=== PATIENT | female | born 1950 | race Caucasian/White ===

== ENCOUNTER 2020-02-24 12:06 | Emergency (ER) | payer MEDICARE, MEDICAID ==
[~2020-02-24] VITALS: Ht 157 cm; Wt 54.1 kg
--- NOTE | 2020-02-24 12:53 | Diagnostic Imaging Report ---
INDICATION: Shortness of breath. FINDINGS: Heart size is normal. There is air trapping compatible with COPD. There is right basilar infiltrate. No pleural effusion or pneumothorax. Mediastinum is unremarkable IMPRESSION: 1. Right basilar infiltrate suspect for pneumonia. 2. COPD. Dictated by: Dictated on workstation # [id number]
--- NOTE | 2020-02-24 13:16 | ED Cough/URI ---
General Chief Complaint: Respiratory Problems Stated Complaint: SOA Nursing Triage Note: Has had 3 days of increasing shortness of breath and coughing up dark colored sputum. Has hx of copd. Denies fever. Wears oxygen daily. Sepsis Screen: Possible Sepsis Risk Source: patient History of Present Illness Date Seen by Provider: Feb 24, 2020 Time Seen by Provider: 13:16 Initial Comments 69-year-old female presenting with cough and increasing shortness of breath over the last 3-4 days. She does have a history of COPD and wears oxygen chronically. She denies any fever or chills. She has had increased shortness of breath with exertion. She denies any ill contacts and states that she stays at home primarily. She states that mostly what she coughs up has been clear but there has been some color in the last 24 hours. She denies any hemoptysis. She has no nausea or vomiting. She has no medicines that she has run out of. Allergies and Home Medications Allergies Coded Allergies: No Allergy Information Available (Unverified , 08/14/15) Home Medications Azithromycin 500 Mg Tablet, 500 MG PO DAILY Prescribed by: DAMON NORIEGA on 02/24/20 1344 Patient Home Medication List Home Medication List Reviewed: Yes Review of Systems Review of Systems Constitutional: No chills, No fever; malaise EENTM: No epistaxis, No nose congestion Respiratory: see HPI Cardiovascular: no symptoms reported Gastrointestinal: no symptoms reported Genitourinary: no symptoms reported Musculoskeletal: no symptoms reported Skin: No rash Psychiatric/Neurological: No Symptoms Reported Past [place]-Eawxkz-Knhitb Hx Past Med/Social Hx: Reviewed Nursing Past Med/Soc Hx Patient Social History Alcohol Use: Denies Use Recreational Drug Use: No Smoking Status: Current Everyday Smoker Type Used: Cigarettes 2nd Hand Smoke Exposure: Yes Recent Foreign Travel: No Contact w/Someone Who Travel: No Recent Infectious Disease Expo: No Recent Hopitalizations: No Physical Abuse: No Sexual Abuse: No Mistreated: No Fear: No Seasonal Allergies Seasonal Allergies: No Past Medical History Surgeries: Yes Coronary Stent Respiratory: Yes COPD Cardiac: Yes Hypertension Neurological: No Genitourinary: No Gastrointestinal: No Musculoskeletal: No Endocrine: No HEENT: No Cancer: No Psychosocial: Yes Anxiety Integumentary: No Physical Exam Vital Signs - First Documented 02/24/20 12:20 Temp 36.5 Pulse 107 Resp 24 B/P (MAP) 138/86 (103) Pulse Ox 99 O2 Flow Rate 3.00 Capillary Refill : Less Than 3 Seconds Height: '" Weight: lbs. oz. kg; 21.00 BMI Method: General Appearance: mild distress, thin, other (appears chronically ill) HEENT: No pharyngeal erythema, No tonsillar exudate; other (slightly dry mucous membranes) Neck: non-tender, full range of motion, supple, lymphadenopathy (R), lymphadenopathy (L) Respiratory: chest non-tender, decreased breath sounds; No crackles, No rales, No rhonchi, No stridor; wheezing (diffuse inspiratory and expiratory wheezing) Cardiovascular: normal peripheral pulses, regular rate, rhythm Gastrointestinal: normal bowel sounds, soft, no pulsatile mass Extremities: normal range of motion, normal capillary refill Neurologic/Psychiatric: alert, oriented x 3 Skin: normal color, warm/dry; No rash Progress/Results/Core Measures Suspected Sepsis Recent Fever Within 48 Hours: No Infection Criteria Present: Suspected New Infection New/Unexplained Altered Menta: No Sepsis Screen: Possible Sepsis Risk SIRS Temperature: Pulse: 107 Respiratory Rate: 24 Blood Pressure 138 /86 Mean: 103 Results/Orders My Orders Orders - DAMON NORIEGA MD Chest 1 View Ap/Pa Only (02/24/20 12:30) Ekg Tracing (02/24/20 12:52) Ceftriaxone For Im Use (Rocephin For Im (02/24/20 13:38) Dexamethasone Injection (Decadron Inje (02/24/20 13:38) Methylprednisolone Acetate Inj (Depo-Med (02/24/20 13:38) Azithromycin Tablet (Zithromax Tablet) (02/24/20 13:38) Lidocaine 1% Inj 20 Ml (Xylocaine 1% Inj (02/24/20 13:45) Medications Given in ED Current Medications Medications Dose Ordered Sig/Neetu Route Start Time Stop Time Status Last Admin Dose Admin Lidocaine HCl 2.1 ml ONCE ONCE INJ 02/24/20 13:45 02/24/20 13:46 DC 02/24/20 14:08 2.1 ML Vital Signs/I&O 02/24/20 02/24/20 12:20 14:21 Temp 36.5 Pulse 107 81 Resp 24 20 B/P (MAP) 138/86 (103) 133/58 Pulse Ox 99 99 O2 Flow Rate 3.00 Capillary Refill : Less Than 3 Seconds Blood Pressure Mean: 103 Progress Note : Progress Note obtain x-ray and electrocardiogram. The electrocardiogram does not show any acute significant abnormality. Her chest x-ray does show a right lower lobe infiltrate. When reviewing results with the patient she states that she has taken steroids in addition to Zithromax in the past. Since she is saturating 100% with her oxygen at 3 L from home will start her on antibiotics including a Rocephin IM shot and steroids with IM injections. Counseled to follow-up through the clinic for continued concerns or if not improving. Advised to use a humidifier at the bedside and Mucinex to help break up her congestion. ECG Initial ECG Impression Date: Feb 24, 2020 Initial ECG Impression Time: 12:34 Initial ECG Rate: 78 Initial ECG Rhythm: Normal Sinus Initial ECG Comparisson: No Previous ECG Available Comment normal sinus rhythm with heart rate is 78 bpm. CO interval [address] elevation. She does have premature ventricular complexes. Her QT interval is 390 ms with a QTc interval of 445 ms. There is no prior tracing available for comparison. Diagnostic Imaging Diagonstic Imaging: Xray Plain Films/CT/US/NM/MRI: chest Comments [facility] [place], [place] NAME: MARLA CRAMER [facility] REC#: [id number] PT STATUS: REG ER : 1950 PHYSICIAN: DAMON NORIEGA MD ADMIT DATE: 02/24/20/ER FS Signed Date of Exam:02/24/20 CHEST 1 VIEW AP/PA ONLY INDICATION: Shortness of breath. FINDINGS: Heart size is normal. There is air trapping compatible with COPD. There is right basilar infiltrate. No pleural effusion or pneumothorax. Mediastinum is unremarkable IMPRESSION: 1. Right basilar infiltrate suspect for pneumonia. 2. COPD. Dictated by: Dictated on workstation # [id number] Dict: 02/24/20 1243 Trans: 02/24/20 1313 [facility] [id number] Interpreted by: HERMES ONEILL MD Electronically signed by: HERMES ONEILL MD 02/24/20 1313 Departure Impression Primary Impression: Right lower lobe pneumonia Qualified Codes: J18.9 - Pneumonia, unspecified organism Additional Impression: COPD (chronic obstructive pulmonary disease) Qualified Codes: J44.0 - Chronic obstructive pulmonary disease with (acute) lower respiratory infection Disposition: 01 HOME, SELF-CARE Condition: Stable Departure-Patient Inst. Decision time for Depature: 13:41 Referrals: KEELY SHARIF MD (PCP/Family) Primary Care Physician Patient Instructions: Pneumonia, Adult (DC), Exacerbation of COPD (DC) Add. Discharge Instructions: Take the full course of antibiotics to treat for pneumonia. Use plain Mucinex to help loosen cough and improve your coughing up congestion. Follow up with Dr. Sharif in the clinic for continued symptoms or if not improving from the steroids and antibiotics from today. You may need to have other medicine or be hospitalized if you are not improving after 2-3 days of treatment All discharge instructions reviewed with patient and/or family. Voiced understanding. Scripts Azithromycin (Azithromycin) 500 Mg Tablet 500 MG PO DAILY for Pneumonia for 5 Days, #5 TAB 0 Refills Prov: DAMON NORIEGA MD 02/24/20 DAMON NORIEGA MD Feb 24, 2020 13:16
[2020-02-24] MEDS ORDERED: AZITHROMYCIN 250 MG TAB (ZITHROMAX) PO STA (13:38)
[2020-02-24] MEDS ORDERED: cefTRIAXone 1,000 MG/2.86 ml vial (IM ONLY) IM STA (13:38)
[2020-02-24] MEDS ORDERED: methylPREDNISolone 80 MG/ML (DEPO MEDROL) VIAL IM STA (13:38)
[2020-02-24] MEDS ORDERED: AZIT500T9 PO (13:44)
[2020-02-24] MEDS ORDERED: LIDOCAINE 1% INJ 20 ML 20 ML VIAL INJ ONE (13:45)
--- NOTE | 2020-02-24 14:04 | NUR ---
Updated [facility] and patient's mother, Ashley, on patient condition and admission to room 511 at [facility].
[2020-02-24 14:21] VITALS: BP 133/58
== END 2020-02-24 14:21 | disposition home or self-care (01) ==
LOC: EDUNIT# 12:06 → ER FS 12:07
DX: J18.1 Lobar pneumonia, unspecified organism (principal); J44.9 Chronic obstructive pulmonary disease, unspecified; F17.210 Nicotine dependence, cigarettes, uncomplicated; Z95.5 Presence of coronary angioplasty implant and graft
CPT/HCPCS: 71045; 93005

== ENCOUNTER → 2022-04-13 | Outpatient (CLI) | payer MEDICARE, MEDICAID ==
[~2022-04-13] MED LIST: AZIT500T9 PO
== END ==
LOC: CARDFS 12:43
PROVIDERS: ATTEND Internal Medicine Cardiovascular Disease
DX: I25.10 Atherosclerotic heart disease of native coronary artery without angina pectoris (principal)
CPT/HCPCS: 93306

== ENCOUNTER 2022-05-23 09:58 | Inpatient (IN) | payer MEDICARE, MEDICAID ==
[~2022-05-23] VITALS: Ht 157.5 cm; Wt 47.5 kg
[2022-05-23] MEDS ORDERED: methylPREDNISolone 125 MG (Solu-MEDROL) VIAL IVP STA (10:09)
[2022-05-23 10:14] LABS: BASOPHILS # (AUTO) 0.1 10^3/uL (0.0-0.1); BASOPHILS % (AUTO) 0 % (0-10); EOSINOPHILS % (AUTO) 0 % (0-10); HEMATOCRIT 42 % (35-52); HEMOGLOBIN 13.7 g/dL (11.5-16.0); LYMPHOCYTES % (AUTO) 7 % (12-44); MEAN CORPUSCULAR HEMOGLOBIN 27 pg (25-34); MEAN CORPUSCULAR HGB CONC 33 g/dL (32-36); MEAN CORPUSCULAR VOLUME 82 fL (80-99); MEAN PLATELET VOLUME 8.8 fL (9.0-12.2); MONOCYTES # (AUTO) 1.6 10^3/uL (0.0-1.0); MONOCYTES % (AUTO) 12 % (0-12); NEUTROPHILS % (AUTO) 80 % (42-75); PLATELET COUNT 282 10^3/uL (130-400); WHITE BLOOD COUNT 13.8 10^3/uL (4.3-11.0)
[2022-05-23] MEDS ORDERED: RT-ALBUTEROL/IPRATROPIUM 3 ML (DUONEB) VIAL INH ONE (10:15)
--- NOTE | 2022-05-23 10:17 | ED Dyspnea ---
General Chief Complaint: Respiratory Problems Stated Complaint: SOB, COPD Source of Information: Patient History of Present Illness Date Seen by Provider: May 23, 2022 Time Seen by Provider: 10:00 Initial Comments 72-year-old female presenting with increased shortness of breath since Tuesday. She denies having fever or chills. She has been coughing more and bringing up some thick white sputum. With the increased coughing she has rib pain and back pain. She denies any ill contacts. She has a history of COPD, coronary artery disease, noncompliance. She continues to smoke cigarettes. She has supplemental oxygen she wears all the time and is at 2 L/min. She states that she increased it to 3 L/min today because she was more short of breath. She presents today because she states that she cannot take it anymore. She wants her breathing to go back to normal. Timing/Duration: Increasing (over the last 3 days) Severity: Severe Activities at Onset: Activity Prior Episodes/Possible Cause: Chronic Episodes, Frequent Episodes Modifying Factors: Worse With Activity Associated Symptoms: Anxiety, Chest Pain (rib and back pain with increased cough and shortness of breath), Cough, Weakness, Wheezing Allergies and Home Medications Allergies Coded Allergies: No Known Drug Allergies (Unverified , 05/23/22) Patient Home Medication List Home Medication List Reviewed: Yes Azithromycin (Azithromycin) 500 Mg Tablet, 500 MG PO DAILY Prescribed by: DAMON NORIEGA on 02/24/20 1344 Review of Systems Review of Systems Constitutional: No chills, No fever; malaise EENTM: no symptoms reported Respiratory: see HPI, cough, dyspnea on exertion; No hemoptysis; phlegm (coug landry up thick white mucus), short of breath; No stridor; wheezing Cardiovascular: see HPI Gastrointestinal: no symptoms reported Genitourinary: no symptoms reported Musculoskeletal: back pain (upper back and rib pain with increased cough) Skin: no symptoms reported Psychiatric/Neurological: Anxiety Past Lntwixi-Yjkkjd-Hpxajv Hx Patient Social History Tobacco Use?: Yes Tobacco type used: Cigarettes Smoking Status: Current Everyday Smoker Seasonal Allergies Seasonal Allergies: No Past Medical History Surgery/Hospitalization HX: COPD, CAD, Tobacco abuse Surgeries: Yes Coronary Stent Respiratory: Yes COPD Cardiac: Yes Hypertension Neurological: No Genitourinary: No Gastrointestinal: No Musculoskeletal: No Endocrine: No HEENT: No Cancer: No Psychosocial: Yes Anxiety Integumentary: No Physical Exam Vital Signs Vital Signs - First Documented 05/23/22 10:23 Temp 37.0 Pulse 71 Resp 34 B/P (MAP) 150/77 (101) Capillary Refill : Height, Weight, BMI Height: '" Weight: lbs. oz. kg; 21.00 BMI Method: General Appearance: Anxious, Chronically ill HEENT: PERRL/EOMI, Pharynx Normal, Moist Mucous Membranes Neck: Full Range of Motion, Normal Inspection, Non Tender, Supple Respiratory: Chest Non Tender, Accessory Muscle Use, Decreased Breath Sounds, Respiratory Distress, Wheezing Cardiovascular: Regular Rate, Rhythm, Normal Peripheral Pulses Gastrointestinal: Normal Bowel Sounds, No Pulsatile Mass, Non Tender, Soft Neurologic/Psychiatric: Alert, Oriented x3 Skin: Normal Color, Warm/Dry Focused Exam Lactate Level 05/23/22 10:00: Lactic Acid Level 1.57 Lactic Acid Level Laboratory Tests Test 05/23/22 10:00 Lactic Acid Level 1.57 MMOL/L (0.50-2.00) Progress/Results/Core Measures Results/Orders Lab Results Laboratory Tests Test 05/23/22 10:00 05/23/22 11:40 Range/Units White Blood Count 13.8 H 4.3-11.0 10^3/uL Red Blood Count 5.14 H 3.80-5.11 10^6/uL Hemoglobin 13.7 11.5-16.0 g/dL Hematocrit 42 35-52 % Mean Corpuscular Volume 82 80-99 fL Mean Corpuscular Hemoglobin 27 25-34 pg Mean Corpuscular Hemoglobin Concent 33 32-36 g/dL Red Cell Distribution Width 16.9 H 10.0-14.5 % Platelet Count 282 130-400 10^3/uL Mean Platelet Volume 8.8 L 9.0-12.2 fL Immature Granulocyte % (Auto) 0 % Neutrophils (%) (Auto) 80 H 42-75 % Lymphocytes (%) (Auto) 7 L 12-44 % Monocytes (%) (Auto) 12 0-12 % Eosinophils (%) (Auto) 0 0-10 % Basophils (%) (Auto) 0 0-10 % Neutrophils # (Auto) 11.0 H 1.8-7.8 10^3/uL Lymphocytes # (Auto) 1.0 1.0-4.0 10^3/uL Monocytes # (Auto) 1.6 H 0.0-1.0 10^3/uL Eosinophils # (Auto) 0.0 0.0-0.3 10^3/uL Basophils # (Auto) 0.1 0.0-0.1 10^3/uL Immature Granulocyte # (Auto) 0.1 0.0-0.1 10^3/uL Neutrophils % (Manual) 86 % Lymphocytes % (Manual) 6 % Monocytes % (Manual) 8 % Sodium Level 131 L 135-145 MMOL/L Potassium Level 5.1 H 3.6-5.0 MMOL/L Chloride Level 94 L 98-107 MMOL/L Carbon Dioxide Level 23 21-32 MMOL/L Anion Gap 14 5-14 MMOL/L Blood Urea Nitrogen 18 7-18 MG/DL Creatinine 0.99 0.60-1.30 MG/DL Estimat Glomerular Filtration Rate 61 BUN/Creatinine Ratio 18 Glucose Level 101 70-105 MG/DL Lactic Acid Level 1.57 0.50-2.00 MMOL/L Calcium Level 10.1 8.5-10.1 MG/DL Corrected Calcium 9.9 8.5-10.1 MG/DL Total Bilirubin 0.6 0.1-1.0 MG/DL Aspartate Amino Transf (AST/SGOT) 16 5-34 U/L Alanine Aminotransferase (ALT/SGPT) 8 0-55 U/L Alkaline Phosphatase 123 40-136 U/L C-Reactive Protein 5.30 H <0.50 MG/DL Total Protein 8.5 H 6.4-8.2 GM/DL Albumin 4.2 3.2-4.5 GM/DL Influenza Type A (RT-PCR) Not Detected Not Detecte Influenza Type B (RT-PCR) Not Detected Not Detecte SARS-CoV-2 RNA (RT-PCR) Not Detected Not Detecte My Orders Orders - DAMON NORIEGA MD Cbc With Automated Diff (05/23/22 10:09) Comprehensive Metabolic Panel (05/23/22 10:09) Blood Culture (05/23/22 10:09) Chest 1 View Ap/Pa Only (05/23/22 10:09) Albuterol/Ipra Inhalation Soln (Duoneb I (05/23/22 10:15) Ekg Tracing (05/23/22 10:09) O2 (05/23/22 10:09) Ed Iv/Invasive Line Start (05/23/22 10:09) Sputum Culture (05/23/22 10:09) Monitor-Rhythm Ecg Trace Only (05/23/22 10:09) Crp Fs (05/23/22 10:09) Lactic Acid Analyzer (05/23/22 10:09) Svn Small Volume Nebulizer (05/23/22 10:09) Methylprednisolone Sod Succ (Solu-Medrol (05/23/22 10:09) Manual Differential (05/23/22 10:00) Covid 19 Inhouse Test (05/23/22 11:33) Influenza A And B By Pcr (05/23/22 11:33) Isolation Central Supply Req (05/23/22 11:33) Cefepime Injection (Maxipime Injection) (05/23/22 11:34) Azithromycin Injection (Zithromax Inject (05/23/22 11:34) Ed Admission (Communication) (05/23/22 11:34) Medications Given in ED Current Medications Medications Dose Ordered Sig/Neetu Route Start Time Stop Time Status Last Admin Dose Admin Albuterol/ Ipratropium 3 ml ONCE ONCE INH 05/23/22 10:15 05/23/22 10:16 DC 05/23/22 10:31 3 ML Vital Signs/I&O 05/23/22 05/23/22 05/23/22 05/23/22 10:00 10:00 10:23 12:42 Temp 37.0 Pulse 71 76 Resp 34 22 B/P (MAP) 150/77 (101) 124/66 Pulse Ox 96 96 96 O2 Delivery Nasal Cannula Nasal Cannula Nasal Cannula Nasal Cannula O2 Flow Rate 2.00 2.00 2.00 2.00 Progress Progress Note #1: Progress Note Potential diagnosis of COPD exacerbation, pneumonia, COVID, influenza. Obtain peripheral IV access and ordered Solu-Medrol 125 mg IV to help with her breathing. DuoNeb breathing treatment nebulized to help with her shortness of breath. Continue on the 2 L of oxygen by nasal cannula. Send labs for complete blood count, comprehensive metabolic profile, blood cultures, lactic acid. Order chest x-ray to evaluate for pneumonia. Electrocardiogram to look for any acute cardiac arrhythmia or ischemia. Cardiac telemetry monitoring shows sinus rhythm without ectopy or ST elevation. Progress Note #2: Progress Note On my personal interpretation of her 1 view chest x-ray she had findings for right lower lobe infiltrate. Her electrocardiogram appeared similar to tracing from February 24, 2020. She had no acute ST elevation. Her labs were showing elevated white blood cell count to 13.8 with a left shift of 86% neutrophils. She was not anemic with a hemoglobin of 13.7. Her lactic acid was not elevated at 1.57. She did have an elevated CRP of 5.3. She reports mild improvement in her breathing after the nebulizer treatment and the steroid. Will plan on ordering Rocephin 1 gm IV with Azithromycin 500 mg IV for her pneumonia and check with Dr. Chacon, industrial relations commissioner for [facility] and Dr. Sharif, and discuss possible admit with her COPD exacerbation and infiltrate on Chest xray. Progress Note #3: Time: 11:30 Progress Note Discussed with Dr. Chacon, the hospitalist on-call for [facility]. Reviewed the patient's presentation and vital signs as well as her labs and chest x-ray. With her having an elevated white blood cell count and left shift for infection as well as she has signs of infiltrate on the chest x-ray concerned that pneumon ia along with COPD exacerbation would warrant a admission to the hospital for IV antibiotics and IV steroids. She recommended giving cefepime and Zithromax instead of Rocephin and Zithromax so I ordered this instead. She was given cefepime 1 g IV and Zithromax 500 mg IV x1. The swab for COVID and influenza was added on to ensure that neither of those was playing a role with her breathing. Progress Note #4: Progress Note Swab for influenza and COVID is negative. Initial ECG Impression Date: May 23, 2022 Initial ECG Impression Time: 10:10 Initial ECG Rate: 78 Initial ECG Rhythm: Normal Sinus Comment On my initial interpretation her electrocardiogram shows a normal sinus rhythm with occasional PVCs and a heart rate of 78 bpm. She has no acute ST elevation. QT interval 354 ms with a QTc interval 388 ms. VT interval 135 ms. Diagnostic Imaging Diagonstic Imaging: Xray Plain Films/CT/US/NM/MRI: chest Comments Impression of 1 view chest x-ray: Increased perihilar infiltrates, interval reexpansion of the prior consolidated right middle lobe. Severe underlying COPD chronic. There is no failure or pleural pathology. Read by Dr. Demarco Gutierrez at 10:23 AM and transcribed at 10:30 AM. Copy of report obtained at [id number]. Reviewed: Reviewed by Me Departure Communication (Admissions) Time/Spoke to Admitting Phy: 11:[address] Chacon, the hospitalist on-call for [facility]. Reviewed the patient's presentation and vital signs as well as her labs and chest x-ray. With her having an elevated white blood cell count and left shift for infection as well as she has signs of infiltrate on the chest x-ray concerned that pneumonia along with COPD exacerbation would warrant a admission to the hospital for IV antibiotics and IV steroids. She recommended giving cefepime and Zithromax instead of Rocephin and Zithromax so I ordered this instead. She was given cefepime 1 g IV and Zithromax 500 mg IV x1. The swab for COVID and influenza was added on to ensure that neither of those was playing a role with her breathing. Impression Primary Impression: Right lower lobe pneumonia Qualified Codes: J18.9 - Pneumonia, unspecified organism Additional Impression: COPD with exacerbation Disposition: 30 STILL A PATIENT Condition: Stable Admissions Decision to Admit Reason: Admit from ER (General) Decision to Admit/Date: May 23, 2022 Time/Decision to Admit Time: 11:30 Departure-Patient Inst. Referrals: KEELY SHARIF MD (PCP/Family) Primary Care Physician DAMON NORIEGA MD May 23, 2022 10:17
[2022-05-23 10:34] LABS: ALBUMIN 4.2 GM/DL (3.2-4.5); BILIRUBIN,TOTAL 0.6 MG/DL (0.1-1.0); CALCIUM 10.1 MG/DL (8.5-10.1); CREATININE SERUM 0.99 MG/DL (0.60-1.30); POTASSIUM 5.1 MMOL/L (3.6-5.0); TOTAL PROTEIN 8.5 GM/DL (6.4-8.2)
[2022-05-23 10:38] LABS: LYMPHOCYTES % (MANUAL) 6 %; MONOCYTES % (MANUAL) 8 %; NEUTROPHILS % (MANUAL) 86 %
[2022-05-23] MEDS ORDERED: AZITHROMYCIN INJECTION 500 MG in NS (IVPB) 250 ML IV STA (11:34)
[2022-05-23] MEDS ORDERED: CEFEPIME INJECTION 1,000 MG in NS (IVPB) 50 ML IV STA (11:34)
[2022-05-23] MEDS ORDERED: HYDROmorphone 2 MG/ML VIAL (DILAUDID) IV PRN (13:15)
[2022-05-23] MEDS ORDERED: BISACODYL 10 MG SUPP (DULCOLAX) PR PRN (13:15)
[2022-05-23] MEDS ORDERED: ONDANSETRON 4 MG/2 ML (SDV) Z0FRAN IV PRN (13:15)
[2022-05-23] MEDS ORDERED: ANTACID SUSP 30 ML UDC (MYLANTA) PO PRN (13:15)
[2022-05-23] MEDS ORDERED: diphenhydrAMINE 25 MG TAB (BENADRYL) PO PRN (13:15)
[2022-05-23] MEDS ORDERED: ACETAMINOPHEN 325 MG TABLET PO PRN (13:15)
[2022-05-23] MEDS ORDERED: diphenhydrAMINE 50 MG/ML INJ (BENADRYL) IVP PRN (13:15)
[2022-05-23] MEDS ORDERED: polyethylene glycoL POWDER 17 GM (MIRALAX) PACK PO PRN (13:15)
[2022-05-23] MEDS ORDERED: ALPRAZolam 0.5 MG (XANAX) TAB PO PRN (13:15)
[2022-05-23] MEDS ORDERED: cloNIDine 0.1 MG (CATAPRES) TAB PO PRN (13:15)
[2022-05-23] MEDS ORDERED: ONDANSETRON 4 MG (ZOFRAN) ORAL DISSOLVE TAB PO PRN (13:15)
[2022-05-23] MEDS ORDERED: MELATONIN 3 MG TABLET PO PRN (13:15)
[2022-05-23] MEDS ORDERED: guaiFENesin/CODEINE (ROBITUSSIN AC) 10ML UDC PO PRN (13:30)
[2022-05-23] MEDS ORDERED: PATIENT MAY USE OWN MED,SINGLE MED PO SCH (13:30)
[2022-05-23] MEDS: NS IV 1000 ML 1,000 ML IV SCH (13:54)
[2022-05-23 14:48] VITALS: BP 132/60
[2022-05-23] MEDS: ENOXAPARIN 40 MG/0.4 ML (LOVENOX) SYR SC SCH (15:24)
[2022-05-23 15:56] VITALS: BP 134/62
[2022-05-23 15:57] VITALS: BP 132/60
[2022-05-23] MEDS: inSUlin ASPART (NovoLOG) 1 UNIT/0.01 ML (CHARGE PER UNIT) SC SCH ×2 (16:33→20:31)
[2022-05-23] MEDS: ASPIRIN 81 MG CHEW (CHILDREN'S ASA) PO SCH (16:33)
[2022-05-23] MEDS: methylPREDNISolone 40 MG/ML (Solu-MEDROL) VIAL IV SCH (17:08)
[2022-05-23] MEDS: RT-IPRATROPIUM (ATROVENT) 0.5MG/2.5ML AMP IH SCH ×2 (18:56→21:49)
[2022-05-23] MEDS: RT-ALBUTEROL SULF 2.5 MG/3 ML PRE-MIX VIAL INH SCH ×2 (18:56→21:50)
[2022-05-23] MEDS: SYMBICORT 160/4.5 INHALER PO SCH (19:00)
[2022-05-23 19:42] VITALS: BP 155/63
[2022-05-23] MEDS: MONTELUKAST 10 MG (SINGULAIR) TAB PO SCH (20:30)
[2022-05-23] MEDS: DOCUSATE SODIUM 100 MG (COLACE) CAP PO SCH (20:30)
[2022-05-23] MEDS: CEFEPIME 1,000 MG/NS 50 ML IVPB IV SCH ×2 (20:30)
[2022-05-23] MEDS ORDERED: CEFEPIME INJECTION 2,000 MG in NS (IVPB) 50 ML IV SCH (21:00)
[2022-05-23 23:56] VITALS: BP 150/73
[2022-05-24] MEDS: methylPREDNISolone 40 MG/ML (Solu-MEDROL) VIAL IV SCH ×4 (00:17→20:30)
[2022-05-24] MEDS: NS IV 1000 ML 1,000 ML IV SCH ×2 (02:24→15:56)
[2022-05-24 04:00] VITALS: BP 129/60
[2022-05-24] MEDS: CEFEPIME 1,000 MG/NS 50 ML IVPB IV SCH ×6 (04:24→20:30)
[2022-05-24] MEDS: inSUlin ASPART (NovoLOG) 1 UNIT/0.01 ML (CHARGE PER UNIT) SC SCH ×4 (05:41→21:20)
--- NOTE | 2022-05-24 06:28 | History & Physical-Hospitalist ---
History of Present Illness HPI/Chief Complaint Late entry, patient was seen and examined at 1300 on 05/23/22 CC: Acute on chronic respiratory failure HPI: This is a 72[facility]WF clinic patient of [facility] who has a h/o O2 dependent COPD who continues to smoke who presented to the ER with dyspnea and was admitted for AECOPD. Nebs were ordered along with IV steroids. Home BP meds will be restarted once confirmed. No pain reported. Reviewed meds and labs. Source: patient Exam Limitations: no limitations Date Seen 05/23/22 Time Seen by a Provider: 13:00 Attending Physician Salomon Romero MD PCP Admitting Physician: Sylvia Chacon DO Attending Physician: Sylvia Chacon DO Referring Physician Date of Admission May 23, 2022 at 13:05 Home Medications & Allergies Home Medications Reviewed patient Home Medication Reconciliation performed by pharmacy medication reconciliations electrical service technician and/or nursing. Patients Allergies have been reviewed. Allergies Allergies Coded Allergies No Known Drug Allergies (Unverified05/23/22) Past Fdhdgly-Bssehk-Cnlson Hx Patient Social History Marrital Status: single Employed/Student: retired Tobacco Use?: Yes Tobacco type used: Cigarettes Smoking Status: Current Everyday Smoker Use of E-Cig and/or Vaping dev: No Substance use?: No Alcohol Use?: No Pt feels they are or have been: No Immunizations Up To Date Tetanus Booster (TDap): More Than 5 Years Hepatitis A: No Hepatitis B: No Seasonal Allergies Seasonal Allergies: No Current Status status: No Advance Directives: No Communicates: Verbally Primary Language: Romanian Preferred Spoken Language: Romanian Is interpretation needed?: No Sensory deficits: Vision impairment Implanted or Applied Medical D: None Past Medical History Surgeries: Coronary Stent COPD Hypertension Anxiety Review of Systems Constitutional: see HPI, malaise, weakness Respiratory: cough, dyspnea on exertion Physical Exam Physical Exam Vital Signs Vital Signs - First Documented 05/23/22 05/23/22 10:23 15:57 Temp 37.0 Pulse 71 Resp 34 B/P (MAP) 150/77 (101) FiO2 28 Capillary Refill : Less Than 3 Seconds Height, Weight, BMI Height: '" Weight: lbs. oz. kg; 19.14 BMI Method: General Appearance: No Apparent Distress, Chronically ill, Thin Respiratory: No Accessory Muscle Use, No Respiratory Distress, Crackles, Decreased Breath Sounds, Wheezing Cardiovascular: Regular Rate, Rhythm Neurologic/Psychiatric: Alert, Oriented x3, No Motor/Sensory Deficits, Normal Mood/Affect Results Results/Procedures Labs Laboratory Tests 05/23/22 10:00 Patient resulted labs reviewed. Assessment/Plan Admission Diagnosis Assessment: Acute on chronic respiratory failure AECOPD Smoker HTN Plan: IV steroids Home meds Nebs O2 Admission Status: Inpatient Order (span 2 midnights) Reason for Inpatient Admission: resp failure SYLVIA CHACON DO May 24, 2022 06:28
[2022-05-24 06:32] LABS: BASOPHILS % (AUTO) 0 % (0-10); EOSINOPHILS % (AUTO) 0 % (0-10); HEMATOCRIT 38 % (35-52); HEMOGLOBIN 12.4 g/dL (11.5-16.0); LYMPHOCYTES # (AUTO) 0.6 10^3/uL (1.0-4.0); LYMPHOCYTES % (AUTO) 6 % (12-44); MEAN CORPUSCULAR HEMOGLOBIN 27 pg (25-34); MEAN CORPUSCULAR HGB CONC 33 g/dL (32-36); MEAN CORPUSCULAR VOLUME 82 fL (80-99); MEAN PLATELET VOLUME 9.1 fL (9.0-12.2); MONOCYTES # (AUTO) 0.2 10^3/uL (0.0-1.0); MONOCYTES % (AUTO) 1 % (0-12); NEUTROPHILS % (AUTO) 92 % (42-75); PLATELET COUNT 250 10^3/uL (130-400); WHITE BLOOD COUNT 10.9 10^3/uL (4.3-11.0)
[2022-05-24 06:59] LABS: ALBUMIN 3.8 GM/DL (3.2-4.5); POTASSIUM 4.7 MMOL/L (3.6-5.0)
[2022-05-24 07:01] LABS: CALCIUM 8.9 MG/DL (8.5-10.1)
[2022-05-24 07:02] LABS: TOTAL PROTEIN 7.8 GM/DL (6.4-8.2)
[2022-05-24 07:04] LABS: BILIRUBIN,TOTAL 0.5 MG/DL (0.1-1.0)
[2022-05-24 07:05] LABS: CREATININE SERUM 1.09 MG/DL (0.60-1.30)
[2022-05-24] MEDS: RT-IPRATROPIUM (ATROVENT) 0.5MG/2.5ML AMP IH SCH ×5 (07:27→21:29)
[2022-05-24] MEDS: RT-ALBUTEROL SULF 2.5 MG/3 ML PRE-MIX VIAL INH SCH ×5 (07:27→21:30)
[2022-05-24] MEDS: SYMBICORT 160/4.5 INHALER PO SCH ×2 (08:15→21:34)
[2022-05-24 08:27] VITALS: BP 143/67
[2022-05-24] MEDS: DOCUSATE SODIUM 100 MG (COLACE) CAP PO SCH ×2 (08:29→20:24)
[2022-05-24] MEDS: AZITHROMYCIN 250 MG TAB (ZITHROMAX) PO SCH (08:30)
--- NOTE | 2022-05-24 09:47 | Physical Therapy Evaluation ---
PT Evaluation-General Medical Diagnosis Admission Date May 23, 2022 at 13:05 Medical Diagnosis: COPD exacerbation Onset Date: May 23, 2022 Therapy Diagnosis Therapy Diagnosis: decreased pulmonary function Precautions Precautions/Isolations: Standard Precautions Referral Physician: Ines Reason for Referral: Evaluation/Treatment Medical History Pertinent Medical History: CAD, COPD, Smoking Additional Medical History noncompliance Current History ER secondary to cough and SOA Reviewed History: Yes Social History Home: Single Level Current Living Status: Friend Entry Into Home: Level Entry Prior Prior Level of Function SCALE: Activities may be completed with or without assistive devices. 0-Wmkhzpqdmi-nawcrzi completes the activity by him/herself with no assistance from a helper. 5-Set-up or Clean-up Assistance-helper sets up or cleans up; patient completes activity. [place] assists only prior to or following the activity. 4-Supervision or Touching Assistance-helper provides verbal cues and/or touching/steadying and/or contact guard assistance as patient completes activity. Assistance may be provided throughout the activity or intermittently. 3-Partial/Moderate Assistance-helper does LESS THAN HALF the effort. [place] lifts, holds or supports trunk or limbs, but provides less than half the effort. 2-Substantial/Maximal Assistance-helper does MORE THAN HALF the effort. [place] lifts or holds trunk or limbs and provides more than half the effort. 1-Eicfpijsw-gdxczd does ALL the effort. Patient does none of the effort to complete the activity. Or, the assistance of 2 or more helpers is required for the patient to complete the activity. If activity was not attempted, code reason: 7-Patient Refused. 9-Not Applicable-not attempted and the patient did not perform the activity before the current illness, exacerbation or injury. 10-Not Attempted due to Environmental Limitations-(lack of equipment, weather restraints, etc.). 88-Not Attempted due to Medical Conditions or Safety Concerns. Bed Mobility: 6 Transfers (B,C,W/C): 6 Gait: 6 Stairs: 6 Indoor Mobility (Ambulation): Independent Stairs: Independent Prior Devices Use: None PT Evaluation-Current Subjective Patient agrees to PT. She reports she ambulates short distances only due to SOA with minimal activity PLOF. Objective Patient Orientation: Normal For Age Attachments: Oxygen ROM/Strength ROM Lower Extremities bilateral LE WFL Strength Lower Extremities 4/5 grossly bilateral LE all planes Integumentary/Posture Bowel Incontinence: No Bladder Incontinence: No Posture WFL Neuromuscular (Tone, Coordination, Reflexes) grossly intact Sensory Vision: Functional Hearing: Functional Transfers Sit to Lying (QC): 6 Lying to Sitting/Side of Bed(Q: 6 Sit to Stand (QC): 6 Gait Mode of Locomotion: Walk Anticipated Mode of Locomotion: Walk Walk 10 feet (QC): 6 Walk 50 ft with 2 Turns(QC): 6 Walk 150 ft (QC): 88 Distance: 50' in room Gait Assistive Device: None Comments/Gait Description safe and functional with no deviation Balance Sitting Static: Normal Sitting Dynamic: Normal Standing Static: Normal Standing Dynamic: Normal Assessment/Needs Patient ceased treatment due to SOA. Patient is currently at independent [facility] with all gross motor skills and does not require skilled PT intervention at this time. Rehab Potential: Guarded Post Rehab Potential-Barriers: noncompliance PT Plan Treatment/Plan Treatment Plan: Discontinue PT, goals met Treatment Duration: May 24, 2022 Frequency: 1 time per week Estimated Hrs Per Day: .25 hour per day Patient and/or Family Agrees t: Yes Time Time In: 850 Time Out: 900 DATE: May 24, 2022 Total Billed Treatment Time: 10 Total Billed Treatment 1 visit EVMod 10 min CAITLIN GILBERT PT May 24, 2022 09:47
--- NOTE | 2022-05-24 11:08 | Occupational Therapy Eval ---
OT Evaluation-General/PLF Medical Diagnosis Admission Date May 23, 2022 at 13:05 Medical Diagnosis: COPD exacerbation Onset Date: May 23, 2022 Therapy Diagnosis Therapy Diagnosis: weakness/SOA Precautions Precautions/Isolations: Standard Precautions Weight Bear Status Weight Bearing Restriction: Weight Bearing/Tolerated Referral Physician: Ines Referral Reason: Evaluation/Treatment Medical History Pertinent Medical History: CAD, COPD, Smoking Current History SOA w/ activity Reviewed History: Yes Social History Home: Single Level Current Living Status: Friend Entry Into Home: Level Entry ADL-Prior Level of Function SCALE: Activities may be completed with or without assistive devices. 9-Bucdxpqmif-ocdfeuy completes the activity by him/herself with no assistance from a helper. 5-Set-up or Clean-up Assistance-helper sets up or cleans up; patient completes activity. [place] assists only prior to or following the activity. 4-Supervision or Touching Assistance-helper provides verbal cues and/or touching/steadying and/or contact guard assistance as patient completes activity. Assistance may be provided throughout the activity or intermittently. 3-Partial/Moderate Assistance-helper does LESS THAN HALF the effort. [place] lifts, holds or supports trunk or limbs, but provides less than half the effort. 2-Substantial/Maximal Assistance-helper does MORE THAN HALF the effort. [place] lifts or holds trunk or limbs and provides more than half the effort. 1-Djhzauioq-dplxjd does ALL the effort. Patient does none of the effort to complete the activity. Or, the assistance of 2 or more helpers is required for the patient to complete the activity. If activity was not attempted, code reason: 7-Patient Refused. 9-Not Applicable-not attempted and the patient did not perform the activity before the current illness, exacerbation or injury. 10-Not Attempted due to Environmental Limitations-(lack of equipment, weather restraints, etc.). 88-Not Attempted due to Medical Conditions or Safety Concerns. Self Care: Independent Functional Cognition: Independent OT Current Status Subjective Up in bed agreeble to OT Mental Status/Objective Patient Orientation: Person, Place, Time, Situation Attachments: Oxygen Current Upper Extremity ROM BUE ROM/Strength WNLs ADL-Treatment Eating (QC): 6 Oral Hygiene (QC): 6 Shower/Bathe Self (QC): 7 (declined, patient reports she does fine) Upper Body Dressing (QC): 6 Lower Body Dressing (QC): 6 On/Off Footwear (QC): 7 Toileting Hygiene (QC): 6 Education OT Patient Education: Energy conservation, Progress toward Goal/Update tx plan, Purpose of tx/functional activities, Reviewed precautions, Rehab process, Safety issues, Transfer techniques Teaching Recipient: Patient Teaching Methods: Demonstration, Discussion Response to Teaching: Verbalize Understanding, Return Demonstration OT Fdc Goals Fdc Goals 1=Demonstrate adherence to instructed precautions during ADL tasks. 2=Patient will verbalize/demonstrate understanding of assistive devices/modifications for ADL. 3=Patient will improve strength/tolerance for activity to enable patient to perform ADL's. OT Education/Plan Problem List/Assessment Assessment: No Skilled OT Needs ID'd Discharge Recommendations Plan/Recommendations: Discontinue OT Treatment Plan/Plan of Care Patient would benefit from OT for education, treatment and training to promote independence in ADL's, mobility, safety and/or upper extremity function for ADL's. Plan of Care: OTHER (Evaluation only) Treatment Duration: May 24, 2022 Frequency: 1 time per week Estimated Hrs Per Day: .25 hour per day Agreement: Yes Rehab Potential: Guarded Time Start Time: 10:29 Stop Time: 10:40 DATE: May 24, 2022 Total Time Billed (hr/min): 11 Billed Treatment Time 1 visit WVL 1 11 min PREETI MULTANI OT May 24, 2022 11:08
[2022-05-24 12:17] VITALS: BP 138/63
[2022-05-24] MEDS: ENOXAPARIN 40 MG/0.4 ML (LOVENOX) SYR SC SCH (14:34)
--- NOTE | 2022-05-24 15:35 | Progress Note ---
Subjective Subjective/Events-last exam Pt states she feels slightly better, still very short of breath. Denies other concerns. Focused Exam Lactate Level 05/23/22 10:00: Lactic Acid Level 1.57 Objective Exam Last Set of Vital Signs Vital Signs Date Time Temp Pulse Resp B/P (MAP) Pulse Ox O2 Delivery O2 Flow Rate FiO2 05/24/22 12:37 88 05/24/22 12:17 36.9 18 138/63 (88) 92 Nasal Cannula 2.00 05/23/22 15:57 28 Capillary Refill : Less Than 3 Seconds I&O Intake and Output 05/24/22 00:00 Intake Total 790 ml Output Total 0 ml Balance 790 ml Intake Oral 740 ml IV Total 50 ml Output Urine Total 0 ml # Voids 1 # Bowel Movements 1 Daily Weight Change Yes, 2-13 lbs General: Alert, Mild Distress Lungs: Other (expiratory wheezing, increased work of breathing) Heart: Regular Rate Abdomen: Normal Bowel Sounds Extremities: No Edema Neuro: Normal Speech Psych/Mental Status: Mood NL Results/Procedures Lab Laboratory Tests 05/23/22 15:36: Glucometer 181H 05/23/22 20:19: Glucometer 208H 05/24/22 05:40: Glucometer 122H 05/24/22 06:19: White Blood Count 10.9, Red Blood Count 4.61, Hemoglobin 12.4, Hematocrit 38, Mean Corpuscular Volume 82, Mean Corpuscular Hemoglobin 27, Mean Corpuscular Hemoglobin Concent 33, Red Cell Distribution Width 16.7H, Platelet Count 250, Mean Platelet Volume 9.1, Immature Granulocyte % (Auto) 1, Neutrophils (%) (Auto) 92H, Lymphocytes (%) (Auto) 6L, Monocytes (%) (Auto) 1, Eosinophils (%) (Auto) 0, Basophils (%) (Auto) 0, Neutrophils # (Auto) 10.0H, Lymphocytes # (Auto) 0.6L, Monocytes # (Auto) 0.2, Eosinophils # (Auto) 0.0, Basophils # (Auto) 0.0, Immature Granulocyte # (Auto) 0.1, Sodium Level 135, Potassium Level 4.7, Chloride Level 106, Carbon Dioxide Level 18L, Anion Gap 11, Blood Urea Nitrogen 27H, Creatinine 1.09, Estimat Glomerular Filtration Rate 54, BUN/Creatinine Ratio 25, Glucose Level 120H, Calcium Level 8.9, Corrected Calcium 9.1, Total Bilirubin 0.5, Aspartate Amino Transf (AST/SGOT) 16, Alanine Aminotransferase (ALT/SGPT) 11, Alkaline Phosphatase 87, Total Protein 7.8, Albumin 3.8 05/24/22 11:41: Glucometer 128H Assessment/Plan Assessment/Plan (1) COPD with exacerbation Status: Acute Assessment & Plan: Albuterol q4h, ipratropium q4h. Solumedrol 80 mg q6h- will titrate down. Azithromycin and cefepime (2) COPD (chronic obstructive pulmonary disease) Status: Chronic (3) Peripheral arterial disease Status: Chronic (4) Hyperlipidemia Status: Chronic (5) Hypertension Status: Chronic (6) Anxiety Status: Chronic (7) CKD (chronic kidney disease) Status: Chronic Qualifiers: Qualified Codes: N18.31 - Chronic kidney disease, stage 3a (8) Depression Status: Chronic (9) Coronary artery disease Status: Chronic (10) DVT prophylaxis Status: Acute Assessment & Plan: Enoxaparin DUANE GIPSON MD May 24, 2022 15:35
[2022-05-24] MEDS ORDERED: ALPR0.5T7 PO (15:41)
[2022-05-24] MEDS ORDERED: NITR0.4T42 PO (15:41)
[2022-05-24] MEDS ORDERED: LISI10TA25 PO (15:41)
[2022-05-24] MEDS ORDERED: ASPI-1238 PO (15:41)
[2022-05-24] MEDS ORDERED: SPIR25TA5 PO (15:41)
[2022-05-24] MEDS ORDERED: BUDE10.2 PO (15:41)
[2022-05-24] MEDS ORDERED: MTP25TSR PO (15:41)
[2022-05-24] MEDS ORDERED: AMLO2.5T4 PO (15:41)
[2022-05-24] MEDS ORDERED: ATOR20TA66 PO (15:41)
[2022-05-24 16:03] VITALS: BP 119/62
[2022-05-24] MEDS: ASPIRIN 81 MG CHEW (CHILDREN'S ASA) PO SCH (17:55)
[2022-05-24 19:19] VITALS: BP 140/63
[2022-05-24] MEDS: MONTELUKAST 10 MG (SINGULAIR) TAB PO SCH (20:24)
[2022-05-25 00:42] VITALS: BP 148/72
[2022-05-25 03:31] VITALS: BP 145/66
[2022-05-25] MEDS: CEFEPIME 1,000 MG/NS 50 ML IVPB IV SCH ×2 (04:02)
[2022-05-25] MEDS: NS IV 1000 ML 1,000 ML IV SCH (04:04)
[2022-05-25 05:50] LABS: BASOPHILS % (AUTO) 0 % (0-10); EOSINOPHILS % (AUTO) 0 % (0-10); HEMATOCRIT 34 % (35-52); HEMOGLOBIN 11.1 g/dL (11.5-16.0); LYMPHOCYTES # (AUTO) 0.6 10^3/uL (1.0-4.0); LYMPHOCYTES % (AUTO) 4 % (12-44); MEAN CORPUSCULAR HEMOGLOBIN 27 pg (25-34); MEAN CORPUSCULAR HGB CONC 33 g/dL (32-36); MEAN CORPUSCULAR VOLUME 82 fL (80-99); MEAN PLATELET VOLUME 9.2 fL (9.0-12.2); MONOCYTES # (AUTO) 0.6 10^3/uL (0.0-1.0); MONOCYTES % (AUTO) 4 % (0-12); NEUTROPHILS # (AUTO) 13.8 10^3/uL (1.8-7.8); NEUTROPHILS % (AUTO) 91 % (42-75); PLATELET COUNT 248 10^3/uL (130-400); WHITE BLOOD COUNT 15.1 10^3/uL (4.3-11.0)
[2022-05-25 06:10] LABS: ALBUMIN 3.1 GM/DL (3.2-4.5); BILIRUBIN,TOTAL 0.3 MG/DL (0.1-1.0); CALCIUM 8.4 MG/DL (8.5-10.1); CREATININE SERUM 0.8 MG/DL (0.60-1.30); POTASSIUM 4.4 MMOL/L (3.6-5.0); TOTAL PROTEIN 6.3 GM/DL (6.4-8.2)
[2022-05-25] MEDS: inSUlin ASPART (NovoLOG) 1 UNIT/0.01 ML (CHARGE PER UNIT) SC SCH (06:19)
[2022-05-25 06:28] LABS: ANISOCYTOSIS SLIGHT; LYMPHOCYTES % (MANUAL) 3 %; MICROCYTOSIS SLIGHT; MONOCYTES % (MANUAL) 3 %; NEUTROPHILS % (MANUAL) 94 %
[2022-05-25] MEDS: RT-IPRATROPIUM (ATROVENT) 0.5MG/2.5ML AMP IH SCH ×2 (07:26→07:27)
[2022-05-25] MEDS: RT-ALBUTEROL SULF 2.5 MG/3 ML PRE-MIX VIAL INH SCH ×2 (07:26→07:27)
[2022-05-25] MEDS: SYMBICORT 160/4.5 INHALER PO SCH (07:30)
[2022-05-25 07:58] VITALS: BP 129/66
[2022-05-25] MEDS: methylPREDNISolone 40 MG/ML (Solu-MEDROL) VIAL IV SCH (08:24)
[2022-05-25] MEDS: AZITHROMYCIN 250 MG TAB (ZITHROMAX) PO SCH (08:24)
[2022-05-25] MEDS: DOCUSATE SODIUM 100 MG (COLACE) CAP PO SCH (08:25)
[2022-05-25] MEDS ORDERED: PRD50T PO (09:26)
[2022-05-25] MEDS ORDERED: CEFD300C3 PO (09:26)
[2022-05-25] MEDS ORDERED: IPRA3AMP31 INH (09:27)
--- NOTE | 2022-05-25 09:28 | Discharge Summary ---
Discharge Summary Hospital Course Problems/Diagnosis: (1) COPD with exacerbation Status: Acute Assessment & Plan: Albuterol q4h, ipratropium q4h. Solumedrol 80 mg q6h- will titrate down. Azithromycin and cefepime given inpatient, discharged with cefdinir and oral prednisone, on baseline supplemental oxygen. (2) COPD (chronic obstructive pulmonary disease) Status: Chronic (3) Peripheral arterial disease Status: Chronic (4) Hyperlipidemia Status: Chronic (5) Hypertension Status: Chronic (6) Anxiety Status: Chronic (7) CKD (chronic kidney disease) Status: Chronic Qualifiers: Qualified Codes: N18.31 - Chronic kidney disease, stage 3a (8) Depression Status: Chronic (9) Coronary artery disease Status: Chronic Hospital Course Date of Admission: May 23, 2022 at 13:05 Admission Diagnosis : Family Physician/Provider: Salomon Romero MD Date of Discharge: 05/25/22 Discharge Diagnosis: See problem list Hospital Course: See problem list Labs and Pending Lab Test: Laboratory Tests 05/24/22 11:41: Glucometer 128H 05/24/22 16:07: Glucometer 130H 05/24/22 20:20: Glucometer 153H 05/25/22 05:40: White Blood Count 15.1H, Red Blood Count 4.13, Hemoglobin 11.1L, Hematocrit 34L, Mean Corpuscular Volume 82, Mean Corpuscular Hemoglobin 27, Mean Corpuscular Hemoglobin Concent 33, Red Cell Distribution Width 16.9H, Platelet Count 248, Mean Platelet Volume 9.2, Immature Granulocyte % (Auto) 1, Neutrophils (%) (Auto) 91H, Lymphocytes (%) (Auto) 4L, Monocytes (%) (Auto) 4, Eosinophils (%) (Auto) 0, Basophils (%) (Auto) 0, Neutrophils # (Auto) 13.8H, Lymphocytes # (Auto) 0.6L, Monocytes # (Auto) 0.6, Eosinophils # (Auto) 0.0, Basophils # (Auto) 0.0, Immature Granulocyte # (Auto) 0.1, Neutrophils % (Manual) 94, Lymphocytes % (Manual) 3, Monocytes % (Manual) 3, Anisocytosis SLIGHT, Microcytosis SLIGHT, Sodium Level 136, Potassium Level 4.4, Chloride Level 110H, Carbon Dioxide Level 18L, Anion Gap 8, Blood Urea Nitrogen 26H, Creatinine 0.80, Estimat Glomerular Filtration Rate 79, BUN/Creatinine Ratio 33, Glucose Level 118H, Calcium Level 8.4L, Corrected Calcium 9.1, Total Bilirubin 0.3, Aspartate Amino Transf (AST/SGOT) 17, Alanine Aminotransferase (ALT/SGPT) 12, Alkaline Phosphatase 70, Total Protein 6.3L, Albumin 3.1L Microbiology 05/23/22 Blood Culture - Preliminary, Resulted No growth Home Meds Active Cefdinir 300 Mg Capsule 300 Mg PO BID Prednisone 50 Mg Tab 50 Mg PO DAILY Reported Iprat-Albut 0.5-3(2.5) mg/3 ml (Ipratropium/Albuterol Sulfate) 0.5 Mg-3 Mg (2.5 Mg Base)/3 Ml Ampul.neb 3 Ml INH Q4H PRN Aspirin EC (Aspirin) 81 Mg Tablet.dr 81 Mg PO HS Symbicort 160-4.5 Mcg Inhaler (Budesonide/Formoterol Fumarate) 160 Mcg-4.5 Mcg/Actuation Hfa.aer.ad 1 Puff PO BID Nitroglycerin 0.4 Mg Tab.subl 0.4 Mg PO UD Lisinopril 10 Mg Tablet 10 Mg PO DAILY Metoprolol Succinate 25 Mg Tab.er.24h 25 Mg PO 1300 Atorvastatin Calcium 20 Mg Tablet 20 Mg PO HS Amlodipine Besylate 2.5 Mg Tablet 2.5 Mg PO DAILY Spironolactone 25 Mg Tablet 25 Mg PO DAILY Alprazolam 0.5 Mg Tablet 0.5 Mg PO TID PRN Assessment/Pt DC Instructions Follow up with primary provider within a week of discharge. Discharge Diet: Cardiac Diet Activity as Tolerated: Yes Discharge Physical Examination Allergies: Coded Allergies: No Known Drug Allergies (Unverified , 05/23/22) General Appearance: No Apparent Distress, Thin Respiratory: Wheezing (end expiratory) Cardiovascular: Regular Rate, Rhythm, No Murmur Extremity: No Pedal Edema Skin: Normal Color, Warm/Dry Neurologic/Psychiatric: Alert, Normal Mood/Affect DUANE GIPSON MD May 25, 2022 09:28
[2022-05-25 09:54] VITALS: BP 129/66
--- NOTE | 2022-05-25 18:31 | Physician Query Clarification ---
Physician Query-General Query to Physician: The medical record reflects the following clinical scenario: The patient, in the setting of History/Risk factors, Extensive smoking Hx, COPD, Clinical Findings No PCT drawn, WBC 13.8, T 36.1 to 37.1, SOA at rest on admission, Hacking cough with white sputum on admission, Chest Xray: "Increased perihilar infiltrates, interval reexpansion of the prior consolidated right middle lobe..." Treatment Azithromycin IV on day of admission, Cefepime on day of admission and q8 hours until discharge Question: Do you agree with the impression of Right Lower Lobe Pneumonia per Dr. Ottoniel Silvestre? Yes; will document RLL Pneumonia in the Progress Notes, present on admission No; will continue current documentation in the Progress Notes Other; will document explanation of clinical findings Clinically undetermined; no explanation for clinical findings Please clarify and document your clinical opinion in the Progress Notes and Discharge Summary including the definitive and/or presumptive diagnosis, (suspected or probable), related to the above clinical findings. Please include clinical findings supporting your diagnosis. In responding to this query, please exercise your independent professional judgm ent. The purpose of this communication is to more accurately reflect the complexity of your patients condition. The fact that a question is asked does not imply that any particular answer is desired or expected. Thank you for timely response to this clarification. Kena Callejas, MSN, RN Clinical Bread Wrapper Operator [phone] [email or web address] PHYSICIAN RESPONSE: Based on the clinical findings in the record, please respond to the query above on this document as an addendum. Physician Response: Physician Response No, believe she had severe COPD exacerbation which is why antibiotics were continued. If you have questions please contact: Print Production Manager: Ext: Thank you for your time and cooperation. Clinical Bread Wrapper Operator/Print Production Manager This is a permanent part of the medical record KENA CALLEJAS May 25, 2022 18:31 DUANE GIPSON MD May 25, 2022 20:58
--- NOTE | 2022-05-25 18:38 | Physician Query Clarification ---
Physician Query-General Query to Physician: The medical record reflects the following clinical scenario: History/Risk factors: Extensive smoking Hx, COPD, per ER physician on home O2 but amount and hours of use is not documented, recent pneumonia Clinical Findings: respiratory rate 32 on admission was 20 and above for first 24 hours, documentation of shortness of air at rest on admission, O2 sat 92-98, lowest O2 sat was 92% this was on 2 L, has been on 2 to 3 L continously since admission Treatment: Continuous 02, IV ABX, IV Steroids, Chest Xray, Question: Is Acute on Chronic Respiratory failure a clinically valid diagnosis? Acute on Chronic Respiratory failure was documented in the H and P with no further documentation of Acute on Chronic Respiratory failure in the medical record. If yes, please document in the Progress Notes and Discharge Summary. Yes, Acute on Chronic Respiratory failure is clinically valid, present on admission, now improved No, Acute on Chronic Respiratory failure ruled out Other, with explanation of clinical findings Undetermined, no explanation for clinical findings In responding to this query, please exercise your independent professional judgment. The purpose of this communication is to more accurately reflect the complexity of your patients condition. The fact that a question is asked does not imply that any particular answer is desired or expected. Thank you for your timely response to this clarification. Kena Callejas MSN, RN Clinical Abnormal Psychology Teacher [email or web address] PHYSICIAN RESPONSE: Based on the clinical findings in the record, please respond to the query above on this document as an addendum. Physician Response: Physician Response Yes, Acute on Chronic Respiratory failure is clinically valid, present on ad mission, now improved If you have questions please contact: Dynamic Etching Processor: Ext: Thank you for your time and cooperation. Clinical Abnormal Psychology Teacher/Dynamic Etching Processor This is a permanent part of the medical record KENA CALLEJAS May 25, 2022 18:38 DUANE GIPSON MD May 25, 2022 20:59
== END 2022-05-25 10:30 | disposition home or self-care (01) | DRG 189 ==
LOC: EDUNIT# 09:58 → ER FS 09:59 → 4TH 13:05
PROVIDERS: ADMIT Internal Medicine; ATTEND Family Medicine
DX: J96.20 Acute and chronic respiratory failure, unspecified whether with hypoxia or hypercapnia (principal); J44.1 Chronic obstructive pulmonary disease with (acute) exacerbation; Z99.81 Dependence on supplemental oxygen; F17.210 Nicotine dependence, cigarettes, uncomplicated; Z95.5 Presence of coronary angioplasty implant and graft; I10 Essential (primary) hypertension; F41.9 Anxiety disorder, unspecified; I73.9 Peripheral vascular disease, unspecified; E78.5 Hyperlipidemia, unspecified; N18.31 Chronic kidney disease, stage 3a; F32.A Depression, unspecified; I25.10 Atherosclerotic heart disease of native coronary artery without angina pectoris; Z20.822 Contact with and (suspected) exposure to COVID-19
CPT/HCPCS: 36415; 71045; 80053; 82947; 83605; 85007; 85025; 85027; 86141; 87040; 87636; 93005; 93041; 94640; 94760

== ENCOUNTER 2022-06-01 11:52 | Emergency (ER) | payer MEDICARE, MEDICAID ==
[~2022-06-01] VITALS: Ht 157 cm; Wt 47.0 kg
[~2022-06-01 11:52] MED LIST changes: +ALPR0.5T7 PO; +AMLO2.5T4 PO; +ASPI-1238 PO; +ATOR20TA66 PO; +BUDE10.2 PO; +CEFD300C3 PO; +IPRA3AMP31 INH; +LISI10TA25 PO; +MTP25TSR PO; +NITR0.4T42 PO; +PRD50T PO; +SPIR25TA5 PO
[2022-06-01] MEDS ORDERED: RT-ALBUTEROL/IPRATROPIUM 3 ML (DUONEB) VIAL INH ONE (12:15)
[2022-06-01] MEDS ORDERED: NS IV ONE (12:15)
[2022-06-01] MEDS ORDERED: methylPREDNISolone 125 MG (Solu-MEDROL) VIAL IVP ONE (12:15)
--- NOTE | 2022-06-01 12:21 | ED Respiratory ---
General Chief Complaint: Respiratory Problems Stated Complaint: SOB Nursing Triage Note: ARRIVED VIA WC TO ROOM 07 WITH COMPLAINTS OF INCREASED SOA. RECENT DX OF PNEUMONIA AND STATES SHE IS NOT BETTER. 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 States she was admitted for pneumonia last Tuesday and was discharged on Tuesday. States she was discharged on antibiotic and prednisone. She is complaining of worsening shortness of breath. States she feels as though her oxygen is not helping her. She currently wears 2 L at all times and increases to 3 when she is up walking around. She reports a cough and some chest pain. Denies fevers, abdominal pain, nausea, vomiting. Past medical history includes COPD, CAD, history of [place], history of cancer on her nose and lung. Did not have chemotherapy for her cancer, only radiation. (KARLY MATHUR APRN) Allergies and Home Medications Allergies Coded Allergies: No Known Drug Allergies (Unverified , 05/23/22) Patient Home Medication List Home Medication List Reviewed: Yes (KARLY MATHUR APRN) Alprazolam (Alprazolam) 0.5 Mg Tablet, 0.5 MG PO TID PRN for ANXIETY, (Reported) Entered as Reported by: FLASH JIMENES on 05/24/22 154 Amlodipine Besylate (Amlodipine Besylate) 2.5 Mg Tablet, 2.5 MG PO DAILY, (Reported) Entered as Reported by: FLASH JIMENES on 05/24/22 154 Aspirin (Aspirin EC) 81 Mg Tablet.dr, 81 MG PO HS, (Reported) Entered as Reported by: FLASH JIMENES on 05/24/22 154 Atorvastatin Calcium (Atorvastatin Calcium) 20 Mg Tablet, 20 MG PO HS, (Reported) Entered as Reported by: FLASH JIMENES on 05/24/22 154 Budesonide/Formoterol Fumarate (Symbicort 160-4.5 Mcg Inhaler) 160 Mcg-4.5 Mcg/Actuation Hfa.aer.ad, 1 PUFF PO BID, (Reported) Entered as Reported by: FLASH JIMENES on 05/24/22 154 Cefdinir (Cefdinir) 300 Mg Capsule, 300 MG PO BID Prescribed by: DUANE GIPSON on 05/25/22 09 Dexamethasone (Dexamethasone) 6 Mg Tablet, 6 MG PO DAILY Prescribed by: MORA ORTEGA on 06/01/22 163 Ipratropium/Albuterol Sulfate (Iprat-Albut 0.5-3(2.5) mg/3 ml) 0.5 Mg-3 Mg (2.5 Mg Base)/3 Ml Ampul.neb, 3 ML INH Q4H PRN for SHORTNESS OF BREATH, (Reported) Entered as Reported by: DUANE GIPSON on 05/25/22 09 Lisinopril (Lisinopril) 10 Mg Tablet, 10 MG PO DAILY, (Reported) Entered as Reported by: FLASH JIMENES on 05/24/22 154 Metoprolol Succinate (Metoprolol Succinate) 25 Mg Tab.er.24h, 25 MG PO 1300, (Reported) Entered as Reported by: FLASH JIMENES on 05/24/22 154 Nitroglycerin (Nitroglycerin) 0.4 Mg Tab.subl, 0.4 MG PO UD, (Reported) Entered as Reported by: FLASH JIMENES on 05/24/22 154 Prednisone (Prednisone) 50 Mg Tab, 50 MG PO DAILY Prescribed by: DUANE GIPSON on 05/25/22 09 Spironolactone (Spironolactone) 25 Mg Tablet, 25 MG PO DAILY, (Reported) Entered as Reported by: FLASH JIMENES on 05/24/22 154 Sulfamethoxazole/Trimethoprim (Bactrim Ds Tablet) 1 Each Tablet, 1 EACH PO BID Prescribed by: MORA ORTEGA on 06/01/22 163 Review of Systems Review of Systems Constitutional: see HPI (KARLY MATHUR APRN) Past Koalyfe-Vtmzct-Ehqcpw Hx Patient Social History Tobacco Use?: Yes Smoking Status: Current Everyday Smoker Substance use?: No Alcohol Use?: No (KARLY MATHUR APRN) Seasonal Allergies Seasonal Allergies: No (KARLY MATHUR APRN) Past Medical History Surgery/Hospitalization HX: COPD, CAD, Tobacco abuse Surgeries: Yes Coronary Stent Respiratory: Yes COPD Cardiac: Yes Hypertension Neurological: No Genitourinary: No Gastrointestinal: No Musculoskeletal: No Endocrine: No HEENT: No Cancer: No Psychosocial: Yes Anxiety Integumentary: No (KARLY MATHUR APRN) Physical Exam Vital Signs - First Documented (MORA ORTEGA) Capillary Refill : (KARLY MATHUR APRN) Height: '" Weight: lbs. oz. kg; 19.00 BMI Method: General Appearance: WD/WN, mild distress Neck: supple, normal inspection Respiratory: respiratory distress, accessory muscle use, wheezing Cardiovascular: regular rate, rhythm, no edema, no gallop, no JVD, no murmur Extremities: normal range of motion, normal inspection Neurologic/Psychiatric: alert, normal mood/affect, oriented x 3 Skin: normal color, warm/dry (KARLY MATHUR APRN) Focused Exam Lactate Level 06/01/22 12:10: Lactic Acid Level 1.36 (MORA ORTEGA) Lactic Acid Level Laboratory Tests Test 06/01/22 12:10 Lactic Acid Level 1.36 MMOL/L (0.50-2.00) (MORA ORTEGA) Progress/Results/Core Measures Suspected Sepsis SIRS Temperature: Pulse: 74 Respiratory Rate: 18 Laboratory Tests 06/01/22 12:10: White Blood Count 17.9H Blood Pressure 152 /104 Mean: 120 06/01/22 12:10: Lactic Acid Level 1.36 Laboratory Tests 06/01/22 12:10: Creatinine 0.83, INR Comment 0.9, Platelet Count 289, Total Bilirubin 0.6 (KARLY MATHUR APRN) Results/Orders Lab Results Laboratory Tests Test 06/01/22 12:10 06/01/22 15:15 Range/Units White Blood Count 17.9 H 4.3-11.0 10^3/uL Red Blood Count 5.45 H 3.80-5.11 10^6/uL Hemoglobin 14.3 11.5-16.0 g/dL Hematocrit 45 35-52 % Mean Corpuscular Volume 82 80-99 fL Mean Corpuscular Hemoglobin 26 25-34 pg Mean Corpuscular Hemoglobin Concent 32 32-36 g/dL Red Cell Distribution Width 17.5 H 10.0-14.5 % Platelet Count 289 130-400 10^3/uL Mean Platelet Volume 9.2 9.0-12.2 fL Immature Granulocyte % (Auto) 1 % Neutrophils (%) (Auto) 82 H 42-75 % Lymphocytes (%) (Auto) 6 L 12-44 % Monocytes (%) (Auto) 10 0-12 % Eosinophils (%) (Auto) 1 0-10 % Basophils (%) (Auto) 0 0-10 % Neutrophils # (Auto) 14.7 H 1.8-7.8 10^3/uL Lymphocytes # (Auto) 1.1 1.0-4.0 10^3/uL Monocytes # (Auto) 1.8 H 0.0-1.0 10^3/uL Eosinophils # (Auto) 0.1 0.0-0.3 10^3/uL Basophils # (Auto) 0.0 0.0-0.1 10^3/uL Immature Granulocyte # (Auto) 0.2 H 0.0-0.1 10^3/uL Neutrophils % (Manual) 89 % Lymphocytes % (Manual) 4 % Monocytes % (Manual) 7 % Poikilocytosis SLIGHT Anisocytosis SLIGHT Prothrombin Time 13.1 12.2-14.7 SEC INR Comment 0.9 0.8-1.4 Activated Partial Thromboplast Time 25 24-35 SEC D-Dimer 7.86 H 0.00-0.49 UG/ML Sodium Level 135 135-145 MMOL/L Potassium Level 4.9 3.6-5.0 MMOL/L Chloride Level 97 L 98-107 MMOL/L Carbon Dioxide Level 29 21-32 MMOL/L Anion Gap 9 5-14 MMOL/L Blood Urea Nitrogen 22 H 7-18 MG/DL Creatinine 0.83 0.60-1.30 MG/DL Estimat Glomerular Filtration Rate 75 BUN/Creatinine Ratio 27 Glucose Level 112 H 70-105 MG/DL Lactic Acid Level 1.36 0.50-2.00 MMOL/L Calcium Level 9.6 8.5-10.1 MG/DL Corrected Calcium 9.5 8.5-10.1 MG/DL Total Bilirubin 0.6 0.1-1.0 MG/DL Aspartate Amino Transf (AST/SGOT) 16 5-34 U/L Alanine Aminotransferase (ALT/SGPT) 18 0-55 U/L Alkaline Phosphatase 81 40-136 U/L Troponin I < 0.028 <0.028 NG/ML Total Protein 7.4 6.4-8.2 GM/DL Albumin 4.1 3.2-4.5 GM/DL Urine Color YELLOW Urine Clarity CLEAR Urine pH 6.0 5-9 Urine Specific [place] 1.010 L 1.016-1.022 Urine Protein NEGATIVE NEGATIVE Urine Glucose (UA) NEGATIVE NEGATIVE Urine Ketones NEGATIVE NEGATIVE Urine Nitrite NEGATIVE NEGATIVE Urine Bilirubin NEGATIVE NEGATIVE Urine Urobilinogen 0.2 < = 1.0 MG/DL Urine Leukocyte Esterase TRACE H NEGATIVE Urine RBC (Auto) TRACE-I H NEGATIVE Urine RBC NONE /HPF Urine WBC RARE /HPF Urine Squamous Epithelial Cells NONE /HPF Urine Crystals NONE /LPF Urine Bacteria TRACE /HPF Urine Casts NONE /LPF Urine Mucus NEGATIVE /LPF Urine Culture Indicated NO (MORA ORTEGA) My Orders Orders - MORA ORTEGA Ua Culture If Indicated (06/01/22 14:36) Ct Abdomen/Pelvis W (06/01/22 14:39) Iohexol Injection (Omnipaque 350 Mg/Ml 1 (06/01/22 14:45) Received Contrast (Hold Metformin- Contr (06/01/22 14:45) Ns (Ivpb) (Sodium Chloride 0.9% Ivpb Bag (06/01/22 14:45) Sodium Chloride Flush (Catheter Flush Sy (06/01/22 14:45) (MORA ORTEGA) Medications Given in ED Current Medications Medications Dose Ordered Sig/Neetu Route Start Time Stop Time Status Last Admin Dose Admin Albuterol/ Ipratropium 3 ml ONCE ONCE INH 06/01/22 12:15 06/01/22 12:16 DC 06/01/22 12:32 3 ML Iohexol 75 ml ONCE ONCE IV 06/01/22 13:45 06/01/22 13:53 DC 06/01/22 14:03 55 ML Iohexol 100 ml ONCE ONCE IV 06/01/22 14:45 06/01/22 14:46 DC 06/01/22 15:25 54 ML Methylprednisolone Sodium Succinate 125 mg ONCE ONCE IVP 06/01/22 12:15 06/01/22 12:16 DC 06/01/22 12:46 125 MG Sodium Chloride 100 ml ONCE ONCE IV 06/01/22 13:45 06/01/22 13:53 DC 06/01/22 14:03 80 ML Sodium Chloride 100 ml ONCE ONCE IV 06/01/22 14:45 06/01/22 14:46 DC 06/01/22 15:25 80 ML Sodium Chloride 1,410 ml @ 1,410 mls/hr ONCE ONCE IV 06/01/22 12:15 06/01/22 13:14 DC 06/01/22 12:46 1,410 MLS/HR (MORA ORTEGA) Vital Signs/I&O 06/01/22 06/01/22 06/01/22 06/01/22 11:55 11:55 11:55 12:32 Temp 36.2 Pulse 74 Resp 18 B/P (MAP) 152/104 (120) Pulse Ox 90 100 O2 Delivery Nasal Cannula Nasal Cannula Nasal Cannula Nasal Cannula O2 Flow Rate 2.00 2.00 3.00 3.00 06/01/22 16:39 Pulse 81 Resp 16 B/P (MAP) 154/86 Pulse Ox 95 O2 Delivery Nasal Cannula O2 Flow Rate 2.00 (MORA ORTEGAP) Vital Signs/I&O Capillary Refill : (KARLY MATHUR APRN) Blood Pressure Mean: 120 Progress Note #1: Time: 12:20 Progress Note Patient seen and evaluated, resting in bed, mild distress. Based on exam and symptoms, concern for pneumonia, sepsis, COPD exacerbation. Septic work-up initiated including CBC, CMP, coags, lactic acid, blood cultures x2, chest x- ray, sputum culture, troponin, D-dimer, EKG, IV fluids, DuoNeb, Solu-Medrol. Progress Note #2: Time: 13:00 Progress Note Labs and x-ray reviewed. CBC shows elevated WBC 17.9, RBC elevated 5.45, neutrophils elevated 82, lymphocytes decreased 6. CMP shows decreased chloride 97, increased BUN 22, normal lactic acid 1.36, negative troponin. D-dimer elevated 7.86. Coags normal. X-ray shows negative acute cardiopulmonary process. CT angio chest PE rule out ordered due to elevated D-dimer. (KARLY MATHUR APRN) Progress Note : Progress Note 1412 assumed care of patient and received report from Karly Mathur APRN. Patient reports slight improvement after decadron breathing treatment. Will obtain CT abdomen and pelvis. CT angio of the chest was negative for PE. Patient's vital signs are stable. 1530 cyst noted on left lower kidney. Does not appear to be a mass. Recommended 3-month follow-up with MRI. Results discussed with the patient and her family. 1615 Patient reports she is improved after receiving the IV steroid. Discussed admission versus discharge to home, the patient wishes to proceed home. Labs and vital signs do not indicate sepsis. Discharge instructions and return precautions reviewed with her. (MORA ORTEGA) ECG Initial ECG Impression Date: Jun 01, 2022 Initial ECG Impression Time: 12:27 Initial ECG Rate: 65 Initial ECG Rhythm: Normal Sinus Initial ECG Intervals: Normal Initial ECG Comparisson: Unchanged (KARLY MATHUR APRN) Diagnostic Imaging Diagonstic Imaging: CT Plain Films/CT/US/NM/MRI: chest Comments NAME: MARLA [facility] REC#: [id number] PT STATUS: REG ER : 1950 PHYSICIAN: KARLY MATHUR APRN ADMIT DATE: 06/01/22/ER Draft Date of Exam:06/01/22 CT ANGIO CHEST W (R/O PE) EXAM: CT ANGIO CHEST W (R/O PE). INDICATION: Elevated D-dimer. Shortness of air. COMPARISON: CT chest with IV contrast 08/14/2015. FINDINGS: No pulmonary artery filling defects. Normal caliber thoracic aorta. Normal heart size. No pericardial effusion. No mediastinal, hilar, or axillary lymphadenopathy. Severe centrilobular emphysema. Spiculated pulmonary nodule in the left upper lobe measures 1.6 x 1.8 cm. This has been present since 2016 when it measured up to 2.0 cm. Small probable tree-in-bud opacities in the left lung base are obscured by respiratory motion. No pleural effusion or pneumothorax. No acute osseous findings. Partially visualized abdominal aortic stent graft. Partially visualized mass and/or cysts in the left kidney. In the inferior pole of the left kidney, there is a 4.3 x 3.5 cm somewhat heterogeneously appearing mass. IMPRESSION: 1. No pulmonary emboli. 2. Probable tree-in-bud opacities in the left lung base that are suspicious for an infectious/inflammatory process. These are obscured by respiratory motion. 3. Spiculated pulmonary nodule in the perihilar left upper lobe is smaller than on the 2016 exam. Recommend correlation with clinical history. 4. Severe centrilobular emphysema. 5. Partially visualized heterogeneous possible mass in the lower pole of the left kidney measuring at least 4.[address] of the abdomen and pelvis with IV contrast for further evaluation. Dictated on workstation # [id number] Dict: 06/01/22 1412 Trans: 06/01/22 1425 [id number] Interpreted by: CHUCHO PASTOR MD Electronically signed by: Reviewed: Reviewed by Pr Diagonstic Imaging: Xray Plain Films/CT/US/NM/MRI: chest Comments NAME: MARLA CR[facility]ER [facility] REC#: [id number] PT STATUS: REG ER : 1950 PHYSICIAN: KARLY MATHUR APRN ADMIT DATE: 06/01/22/ER Signed Date of Exam:06/01/22 CHEST 1 VIEW, AP/PA ONLY CHEST 1 VIEW, AP/PA ONLY Indication: Shortness of air Comparison: 05/23/2022 Findings: Stable hyperinflated lungs. No focal airspace disease in the visualized lungs. No pleural effusion or pneumothorax. Normal cardiomediastinal silhouette. Impression: 1. No acute cardiopulmonary process by portable radiography. Dictated by: Dictated on workstation # [id number] Dict: 06/01/22 1258 Trans: 06/01/22 1259 [facility] [id number] Interpreted by: YASMIN MARVIN MD Electronically signed by: YASMIN MARVIN MD 06/01/22 1259 Reviewed: Reviewed by Pr Diagonstic Imaging: CT Plain Films/CT/US/NM/MRI: abdomen, pelvis Comments NAME: MARLA CRAMER [facility] REC#: [id number] PT STATUS: REG ER : 1950 PHYSICIAN: MORA ORTEGA ADMIT DATE: 06/01/22/ER Draft Date of Exam:06/01/22 CT ABDOMEN/PELVIS W EXAMINATION: CT abdomen and pelvis with intravenous contrast. TECHNIQUE: Multiple contiguous axial images were obtained through the abdomen and pelvis after the uneventful administration of intravenous contrast. All CT scans use one or more of the following dose optimizing techniques: automated exposure control, MA and/or KvP adjustment based on patient size and exam type or iterative reconstruction. HISTORY: Renal mass. COMPARISON: 08/14/2015. FINDINGS: Limited views of the lower thorax show tree-in-bud nodules in the left lower lobe in keeping with mild aspiration. The liver is normal without focal lesion. There is no biliary ductal dilation. Gallbladder is normal. Pancreas is normal. Spleen is normal. Adrenal glands are normal. There is a hemorrhagic cyst in the lower pole of the left kidney, unchanged. There is a 1.8 x 1.5 cm high-attenuating lesion in the interpolar zone of the left kidney, new from prior CT (series 3, image 28). There are simple cysts in the left kidney. There is no hydronephrosis. Urinary bladder is normal. Bowel is normal in caliber without obstruction or inflammation. No free fluid or air. No abdominal or pelvic lymphadenopathy. There has been endovascular repair of an abdominal aortic aneurysm. The excluded sac measures 3.2 x 3.1 cm, previously 5.1 x 3.8 cm. There are no suspicious osseous lesions. IMPRESSION: 1. Indeterminate left renal lesion. Evaluation for enhancement is limited as no noncontrast images were obtained. Three-month follow-up renal protocol CT or MRI including noncontrast images was recommended. 2. Tree-in-bud nodules in the left lower lobe in keeping with aspiration. Dictated on workstation # [id number] Dict: 06/01/22 1540 Trans: 06/01/22 1550 [id number] Interpreted by: TERESE SMITH MD Electronically signed by: (MORA ORTEGA) Departure Impression Primary Impression: Renal cyst, left Additional Impression: COPD exacerbation Disposition: HOME, SELF-CARE Condition: Stable Departure-Patient Inst. Decision time for Depature: 16:05 (MORA ORTEGA) Referrals: KEELY SHARIF MD (PCP/Family) Primary Care Physician Patient Instructions: Chronic Obstructive Pulmonary Disease (COPD) (DC) Add. Discharge Instructions: Continue to use your oxygen at home at all times. Take medications and inhalers as prescribed. Take antibiotics and steroids, as prescribed. Keep your scheduled follow-up with your primary care provider. Have your Primary Care Schedule a follow up MRI Abdomen/Pelvis in 3 months. Return to the emergency department if symptoms worsen or new urgent healthcare problems. All discharge instructions reviewed with patient and/or family. Voiced understanding. Scripts Dexamethasone (Dexamethasone) 6 Mg Tablet 6 MG PO DAILY, #6 TAB Prov: MORA ORTEGA 06/01/22 Sulfamethoxazole/Trimethoprim (Bactrim Ds Tablet) 1 Each Tablet 1 EACH PO BID, #14 TAB 0 Refills Prov: MORA ORTEGA 06/01/22 KARLY MATHUR APRN Jun 01, 2022 12:21 MORA ORTEGA Jun 01, 2022 14:35
[2022-06-01 12:26] LABS: BASOPHILS % (AUTO) 0 % (0-10); EOSINOPHILS # (AUTO) 0.1 10^3/uL (0.0-0.3); EOSINOPHILS % (AUTO) 1 % (0-10); HEMATOCRIT 45 % (35-52); HEMOGLOBIN 14.3 g/dL (11.5-16.0); LYMPHOCYTES # (AUTO) 1.1 10^3/uL (1.0-4.0); LYMPHOCYTES % (AUTO) 6 % (12-44); MEAN CORPUSCULAR HEMOGLOBIN 26 pg (25-34); MEAN CORPUSCULAR HGB CONC 32 g/dL (32-36); MEAN CORPUSCULAR VOLUME 82 fL (80-99); MEAN PLATELET VOLUME 9.2 fL (9.0-12.2); MONOCYTES # (AUTO) 1.8 10^3/uL (0.0-1.0); MONOCYTES % (AUTO) 10 % (0-12); NEUTROPHILS # (AUTO) 14.7 10^3/uL (1.8-7.8); NEUTROPHILS % (AUTO) 82 % (42-75); PLATELET COUNT 289 10^3/uL (130-400); WHITE BLOOD COUNT 17.9 10^3/uL (4.3-11.0)
[2022-06-01 12:28] LABS: ALBUMIN 4.1 GM/DL (3.2-4.5)
[2022-06-01 12:29] LABS: CHLORIDE 97 MMOL/L (98-107); POTASSIUM 4.9 MMOL/L (3.6-5.0); SODIUM 135 MMOL/L (135-145)
[2022-06-01 12:30] LABS: CALCIUM 9.6 MG/DL (8.5-10.1)
[2022-06-01 12:31] LABS: GLUCOSE 112 MG/DL (70-105); TOTAL PROTEIN 7.4 GM/DL (6.4-8.2)
[2022-06-01 12:32] LABS: CARBON DIOXIDE 29 MMOL/L (21-32)
[2022-06-01 12:33] LABS: BILIRUBIN,TOTAL 0.6 MG/DL (0.1-1.0); INR 0.9 (0.8-1.4); PROTHROMBIN TIME PATIENT 13.1 SEC (12.2-14.7)
[2022-06-01 12:34] LABS: ALKALINE PHOSPHATASE 81 U/L (40-136)
[2022-06-01 12:35] LABS: CREATININE SERUM 0.83 MG/DL (0.60-1.30); GFR ESTIMATED 75
[2022-06-01 12:36] LABS: BUN/CREATININE RATIO 27
[2022-06-01 12:37] LABS: ALANINE AMINOTRANSFERASE 18 U/L (0-55)
[2022-06-01 12:46] LABS: LYMPHOCYTES % (MANUAL) 4 %; MONOCYTES % (MANUAL) 7 %; NEUTROPHILS % (MANUAL) 89 %
[2022-06-01 12:47] LABS: ANISOCYTOSIS SLIGHT; POIKILOCYTOSIS SLIGHT
--- NOTE | 2022-06-01 13:01 | Diagnostic Imaging Report ---
CHEST 1 VIEW, AP/PA ONLY Indication: Shortness of air Comparison: 05/23/2022 Findings: Stable hyperinflated lungs. No focal airspace disease in the visualized lungs. No pleural effusion or pneumothorax. Normal cardiomediastinal silhouette. Impression: 1. No acute cardiopulmonary process by portable radiography. Dictated by: Dictated on workstation # [id number]
[2022-06-01] MEDS ORDERED: IOHEXOL 350 MG/ML 100 ML (OMNIPAQUE 350) VIAL IV ONE ×2 (13:45→14:45)
[2022-06-01] MEDS ORDERED: NS 100 ML (IVPB) BAG IV ONE ×2 (13:45→14:45)
[2022-06-01] MEDS ORDERED: HOLD METFORMIN - RECEIVED CONTRAST 20 ML VIAL IV SCH ×2 (13:45→14:45)
--- NOTE | 2022-06-01 14:26 | Diagnostic Imaging Report ---
EXAM: CT ANGIO CHEST W (R/O PE). INDICATION: Elevated D-dimer. Shortness of air. COMPARISON: CT chest with IV contrast 08/14/2015. FINDINGS: No pulmonary artery filling defects. Normal caliber thoracic aorta. Normal heart size. No pericardial effusion. No mediastinal, hilar, or axillary lymphadenopathy. Severe centrilobular emphysema. Spiculated pulmonary nodule in the left upper lobe measures 1.6 x 1.8 cm. This has been present since 2016 when it measured up to 2.0 cm. Small probable tree-in-bud opacities in the left lung base are obscured by respiratory motion. No pleural effusion or pneumothorax. No acute osseous findings. Partially visualized abdominal aortic stent graft. Partially visualized mass and/or cysts in the left kidney. In the inferior pole of the left kidney, there is a 4.3 x 3.5 cm somewhat heterogeneously appearing mass. IMPRESSION: 1. No pulmonary emboli. 2. Probable tree-in-bud opacities in the left lung base that are suspicious for an infectious/inflammatory process. These are obscured by respiratory motion. 3. Spiculated pulmonary nodule in the perihilar left upper lobe is smaller than on the 2016 exam. Recommend correlation with clinical history. 4. Severe centrilobular emphysema. 5. Partially visualized heterogeneous possible mass in the lower pole of the left kidney measuring at least 4.[address] of the abdomen and pelvis with IV contrast for further evaluation. Dictated by: Dictated on workstation # [id number]
[2022-06-01] MEDS ORDERED: CATHETER FLUSH 10 ML SYR IV PRN (14:45)
[2022-06-01 15:20] LABS: BILIRUBIN,URINE NEGATIVE (NEGATIVE); CLARITY,URINE CLEAR; COLOR,URINE YELLOW; GLUCOSE, URINE (UA) NEGATIVE (NEGATIVE); KETONES,URINE NEGATIVE (NEGATIVE); LEUKOCYTE ESTERASE ,URINE TRACE (NEGATIVE); NITRITE,URINE NEGATIVE (NEGATIVE); PROTEIN,URINE NEGATIVE (NEGATIVE)
[2022-06-01 15:28] LABS: BACTERIA,URINE TRACE /HPF; WBC,URINE RARE /HPF
--- NOTE | 2022-06-01 15:51 | Diagnostic Imaging Report ---
EXAMINATION: CT abdomen and pelvis with intravenous contrast. TECHNIQUE: Multiple contiguous axial images were obtained through the abdomen and pelvis after the uneventful administration of intravenous contrast. All CT scans use one or more of the following dose optimizing techniques: automated exposure control, MA and/or KvP adjustment based on patient size and exam type or iterative reconstruction. HISTORY: Renal mass. COMPARISON: 08/14/2015. FINDINGS: Limited views of the lower thorax show tree-in-bud nodules in the left lower lobe in keeping with mild aspiration. The liver is normal without focal lesion. There is no biliary ductal dilation. Gallbladder is normal. Pancreas is normal. Spleen is normal. Adrenal glands are normal. There is a hemorrhagic cyst in the lower pole of the left kidney, unchanged. There is a 1.8 x 1.5 cm high-attenuating lesion in the interpolar zone of the left kidney, new from prior CT (series 3, image 28). There are simple cysts in the left kidney. There is no hydronephrosis. Urinary bladder is normal. Bowel is normal in caliber without obstruction or inflammation. No free fluid or air. No abdominal or pelvic lymphadenopathy. There has been endovascular repair of an abdominal aortic aneurysm. The excluded sac measures 3.2 x 3.1 cm, previously 5.1 x 3.8 cm. There are no suspicious osseous lesions. IMPRESSION: 1. Indeterminate left renal lesion. Evaluation for enhancement is limited as no noncontrast images were obtained. Three-month follow-up renal protocol CT or MRI including noncontrast images was recommended. 2. Tree-in-bud nodules in the left lower lobe in keeping with aspiration. Dictated by: Dictated on workstation # [id number]
[2022-06-01] MEDS ORDERED: SULF1TAB38 PO (16:32)
[2022-06-01] MEDS ORDERED: DEXA6TAB PO (16:33)
[2022-06-01 16:39] VITALS: BP 154/86
== END 2022-06-01 16:39 | disposition home or self-care (01) ==
LOC: EDUNIT# 11:52 → ER 11:53
DX: J44.1 Chronic obstructive pulmonary disease with (acute) exacerbation (principal); N28.1 Cyst of kidney, acquired; C34.00 Malignant neoplasm of unspecified main bronchus; I10 Essential (primary) hypertension; F17.200 Nicotine dependence, unspecified, uncomplicated; Z99.81 Dependence on supplemental oxygen; Z28.310 Unvaccinated for COVID-19
CPT/HCPCS: 36415; 71045; 71275; 74177; 80053; 81000; 83605; 84484; 85007; 85027; 85379; 85610; 85730; 87040; 93005; 94640

== ENCOUNTER 2022-06-10 19:34 | Emergency (ER) | payer MEDICARE, MEDICAID ==
[~2022-06-10] VITALS: Ht 157.4 cm; Wt 47.8 kg
[~2022-06-10 19:34] MED LIST changes: +DEXA6TAB PO; +SULF1TAB38 PO
--- NOTE | 2022-06-10 19:54 | ED Cough/URI ---
General Chief Complaint: Respiratory Problems Stated Complaint: SOB Source: patient History of Present Illness Date Seen by Provider: Jun 10, 2022 Time Seen by Provider: 19:34 Initial Comments 72-year-old female presenting with recurrent shortness of breath and difficulty breathing. She states that she has been in and out of [facility] for pneumonia and COPD. She has been on antibiotics and steroids at home since June 01 but has not been improving. She does use oxygen at home 2 to 3 L. She was feeling more fatigued and rundown today so she called 911 and had been transported to the emergency department. She was having chills and she did have some diarrhea today. She states she was having more trouble breathing and felt more run down tonight so they came to the ED. She has not followed up in clinic since leaving [place]. Timing/Duration: getting worse Severity/Quality: dry cough Prior Episodes/Possible Cause: frequent episodes, chronic episodes Modifying Factors: Worse With Activity, Worse With Coughing Associated Symptoms: cough, fever/chills (chills but no fever), nasal congestion, nasal drainage, shortness of breath, wheezing Allergies and Home Medications Allergies Coded Allergies: No Known Drug Allergies (Unverified , 05/23/22) Patient Home Medication List Home Medication List Reviewed: Yes Alprazolam (Alprazolam) 0.5 Mg Tablet, 0.5 MG PO TID PRN for ANXIETY, (Reported) Entered as Reported by: FLASH JIMENES on 05/24/221540 Amlodipine Besylate (Amlodipine Besylate) 2.5 Mg Tablet, 2.5 MG PO DAILY, (Reported) Entered as Reported by: FLASH JIMENES on 05/24/221540 Aspirin (Aspirin EC) 81 Mg Tablet.dr, 81 MG PO HS, (Reported) Entered as Reported by: FLASH JIMENES on 05/24/221540 Atorvastatin Calcium (Atorvastatin Calcium) 20 Mg Tablet, 20 MG PO HS, (Reported) Entered as Reported by: FLASH JIMENES on 05/24/221540 Budesonide/Formoterol Fumarate (Symbicort 160-4.5 Mcg Inhaler) 160 Mcg-4.5 Mcg/Actuation Hfa.aer.ad, 1 PUFF PO BID, (Reported) Entered as Reported by: FLASH JIMENES on 05/24/221540 Cefdinir (Cefdinir) 300 Mg Capsule, 300 MG PO BID Prescribed by: UDANE GIPSON on 05/25/22 09 Dexamethasone (Dexamethasone) 6 Mg Tablet, 6 MG PO DAILY Prescribed by: MORA ORTEGA on 06/01/22 163 Ipratropium/Albuterol Sulfate (Iprat-Albut 0.5-3(2.5) mg/3 ml) 0.5 Mg-3 Mg (2.5 Mg Base)/3 Ml Ampul.neb, 3 ML INH Q4H PRN for SHORTNESS OF BREATH, (Reported) Entered as Reported by: DUANE GIPSON on 05/25/22 09 Lisinopril (Lisinopril) 10 Mg Tablet, 10 MG PO DAILY, (Reported) Entered as Reported by: FLASH JIMENES on 05/24/22 154 Metoprolol Succinate (Metoprolol Succinate) 25 Mg Tab.er.24h, 25 MG PO 1300, (Reported) Entered as Reported by: FLASH JIMENES on 05/24/22 154 Nitroglycerin (Nitroglycerin) 0.4 Mg Tab.subl, 0.4 MG PO UD, (Reported) Entered as Reported by: FLASH JIMENES on 05/24/22 154 Prednisone (Prednisone) 50 Mg Tab, 50 MG PO DAILY Prescribed by: DUANE GIPSON on 05/25/22 09 Spironolactone (Spironolactone) 25 Mg Tablet, 25 MG PO DAILY, (Reported) Entered as Reported by: FLASH JIMENES on 05/24/22 154 Sulfamethoxazole/Trimethoprim (Bactrim Ds Tablet) 1 Each Tablet, 1 EACH PO BID Prescribed by: MORA ORTEGA on 06/01/22 163 Review of Systems Review of Systems Constitutional: chills; No fever; malaise, weakness (general) EENTM: see HPI Respiratory: see HPI Cardiovascular: no symptoms reported Gastrointestinal: no symptoms reported Genitourinary: no symptoms reported Musculoskeletal: other (generalized body aches) Skin: No rash Psychiatric/Neurological: Anxiety Past Sboeqwo-Vxjigx-Aafuca Hx Patient Social History Tobacco Use?: Yes Tobacco type used: Cigarettes Seasonal Allergies Seasonal Allergies: No Past Medical History Surgery/Hospitalization HX: COPD, CAD, Tobacco abuse Surgeries: Yes Coronary Stent Respiratory: Yes COPD Cardiac: Yes Hypertension Neurological: No Genitourinary: No Gastrointestinal: No Musculoskeletal: No Endocrine: No HEENT: No Cancer: No Psychosocial: Yes Anxiety Integumentary: No Physical Exam Vital Signs - First Documented Capillary Refill : Height: '" Weight: lbs. oz. kg; 19.00 BMI Method: General Appearance: other (chronically ill appearing and appears older than stated age) HEENT: PERRL/EOMI, pharynx normal Respiratory: chest non-tender, respiratory distress, decreased breath sounds, accessory muscle use; No stridor; wheezing, expiration, inspiration Cardiovascular: normal peripheral pulses, regular rate, rhythm Gastrointestinal: normal bowel sounds, non tender, soft, no pulsatile mass Extremities: normal range of motion, non-tender, normal capillary refill Neurologic/Psychiatric: alert, oriented x 3 Skin: cool Focused Exam Lactate Level 06/10/22 19:50: Lactic Acid Level 2.66*H Lactic Acid Level Laboratory Tests Test 06/10/22 19:50 Lactic Acid Level 2.66 MMOL/L (0.50-2.00) *H Progress/Results/Core Measures Suspected Sepsis SIRS Temperature: Pulse: Respiratory Rate: Laboratory Tests 06/10/22 19:50: White Blood Count 16.9H Blood Pressure / Mean: 06/10/22 19:50: Lactic Acid Level 2.66*H Laboratory Tests 06/10/22 19:50: Creatinine 2.90H, Platelet Count 232, Total Bilirubin 1.2H 06/10/22 21:48: Creatinine 2.92H Results/Orders Lab Results Laboratory Tests Test 06/10/22 19:50 06/10/22 20:23 06/10/22 20:35 06/10/22 21:48 Range/Units White Blood Count 16.9 H 4.3-11.0 10^3/uL Red Blood Count 5.30 H 3.80-5.11 10^6/uL Hemoglobin 14.0 11.5-16.0 g/dL Hematocrit 44 35-52 % Mean Corpuscular Volume 82 80-99 fL Mean Corpuscular Hemoglobin 26 25-34 pg Mean Corpuscular Hemoglobin Concent 32 32-36 g/dL Red Cell Distribution Width 19.1 H 10.0-14.5 % Platelet Count 232 130-400 10^3/uL Mean Platelet Volume 9.1 9.0-12.2 fL Immature Granulocyte % (Auto) 1 % Neutrophils (%) (Auto) 84 H 42-75 % Lymphocytes (%) (Auto) 5 L 12-44 % Monocytes (%) (Auto) 10 0-12 % Eosinophils (%) (Auto) 0 0-10 % Basophils (%) (Auto) 0 0-10 % Neutrophils # (Auto) 14.2 H 1.8-7.8 10^3/uL Lymphocytes # (Auto) 0.9 L 1.0-4.0 10^3/uL Monocytes # (Auto) 1.7 H 0.0-1.0 10^3/uL Eosinophils # (Auto) 0.0 0.0-0.3 10^3/uL Basophils # (Auto) 0.0 0.0-0.1 10^3/uL Immature Granulocyte # (Auto) 0.1 0.0-0.1 10^3/uL Neutrophils % (Manual) 91 % Lymphocytes % (Manual) 1 % Monocytes % (Manual) 7 % Eosinophils % (Manual) 1 % Basophils % (Manual) 0 % Band Neutrophils 0 % Anisocytosis SLIGHT Sodium Level 128 L 129 L 135-145 MMOL/L Potassium Level 8.4 *H 7.9 *H 3.6-5.0 MMOL/L Chloride Level 97 L 98 98-107 MMOL/L Carbon Dioxide Level 18 L 17 L 21-32 MMOL/L Anion Gap 13 14 5-14 MMOL/L Blood Urea Nitrogen 70 H 73 H 7-18 MG/DL Creatinine 2.90 H 2.92 H 0.60-1.30 MG/DL Estimat Glomerular Filtration Rate 17 17 BUN/Creatinine Ratio 24 25 Glucose Level 84 95 70-105 MG/DL Lactic Acid Level 2.66 *H 0.50-2.00 MMOL/L Calcium Level 9.6 9.5 8.5-10.1 MG/DL Corrected Calcium 9.5 8.5-10.1 MG/DL Magnesium Level 2.5 H 1.6-2.4 MG/DL Total Bilirubin 1.2 H 0.1-1.0 MG/DL Aspartate Amino Transf (AST/SGOT) 44 H 5-34 U/L Alanine Aminotransferase (ALT/SGPT) 33 0-55 U/L Alkaline Phosphatase 80 40-136 U/L C-Reactive Protein 4.01 H <0.50 MG/DL Total Protein 7.2 6.4-8.2 GM/DL Albumin 4.1 3.2-4.5 GM/DL Venous Blood pH 7.23 L 7.31-7.41 Venous Blood Partial Pressure CO2 47 40-52 MMHG Venous Blood HCO3 20 L 22-28 MMOL/L Influenza Type A (RT-PCR) Not Detected Not Detecte Influenza Type B (RT-PCR) Not Detected Not Detecte SARS-CoV-2 RNA (RT-PCR) Not Detected Not Detecte My Orders Orders - DAMON NORIEGA MD Cbc With Automated Diff (06/10/22 19:46) Comprehensive Metabolic Panel (06/10/22 19:46) Blood Culture (06/10/22 19:46) Chest 1 View Ap/Pa Only (06/10/22 19:46) Magnesium (06/10/22 19:46) Ekg Tracing (06/10/22 19:46) O2 (06/10/22 19:46) Ed Iv/Invasive Line Start (06/10/22 19:46) Sputum Culture (06/10/22 19:46) Monitor-Rhythm Ecg Trace Only (06/10/22 19:46) Crp Fs (06/10/22 19:46) Lactic Acid Analyzer (06/10/22 19:46) Covid 19 Inhouse Test (06/10/22 19:54) Influenza A And B By Pcr (06/10/22 19:54) Isolation Central Supply Req (06/10/22 19:54) Manual Differential (06/10/22 19:50) Ns Iv 1000 Ml (Sodium Chloride 0.9%) (06/10/22 20:34) Cefepime Injection (Maxipime Injection) (06/10/22 20:34) Venous Blood Gas (06/10/22:23) Basic Metabolic Panel (06/10/22 21:51) Ns Iv 1000 Ml (Sodium Chloride 0.9%) (06/10/22 22:11) López Cath (06/10/22 23:28) Vital Signs/I&O 06/10/22 06/10/22 06/10/22 06/11/22 19:36 19:36 19:36 01:00 Temp 36.0 36.0 Pulse 69 77 Resp 30 28 B/P (MAP) 111/97 (102) 146/66 Pulse Ox 100 100 100 O2 Delivery Room Air Nasal Cannula Nasal Cannula Nasal Cannula O2 Flow Rate 6.00 6.00 6.00 3.00 06/11/22 00:00 Intake Total 1050 ml Balance 1050 ml Capillary Refill : Progress Note #1: Progress Note Potential life-threatening diagnosis of pneumonia, chronic respiratory failure with hypoxia, COPD exacerbation with hypoxia, sepsis, dehydration, pulmonary emb olism. Try to obtain peripheral IV access and send labs for complete blood count, comprehensive metabolic profile, cardiac enzymes. She received Solu-Medrol 125 mg IV by EMS and a DuoNeb breathing treatment. She felt like she was breathing a little easier on arrival to the ED but was still working hard to breathe. She had been on steroids and antibiotics until 2 days ago. We will obtain blood cultures and lactic acid to look for signs of sepsis. Chest x-ray to look for change in her chronic respiratory failure and COPD symptoms. Administer normal saline 1 L IV fluid bolus for hydration. Placed on cardiac cook house laborer an d initially her heart rate is in the 70s and is sinus rhythm. Obtain electrocardiogram to further evaluate her rate and rhythm and look for signs of ischemia. Progress Note #2: Progress Note On my personal review of her 1 view chest x-ray she appeared to have increased right lower lobe infiltrate new from her most recent x-ray last week. She had an elevated white blood cell count of 16.9 thousand which may be partly due to recent steroids. Her lactic acid came back at 2.66 to go along with sepsis findings. She had on her comprehensive metabolic profile increased creatinine up to 2.9 whereas last week it was 0.8. Family reports that she has been laying in bed and not eating or drinking in the last 24 hours. We will continue with I V fluid hydration and check with Dr. Chacon reinforced concrete inspector hospitalist for [facility] about possible admission to [facility]. For her recurrent pneumonia we will give her a dose of cefepime 1 g IV. Progress Note #3: Progress Note Discussed the patient and the case with Dr. Chacon and as patient had acute kidney injury with creatinine going from 0.8 one week ago to now being 2.9 she was concerned that there may be something more than just dehydration. She requested that the patient be admitted at a facility that would have nephrology services available. She was willing to reconsider if a repeat chemistry was o btained and did not show hemolysis and the renal failure. Despite multiple attempts to draw blood she continued to have hemolyzed specimens and there is no significant change on her chemistry. With the acute kidney injury again Dr. Chacon advised that she would have to decline as she did not have nephrology locally to help manage the patient. When the patient was updated they felt that they would like to go to [place] in [place] if possible they did not want to go to the [facility] in [place]. If not there they would be agreeable to going to [place] to the [place] part of around [facility] such as [facility]. 2314 I called to [facility] and was advised that they were on diversion and did not have capacity or capability to take the patient in transfer. I then called [facility] and spoke with VIV Ndiaye. She took the basic information on the patient and will call back with the hospitalist for [facility] to see if they would be willing to accept the patient. 2340 d/w Dr. Salgado at [facility]. I reviewed the patient's presentation as well as her past medical history and discussed the pneumonia and acute kidney injury that is presented. She was on antibiotics last week with Z- Bharat as well as steroids. She has not been eating or drinking in the last 24 hours. She has a pneumonia in the right lower lobe that was not seen last week on x-ray so it is new. She also has acute kidney injury with creatinine that was 0.8 last week and now is 2.9. She has elevated BUN of 70 that would go along with dehydration. Despite multiple attempts her blood was always hemolyzed so we never had an accurate potassium level however she was not showing peaked T waves on her electrocardiogram to feel that she truly had a potassium of 7-8 as the 2+ hemolyzed specimens were showing. Her lactic acid was slightly elevated to 2.6. Blood cultures were sent. She was also given 1 g of cefepime for healthcare associated pneumonia and failing outpatient Zithromax. Dr. Salgado accepted the patient on behalf of Dr. Burnett and [facility] will call back with a bed assignment for [facility]. Patient was maintaining her oxygen saturation on the supplemental oxygen here in the ED. She remained hemodynamically stable with her heart rate and blood pressure. She was not showing hypotension. She responded well with fluids here in the ED and ordered lópez catheter to document accurate input and output with her having acute kidney injury. ECG Initial ECG Impression Date: Jun 10, 2022 Initial ECG Impression Time: 20:11 Initial ECG Rate: 73 Initial ECG Rhythm: Normal Sinus Initial ECG Comparisson: Unchanged (06/01/2022) Comment On my interpretation of her electrocardiogram she has a sinus rhythm with a heart rate of 73 bpm. NV interval 122 ms. Right atrial enlargement. LVH changes. QT interval 349 ms with a QTc interval 375 ms. There is no acute ST elevation. Overall appears similar to prior tracing from June 01, 2022. Diagnostic Imaging Diagonstic Imaging: Xray Plain Films/CT/US/NM/MRI: chest Comments NAME: MARLA CRAMER [facility] REC#: [id number] PT STATUS: REG ER : 1950 PHYSICIAN: DAMON NORIEGA MD ADMIT DATE: 06/10/22/ER FS Signed Date of Exam:06/10/22 CHEST 1 VIEW AP/PA ONLY CHEST 1 VIEW AP/PA ONLY Indication: Shortness of breath and cough. Comparison: 06/01/2022 Findings: Hazy opacities in the right infrahilar region have increased. Stable hyperinflated lungs. Spiculated nodule in the medial aspect left upper lobe is unchanged. Normal heart size. No pneumothorax or pleural effusion. Impression: 1. Potential new right basilar pneumonia. 2. Stable spiculated left upper lobe pulmonary nodule. Please see CTA chest report from 06/01/2022 for more complete details. Dictated by: Dictated on workstation # [id number] Dict: 06/10/221957 Trans: 06/10/222009 CVB [id number] Interpreted by: YASMIN MARVIN MD Electronically signed by: YASMIN MARVIN MD 06/10/222009 Reviewed: Reviewed by Me Departure Impression Primary Impression: Right lower lobe pneumonia Qualified Codes: J18.9 - Pneumonia, unspecified organism Additional Impressions: Hypoxia Acute and chronic respiratory failure with hypoxia Acute kidney injury Dehydration Disposition: XFER SHT-TRM HOSP Condition: Stable Transfer Transfer Reason: Exceeds level of care (Needs Nephrology, Pulmonology, Car diology) Time Spoke to Accepting Phy: 23:40 Transfer Progress Notes d/w Dr. Salgado at [facility]. I reviewed the patient's presentation as well as her past medical history and discussed the pneumonia and acute kidney injury that is presented. She was on antibiotics last week with Z-Bharat as well as steroids. She has not been eating or drinking in the last 24 hours. She has a pneumonia in the right lower lobe that was not seen last week on x-ray so it is new. She also has acute kidney injury with creatinine that was 0.8 last week and now is 2.9. She has elevated BUN of 70 that would go along with dehydration. Despite multiple attempts her blood was always hemolyzed so we never had an accurate potassium level however she was not showing peaked T waves on her electrocardiogram to feel that she truly had a potassium of 7-8 as the 2+ hemolyzed specimens were showing. Her lactic acid was slightly elevated to 2.6. Blood cultures were sent. She was also given 1 g of cefepime for healthcare associated pneumonia and failing outpatient Zithromax. Dr. Salgado accepted the patient on behalf of Dr. Burnett and [facility] access center will call back with a bed assignment for [facility]. Transfer Facility: [facility] Method of Transfer: EMS Departure-Patient Inst. Referrals: KEELY SHARIF MD (PCP/Family) Primary Care Physician DAMON NORIEGA MD Jun 10, 2022 19:54
[2022-06-10 20:00] LABS: BASOPHILS % (AUTO) 0 % (0-10); EOSINOPHILS % (AUTO) 0 % (0-10); HEMATOCRIT 44 % (35-52); LYMPHOCYTES # (AUTO) 0.9 10^3/uL (1.0-4.0); LYMPHOCYTES % (AUTO) 5 % (12-44); MEAN CORPUSCULAR HEMOGLOBIN 26 pg (25-34); MEAN CORPUSCULAR HGB CONC 32 g/dL (32-36); MEAN CORPUSCULAR VOLUME 82 fL (80-99); MEAN PLATELET VOLUME 9.1 fL (9.0-12.2); MONOCYTES # (AUTO) 1.7 10^3/uL (0.0-1.0); MONOCYTES % (AUTO) 10 % (0-12); NEUTROPHILS # (AUTO) 14.2 10^3/uL (1.8-7.8); NEUTROPHILS % (AUTO) 84 % (42-75); PLATELET COUNT 232 10^3/uL (130-400); WHITE BLOOD COUNT 16.9 10^3/uL (4.3-11.0)
--- NOTE | 2022-06-10 20:02 | Diagnostic Imaging Report ---
CHEST 1 VIEW AP/PA ONLY Indication: Shortness of breath and cough. Comparison: 06/01/2022 Findings: Hazy opacities in the right infrahilar region have increased. Stable hyperinflated lungs. Spiculated nodule in the medial aspect left upper lobe is unchanged. Normal heart size. No pneumothorax or pleural effusion. Impression: 1. Potential new right basilar pneumonia. 2. Stable spiculated left upper lobe pulmonary nodule. Please see CTA chest report from 06/01/2022 for more complete details. Dictated by: Dictated on workstation # [id number]
[2022-06-10 20:28] LABS: BILIRUBIN,TOTAL 1.2 MG/DL (0.1-1.0); CALCIUM 9.6 MG/DL (8.5-10.1); CREATININE SERUM 2.9 MG/DL (0.60-1.30); MAGNESIUM 2.5 MG/DL (1.6-2.4); POTASSIUM 8.4 MMOL/L (3.6-5.0)
[2022-06-10 20:29] LABS: ALBUMIN 4.1 GM/DL (3.2-4.5); TOTAL PROTEIN 7.2 GM/DL (6.4-8.2)
[2022-06-10] MEDS ORDERED: NS IV 1000 ML 1,000 ML IV STA ×2 (20:34→22:11)
[2022-06-10] MEDS ORDERED: CEFEPIME INJECTION 1,000 MG in NS (IVPB) 50 ML IV STA (20:34)
[2022-06-10 22:06] LABS: BAND NEUTROPHILS 0 %; BASOPHILS % (MANUAL) 0 %; EOSINOPHILS % (MANUAL) 1 %; LYMPHOCYTES % (MANUAL) 1 %; MONOCYTES % (MANUAL) 7 %; NEUTROPHILS % (MANUAL) 91 %
[2022-06-10 22:07] LABS: ANISOCYTOSIS SLIGHT
[2022-06-10 22:18] LABS: CREATININE SERUM 2.92 MG/DL (0.60-1.30); POTASSIUM 7.9 MMOL/L (3.6-5.0)
[2022-06-10 22:19] LABS: CALCIUM 9.5 MG/DL (8.5-10.1)
[2022-06-11 01:00] VITALS: BP 146/66
== END 2022-06-11 01:00 | disposition short-term general hospital (02) ==
LOC: EDUNIT# 19:34 → ER FS 19:35
DX: J18.9 Pneumonia, unspecified organism (principal); J96.21 Acute and chronic respiratory failure with hypoxia; N17.9 Acute kidney failure, unspecified; E86.0 Dehydration; R74.02 Elevation of levels of lactic acid dehydrogenase [LDH]; F17.210 Nicotine dependence, cigarettes, uncomplicated; Z99.81 Dependence on supplemental oxygen; Z28.310 Unvaccinated for COVID-19; Z20.822 Contact with and (suspected) exposure to COVID-19
CPT/HCPCS: 36415; 71045; 80048; 80053; 82805; 83605; 83735; 85007; 85027; 86141; 87040; 87636; 93005; 93041

== ENCOUNTER 2022-07-02 15:36 | Emergency (ER) | payer MEDICARE, MEDICAID ==
[2022-07-02] MEDS ORDERED: methylPREDNISolone 125 MG (Solu-MEDROL) VIAL IVP STA (15:51)
--- NOTE | 2022-07-02 15:53 | ED Dyspnea ---
General Chief Complaint: Respiratory Problems Stated Complaint: HARD TO BREATH Source of Information: Patient History of Present Illness Date Seen by Provider: Jul 02, 2022 Time Seen by Provider: 15:39 Initial Comments 72-year-old female presenting to the emergency department with a complaint of increased shortness of breath. She states that she had just finished antibiotics and steroids on Tuesday and Tuesday respectively this week. She had been admitted to [facility] for dehydration and acute kidney injury with COPD exacerbation. They had treated her with antibiotics for pneumonia as well. She suddenly got more short of breath today and became more anxious and panicked which made her breathing even more short. She denies having a fever, productive cough, abdominal pain, chest pain, nausea, vomiting, headache. She is stressed and anxious and worried about her breathing. She had increased her oxygen from her baseline of 2 L up to 3 L. This was helping with her breathing but she was still very anxious and short of breath. Although she has albuterol for treatments every 4-6 hours she has not had any since yesterday. She did not try an albuterol treatment today to help with her shortness of breath she only increased her oxygen from 2 to 3 L. Timing/Duration: Other (worsening over the last few days since she finished ant ibiotic and steroids from admit to [facility] [place]) Severity: Severe Activities at Onset: Activity Prior Episodes/Possible Cause: Chronic Episodes, Frequent Episodes Modifying Factors: Worse With Activity; Improves With Oxygen Associated Symptoms: Anxiety, Cough, Weakness, Wheezing Allergies and Home Medications Allergies Coded Allergies: No Known Drug Allergies (Unverified , 05/23/22) Patient Home Medication List Home Medication List Reviewed: Yes Alprazolam (Alprazolam) 0.5 Mg Tablet, 0.5 MG PO TID PRN for ANXIETY, (Reported) Entered as Reported by: FLASH JIMENES on 05/24/22 154 Amlodipine Besylate (Amlodipine Besylate) 2.5 Mg Tablet, 2.5 MG PO DAILY, (Reported) Entered as Reported by: FLASH JIMENES on 05/24/22 154 Aspirin (Aspirin EC) 81 Mg Tablet.dr, 81 MG PO HS, (Reported) Entered as Reported by: FLASH JIMENES on 05/24/22 154 Atorvastatin Calcium (Atorvastatin Calcium) 20 Mg Tablet, 20 MG PO HS, (Reported) Entered as Reported by: FLASH JIMENES on 05/24/22 154 Budesonide/Formoterol Fumarate (Symbicort 160-4.5 Mcg Inhaler) 160 Mcg-4.5 Mcg/Actuation Hfa.aer.ad, 1 PUFF PO BID, (Reported) Entered as Reported by: FLASH JIMENES on 05/24/22 154 Cefdinir (Cefdinir) 300 Mg Capsule, 300 MG PO BID Prescribed by: DUANE GIPSON on 05/25/22 09 Dexamethasone (Dexamethasone) 6 Mg Tablet, 6 MG PO DAILY Prescribed by: MORA ORTEGA on 06/01/22 163 Ipratropium/Albuterol Sulfate (Iprat-Albut 0.5-3(2.5) mg/3 ml) 0.5 Mg-3 Mg (2.5 Mg Base)/3 Ml Ampul.neb, 3 ML INH Q4H PRN for SHORTNESS OF BREATH, (Reported) Entered as Reported by: DUANE GIPSON on 05/25/22926 Lisinopril (Lisinopril) 10 Mg Tablet, 10 MG PO DAILY, (Reported) Entered as Reported by: FLASH JIMENES on 05/24/22 154 Metoprolol Succinate (Metoprolol Succinate) 25 Mg Tab.er.24h, 25 MG PO 1300, (Reported) Entered as Reported by: FLASH JIMENES on 05/24/22 154 Nitroglycerin (Nitroglycerin) 0.4 Mg Tab.subl, 0.4 MG PO UD, (Reported) Entered as Reported by: FLASH JIMENES on 05/24/221540 Prednisone (Prednisone) 50 Mg Tab, 50 MG PO DAILY Prescribed by: DUANE GIPSON on 05/25/22 09 Prednisone (Prednisone) 20 Mg Tab, 20 MG PO UD Prescribed by: DAMON NORIEGA on 07/02/22 182 Spironolactone (Spironolactone) 25 Mg Tablet, 25 MG PO DAILY, (Reported) Entered as Reported by: FLASH JIMENES on 05/24/22 154 Sulfamethoxazole/Trimethoprim (Bactrim Ds Tablet) 1 Each Tablet, 1 EACH PO BID Prescribed by: MORA ORTEGA on 06/01/22 163 Review of Systems Review of Systems Constitutional: No chills, No fever; malaise, weakness EENTM: nose congestion Respiratory: cough, dyspnea on exertion; No hemoptysis, No orthopnea, No phlegm; short of breath; No stridor; wheezing Cardiovascular: No chest pain Gastrointestinal: No nausea, No vomiting Genitourinary: No dysuria Musculoskeletal: no symptoms reported Skin: No rash Psychiatric/Neurological: Anxiety Past Dnjxnzo-Wyiuyl-Ipdikf Hx Patient Social History Tobacco Use?: Yes Tobacco type used: Cigarettes Smoking Status: Current Everyday Smoker (Reports cutting down to 2 cigarettes a day now and trying to stop) Use of E-Cig and/or Vaping dev: No Substance use?: No Alcohol Use?: No Immunizations Up To Date First/Initial COVID19 Vaccinat: Unvaccinated Seasonal Allergies Seasonal Allergies: No Past Medical History Surgery/Hospitalization HX: COPD w/ Continuous Oxygen Dependant, CAD, Tobacco abuse, CKD, Malignant Neoplasm Nasal Cavity, Depression/Anxiety, Hyperlipidemia, Cardiac Stent, Kidney "tie up", Abdominal aneursym surgery Surgeries: Yes Coronary Stent Respiratory: Yes COPD Cardiac: Yes Hypertension Neurological: No Genitourinary: No Gastrointestinal: No Musculoskeletal: No Endocrine: No HEENT: No Cancer: No Psychosocial: Yes Anxiety Integumentary: No Physical Exam Vital Signs Vital Signs - First Documented Capillary Refill : Height, Weight, BMI Height: '" Weight: lbs. oz. kg; 19.00 BMI Method: General Appearance: Anxious, Chronically ill, Moderate Distress HEENT: PERRL/EOMI, Pharynx Normal Neck: Full Range of Motion, Normal Inspection, Non Tender, Supple Respiratory: Chest Non Tender, Accessory Muscle Use, Decreased Breath Sounds, Respiratory Distress; No Rhonci, No Stridor; Wheezing Cardiovascular: Regular Rate, Rhythm, Normal Peripheral Pulses Gastrointestinal: Normal Bowel Sounds, No Pulsatile Mass, Non Tender, Soft Extremity: Normal Capillary Refill, No Pedal Edema Neurologic/Psychiatric: Alert, Oriented x3 Skin: Normal Color, Warm/Dry Focused Exam Lactate Level 07/02/22 15:50: Lactic Acid Level 0.66 Lactic Acid Level Laboratory Tests Test 07/02/22 15:50 Lactic Acid Level 0.66 MMOL/L (0.50-2.00) Progress/Results/Core Measures Results/Orders Lab Results Laboratory Tests Test 07/02/22 15:50 Range/Units White Blood Count 10.2 4.3-11.0 10^3/uL Red Blood Count 4.13 3.80-5.11 10^6/uL Hemoglobin 11.4 L 11.5-16.0 g/dL Hematocrit 35 35-52 % Mean Corpuscular Volume 86 80-99 fL Mean Corpuscular Hemoglobin 28 25-34 pg Mean Corpuscular Hemoglobin Concent 32 32-36 g/dL Red Cell Distribution Width 22.3 H 10.0-14.5 % Platelet Count 216 130-400 10^3/uL Mean Platelet Volume 9.5 9.0-12.2 fL Immature Granulocyte % (Auto) 1 % Neutrophils (%) (Auto) 78 H 42-75 % Lymphocytes (%) (Auto) 9 L 12-44 % Monocytes (%) (Auto) 11 0-12 % Eosinophils (%) (Auto) 0 0-10 % Basophils (%) (Auto) 0 0-10 % Neutrophils # (Auto) 8.0 H 1.8-7.8 10^3/uL Lymphocytes # (Auto) 0.9 L 1.0-4.0 10^3/uL Monocytes # (Auto) 1.2 H 0.0-1.0 10^3/uL Eosinophils # (Auto) 0.0 0.0-0.3 10^3/uL Basophils # (Auto) 0.0 0.0-0.1 10^3/uL Immature Granulocyte # (Auto) 0.1 0.0-0.1 10^3/uL Sodium Level 131 L 135-145 MMOL/L Potassium Level 4.1 3.6-5.0 MMOL/L Chloride Level 93 L 98-107 MMOL/L Carbon Dioxide Level 30 21-32 MMOL/L Anion Gap 8 5-14 MMOL/L Blood Urea Nitrogen 16 7-18 MG/DL Creatinine 1.09 0.60-1.30 MG/DL Estimat Glomerular Filtration Rate 54 BUN/Creatinine Ratio 15 Glucose Level 118 H 70-105 MG/DL Lactic Acid Level 0.66 0.50-2.00 MMOL/L Calcium Level 9.2 8.5-10.1 MG/DL Corrected Calcium 9.3 8.5-10.1 MG/DL Magnesium Level 1.8 1.6-2.4 MG/DL Total Bilirubin 0.4 0.1-1.0 MG/DL Aspartate Amino Transf (AST/SGOT) 22 5-34 U/L Alanine Aminotransferase (ALT/SGPT) 23 0-55 U/L Alkaline Phosphatase 88 40-136 U/L Troponin I < 0.30 <0.30 NG/ML C-Reactive Protein 8.04 H <0.50 MG/DL Pro-B-Type Natriuretic Peptide 1315.0 H <125.0 PG/ML Total Protein 6.8 6.4-8.2 GM/DL Albumin 3.9 3.2-4.5 GM/DL My Orders Orders - DAMON NORIEGA MD Cbc With Automated Diff (07/02/22 15:49) Comprehensive Metabolic Panel (07/02/22 15:49) Blood Culture (07/02/22 15:49) Chest 1 View Ap/Pa Only (07/02/22 15:49) Albuterol/Ipra Inhalation Soln (Duoneb I (07/02/22 16:00) Magnesium (07/02/22 15:49) Ekg Tracing (07/02/22 15:49) O2 (07/02/22 15:49) Ed Iv/Invasive Line Start (07/02/22 15:49) Sputum Culture (07/02/22 15:49) Monitor-Rhythm Ecg Trace Only (07/02/22 15:49) Crp Fs (07/02/22 15:49) Lactic Acid Analyzer (07/02/22 15:49) Svn Small Volume Nebulizer (07/02/22 15:49) Troponin I Fs (07/02/22 15:49) Probnp Fs (07/02/22 15:49) Methylprednisolone Sod Succ (Solu-Medrol (07/02/22 15:51) Medications Given in ED Current Medications Medications Dose Ordered Sig/Neetu Route Start Time Stop Time Status Last Admin Dose Admin Albuterol/ Ipratropium 3 ml ONCE ONCE INH 07/02/22 16:00 07/02/22 16:01 DC 07/02/22 16:08 3 ML Vital Signs/I&O 07/02/22 07/02/22 07/02/22 15:40 15:40 18:30 Temp 36.7 36.7 Pulse 76 65 Resp 31 25 B/P (MAP) 152/69 (96) 145/65 Pulse Ox 95 96 O2 Delivery Nasal Cannula Nasal Cannula Nasal Cannula O2 Flow Rate 3.00 3.00 3.00 3.00 Progress Progress Note #1: Progress Note Potential diagnosis of pneumonia, COPD exacerbation, anxiety, heart failure, pleural effusion, lung mass. Obtain peripheral IV access and check labs for complete blood count, comprehensive metabolic profile, proBNP, troponin I, magnesium, blood cultures, lactic acid. Ordered chest x-ray to look for acute infiltrate or change from her baseline. Order DuoNeb breathing treatment to help with her wheezing and shortness of breath. Progress Note #2: Progress Note Her complete blood count did not show elevated white blood cell count for infection and she was anemic with her hemoglobin at 11.2, stable from recent testing in the last month. Comprehensive metabolic profile did not have any acute significant abnormality with her electrolytes that would account for her shortness of breath and symptoms. Her sodium was just below normal at 131 she had a normal potassium of 4.1. Her creatinine was 1.09 with a BUN of 16. Lactic acid was negative at 0.66. Troponin I was negative at less than 0.3. Her proBNP was elevated to 1315 but there is no prior testing for comparison. On my review of her 1 view chest x-ray she did not have any acute infiltrate but showed chronic COPD changes and stable from imaging in May. She reported improvement in her breathing after the DuoNeb breathing treatment and receiving 125 of Solu-Medrol IV. She was resting in the room comfortably and not working as hard to breathe. Progress Note #3: Progress Note I reviewed the radiologist report and they did not see any acute infiltrate or acute process on her chest x-ray compared to prior imaging. She had chronic spiculated mass that appeared stable on today's imaging. I reviewed the findings with the patient and she was breathing easier and felt that the breathing treatment here it helped a lot. Stressed importance of continuing her albuterol treatments at home when she was feeling more short of breath. Will place her on a steroid taper over the next 2 weeks and have her follow-up with the clinic within that time for reevaluation. She might require chronic daily steroid treatment to help with her COPD. Counseled on follow-up and return precautions if she was having worsening symptoms or still not improving with the steroids and breathing treatments at home. Diagnostic Imaging Diagonstic Imaging: Xray Plain Films/CT/US/NM/MRI: chest Comments [facility]. [place], [place] NAME: MARLA CRAMER [facility] REC#: [id number] PT STATUS: REG ER : 1950 PHYSICIAN: DAMON NORIEGA MD ADMIT DATE: 07/02/22/ER FS Signed Date of Exam:07/02/22 CHEST 1 VIEW AP/PA ONLY INDICATION: Increased shortness of breath, cough. TECHNIQUE: Single view chest, 3:54 p.m. CORRELATION STUDY: 06/10/2022. FINDINGS: The heart size, mediastinal configuration and pulmonary vascularity are within normal limits. Lung valenzuela remain hyperinflated. Nearly 2 cm spiculated density in the left upper lobe just lateral to the aortic arch remains present, generally stable. Partial visualization of an endovascular stent graft in the midline upper abdomen. IMPRESSION: 1. Generally stable chest demonstrates no acute abnormality. 2. Spiculated mass in the left upper lobe again demonstrated. (Correlate with previous CT chest report 06/01/2022). Dictated by: Dictated on workstation # [id number] Dict: 07/02/22 1607 Trans: 07/02/22 1629 [id number] Interpreted by: ELIGIO FRIEND DO Electronically signed by: ELIGIO FRIEND DO 07/02/22 1629 Reviewed: Reviewed by Me Departure Impression Primary Impression: COPD with exacerbation Additional Impression: Dyspnea on exertion Disposition: 01 HOME, SELF-CARE Condition: Stable Departure-Patient Inst. Decision time for Depature: 18:20 Referrals: KEELY SHARIF MD (PCP/Family) Primary Care Physician Patient Instructions: Shortness of Breath, Adult ED, COPD Exacerbation, Adult ED, COPD Diet Add. Discharge Instructions: Start taking the steroids on a daily basis again starting tomorrow as you have received a dose through the IV today. Continue to use your oxygen at 2 to 3 L to help control your shortness of breath. Try to go and change positions slowly and use your walker for support to help keep yourself steady as you are moving around. You will get short of breath with exertion but if it is getting more severe and not staying stable with the steroids and breathing treatments and oxygen then you should be reevaluated. Make sure you are drinking plenty of fluids and staying well-hydrated to help with the congestion and cough. This will also help the steroids worked better. Follow-up with your primary care doctor within the next 2 weeks to get evaluated and you may need to be on steroids daily all the time to help control your COPD. All discharge instructions reviewed with patient and/or family. Voiced understanding. Scripts Prednisone (Prednisone) 20 Mg Tab 20 MG PO UD for COPD with Exacerbation for 16 Days, #26 TAB 0 Refills 60 mg by mouth daily x 4 days, 40 mg daily x 4 days, 20 mg daily x 4 days, 10 mg (1/2 tab) daily for 4 days Prov: DAMON NORIEGA MD 07/02/22 DAMON NORIEGA MD Jul 02, 2022 15:53
[2022-07-02 15:58] LABS: BASOPHILS % (AUTO) 0 % (0-10); EOSINOPHILS % (AUTO) 0 % (0-10); HEMATOCRIT 35 % (35-52); HEMOGLOBIN 11.4 g/dL (11.5-16.0); LYMPHOCYTES # (AUTO) 0.9 10^3/uL (1.0-4.0); LYMPHOCYTES % (AUTO) 9 % (12-44); MEAN CORPUSCULAR HEMOGLOBIN 28 pg (25-34); MEAN CORPUSCULAR HGB CONC 32 g/dL (32-36); MEAN CORPUSCULAR VOLUME 86 fL (80-99); MEAN PLATELET VOLUME 9.5 fL (9.0-12.2); MONOCYTES # (AUTO) 1.2 10^3/uL (0.0-1.0); MONOCYTES % (AUTO) 11 % (0-12); NEUTROPHILS % (AUTO) 78 % (42-75); PLATELET COUNT 216 10^3/uL (130-400); WHITE BLOOD COUNT 10.2 10^3/uL (4.3-11.0)
[2022-07-02] MEDS ORDERED: RT-ALBUTEROL/IPRATROPIUM 3 ML (DUONEB) VIAL INH ONE (16:00)
--- NOTE | 2022-07-02 16:14 | Diagnostic Imaging Report ---
INDICATION: Increased shortness of breath, cough. TECHNIQUE: Single view chest, 3:54 p.m. CORRELATION STUDY: 06/10/2022. FINDINGS: The heart size, mediastinal configuration and pulmonary vascularity are within normal limits. Lung valenzuela remain hyperinflated. Nearly 2 cm spiculated density in the left upper lobe just lateral to the aortic arch remains present, generally stable. Partial visualization of an endovascular stent graft in the midline upper abdomen. IMPRESSION: 1. Generally stable chest demonstrates no acute abnormality. 2. Spiculated mass in the left upper lobe again demonstrated. (Correlate with previous CT chest report 06/01/2022). Dictated by: Dictated on workstation # [id number]
[2022-07-02 16:21] LABS: ALANINE AMINOTRANSFERASE 23 U/L (0-55); ALBUMIN 3.9 GM/DL (3.2-4.5); ALKALINE PHOSPHATASE 88 U/L (40-136); BILIRUBIN,TOTAL 0.4 MG/DL (0.1-1.0); BUN/CREATININE RATIO 15; CALCIUM 9.2 MG/DL (8.5-10.1); CARBON DIOXIDE 30 MMOL/L (21-32); CHLORIDE 93 MMOL/L (98-107); CREATININE SERUM 1.09 MG/DL (0.60-1.30); GFR ESTIMATED 54; GLUCOSE 118 MG/DL (70-105); MAGNESIUM 1.8 MG/DL (1.6-2.4); POTASSIUM 4.1 MMOL/L (3.6-5.0); SODIUM 131 MMOL/L (135-145); TOTAL PROTEIN 6.8 GM/DL (6.4-8.2)
[2022-07-02] MEDS ORDERED: PRD20T PO (18:24)
[2022-07-02 18:30] VITALS: BP 145/65
== END 2022-07-02 18:35 | disposition home or self-care (01) ==
LOC: EDUNIT# 15:36 → ER FS 15:38
DX: J44.1 Chronic obstructive pulmonary disease with (acute) exacerbation (principal); D64.9 Anemia, unspecified; F17.210 Nicotine dependence, cigarettes, uncomplicated; Z28.310 Unvaccinated for COVID-19; Z99.81 Dependence on supplemental oxygen
CPT/HCPCS: 36415; 71045; 80053; 83605; 83735; 83880; 84484; 85025; 86141; 87040; 94640

== ENCOUNTER 2022-07-18 18:35 | Inpatient (IN) | payer MEDICARE, MEDICAID ==
[~2022-07-18] VITALS: Ht 157.5 cm; Wt 55.5 kg
[~2022-07-18 18:35] MED LIST changes: -IPRA3AMP31 INH; +IPRA3AMP31 NEB; +PRD20T PO
[2022-07-18] MEDS ORDERED: methylPREDNISolone 125 MG (Solu-MEDROL) VIAL IV STA (18:53)
[2022-07-18] MEDS ORDERED: RT-ALBUTEROL/IPRATROPIUM 3 ML (DUONEB) VIAL INH ONE ×2 (19:00→20:45)
[2022-07-18 19:05] LABS: BASOPHILS % (AUTO) 0 % (0-10); EOSINOPHILS % (AUTO) 0 % (0-10); HEMATOCRIT 32 % (35-52); HEMOGLOBIN 10.6 g/dL (11.5-16.0); LYMPHOCYTES # (AUTO) 0.9 10^3/uL (1.0-4.0); LYMPHOCYTES % (AUTO) 7 % (12-44); MEAN CORPUSCULAR HEMOGLOBIN 28 pg (25-34); MEAN CORPUSCULAR HGB CONC 33 g/dL (32-36); MEAN CORPUSCULAR VOLUME 86 fL (80-99); MEAN PLATELET VOLUME 8.4 fL (9.0-12.2); MONOCYTES # (AUTO) 1.3 10^3/uL (0.0-1.0); MONOCYTES % (AUTO) 9 % (0-12); NEUTROPHILS # (AUTO) 11.5 10^3/uL (1.8-7.8); NEUTROPHILS % (AUTO) 83 % (42-75); PLATELET COUNT 276 10^3/uL (130-400); WHITE BLOOD COUNT 13.9 10^3/uL (4.3-11.0)
--- NOTE | 2022-07-18 19:14 | Diagnostic Imaging Report ---
INDICATION: SOB. COMPARISON: 07/02/2022. FINDINGS: Single frontal view of the chest demonstrates normal heart size and pulmonary vascularity. The lungs are hyperinflated, but are otherwise clear. No large pleural effusion or pneumothorax is seen. The visualized osseous structures show no acute abnormality. IMPRESSION: 1. No acute cardiopulmonary process. 2. Background obstructive pulmonary changes. Dictated by: Dictated on workstation # [id number]
[2022-07-18 19:16] LABS: INR 0.9 (0.8-1.4); PROTHROMBIN TIME PATIENT 12.3 SEC (12.2-14.7)
[2022-07-18 19:26] LABS: ALKALINE PHOSPHATASE 94 U/L (40-136); BILIRUBIN,TOTAL 0.4 MG/DL (0.1-1.0); BUN/CREATININE RATIO 19; CALCIUM 8.8 MG/DL (8.5-10.1); CARBON DIOXIDE 31 MMOL/L (21-32); CHLORIDE 85 MMOL/L (98-107); CREATININE SERUM 1.03 MG/DL (0.60-1.30); FIBRIN DEGRADATION PRODUCTS 3.59 UG/ML (0.00-0.49); GFR ESTIMATED 58; GLUCOSE 116 MG/DL (70-105); MAGNESIUM 1.9 MG/DL (1.6-2.4); POTASSIUM 5.3 MMOL/L (3.6-5.0)
[2022-07-18 19:27] LABS: ALANINE AMINOTRANSFERASE 14 U/L (0-55); ALBUMIN 3.6 GM/DL (3.2-4.5); SODIUM 122 MMOL/L (135-145); TOTAL PROTEIN 5.8 GM/DL (6.4-8.2)
--- NOTE | 2022-07-18 19:29 | ED Respiratory ---
General Chief Complaint: Respiratory Problems Stated Complaint: BP CONCERNS Nursing Triage Note: Patient reports she began feeling short of breath, lightheaded, and weak around noon today. She states she took her blood pressure at home and her systolic blood pressure was in the 70s. She states she has been in and out of several hospitals recently with pneumonia and COPD exacerbations. History of Present Illness Date Seen by Provider: Jul 18, 2022 Time Seen by Provider: 18:42 Initial Comments 72-year-old female with PMH of CAD with MN and stent in 2003/HTN/COPD/active smoker/past lung cancer and nose cancer, is here with complaints of shortness of breath which began today morning. She also had an episode of lightheadedness due to a low blood pressure with reported systolic in 70s. Patient was discharged 2 weeks ago from [facility] for pneumonia. Patient is not currently taking any antibiotics. She is on prednisone 10 mg daily. Patient took a nebulizer treatment at home 6 hours prior to coming to the ER. Denies LOC, dizziness, headache, chest pain, palpitations, URI symptoms, cough, abdominal pain, diarrhea, fever and chills. Patient is on 3 L of oxygen at home at baseline. Allergies and Home Medications Allergies Coded Allergies: No Known Drug Allergies (Unverified , 05/23/22) Patient Home Medication List Home Medication List Reviewed: Yes Alprazolam (Alprazolam) 0.5 Mg Tablet, 0.5 MG PO TID PRN for ANXIETY, (Reported) Entered as Reported by: FLASH JIMENES on 05/24/221540 Amlodipine Besylate (Amlodipine Besylate) 2.5 Mg Tablet, 2.5 MG PO DAILY, (Reported) Entered as Reported by: FLASH JIMENES on 05/24/22 154 Aspirin (Aspirin EC) 81 Mg Tablet.dr, 81 MG PO HS, (Reported) Entered as Reported by: FLASH JIMENES on 05/24/221540 Atorvastatin Calcium (Atorvastatin Calcium) 20 Mg Tablet, 20 MG PO HS, (Reported) Entered as Reported by: FLASH JIMENES on 05/24/221540 Budesonide/Formoterol Fumarate (Symbicort 160-4.5 Mcg Inhaler) 160 Mcg-4.5 Mcg/Actuation Hfa.aer.ad, 1 PUFF PO BID, (Reported) Entered as Reported by: FLASH JIMENES on 05/24/22 154 Cefdinir (Cefdinir) 300 Mg Capsule, 300 MG PO BID Prescribed by: DUANE GIPSON on 05/25/22 09 Dexamethasone (Dexamethasone) 6 Mg Tablet, 6 MG PO DAILY Prescribed by: MORA ORTEGA on 06/01/22 163 Ipratropium/Albuterol Sulfate (Iprat-Albut 0.5-3(2.5) mg/3 ml) 0.5 Mg-3 Mg (2.5 Mg Base)/3 Ml Ampul.neb, 3 ML INH Q4H PRN for SHORTNESS OF BREATH, (Reported) Entered as Reported by: DUANE GIPSON on 05/25/22 09 Lisinopril (Lisinopril) 10 Mg Tablet, 10 MG PO DAILY, (Reported) Entered as Reported by: FLASH JIMENES on 05/24/22 154 Metoprolol Succinate (Metoprolol Succinate) 25 Mg Tab.er.24h, 25 MG PO 1300, (Reported) Entered as Reported by: FLASH JIMENES on 05/24/22 154 Nitroglycerin (Nitroglycerin) 0.4 Mg Tab.subl, 0.4 MG PO UD, (Reported) Entered as Reported by: FLASH JIMENES on 05/24/22 154 Prednisone (Prednisone) 50 Mg Tab, 50 MG PO DAILY Prescribed by: DUANE GIPSON on 05/25/22 09 Prednisone (Prednisone) 20 Mg Tab, 20 MG PO UD Prescribed by: DAMON NORIEGA on 07/02/22 182 Spironolactone (Spironolactone) 25 Mg Tablet, 25 MG PO DAILY, (Reported) Entered as Reported by: FLASH JIMENES on 05/24/22 154 Sulfamethoxazole/Trimethoprim (Bactrim Ds Tablet) 1 Each Tablet, 1 EACH PO BID Prescribed by: MORA ORTEGA on 06/01/22 163 Review of Systems Review of Systems Constitutional: no symptoms reported EENTM: no symptoms reported Respiratory: see HPI, short of breath Cardiovascular: no symptoms reported Gastrointestinal: no symptoms reported Musculoskeletal: no symptoms reported Skin: no symptoms reported Psychiatric/Neurological: No Symptoms Reported Hematologic/Lymphatic: No Symptoms Reported Immunological/Allergic: no symptoms reported Past Jvowvas-Sxpbay-Wutwsv Hx Patient Social History Tobacco Use?: Yes Tobacco type used: Cigarettes Smoking Status: Current Everyday Smoker Substance use?: No Alcohol Use?: No Pt feels they are or have been: No Immunizations Up To Date First/Initial COVID19 Vaccinat: Unvaccinated Second COVID19 Vaccination Armando: Unvaccinated Third COVID19 Vaccination Date: Unvaccinated Seasonal Allergies Seasonal Allergies: No Past Medical History Surgery/Hospitalization HX: COPD w/ Continuous Oxygen Dependant, CAD, Tobacco abuse, CKD, Malignant Neoplasm Nasal Cavity, Depression/Anxiety, Hyperlipidemia, Cardiac Stent, Kidney "tie up", Abdominal aneursym surgery Surgeries: Yes Coronary Stent Respiratory: Yes COPD Cardiac: Yes Hypertension Neurological: No Genitourinary: No Gastrointestinal: No Musculoskeletal: No Endocrine: No HEENT: No Cancer: No Psychosocial: Yes Anxiety Integumentary: No Physical Exam Vital Signs - First Documented 07/18/22 18:43 Temp 36.2 Pulse 69 Resp 30 B/P (MAP) 122/53 (76) Pulse Ox 97 O2 Delivery Nasal Cannula O2 Flow Rate 3.00 Capillary Refill : Less Than 3 Seconds Height: '" Weight: lbs. oz. kg; 19.00 BMI Method: General Appearance: WD/WN, no apparent distress HEENT: PERRL/EOMI, normal ENT inspection Neck: full range of motion Respiratory: chest non-tender, lungs clear, no respiratory distress, no accessory muscle use, wheezing (Occasional expiratory wheeze heard, lungs otherwise clear), other (Patient is speaking in clear sentences and does not appear in any distress. Vitals stable. Patient is on 3 L of oxygen as she is at home, with oxygen saturation at 99%.) Cardiovascular: regular rate, rhythm Gastrointestinal: non tender, soft Extremities: normal range of motion Neurologic/Psychiatric: alert, normal mood/affect, oriented x 3 Skin: normal color Progress/Results/Core Measures Suspected Sepsis SIRS Temperature: Pulse: 69 Respiratory Rate: 30 Laboratory Tests 07/18/22 18:50: White Blood Count 13.9H Blood Pressure 122 /53 Mean: 76 Laboratory Tests 07/18/22 18:50: Creatinine 1.03, INR Comment 0.9, Platelet Count 276, Total Bilirubin 0.4 Results/Orders Lab Results Laboratory Tests Test 07/18/22 18:50 07/18/22 20:14 Range/Units White Blood Count 13.9 H 4.3-11.0 10^3/uL Red Blood Count 3.75 L 3.80-5.11 10^6/uL Hemoglobin 10.6 L 11.5-16.0 g/dL Hematocrit 32 L 35-52 % Mean Corpuscular Volume 86 80-99 fL Mean Corpuscular Hemoglobin 28 25-34 pg Mean Corpuscular Hemoglobin Concent 33 32-36 g/dL Red Cell Distribution Width 20.9 H 10.0-14.5 % Platelet Count 276 130-400 10^3/uL Mean Platelet Volume 8.4 L 9.0-12.2 fL Immature Granulocyte % (Auto) 1 % Neutrophils (%) (Auto) 83 H 42-75 % Lymphocytes (%) (Auto) 7 L 12-44 % Monocytes (%) (Auto) 9 0-12 % Eosinophils (%) (Auto) 0 0-10 % Basophils (%) (Auto) 0 0-10 % Neutrophils # (Auto) 11.5 H 1.8-7.8 10^3/uL Lymphocytes # (Auto) 0.9 L 1.0-4.0 10^3/uL Monocytes # (Auto) 1.3 H 0.0-1.0 10^3/uL Eosinophils # (Auto) 0.0 0.0-0.3 10^3/uL Basophils # (Auto) 0.0 0.0-0.1 10^3/uL Immature Granulocyte # (Auto) 0.2 H 0.0-0.1 10^3/uL Neutrophils % (Manual) 81 % Lymphocytes % (Manual) 8 % Monocytes % (Manual) 10 % Eosinophils % (Manual) 1 % Prothrombin Time 12.3 12.2-14.7 SEC INR Comment 0.9 0.8-1.4 Activated Partial Thromboplast Time 25 24-35 SEC D-Dimer 3.59 H 0.00-0.49 UG/ML Sodium Level 122 *L 135-145 MMOL/L Potassium Level 5.3 H 3.6-5.0 MMOL/L Chloride Level 85 L 98-107 MMOL/L Carbon Dioxide Level 31 21-32 MMOL/L Anion Gap 6 5-14 MMOL/L Blood Urea Nitrogen 20 H 7-18 MG/DL Creatinine 1.03 0.60-1.30 MG/DL Estimat Glomerular Filtration Rate 58 BUN/Creatinine Ratio 19 Glucose Level 116 H 70-105 MG/DL Calcium Level 8.8 8.5-10.1 MG/DL Corrected Calcium 9.1 8.5-10.1 MG/DL Magnesium Level 1.9 1.6-2.4 MG/DL Total Bilirubin 0.4 0.1-1.0 MG/DL Aspartate Amino Transf (AST/SGOT) 15 5-34 U/L Alanine Aminotransferase (ALT/SGPT) 14 0-55 U/L Alkaline Phosphatase 94 40-136 U/L Troponin I < 0.30 <0.30 NG/ML Pro-B-Type Natriuretic Peptide 721.6 H <125.0 PG/ML Total Protein 5.8 L 6.4-8.2 GM/DL Albumin 3.6 3.2-4.5 GM/DL Urine Color YELLOW Urine Clarity CLEAR Urine pH 6.5 5-9 Urine Specific [place] 1.025 H 1.016-1.022 Urine Protein TRACE H NEGATIVE Urine Glucose (UA) NEGATIVE NEGATIVE Urine Ketones NEGATIVE NEGATIVE Urine Nitrite NEGATIVE NEGATIVE Urine Bilirubin NEGATIVE NEGATIVE Urine Urobilinogen 0.2 < = 1.0 MG/DL Urine Leukocyte Esterase TRACE H NEGATIVE Urine RBC (Auto) NEGATIVE NEGATIVE Urine RBC 5-10 H /HPF Urine WBC 5-10 H /HPF Urine Crystals NONE /LPF Urine Bacteria FEW H /HPF Urine Casts PRESENT /LPF Urine Hyaline Casts 2-5 H /LPF Urine Mucus LARGE H /LPF Urine Culture Indicated YES Urine Opiates Screen NEGATIVE NEGATIVE Urine Oxycodone Screen NEGATIVE NEGATIVE Urine Methadone Screen NEGATIVE NEGATIVE Urine Propoxyphene Screen NEGATIVE NEGATIVE Urine Barbiturates Screen NEGATIVE NEGATIVE Ur Tricyclic Antidepressants Screen NEGATIVE NEGATIVE Urine Phencyclidine Screen NEGATIVE NEGATIVE Urine Amphetamines Screen NEGATIVE NEGATIVE Urine Methamphetamines Screen NEGATIVE NEGATIVE Urine Benzodiazepines Screen POSITIVE H NEGATIVE Urine Cocaine Screen NEGATIVE NEGATIVE Urine Cannabinoids Screen NEGATIVE NEGATIVE My Orders Orders - NYA BARADLES MD Chest 1 View Ap/Pa Only (07/18/22 18:51) Cbc With Automated Diff (07/18/22 18:52) Comprehensive Metabolic Panel (07/18/22 18:52) Fibrin Degradation Products (07/18/22 18:52) Magnesium (07/18/22 18:52) Protime With Inr (07/18/22 18:52) Partial Thromboplastin Time (07/18/22 18:52) Probnp Fs (07/18/22 18:52) Troponin I Fs (07/18/22 18:52) Albuterol/Ipra Inhalation Soln (Duoneb I (07/18/22 19:00) Svn Small Volume Nebulizer (07/18/22 18:53) Methylprednisolone Sod Succ (Solu-Medrol (07/18/22 18:53) Ekg Tracing (07/18/22 18:54) Manual Differential (07/18/22 18:50) Ed Iv/Invasive Line Start (07/18/22 19:29) Ed Iv/Invasive Line Start (07/18/22 19:37) Ns Iv 1000 Ml (Sodium Chloride 0.9%) (07/18/22 19:45) Drug Screen Stat (Urine) (07/18/22 19:37) Ua Culture If Indicated (07/18/22 19:37) Urine Culture (07/18/22 20:14) Ceftriaxone Iv/Im (Rocephin Iv/Im) (07/18/22 20:35) Albuterol/Ipra Inhalation Soln (Duoneb I (07/18/22 20:45) Svn Small Volume Nebulizer (07/18/22 20:37) Ceftriaxone Pre-Mix (Rocephin Pre-Mix) (07/18/22 20:43) Albuterol/Ipra Inhalation Soln (Duoneb I (07/18/22 20:43) Medications Given in ED Current Medications Medications Dose Ordered Sig/Neetu Route Start Time Stop Time Status Last Admin Dose Admin Albuterol/ Ipratropium 3 ml ONCE ONCE INH 07/18/22 19:00 07/18/22 19:01 DC 07/18/22 19:06 3 ML Albuterol/ Ipratropium 3 ml ONCE ONCE INH 07/18/22 20:45 07/18/22 20:52 DC 07/18/22 20:47 3 ML Ceftriaxone Sodium/Dextrose 50 ml @ ud STK-MED ONCE IV 07/18/22 20:43 07/18/22 20:45 DC 07/18/22 20:48 100 MLS/HR Vital Signs/I&O 07/18/22 07/18/22 18:43 18:43 Temp 36.2 Pulse 69 Resp 30 B/P (MAP) 122/53 (76) Pulse Ox 97 O2 Delivery Nasal Cannula Nasal Cannula O2 Flow Rate 3.00 Capillary Refill : Less Than 3 Seconds Blood Pressure Mean: 76 Progress Note : Progress Note 1. ACUTE COPD EXACERBATION: - CXR: no acute findings - CBC/ CMP: - Duo Neb/ Solu-medrol 125mg iv STAT -Improvement with treatment -Blood pressure has been stable in the ER with systolic in the 120s. Vitals stable, patient speaking in clear sentences the entire time without any indication of respiratory distress. 2. ELEVATED D-DIMER: - D-dimer: is 3.59, but unable to do CTA chest here since pt is a poor stick and her iv is too small for contrast. - Will need VQ Scan to rule out clot, and the need to be transferred to [place] for this 3. ACUTE CYSTITIS WITH HEMATURIA: - WBC is 13.9 with a left shift - UA: Is positive for leukocyte esterase, RBC, WBC, bacteria -Ceftriaxone 1 g IV stat 4. HYPONATREMIA/ HYPOKALEMIA: - s. Na is 122 - s. K is 5.3 - NS IVF bolus STAT -No Kayexalate available at [place] [facility] -Discussed with hospitalist and accepted for admission to ICU Diagnostic Imaging Diagonstic Imaging: Xray Plain Films/CT/US/NM/MRI: chest Comments [facility] [place] NAME: MARLA CRAMER [facility] REC#: [id number] PT STATUS: REG ER : 1950 PHYSICIAN: NYA BARDALES MD ADMIT DATE: 07/18/22/ER FS Draft Date of Exam:07/18/22 CHEST 1 VIEW AP/PA ONLY INDICATION: SOB. COMPARISON: 07/02/2022. FINDINGS: Single frontal view of the chest demonstrates normal heart size and pulmonary vascularity. The lungs are hyperinflated, but are otherwise clear. No large pleural effusion or pneumothorax is seen. The visualized osseous structures show no acute abnormality. IMPRESSION: 1. No acute cardiopulmonary process. 2. Background obstructive pulmonary changes. Dictated on workstation # [id number] Dict: 07/18/221909 Trans: 07/18/221912 [id number] Interpreted by: JUVENCIO FLANAGAN MD Electronically signed by: Departure Communication (Admissions) Time/Spoke to Admitting Phy: 20:[address] Mohr, hospitalist, and will admit to ICU. We will start patient on Lovenox Impression Primary Impression: COPD with exacerbation Additional Impressions: Hyponatremia Hyperkalemia Acute cystitis with hematuria Elevated d-dimer Disposition: 30 STILL A PATIENT Condition: Stable Admissions Decision to Admit Reason: Admit from ER (General) Decision to Admit/Date: Jul 18, 2022 Time/Decision to Admit Time: 20:58 Transfer Method of Transfer: EMS Departure-Patient Inst. Referrals: KEELY SHARIF MD (PCP/Family) Primary Care Physician NYA BARDALES MD Jul 18, 2022 19:29
[2022-07-18 19:39] LABS: EOSINOPHILS % (MANUAL) 1 %; MONOCYTES % (MANUAL) 10 %; NEUTROPHILS % (MANUAL) 81 %
[2022-07-18 19:40] LABS: LYMPHOCYTES % (MANUAL) 8 %
[2022-07-18] MEDS ORDERED: NS IV 1000 ML 1,000 ML IV SCH (19:45)
[2022-07-18 20:16] LABS: BILIRUBIN,URINE NEGATIVE (NEGATIVE); CLARITY,URINE CLEAR; COLOR,URINE YELLOW; GLUCOSE, URINE (UA) NEGATIVE (NEGATIVE); KETONES,URINE NEGATIVE (NEGATIVE); LEUKOCYTE ESTERASE ,URINE TRACE (NEGATIVE); NITRITE,URINE NEGATIVE (NEGATIVE); PH,URINE 6.5 (5-9); PROTEIN,URINE TRACE (NEGATIVE)
[2022-07-18 20:26] LABS: BACTERIA,URINE FEW /HPF
[2022-07-18 20:31] LABS: AMPHETAMINE SCREEN, URINE NEGATIVE (NEGATIVE); BARBITURATE SCREEN URINE NEGATIVE (NEGATIVE); BENZODIAZEPINES SCREEN URINE POSITIVE (NEGATIVE); CANNABINOID SCREEN, URINE NEGATIVE (NEGATIVE); COCAINE SCREEN URINE NEGATIVE (NEGATIVE); METHADONE STAT NEGATIVE (NEGATIVE); OPIATE SCREEN URINE NEGATIVE (NEGATIVE); OXYCODONE STAT NEGATIVE (NEGATIVE); PROPOXYPHENE STAT NEGATIVE (NEGATIVE); TRICYCLIC ANTIDEPRESSANTS SCRE NEGATIVE (NEGATIVE)
[2022-07-18] MEDS ORDERED: cefTRIAXone IV/IM 1,000 MG in NS (IVPB) 50 ML IV STA (20:35)
[2022-07-18] MEDS ORDERED: cefTRIAXone PRE-MIX 50 ML IV ONE (20:43)
[2022-07-18] MEDS ORDERED: RT-ALBUTEROL/IPRATROPIUM 3 ML (DUONEB) VIAL ONE (20:43)
[2022-07-18] MEDS ORDERED: ENOXAPARIN 60 MG/0.6 ML (LOVENOX) SYR SC ONE (21:00)
[2022-07-18] MEDS ORDERED: ENOXAPARIN 60 MG/0.6 ML (LOVENOX) SYR ONE (21:10)
[2022-07-18 23:24] VITALS: BP 109/69
[2022-07-18] MEDS ORDERED: HYDROmorphone 2 MG/ML VIAL (DILAUDID) IV PRN (23:30)
[2022-07-18] MEDS ORDERED: LORazepam INJ 2 MG/ML (ATIVAN) VIAL IVP PRN (23:30)
[2022-07-18] MEDS ORDERED: NS IV 500 ML 500 ML IV PRN (23:30)
[2022-07-18] MEDS ORDERED: MELATONIN 3 MG TABLET PO PRN (23:30)
[2022-07-18] MEDS ORDERED: diphenhydrAMINE 25 MG TAB (BENADRYL) PO PRN (23:30)
[2022-07-18] MEDS ORDERED: BISACODYL 10 MG SUPP (DULCOLAX) PR PRN (23:30)
[2022-07-18] MEDS ORDERED: ONDANSETRON 4 MG/2 ML (SDV) Z0FRAN IV PRN (23:30)
[2022-07-18] MEDS ORDERED: ONDANSETRON 4 MG (ZOFRAN) ORAL DISSOLVE TAB PO PRN (23:30)
[2022-07-18] MEDS ORDERED: BENZONATATE 100 MG (TESSALON) CAPSULE PO PRN (23:30)
[2022-07-18] MEDS ORDERED: ACETAMINOPHEN 325 MG TABLET PO PRN (23:30)
[2022-07-18] MEDS ORDERED: polyethylene glycoL POWDER 17 GM (MIRALAX) PACK PO PRN (23:30)
[2022-07-18] MEDS ORDERED: diphenhydrAMINE 50 MG/ML INJ (BENADRYL) IVP PRN (23:30)
[2022-07-18] MEDS ORDERED: RT-ALBUTEROL/IPRATROPIUM 3 ML (DUONEB) VIAL INH PRN (23:45)
[2022-07-19] MEDS: CEFEPIME INJECTION 1,000 MG in NS (IVPB) 50 ML IV SCH ×3 (00:01→16:03)
[2022-07-19] MEDS: LORazepam 0.5 MG (ATIVAN) TABLET PO PRN ×2 (00:13→13:01)
[2022-07-19] MEDS: methylPREDNISolone 40 MG/ML (Solu-MEDROL) VIAL IV SCH ×2 (00:46→05:43)
[2022-07-19] MEDS: DOXYCYCLINE INJECTION 100 MG in NS (IVPB) 100 ML IV SCH ×2 (00:46→12:25)
[2022-07-19 01:24] LABS: POTASSIUM 5.6 MMOL/L (3.6-5.0)
[2022-07-19 01:25] LABS: CALCIUM 8.5 MG/DL (8.5-10.1)
[2022-07-19 01:29] LABS: CREATININE SERUM 1.01 MG/DL (0.60-1.30)
[2022-07-19 01:48] LABS: ABG BASE EXCESS 2.9 MMOL/L (-2.5-2.5); ABG OXYGEN SATURATION 98 % (94-100); ABG PCO2 49 MMHG (35-45); ABG PH 7.37 (7.37-7.43); ABG PO2 89 MMHG (79-93); ABG TCO2 29.3 MMOL/L (21.0-31.0); ALLENS TEST YES-POS; INSPIRED O2 3L; PATIENT TEMP 36.6; VENTILATOR NO
[2022-07-19] MEDS: RT-ALBUTEROL/IPRATROPIUM 3 ML (DUONEB) VIAL INH SCH ×6 (02:07→21:29)
[2022-07-19 04:24] LABS: BASOPHILS % (AUTO) 0 % (0-10); EOSINOPHILS % (AUTO) 0 % (0-10); HEMATOCRIT 32 % (35-52); HEMOGLOBIN 10.5 g/dL (11.5-16.0); LYMPHOCYTES # (AUTO) 0.3 10^3/uL (1.0-4.0); LYMPHOCYTES % (AUTO) 2 % (12-44); MEAN CORPUSCULAR HEMOGLOBIN 28 pg (25-34); MEAN CORPUSCULAR HGB CONC 33 g/dL (32-36); MEAN CORPUSCULAR VOLUME 85 fL (80-99); MEAN PLATELET VOLUME 8.9 fL (9.0-12.2); MONOCYTES # (AUTO) 0.1 10^3/uL (0.0-1.0); MONOCYTES % (AUTO) 1 % (0-12); NEUTROPHILS # (AUTO) 10.9 10^3/uL (1.8-7.8); NEUTROPHILS % (AUTO) 96 % (42-75); PLATELET COUNT 274 10^3/uL (130-400); WHITE BLOOD COUNT 11.3 10^3/uL (4.3-11.0)
[2022-07-19 04:33] LABS: ALBUMIN 3.3 GM/DL (3.2-4.5); POTASSIUM 5.8 MMOL/L (3.6-5.0)
[2022-07-19 04:35] LABS: CALCIUM 8.6 MG/DL (8.5-10.1)
[2022-07-19 04:36] LABS: TOTAL PROTEIN 5.7 GM/DL (6.4-8.2)
[2022-07-19 04:38] LABS: BILIRUBIN,TOTAL 0.4 MG/DL (0.1-1.0)
[2022-07-19 04:40] LABS: CREATININE SERUM 0.99 MG/DL (0.60-1.30)
[2022-07-19 04:42] LABS: MAGNESIUM 1.9 MG/DL (1.6-2.4)
[2022-07-19] MEDS: KCL 20 MEQ TAB (K-DUR) PO SCH (05:03)
[2022-07-19] MEDS: inSUlin ASPART (NovoLOG) 1 UNIT/0.01 ML (CHARGE PER UNIT) SC SCH ×4 (05:03→20:51)
[2022-07-19] MEDS: POTASSIUM CL 10MEQ/50ML IVPB 50 ML IV SCH (05:04)
[2022-07-19] MEDS: MAGNESIUM 1 GM/100 ML IVPB 100 ML IV SCH ×3 (05:04→05:45)
[2022-07-19] MEDS ORDERED: CALC GLUC 1 GM/100 ML IVPB 100 ML IV STA (06:09)
[2022-07-19] MEDS ORDERED: DEXTROSE 50% 50 ML (IMS) SYR IV ONE (06:15)
[2022-07-19] MEDS ORDERED: inSUlin (REGULAR) HUMAN 1 UNIT/0.01 ML (CHARGE PER UNIT) IV ONE (06:15)
[2022-07-19] MEDS ORDERED: SODIUM POLYSTYRENE POWDER 15 GM BOTTLE PO ONE (06:15)
[2022-07-19] MEDS ORDERED: 1/2 NS IV SOLUTION 1,000 ML IV SCH (06:15)
[2022-07-19] MEDS ORDERED: SODIUM BICARB 8.4% 50 MEQ/50 ML (ABBOTT) SYR IV ONE (06:15)
[2022-07-19 07:36] LABS: ABG BASE EXCESS 4.4 MMOL/L (-2.5-2.5); ABG OXYGEN SATURATION 98 % (94-100); ABG PCO2 55 MMHG (35-45); ABG PH 7.35 (7.37-7.43); ABG PO2 95 MMHG (79-93); ABG TCO2 31.6 MMOL/L (21.0-31.0)
[2022-07-19 07:40] LABS: INSPIRED O2 NO; PATIENT TEMP 36.5; VENTILATOR NO
[2022-07-19] MEDS: DOCUSATE SODIUM 100 MG (COLACE) CAP PO SCH ×2 (08:46→20:51)
[2022-07-19] MEDS: ENOXAPARIN 60 MG/0.6 ML (LOVENOX) SYR SC SCH ×2 (08:46→20:50)
--- NOTE | 2022-07-19 09:44 | Tele-ICU Consult ---
History of Present Illness History of Present Illness Date Seen by Provider: Jul 19, 2022 Time Seen by Provider: 09:42 History of Present Illness (Tele-ICU Physician , consultation as per request of PCP Service provided via interactive audio and video telecommunications E-CARE system to a patient admitted to ICU bed in [facility]. Was initially seen by Dr Pineda last night Available chart/ vitals / labs / Images reviewed H&P is from ER notes Patient's information available about PMH, Shx, Fhx allergy reviewed inEMR. ROS as per chart and RN report Now in ICU, hemodynamically stable Video assessment done using teleICU camera, rest of exam as per RN Discussed with RN. Hospital course: (07/18) 72y F with SOB, weak, lightheaded. On home O2 3L, Recent hospitalizations for PNA, CXR clear at this time. ADMIT DX: COPD exac. hyponatremia, hyperkalem ia, acute cystitits with hematuria, elevated d dimer. A/P Dyspnea , suspected AECOPD - r/o PE given elev ddimer ( VQ considered - vascular access was insufficient for IV contrast administration for Ct ) LE US done - await results ( had ddimer 7.8 05/[address] Ch ) - started on full dose Lovenox ( 50 q12 COPD exac with resent admission PNA/AECOPD -nebs, - steroids SM 80q6 - ? to decrease dose - as per PCP ( was on prednison 10 when d/c from other hospital ) Recent PNA - No evidence of ongoing or recurrent pneumonia on CXR - cefepime and doxy started in ER Hyponatremia Na 122 on arrival ( as per record , had 128-129 ) - AAO x3 , no sz - Received NS bolus.on ER -follow BNP - she is rapidly correcting. Goal would be 130 07/20 at 1900. -Legionella pending. equivocal UA., possible UTI -Started on abx. Culture pending. COPD with chronic hypoxic resp failure -on 3L home O2 -ongoing smoker Lines : periph , (Central Line Necessity Reviewed) Marin: void OG: Nutrition: po Analgesia: Anxiety/ delirium na VTE Prophylaxis: full dose Lovenox ( 50 q12 Stress Ulcer Prophylaxis: Plans in collaboration with bedside consultants and IM MDs. Discussed with RN to reach out if any questions or concerns A total of 32 minutes of critical care time was devoted to this patient today, required to treat and/or prevent further deterioration of critical care condition ( this is including Dr Pineda assessment few hours ago ( as above ) . I am remotely monitoring this patient from another state. I am unable to do the bedside exam, and history/physical and pertinent information is taken from other notes in the computer and bedside staff. . Allergies and Home Medications Allergies Coded Allergies: No Known Drug Allergies (Unverified , 05/23/22) Home Medications Alprazolam 0.5 Mg Tablet, 0.5 MG PO TID PRN for ANXIETY, (Reported) Amlodipine Besylate 2.5 Mg Tablet, 2.5 MG PO DAILY, (Reported) Aspirin 81 Mg Tablet.dr, 81 MG PO HS, (Reported) Atorvastatin Calcium 20 Mg Tablet, 10 MG PO HS, (Reported) Budesonide/Formoterol Fumarate 160 Mcg-4.5 Mcg/Actuation Hfa.aer.ad, 1 PUFF PO BID, (Reported) Dexamethasone 6 Mg Tablet, 6 MG PO DAILY Prescribed by: MORA ORTEGA on 06/01/22 163 Ipratropium/Albuterol Sulfate 0.5 Mg-3 Mg (2.5 Mg Base)/3 Ml Ampul.neb, 3 ML INH Q4H PRN for SHORTNESS OF BREATH, (Reported) Lisinopril 10 Mg Tablet, 10 MG PO DAILY, (Reported) Metoprolol Succinate 25 Mg Tab.er.24h, 25 MG PO 1300, (Reported) Nitroglycerin 0.4 Mg Tab.subl, 0.4 MG PO UD, (Reported) Prednisone 50 Mg Tab, 50 MG PO DAILY Prescribed by: DUANE GIPSON on 05/25/22 09 Prednisone 20 Mg Tab, 20 MG PO UD 60 mg by mouth daily x 4 days, 40 mg daily x 4 days, 20 mg daily x 4 days, 10 mg (1/2 tab) daily for 4 days Prescribed by: DAMON NORIEGA on 07/02/22 182 Spironolactone 25 Mg Tablet, 25 MG PO DAILY, (Reported) Sulfamethoxazole/Trimethoprim 1 Each Tablet, 1 EACH PO BID Prescribed by: MORA ORTEGA on 06/01/22 163 Past Medical/Social/Family Hx Patient Social History Tobacco Use?: Yes Tobacco type used: Cigarettes Smoking Status: Current Everyday Smoker Use of E-Cig and/or Vaping dev: No Substance use?: No Alcohol Use?: No Pt stated abuse/neglect: No Immunizations Up To Date Influenza Vaccine Up-to-Date: No; Not Current First/Initial COVID19 Vaccinat: Unvaccinated Second COVID19 Vaccination Armando: Unvaccinated Tetanus Booster (TDap): More Than 5 Years Hepatitis A: No Hepatitis B: No TB Skin Test: None Current Status status: No status: No Advance Directives: No Communicates: Verbally Primary Language: [place] Preferred Spoken Language: [place]ese Is interpretation needed?: No Sensory deficits: Hearing impairment Implanted or Applied Medical D: Stents Review of Systems Constitutional: see HPI Focused Exam Height, Weight, BMI Height: '" Weight: lbs. oz. kg; 21.40 BMI Method: Exam Exam Patient acknowledged, consented, and participated in this virtual visit which was conducted using real time audio/video Vital Signs Date Time Temp Pulse Resp B/P (MAP) Pulse Ox O2 Delivery O2 Flow Rate FiO2 07/19/22 07:48 100 Room Air 3.00 07/19/22 07:03 95 Nasal Cannula 3.00 07/19/22 07:01 81 07/19/22 07:00 67 129/65 (86) 98 Nasal Cannula 3.00 07/19/22 06:00 68 145/79 (101) 96 Nasal Cannula 3.00 07/19/22 05:00 67 151/85 (107) 100 Nasal Cannula 3.00 07/19/22 04:17 100 Room Air 3.00 07/19/22 04:00 65 26 138/79 (98) 100 Nasal Cannula 3.00 07/19/22 03:00 66 24 140/76 (97) 100 Nasal Cannula 3.00 07/19/22 02:10 100 Nasal Cannula 3.00 07/19/22 02:00 64 28 139/80 (99) 100 Nasal Cannula 3.00 07/19/22 01:00 70 07/19/22 01:00 68 18 137/72 (93) 99 Nasal Cannula 3.00 07/19/22 00:00 65 19 132/76 (94) 100 Nasal Cannula 3.00 07/18/22 23:30 62 21 128/65 (86) 99 Nasal Cannula 3.00 07/18/22 23:30 98 Room Air 3.00 07/18/22 23:24 36.6 69 98 07/18/22 23:15 65 21 125/67 (86) 97 Nasal Cannula 3.00 07/18/22 23:13 70 07/18/22 23:00 36.6 69 14 109/69 (82) 98 Room Air 3.00 07/18/22 22:45 66 14 109/69 (82) 97 Nasal Cannula 3.00 07/18/22 22:02 67 24 111/65 96 Nasal Cannula 3.00 07/18/22 18:43 36.2 69 30 122/53 (76) 97 Nasal Cannula 07/18/22 18:43 Nasal Cannula 3.00 I & O 07/19/22 07:00 Intake Total 1350 ml Balance 1350 ml Height & Weight Height: '" Weight: lbs. oz. kg; 21.40 BMI Method: General Appearance: No Apparent Distress Capillary Refill: Less Than 3 Seconds Gastrointestinal: non tender, soft Results Lab Laboratory Tests 07/18/22 18:50 07/19/22 00:57 07/19/22 03:36 Assessment/Plan Assessment/Plan 1 CASEY SOLIMAN MD Jul 19, 2022 09:43
[2022-07-19] MEDS ORDERED: ACET-2267 PO (10:16)
[2022-07-19] MEDS ORDERED: FORM20VI3 NEB (10:16)
[2022-07-19] MEDS ORDERED: PRD10T PO (10:16)
[2022-07-19] MEDS ORDERED: NITR0.4T39 SL (10:16)
[2022-07-19] MEDS ORDERED: BUDE0.5A NEB (10:16)
--- NOTE | 2022-07-19 10:26 | History & Physical ---
HPI History of Present Illness: 72 yo female came to hospital due to feeling lightheaded and weak, states her blood pressure was running 50 something on the top and 60 something on the bottom. Started feeling poorly yesterday afternoon. She reports she was eating and drinking fine, drinking a lot of fluids. Was admitted at [facility] in last couple of weeks and she reports she was sent on prednisone 10 mg daily but ran out, Dr. Romero just refilled , had been out for about 4 days. Was also started on some kind of drink, but not sure what it is, something "B" something and she is out of it also. Source: patient Date seen by provider: Jul 19, 2022 Time Seen by Provider: 10:22 Attending Physician Salomon Romero MD PCP Admitting Physician: Sylvia Chacon DO Attending Physician: Duane Polanco MD Consult Date of Admission Jul 18, 2022 at 22:54 Home Medications Home Medications Reviewed patient Home Medication Reconciliation performed by pharmacy medication reconciliations assembly technician and/or nursing. Patients Allergies have been reviewed. Allergies Coded Allergies: No Known Drug Allergies (Unverified , 05/23/22) UQO-Mbmcao-Tdztac Hx Patient Social History Smoking Status: Current Everyday Smoker 2nd Hand Smoke Exposure: Yes Recent Hopitalizations: No Alcohol Use?: No Tobacco type used: Cigarettes Have you traveled recently?: No Immunizations Up To Date Influenza Vaccine Up-to-Date: No; Not Current First/Initial COVID19 Vaccinat: Unvaccinated Second COVID19 Vaccination Amrando: Unvaccinated Third COVID19 Vaccination Date: Unvaccinated Past Medical History PMHx: COPD, supplemental oxygen dependent, 3 lpm Lung cancer s/p radiation Nasal cancer unknown type, surgically treated CAD with stenting SurgHx: Cardiac stent Abdominal Aortic Anuerysm repair Kidney surgery of uncertain etiology- fell and reports had to have "tied up" Hysterectomy Review of Systems ([facility]) Constitutional: No fever EENTM: nose congestion (chronic); No throat pain Respiratory: cough (chronic, productive of clear mucous), short of breath Cardiovascular: chest pain ("now and then", had some yesterday) Gastrointestinal: No abdominal pain, No constipation, No diarrhea; heartburn; No nausea, No vomiting Genitourinary: No dysuria Musculoskeletal: No joint pain, No muscle pain Skin: No rash Psychiatric/Neurological: Anxiety Reviewed Test Results Reviewed Test Results Lab Laboratory Tests Test 07/18/22 18:50 07/18/22 20:14 07/19/22 00:30 07/19/22 00:57 Range/Units White Blood Count 13.9 H 4.3-11.0 10^3/uL Red Blood Count 3.75 L 3.80-5.11 10^6/uL Hemoglobin 10.6 L 11.5-16.0 g/dL Hematocrit 32 L 35-52 % Mean Corpuscular Volume 86 80-99 fL Mean Corpuscular Hemoglobin 28 25-34 pg Mean Corpuscular Hemoglobin Concent 33 32-36 g/dL Red Cell Distribution Width 20.9 H 10.0-14.5 % Platelet Count 276 130-400 10^3/uL Mean Platelet Volume 8.4 L 9.0-12.2 fL Immature Granulocyte % (Auto) 1 % Neutrophils (%) (Auto) 83 H 42-75 % Lymphocytes (%) (Auto) 7 L 12-44 % Monocytes (%) (Auto) 9 0-12 % Eosinophils (%) (Auto) 0 0-10 % Basophils (%) (Auto) 0 0-10 % Neutrophils # (Auto) 11.5 H 1.8-7.8 10^3/uL Lymphocytes # (Auto) 0.9 L 1.0-4.0 10^3/uL Monocytes # (Auto) 1.3 H 0.0-1.0 10^3/uL Eosinophils # (Auto) 0.0 0.0-0.3 10^3/uL Basophils # (Auto) 0.0 0.0-0.1 10^3/uL Immature Granulocyte # (Auto) 0.2 H 0.0-0.1 10^3/uL Neutrophils % (Manual) 81 % Lymphocytes % (Manual) 8 % Monocytes % (Manual) 10 % Eosinophils % (Manual) 1 % Prothrombin Time 12.3 12.2-14.7 SEC INR Comment 0.9 0.8-1.4 Activated Partial Thromboplast Time 25 24-35 SEC D-Dimer 3.59 H 0.00-0.49 UG/ML Sodium Level 122 *L 127 L 135-145 MMOL/L Potassium Level 5.3 H 5.6 H 3.6-5.0 MMOL/L Chloride Level 85 L 96 L 98-107 MMOL/L Carbon Dioxide Level 31 19 L 21-32 MMOL/L Anion Gap 6 12 5-14 MMOL/L Blood Urea Nitrogen 20 H 23 H 7-18 MG/DL Creatinine 1.03 1.01 0.60-1.30 MG/DL Estimat Glomerular Filtration Rate 58 60 BUN/Creatinine Ratio 19 23 Glucose Level 116 H 125 H 70-105 MG/DL Calcium Level 8.8 8.5 8.5-10.1 MG/DL Corrected Calcium 9.1 8.5-10.1 MG/DL Magnesium Level 1.9 1.6-2.4 MG/DL Total Bilirubin 0.4 0.1-1.0 MG/DL Aspartate Amino Transf (AST/SGOT) 15 5-34 U/L Alanine Aminotransferase (ALT/SGPT) 14 0-55 U/L Alkaline Phosphatase 94 40-136 U/L Troponin I < 0.30 <0.30 NG/ML Pro-B-Type Natriuretic Peptide 721.6 H <125.0 PG/ML Total Protein 5.8 L 6.4-8.2 GM/DL Albumin 3.6 3.2-4.5 GM/DL Urine Color YELLOW Urine Clarity CLEAR Urine pH 6.5 5-9 Urine Specific Cando 1.025 H 1.016-1.022 Urine Protein TRACE H NEGATIVE Urine Glucose (UA) NEGATIVE NEGATIVE Urine Ketones NEGATIVE NEGATIVE Urine Nitrite NEGATIVE NEGATIVE Urine Bilirubin NEGATIVE NEGATIVE Urine Urobilinogen 0.2 < = 1.0 MG/DL Urine Leukocyte Esterase TRACE H NEGATIVE Urine RBC (Auto) NEGATIVE NEGATIVE Urine RBC 5-10 H /HPF Urine WBC 5-10 H /HPF Urine Crystals NONE /LPF Urine Bacteria FEW H /HPF Urine Casts PRESENT /LPF Urine Hyaline Casts 2-5 H /LPF Urine Mucus LARGE H /LPF Urine Culture Indicated YES Urine Opiates Screen NEGATIVE NEGATIVE Urine Oxycodone Screen NEGATIVE NEGATIVE Urine Methadone Screen NEGATIVE NEGATIVE Urine Propoxyphene Screen NEGATIVE NEGATIVE Urine Barbiturates Screen NEGATIVE NEGATIVE Ur Tricyclic Antidepressants Screen NEGATIVE NEGATIVE Urine Phencyclidine Screen NEGATIVE NEGATIVE Urine Amphetamines Screen NEGATIVE NEGATIVE Urine Methamphetamines Screen NEGATIVE NEGATIVE Urine Benzodiazepines Screen POSITIVE H NEGATIVE Urine Cocaine Screen NEGATIVE NEGATIVE Urine Cannabinoids Screen NEGATIVE NEGATIVE Blood Gas Puncture Site R RAD Blood Gas Patient Temperature 36.6 Arterial Blood pH 7.37 7.37-7.43 Arterial Blood Partial Pressure CO2 49 H 35-45 MMHG Arterial Blood Partial Pressure O2 89 79-93 MMHG Arterial Blood HCO3 28 H 23-27 MMOL/L Arterial Blood Total CO2 29.3 21.0-31.0 MMOL/L Arterial Blood Oxygen Saturation 98 94-100 % Arterial Blood Base Excess 2.9 H -2.5-2.5 MMOL/L Brooks Test YES-POS Blood Gas Ventilator Setting NO Blood Gas Inspired Oxygen 3L Test 07/19/22 03:36 07/19/22 07:30 07/19/22 10:10 Range/Units White Blood Count 11.3 H 4.3-11.0 10^3/uL Red Blood Count 3.76 L 3.80-5.11 10^6/uL Hemoglobin 10.5 L 11.5-16.0 g/dL Hematocrit 32 L 35-52 % Mean Corpuscular Volume 85 80-99 fL Mean Corpuscular Hemoglobin 28 25-34 pg Mean Corpuscular Hemoglobin Concent 33 32-36 g/dL Red Cell Distribution Width 20.8 H 10.0-14.5 % Platelet Count 274 130-400 10^3/uL Mean Platelet Volume 8.9 L 9.0-12.2 fL Immature Granulocyte % (Auto) 1 % Neutrophils (%) (Auto) 96 H 42-75 % Lymphocytes (%) (Auto) 2 L 12-44 % Monocytes (%) (Auto) 1 0-12 % Eosinophils (%) (Auto) 0 0-10 % Basophils (%) (Auto) 0 0-10 % Neutrophils # (Auto) 10.9 H 1.8-7.8 10^3/uL Lymphocytes # (Auto) 0.3 L 1.0-4.0 10^3/uL Monocytes # (Auto) 0.1 0.0-1.0 10^3/uL Eosinophils # (Auto) 0.0 0.0-0.3 10^3/uL Basophils # (Auto) 0.0 0.0-0.1 10^3/uL Immature Granulocyte # (Auto) 0.1 0.0-0.1 10^3/uL Sodium Level 128 L 135-145 MMOL/L Potassium Level 5.8 H 3.6-5.0 MMOL/L Chloride Level 97 L 98-107 MMOL/L Carbon Dioxide Level 21 21-32 MMOL/L Anion Gap 10 5-14 MMOL/L Blood Urea Nitrogen 23 H 7-18 MG/DL Creatinine 0.99 0.60-1.30 MG/DL Estimat Glomerular Filtration Rate 61 BUN/Creatinine Ratio 23 Glucose Level 135 H 70-105 MG/DL Calcium Level 8.6 8.5-10.1 MG/DL Corrected Calcium 9.2 8.5-10.1 MG/DL Phosphorus Level 4.0 2.3-4.7 MG/DL Magnesium Level 1.9 1.6-2.4 MG/DL Total Bilirubin 0.4 0.1-1.0 MG/DL Aspartate Amino Transf (AST/SGOT) 14 5-34 U/L Alanine Aminotransferase (ALT/SGPT) 16 0-55 U/L Alkaline Phosphatase 70 40-136 U/L Total Protein 5.7 L 6.4-8.2 GM/DL Albumin 3.3 3.2-4.5 GM/DL Blood Gas Puncture Site R RADIAL Blood Gas Patient Temperature 36.5 Arterial Blood pH 7.35 L 7.37-7.43 Arterial Blood Partial Pressure CO2 55 H 35-45 MMHG Arterial Blood Partial Pressure O2 95 H 79-93 MMHG Arterial Blood HCO3 30 H 23-27 MMOL/L Arterial Blood Total CO2 31.6 H 21.0-31.0 MMOL/L Arterial Blood Oxygen Saturation 98 94-100 % Arterial Blood Base Excess 4.4 H -2.5-2.5 MMOL/L Brooks Test Blood Gas Ventilator Setting NO Blood Gas Inspired Oxygen NO Radiology CXR 07/18: IMPRESSION: 1. No acute cardiopulmonary process. 2. Background obstructive pulmonary changes. Physical Exam-([facility]) Physical Exam Vital Signs VS - Last 72 Hours, by Label 07/18/22 07/18/22 07/18/22 07/18/22 18:43 18:43 22:02 22:45 Temp 36.2 Pulse 69 67 66 Resp 30 24 14 B/P (MAP) 122/53 (76) 111/65 109/69 (82) Pulse Ox 97 96 97 O2 Delivery Nasal Cannula Nasal Cannula Nasal Cannula Nasal Cannula O2 Flow Rate 3.00 3.00 3.00 07/18/22 07/18/22 07/18/22 07/18/22 23:00 23:13 23:15 23:24 Temp 36.6 36.6 Pulse 69 70 65 69 Resp 14 21 B/P (MAP) 109/69 (82) 125/67 (86) Pulse Ox 98 97 98 O2 Delivery Room Air Nasal Cannula O2 Flow Rate 3.00 3.00 07/18/22 07/18/22 07/19/22 07/19/22 23:30 23:30 00:00 01:00 Pulse 62 65 68 Resp 21 19 18 B/P (MAP) 128/65 (86) 132/76 (94) 137/72 (93) Pulse Ox 98 99 100 99 O2 Delivery Room Air Nasal Cannula Nasal Cannula Nasal Cannula O2 Flow Rate 3.00 3.00 3.00 3.00 07/19/22 07/19/22 07/19/22 07/19/22 01:00 02:00 02:10 03:00 Pulse 70 64 66 Resp 28 24 B/P (MAP) 139/80 (99) 140/76 (97) Pulse Ox 100 100 100 O2 Delivery Nasal Cannula Nasal Cannula Nasal Cannula O2 Flow Rate 3.00 3.00 3.00 07/19/22 07/19/22 07/19/22 07/19/22 04:00 04:17 05:00 06:00 Pulse 65 67 68 Resp 26 B/P (MAP) 138/79 (98) 151/85 (107) 145/79 (101) Pulse Ox 100 100 100 96 O2 Delivery Nasal Cannula Room Air Nasal Cannula Nasal Cannula O2 Flow Rate 3.00 3.00 3.00 3.00 07/19/22 07/19/22 07/19/22 07/19/22 07:00 07:01 07:03 07:48 Pulse 67 81 B/P (MAP) 129/65 (86) Pulse Ox 98 95 100 O2 Delivery Nasal Cannula Nasal Cannula Room Air O2 Flow Rate 3.00 3.00 3.00 07/19/22 07/19/22 07/19/22 07/19/22 08:00 09:00 10:00 11:00 Pulse 81 96 85 77 Resp 21 11 33 B/P (MAP) 135/75 (95) 105/90 (95) 102/38 (59) 138/73 (94) Pulse Ox 97 97 98 100 O2 Delivery Nasal Cannula Nasal Cannula Nasal Cannula Nasal Cannula O2 Flow Rate 3.00 3.00 3.00 3.00 07/19/22 07/19/22 07/19/22 07/19/22 11:04 12:00 12:20 12:22 Temp 36.3 Pulse 85 82 Resp 19 B/P (MAP) 147/91 (109) Pulse Ox 99 99 O2 Delivery Nasal Cannula Nasal Cannula O2 Flow Rate 3.00 3.00 Capillary Refill : Less Than 3 Seconds General Appearance: no apparent distress, thin Respiratory: decreased breath sounds Cardiovascular: regular rate, rhythm, no murmur Gastrointestinal: normal bowel sounds, non tender, soft Extremities: pedal edema Neurologic/Psychiatric: alert, normal mood/affect Skin: warm/dry Assessment/Plan Assessment/Plan Admission Status: Inpatient Order (span 2 midnights) Reason for Inpatient Admission: COPD exacerbation with hyponatremia (1) Acute and chronic respiratory failure Status: Acute Assessment & Plan: Secondary to COPD exacerbation. (2) COPD with exacerbation Status: Acute Assessment & Plan: Started on IV solumedrol and antibiotics on admit. Change to oral prednisone. Continue Duonebs. Is on home supplemental oxygen. (3) Elevated d-dimer Status: Acute Assessment & Plan: Doppler LE bilateral neg. Had elevated D dimer and neg CTA chest in May. On treatment dose enoxaparin currently. (4) Acute cystitis with hematuria Status: Acute Assessment & Plan: Possible, culture pending, started on antibiotics for COPD exac and possible UTI. (5) Hyperkalemia Status: Acute Assessment & Plan: Hold lisinopril and spironolactone. (6) Hyponatremia Status: Acute Assessment & Plan: Intermittent mild hyponatremia noted in past but she denies being aware of it. Possibley secondary to lung pathology. Improving after fluid in ER, monitor closely. (7) COPD (chronic obstructive pulmonary disease) Status: Chronic Assessment & Plan: Resume home inhaled steroid and beta agonist. (8) Anxiety Status: Chronic Assessment & Plan: Resume home alprazolam. (9) Hyperlipidemia Status: Chronic Assessment & Plan: Resume home statin. (10) Hypertension Status: Chronic Assessment & Plan: Hold home lisinopril and spironolactone due to hyperkalemia. Resume beta chente and amlodipine. (11) CKD (chronic kidney disease) Status: Chronic (12) Coronary artery disease Status: Chronic Qualifiers: Qualified Codes: I25.10 - Atherosclerotic heart disease of tetlin coronary artery without angina pectoris (13) History of lung cancer Status: Chronic (14) Lesion of left tetlin kidney Status: Acute Assessment & Plan: CT 06/01/22 indeterminate lesion, recommend follow up dedicated renal CT or MRI in 3 months. (15) DVT prophylaxis Status: Acute Clinical Quality Measures DVT/VTE Risk/Contraindication: Contraindications-Mechi: Other *list below* Other: poss dvt DUANE POLANCO MD Jul 19, 2022 10:26
--- NOTE | 2022-07-19 10:31 | Diagnostic Imaging Report ---
EXAMINATION: US Venous Lower Ext Elian. TECHNIQUE: Multiple Real-time grayscale images were obtained over the lower extremities in various projections, bilaterally. Additional duplex Doppler and color Doppler images were also obtained. HISTORY: Swelling. COMPARISON: No comparison available. FINDINGS: Right: The common femoral, superficial femoral, popliteal, peroneal, posterior tibial, and greater saphenous veins demonstrate normal flow, augmentation, and compressibility. Left: The common femoral, superficial femoral, popliteal, peroneal, posterior tibial, and greater saphenous veins demonstrate normal flow, augmentation, and compressibility. IMPRESSION: No findings of deep venous thrombosis within the bilateral lower extremities. Dictated by: Dictated on workstation # [id number]
[2022-07-19 10:55] LABS: POTASSIUM 5.2 MMOL/L (3.6-5.0)
[2022-07-19 10:56] LABS: CALCIUM 9.4 MG/DL (8.5-10.1)
[2022-07-19 11:01] LABS: CREATININE SERUM 1.3 MG/DL (0.60-1.30)
[2022-07-19] MEDS ORDERED: methylPREDNISolone 125 MG (Solu-MEDROL) VIAL IV SCH (12:00)
[2022-07-19 14:52] LABS: CALCIUM 8.7 MG/DL (8.5-10.1)
[2022-07-19 14:57] LABS: CREATININE SERUM 1.62 MG/DL (0.60-1.30)
[2022-07-19] MEDS: ANTACID SUSP 30 ML UDC (MYLANTA) PO PRN (16:09)
[2022-07-19 18:35] LABS: POTASSIUM 4.8 MMOL/L (3.6-5.0)
[2022-07-19 18:36] LABS: CALCIUM 8.8 MG/DL (8.5-10.1)
[2022-07-19 18:40] LABS: CREATININE SERUM 1.6 MG/DL (0.60-1.30)
[2022-07-19] MEDS: AtorvaSTATin TABLET 10 MG TABLET PO SCH (20:50)
[2022-07-19] MEDS: ALPRAZolam 0.5 MG (XANAX) TAB PO PRN (20:50)
[2022-07-19] MEDS: ASPIRIN E.C. 81 MG (ECOTRIN) TAB PO SCH (20:50)
[2022-07-19] MEDS ORDERED: NON-FORMULARY MEDICATION 1 EA EA (Budesonide/Formoterol Fumarate (Symbicort 160-4.5 Mcg In PO SCH (21:00)
[2022-07-19] MEDS: RT--FLUTICASONE/SALMETEROL 232-14 (AIRDUO RespiCLICK) IH SCH (22:01)
[2022-07-19 22:26] LABS: POTASSIUM 5.1 MMOL/L (3.6-5.0)
[2022-07-19 22:28] LABS: CALCIUM 8.3 MG/DL (8.5-10.1)
[2022-07-19 22:32] LABS: CREATININE SERUM 1.81 MG/DL (0.60-1.30)
[2022-07-20] MEDS: CEFEPIME INJECTION 1,000 MG in NS (IVPB) 50 ML IV SCH (00:09)
[2022-07-20] MEDS: DOXYCYCLINE INJECTION 100 MG in NS (IVPB) 100 ML IV SCH (00:09)
[2022-07-20] MEDS: RT-ALBUTEROL/IPRATROPIUM 3 ML (DUONEB) VIAL INH SCH ×6 (02:35→22:38)
[2022-07-20 03:42] LABS: BASOPHILS % (AUTO) 0 % (0-10); EOSINOPHILS % (AUTO) 0 % (0-10); HEMATOCRIT 28 % (35-52); HEMOGLOBIN 9.3 g/dL (11.5-16.0); LYMPHOCYTES # (AUTO) 0.4 10^3/uL (1.0-4.0); LYMPHOCYTES % (AUTO) 3 % (12-44); MEAN CORPUSCULAR HEMOGLOBIN 28 pg (25-34); MEAN CORPUSCULAR HGB CONC 33 g/dL (32-36); MEAN CORPUSCULAR VOLUME 87 fL (80-99); MEAN PLATELET VOLUME 8.9 fL (9.0-12.2); MONOCYTES % (AUTO) 8 % (0-12); NEUTROPHILS # (AUTO) 11.3 10^3/uL (1.8-7.8); NEUTROPHILS % (AUTO) 88 % (42-75); PLATELET COUNT 251 10^3/uL (130-400); WHITE BLOOD COUNT 12.8 10^3/uL (4.3-11.0)
[2022-07-20 04:18] LABS: ALBUMIN 3.1 GM/DL (3.2-4.5); BILIRUBIN,TOTAL 0.3 MG/DL (0.1-1.0); CALCIUM 8.1 MG/DL (8.5-10.1); CREATININE SERUM 1.59 MG/DL (0.60-1.30); MAGNESIUM 2.3 MG/DL (1.6-2.4); PHOSPHORUS 3.3 MG/DL (2.3-4.7); POTASSIUM 5.1 MMOL/L (3.6-5.0); TOTAL PROTEIN 5.4 GM/DL (6.4-8.2)
[2022-07-20] MEDS: MAGNESIUM 1 GM/100 ML IVPB 100 ML IV SCH (05:46)
[2022-07-20] MEDS: POTASSIUM CL 10MEQ/50ML IVPB 50 ML IV SCH (05:46)
[2022-07-20] MEDS: inSUlin ASPART (NovoLOG) 1 UNIT/0.01 ML (CHARGE PER UNIT) SC SCH ×4 (05:47→19:51)
[2022-07-20] MEDS: KCL 20 MEQ TAB (K-DUR) PO SCH (05:47)
[2022-07-20] MEDS: DOCUSATE SODIUM 100 MG (COLACE) CAP PO SCH ×2 (08:01→19:51)
[2022-07-20] MEDS: predniSONE 20 MG TAB PO SCH (08:01)
[2022-07-20] MEDS: amLODIPine 2.5MG (NORVASC) TAB PO SCH (08:01)
[2022-07-20] MEDS: RT--FLUTICASONE/SALMETEROL 232-14 (AIRDUO RespiCLICK) IH SCH ×2 (08:26→18:44)
--- NOTE | 2022-07-20 09:36 | Progress Note ---
Subjective Subjective/Events-last exam Pt states she is feeling about the same, tired and worn out. Her breathing feels around baseline for her. She says in [place] she had kidney issues as well and they kept her on antibiotics for that. Objective Exam Last Set of Vital Signs Vital Signs Date Time Temp Pulse Resp B/P (MAP) Pulse Ox O2 Delivery O2 Flow Rate FiO2 07/20/22 09:00 80 24 111/53 (72) 98 Nasal Cannula 2.00 07/20/22 08:00 36.6 Capillary Refill : Less Than 3 Seconds I&O Intake and Output 07/20/22 00:00 Intake Total 1670 ml Output Total 925 ml Balance 745 ml Intake Oral 1170 ml IV Total 500 ml Output Urine Total 925 ml # Voids 1 General: Alert, No Acute Distress Lungs: Other (expiratory wheezing throughout) Heart: Regular Rate, No Murmurs Abdomen: Soft, No Tenderness Extremities: No Edema Neuro: Normal Speech Psych/Mental Status: Mood NL Results/Procedures Lab Laboratory Tests 07/19/22 10:10: Sodium Level 131L, Potassium Level 5.2H, Chloride Level 95L, Carbon Dioxide Lev el 23, Anion Gap 13, Blood Urea Nitrogen 26H, Creatinine 1.30, Estimat Glomerular Filtration Rate 44, BUN/Creatinine Ratio 20, Glucose Level 100, Calcium Level 9.4 07/19/22 10:36: Glucometer 109 07/19/22 14:32: Sodium Level 131L, Potassium Level 5.0, Chloride Level 95L, Carbon Dioxide Level 24, Anion Gap 12, Blood Urea Nitrogen 30H, Creatinine 1.62H, Estimat Glomerular Filtration Rate 34, BUN/Creatinine Ratio 19, Glucose Level 186H, Calcium Level 8.7, Thyroid Stimulating Hormone (TSH) 0.31L 07/19/22 15:59: Glucometer 169H 07/19/22 18:15: Sodium Level 131L, Potassium Level 4.8, Chloride Level 94L, Carbon Dioxide Level 27, Anion Gap 10, Blood Urea Nitrogen 33H, Creatinine 1.60H, Estimat Glomerular Filtration Rate 34, BUN/Creatinine Ratio 21, Glucose Level 171H, Calcium Level 8.8 07/19/22 20:33: Glucometer 195H 07/19/22 21:48: Sodium Level 130L, Potassium Level 5.1H, Chloride Level 94L, Carbon Dioxide Level 24, Anion Gap 12, Blood Urea Nitrogen 38H, Creatinine 1.81H, Estimat Glomerular Filtration Rate 30, BUN/Creatinine Ratio 21, Glucose Level 162H, Calcium Level 8.3L 07/20/22 03:28: Sodium Level 133L, Potassium Level 5.1H, Chloride Level 98, Carbon Dioxide Level 25, Anion Gap 10, Blood Urea Nitrogen 38H, Creatinine 1.59H, Estimat Glomerular Filtration Rate 35, BUN/Creatinine Ratio 24, Glucose Level 124H, Calcium Level 8.1L, White Blood Count 12.8H, Red Blood Count 3.28L, Hemoglobin 9.3L, Hematocrit 28L, Mean Corpuscular Volume 87, Mean Corpuscular Hemoglobin 28, Mean Corpuscular Hemoglobin Concent 33, Red Cell Distribution Width 21.3H, Platelet C ount 251, Mean Platelet Volume 8.9L, Immature Granulocyte % (Auto) 1, Neutrophils (%) (Auto) 88H, Lymphocytes (%) (Auto) 3L, Monocytes (%) (Auto) 8, Eosinophils (%) (Auto) 0, Basophils (%) (Auto) 0, Neutrophils # (Auto) 11.3H, Lymphocytes # (Auto) 0.4L, Monocytes # (Auto) 1.0, Eosinophils # (Auto) 0.0, Basophils # (Auto) 0.0, Immature Granulocyte # (Auto) 0.1, Corrected Calcium 8.8, Phosphorus Level 3.3, Magnesium Level 2.3, Total Bilirubin 0.3, Aspartate Amino Transf (AST/SGOT) 17, Alanine Aminotransferase (ALT/SGPT) 18, Alkaline Phosphatase 66, Total Protein 5.4L, Albumin 3.1L Microbiology 07/18/22 MRSA Screen - Final, Complete MRSA not isolated 07/18/22 Urine Culture - Preliminary, Resulted Slight Growth Present Radiology CXR 07/18: IMPRESSION: 1. No acute cardiopulmonary process. 2. Background obstructive pulmonary changes. Assessment/Plan Assessment/Plan (1) Acute and chronic respiratory failure Status: Acute Assessment & Plan: Secondary to COPD exacerbation. (2) COPD with exacerbation Status: Acute Assessment & Plan: Started on IV solumedrol and antibiotics on admit. Changed to oral prednisone. Continue Duonebs. Is on home supplemental oxygen. (3) Elevated d-dimer Status: Acute Assessment & Plan: Doppler LE bilateral neg. Had elevated D dimer and neg CTA chest in May. (4) Acute cystitis with hematuria Status: Acute Assessment & Plan: Possible, culture pending, started on antibiotics for COPD e xac and possible UTI. (5) Hyperkalemia Status: Acute Assessment & Plan: Hold lisinopril and spironolactone. (6) Hyponatremia Status: Acute Assessment & Plan: Intermittent mild hyponatremia noted in past but she denies being aware of it. Possibly secondary to lung pathology. Improving after fluid in ER, monitor closely. (7) COPD (chronic obstructive pulmonary disease) Status: Chronic Assessment & Plan: Resume home inhaled steroid and beta agonist. (8) Anxiety Status: Chronic Assessment & Plan: Resume home alprazolam. (9) Hyperlipidemia Status: Chronic Assessment & Plan: Resume home statin. (10) Hypertension Status: Chronic Assessment & Plan: Hold home lisinopril and spironolactone due to hyperkalemia. Resume beta chente and amlodipine. (11) CKD (chronic kidney disease) Status: Chronic Assessment & Plan: Creatinine trended up throughout yesterday, back down slightly this am, monitor closely. (12) Coronary artery disease Status: Chronic Qualifiers: Qualified Codes: I25.10 - Atherosclerotic heart disease of [place] coronary artery without angina pectoris (13) History of lung cancer Status: Chronic (14) Lesion of left [place]q kidney Status: Acute Assessment & Plan: CT 06/01/22 indeterminate lesion, recommend follow up dedicated renal CT or MRI in 3 months. (15) DVT prophylaxis Status: Acute Clinical Quality Measures DVT/VTE Risk/Contraindication: Contraindications-Mechi: Other *list below* Other: poss dvt DUANE GIPSON MD Jul 20, 2022 09:36
--- NOTE | 2022-07-20 09:51 | Tele-ICU Progress Note ---
Subjective Date Seen by a Provider: Jul 20, 2022 Time Seen by a Provider: 09:51 Subjective/Events-last exam (Tele-ICU Physician , Progress Note ) Service provided via interactive audio and video telecommunications E-CARE system to a patient admitted to ICU bed in [facility]. Patient is seen today due to persistent need of ICU care Available chart/ vitals / labs / Images reviewed Video assessment done using teleICU camera, rest of exam as per RN Discussed with RN Events overnight : Afebrile hemodynamically stable Respiratory - I/O = Drips: Pressors- no Hospital course: (07/18) 72y F with SOB, weak, lightheaded. On home O2 3L, Recent hospitalizations for PNA, CXR clear at this time. ADMIT DX: COPD exac. hyponatremia, hyperkalemia, acute cystitits with hematuria, elevated d dimer. A/P Dyspnea , suspected AECOPD - r/o PE given elev ddimer ( VQ considered - vascular access was insufficient for IV contrast administration for Ct ) LE US done - NEG for DVT ( had ddimer 7.8 05/[address] Ch ) - started on full dose Lovenox - plan as per PCP , not landry suspicios for PE at present time COPD exac with resent admission PNA/AECOPD -nebs, - steroids SM 80q6 - > prednisone po 40 qd Recent PNA - No evidence of ongoing or recurrent pneumonia on CXR - cefepime and doxy started in ER Hyponatremia Na 122 on arrival ( as per record , had 128-129 ) - AAO x3 , no sz - 133 on 07/20 -Legionella pending. equivocal UA., possible UTI -Started on abx. Culture pending. COPD with chronic hypoxic resp failure -on 3L home O2- same here -ongoing smoker Lines : periph , (Central Line Necessity Reviewed) Marin: void OG: Nutrition: po Analgesia: Anxiety/ delirium na VTE Prophylaxis: full dose Lovenox ( 60 q24 Stress Ulcer Prophylaxis: na Plans in collaboration with bedside consultants and IM MDs. Discussed with RN to reach out if any questions or concerns A total of 15 minutes of critical care time was devoted to this patient today, required to treat and/or prevent further deterioration of critical care condition ( this is ( as above ) . I am remotely monitoring this patient from another state. I am unable to do the bedside exam, and history/physical and pertinent information is taken from other notes in the computer and bedside staff. . Sepsis Event Evaluation Height, Weight, BMI Height: '" Weight: lbs. oz. kg; 22.61 BMI Method: Exam Exam Patient acknowledged, consented, and participated in this virtual visit which was conducted using real time audio/video Vital Signs Date Time Temp Pulse Resp B/P (MAP) Pulse Ox O2 Delivery O2 Flow Rate FiO2 07/20/22 09:00 80 24 111/53 (72) 98 Nasal Cannula 2.00 07/20/22 08:31 Nasal Cannula 3.00 07/20/22 08:27 Nasal Cannula 3.00 07/20/22 08:00 36.6 07/20/22 08:00 93 24 142/68 (92) 90 Nasal Cannula 2.00 07/20/22 07:49 100 Nasal Cannula 3.00 07/20/22 07:15 80 07/20/22 07:00 81 21 126/72 (90) 99 Nasal Cannula 2.00 07/20/22 06:00 84 27 136/63 (87) 99 Nasal Cannula 2.00 07/20/22 05:37 Nasal Cannula 2.00 07/20/22 05:00 79 22 134/70 (91) 96 Nasal Cannula 3.00 07/20/22 04:00 100 Room Air 3.00 07/20/22 04:00 88 24 119/59 (79) 99 Nasal Cannula 3.00 07/20/22 04:00 36.8 07/20/22 03:00 80 25 115/48 (70) 98 Nasal Cannula 3.00 07/20/22 02:00 87 25 129/57 (81) 98 Nasal Cannula 3.00 07/20/22 01:00 86 07/20/22 01:00 86 26 129/54 (79) 99 Nasal Cannula 3.00 07/20/22 00:30 100 Room Air 3.00 07/20/22 00:00 36.4 07/20/22 00:00 82 28 123/55 (77) 98 Nasal Cannula 3.00 07/19/22 23:00 86 25 96/50 (65) 97 Nasal Cannula 3.00 07/19/22 22:00 86 29 119/57 (77) 97 Nasal Cannula 3.00 07/19/22 21:29 97 Nasal Cannula 3.00 07/19/22 21:00 87 21 102/42 (62) 96 Nasal Cannula 3.00 07/19/22 20:00 98 33 113/66 (82) 96 Nasal Cannula 3.00 07/19/22 20:00 100 Room Air 3.00 07/19/22 19:00 87 29 113/43 (66) 97 Nasal Cannula 3.00 07/19/22 19:00 93 07/19/22 18:23 95 Nasal Cannula 3.00 07/19/22 18:00 97 35 126/103 (111) 95 Nasal Cannula 3.00 07/19/22 17:00 79 33 127/62 (83) 96 Nasal Cannula 3.00 07/19/22 16:15 100 Nasal Cannula 3.00 07/19/22 16:12 36.9 07/19/22 16:00 85 22 128/53 (78) 93 Nasal Cannula 3.00 07/19/22 15:14 98 Nasal Cannula 3.00 07/19/22 15:00 79 29 120/69 (86) 98 Nasal Cannula 3.00 07/19/22 14:00 84 30 110/54 (72) 98 Nasal Cannula 3.00 07/19/22 13:00 80 28 134/73 (93) 100 Nasal Cannula 3.00 07/19/22 12:22 82 19 147/91 (109) 99 Nasal Cannula 3.00 07/19/22 12:20 85 07/19/22 12:15 100 Nasal Cannula 3.00 07/19/22 12:00 36.3 07/19/22 11:04 99 Nasal Cannula 3.00 07/19/22 11:00 77 33 138/73 (94) 100 Nasal Cannula 3.00 07/19/22 10:00 85 11 102/38 (59) 98 Nasal Cannula 3.00 I & O 07/20/22 07:00 Intake Total 1620 ml Output Total 1375 ml Balance 245 ml Height & Weight Height: '" Weight: lbs. oz. kg; 22.61 BMI Method: General Appearance: No Apparent Distress Capillary Refill: Less Than 3 Seconds Gastrointestinal: normal bowel sounds, non tender, soft Results Lab Laboratory Tests 07/18/22 18:50 07/19/22 00:57 07/19/22 03:36 07/19/22 10:10 07/19/22 14:32 07/19/22 18:15 07/19/22 21:48 07/20/22 03:28 Assessment/Plan Assessment/Plan 1 CASEY SOLIMAN MD Jul 20, 2022 09:51
[2022-07-20] MEDS: ALPRAZolam 0.5 MG (XANAX) TAB PO PRN ×2 (11:20→21:08)
[2022-07-20 11:43] VITALS: BP 144/81
[2022-07-20] MEDS ORDERED: CEFEPIME INJECTION 1,000 MG in NS (IVPB) 50 ML IV SCH (12:00)
[2022-07-20] MEDS: ANTACID SUSP 30 ML UDC (MYLANTA) PO PRN ×2 (13:34→21:08)
[2022-07-20 14:12] LABS: CALCIUM 8.2 MG/DL (8.5-10.1); CREATININE SERUM 1.33 MG/DL (0.60-1.30); POTASSIUM 4.6 MMOL/L (3.6-5.0)
[2022-07-20 15:10] VITALS: BP 115/70
[2022-07-20] MEDS ORDERED: DOXYCYCLINE 100 MG (VIBRAMYCIN) TABLET PO SCH (17:00)
[2022-07-20 19:14] VITALS: BP 112/70
[2022-07-20] MEDS: AtorvaSTATin TABLET 10 MG TABLET PO SCH (19:50)
[2022-07-20] MEDS: ASPIRIN E.C. 81 MG (ECOTRIN) TAB PO SCH (19:50)
[2022-07-20] MEDS ORDERED: ENOXAPARIN 60 MG/0.6 ML (LOVENOX) SYR SC SCH (21:00)
[2022-07-20 23:45] VITALS: BP 131/83
[2022-07-21] MEDS: RT-ALBUTEROL/IPRATROPIUM 3 ML (DUONEB) VIAL INH SCH ×4 (02:09→13:45)
[2022-07-21 03:28] VITALS: BP 107/62
[2022-07-21 05:07] LABS: BASOPHILS % (AUTO) 0 % (0-10); EOSINOPHILS % (AUTO) 0 % (0-10); HEMATOCRIT 29 % (35-52); HEMOGLOBIN 9.3 g/dL (11.5-16.0); LYMPHOCYTES # (AUTO) 1.1 10^3/uL (1.0-4.0); LYMPHOCYTES % (AUTO) 8 % (12-44); MEAN CORPUSCULAR HEMOGLOBIN 28 pg (25-34); MEAN CORPUSCULAR HGB CONC 32 g/dL (32-36); MEAN CORPUSCULAR VOLUME 88 fL (80-99); MEAN PLATELET VOLUME 9.1 fL (9.0-12.2); MONOCYTES # (AUTO) 1.7 10^3/uL (0.0-1.0); MONOCYTES % (AUTO) 13 % (0-12); NEUTROPHILS # (AUTO) 10.3 10^3/uL (1.8-7.8); NEUTROPHILS % (AUTO) 78 % (42-75); PLATELET COUNT 239 10^3/uL (130-400); WHITE BLOOD COUNT 13.1 10^3/uL (4.3-11.0)
[2022-07-21 05:18] LABS: POTASSIUM 5.5 MMOL/L (3.6-5.0)
[2022-07-21 05:20] LABS: CALCIUM 8.3 MG/DL (8.5-10.1)
[2022-07-21 05:21] LABS: TOTAL PROTEIN 5.2 GM/DL (6.4-8.2)
[2022-07-21 05:23] LABS: BILIRUBIN,TOTAL 0.3 MG/DL (0.1-1.0)
[2022-07-21 05:24] LABS: PHOSPHORUS 1.6 MG/DL (2.3-4.7)
[2022-07-21 05:25] LABS: CREATININE SERUM 0.85 MG/DL (0.60-1.30)
[2022-07-21] MEDS: inSUlin ASPART (NovoLOG) 1 UNIT/0.01 ML (CHARGE PER UNIT) SC SCH ×2 (05:26→11:02)
[2022-07-21 05:28] LABS: MAGNESIUM 2.7 MG/DL (1.6-2.4)
[2022-07-21] MEDS: RT--FLUTICASONE/SALMETEROL 232-14 (AIRDUO RespiCLICK) IH SCH (06:50)
[2022-07-21 07:23] VITALS: BP 136/79
[2022-07-21] MEDS: predniSONE 20 MG TAB PO SCH (07:33)
[2022-07-21] MEDS: DOCUSATE SODIUM 100 MG (COLACE) CAP PO SCH (07:33)
[2022-07-21] MEDS: amLODIPine 2.5MG (NORVASC) TAB PO SCH (07:33)
[2022-07-21] MEDS ORDERED: SODIUM POLYSTYRENE POWDER 15 GM BOTTLE PO ONE (08:45)
[2022-07-21] MEDS: ALPRAZolam 0.5 MG (XANAX) TAB PO PRN (08:59)
[2022-07-21] MEDS ORDERED: HydroCHLOROthiazide CAP/TABLET 12.5 MG TAB PO SCH (09:00)
[2022-07-21] MEDS ORDERED: ENOXAPARIN INJECTION 30 MG/0.3 ML SYR SC SCH (09:00)
[2022-07-21 11:07] VITALS: BP 130/77
[2022-07-21 12:27] LABS: CALCIUM 8.1 MG/DL (8.5-10.1); CREATININE SERUM 0.85 MG/DL (0.60-1.30); POTASSIUM 4.6 MMOL/L (3.6-5.0)
[2022-07-21] MEDS ORDERED: PRD20T PO (14:28)
--- NOTE | 2022-07-21 14:33 | Discharge Summary ---
Discharge Summary Hospital Course Problems/Diagnosis: (1) Acute and chronic respiratory failure Status: Resolved Resolution Date/Time: 07/21/22 @ 14:28 Assessment & Plan: Secondary to COPD exacerbation, stable on home supplemental oxygen at d/c. (2) COPD with exacerbation Status: Acute Assessment & Plan: Started on IV solumedrol and antibiotics on admit. Changed to oral prednisone. Continued Duonebs throughout stay. On home supplemental oxygen at d/c and 2 further days of prednisone 40 mg prescribed, then back to her baseline 10 mg daily. (3) Elevated d-dimer Status: Acute Assessment & Plan: Doppler LE bilateral neg. Had elevated D dimer and neg CTA chest in May. (4) Acute cystitis with hematuria Status: Resolved Resolution Date/Time: 07/21/22 @ 14:29 Assessment & Plan: Possible thought on admit, started on antibiotics for COPD exac and possible UTI, but urine culture with multiple organisms not consistent with infection. (5) Hyperkalemia Status: Acute Assessment & Plan: Held lisinopril and spironolactone and received one dose of kayexalate. Hold lisinopril and spironolactone on d/c, recommend repeat BMP in the next day or two. (6) Hyponatremia Status: Resolved Resolution Date/Time: 07/21/22 @ 14:30 Assessment & Plan: Intermittent mild hyponatremia noted in past but she denies being aware of it. Possibly secondary to lung pathology. Resolved throughout stay. (7) COPD (chronic obstructive pulmonary disease) Status: Chronic Assessment & Plan: Resume home inhaled steroid and beta agonist. (8) Anxiety Status: Chronic Assessment & Plan: Resume home alprazolam. (9) Hyperlipidemia Status: Chronic Assessment & Plan: Resume home statin. (10) Hypertension Status: Chronic Assessment & Plan: Hold home lisinopril and spironolactone due to hyperkalemia. Resume beta chente and amlodipine. (11) CKD (chronic kidney disease) Status: Chronic Assessment & Plan: Creatinine trended up throughout 07/20, back down 07/21 (12) Coronary artery disease Status: Chronic Qualifiers: Qualified Codes: I25.10 - Atherosclerotic heart disease of [place] coronary artery without angina pectoris (13) History of lung cancer Status: Chronic (14) Lesion of left [place] kidney Status: Acute Assessment & Plan: CT 06/01/22 indeterminate lesion, recommend follow up dedicated renal CT or MRI in 3 months. Hospital Course Date of Admission: Jul 18, 2022 at 22:54 Admission Diagnosis : Family Physician/Provider: Salomon Romero MD Date of Discharge: 07/21/22 Discharge Diagnosis: See problem list Hospital Course: See problem list Labs and Pending Lab Test: Laboratory Tests 07/20/22 15:14: Glucometer 170H 07/20/22 19:38: Glucometer 152H 07/21/22 04:43: White Blood Count 13.1H, Red Blood Count 3.33L, Hemoglobin 9.3L, Hematocrit 29L, Mean Corpuscular Volume 88, Mean Corpuscular Hemoglobin 28, Mean Corpuscular Hemoglobin Concent 32, Red Cell Distribution Width 21.8H, Platelet Count 239, Mean Platelet Volume 9.1, Immature Granulocyte % (Auto) 1, Neutrophils (%) (Auto) 78H, Lymphocytes (%) (Auto) 8L, Monocytes (%) (Auto) 13H, Eosinophils (%) (Auto) 0, Basophils (%) (Auto) 0, Neutrophils # (Auto) 10.3H, Lymphocytes # (Auto) 1.1, Monocytes # (Auto) 1.7H, Eosinophils # (Auto) 0.0, Basophils # (Auto) 0.0, Immature Granulocyte # (Auto) 0.1, Sodium Level 135, Potassium Level 5.5H, Chloride Level 96L, Carbon Dioxide Level 30, Anion Gap 9, Blood Urea Nitrogen 35H, Creatinine 0.85, Estimat Glomerular Filtration Rate 73, BUN/Creatinine Ratio 41, Glucose Level 89, Calcium Level 8.3L, Corrected Calcium 9.1, Phosphorus Level 1.6L, Magnesium Level 2.7H, Total Bilirubin 0.3, Aspartate Amino Transf (AST/SGOT) 16, Alanine Aminotransferase (ALT/SGPT) 14, Alkaline Phosphatase 70, Total Protein 5.2L, Albumin 3.0L 07/21/22 10:52: Glucometer 174H 07/21/22 12:04: Sodium Level 133L, Potassium Level 4.6, Chloride Level 96L, Carbon Dioxide Level 34H, Anion Gap 3L, Blood Urea Nitrogen 30H, Creatinine 0.85, Estimat Glomerular Filtration Rate 73, BUN/Creatinine Ratio 35, Glucose Level 171H, Calcium Level 8.1L Microbiology 07/18/22 MRSA Screen - Final, Complete MRSA not isolated 07/18/22 Urine Culture - Final, Complete >=3 Gram Positive Isolates Home Meds Active Reported Nitroglycerin 0.4 Mg Tab.subl 0.4 Mg SL UD PRN Tylenol Extra Strength (Acetaminophen) 500 Mg Tablet 1,000 Mg PO Q6H PRN Budesonide 0.5 Mg/2 Ml Ampul.neb 0.5 Mg NEB Q12H LAST FILLED 06-23-2022 #30 VIALS/15 DAY SUPPLY Formoterol Fumarate 20 Mcg/2 Ml Vial.neb 20 Mcg NEB Q12H LAST FILLED 06-23-2022 #30 VIALS/15 DAY SUPPLY Prednisone 10 Mg Tab 10 Mg PO DAILY Iprat-Albut 0.5-3(2.5) mg/3 ml (Ipratropium/Albuterol Sulfate) 0.5 Mg-3 Mg (2.5 Mg Base)/3 Ml Ampul.neb 3 Ml NEB Q6H PRN Aspirin EC (Aspirin) 81 Mg Tablet.dr 81 Mg PO HS Symbicort 160-4.5 Mcg Inhaler (Budesonide/Formoterol Fumarate) 160 Mcg-4.5 Mcg/Actuation Hfa.aer.ad 1 Puff PO BID Lisinopril 10 Mg Tablet 10 Mg PO DAILY Metoprolol Succinate 25 Mg Tab.er.24h 25 Mg PO DAILY Atorvastatin Calcium 20 Mg Tablet 10 Mg PO HS TAKES OF A 20MG TAB Amlodipine Besylate 2.5 Mg Tablet 2.5 Mg PO DAILY Spironolactone 25 Mg Tablet 25 Mg PO DAILY Alprazolam 0.5 Mg Tablet 0.5 Mg PO TID PRN Assessment/Pt DC Instructions Follow up with primary physician within a week of discharge. Have a repeat BMP drawn in the next day or two to recheck sodium and potassium levels. Discharge Diet: No Restrictions Activity as Tolerated: Yes Discharge Physical Examination Allergies: Coded Allergies: No Known Drug Allergies (Unverified , 05/23/22) General Appearance: Chronically ill, Thin Respiratory: Accessory Muscle Use, Rhonci Cardiovascular: Regular Rate, Rhythm, No Murmur Gastrointestinal: Normal Bowel Sounds, Non Tender, Soft Extremity: No Pedal Edema Neurologic/Psychiatric: Alert, Normal Mood/Affect Clinical Quality Measures DVT/VTE Risk/Contraindication: Contraindications-Mechi: Other *list below* Other: poss dvt DUANE GIPSON MD Jul 21, 2022 14:33
[2022-07-21 15:46] VITALS: BP 126/63
[2022-07-21 16:25] VITALS: BP 126/63
[2022-07-22] MEDS ORDERED: ENOXAPARIN 40 MG/0.4 ML (LOVENOX) SYR SC SCH (09:00)
== END 2022-07-21 16:25 | disposition home or self-care (01) | DRG 190 ==
LOC: EDUNIT# 18:35 → ER FS 18:36 → ICU 22:54 → 4TH 07-20 10:27
PROVIDERS: ADMIT Internal Medicine; ATTEND Family Medicine
DX: J44.1 Chronic obstructive pulmonary disease with (acute) exacerbation (principal); J96.21 Acute and chronic respiratory failure with hypoxia; E87.1 Hypo-osmolality and hyponatremia; F17.210 Nicotine dependence, cigarettes, uncomplicated; N30.91 Cystitis, unspecified with hematuria; E87.5 Hyperkalemia; I12.9 Hypertensive chronic kidney disease with stage 1 through stage 4 chronic kidney disease, or unspecified chronic kidney disease; N18.9 Chronic kidney disease, unspecified; E78.5 Hyperlipidemia, unspecified; F41.9 Anxiety disorder, unspecified; I25.10 Atherosclerotic heart disease of native coronary artery without angina pectoris; Z99.81 Dependence on supplemental oxygen; I25.2 Old myocardial infarction; Z95.5 Presence of coronary angioplasty implant and graft; Z85.118 Personal history of other malignant neoplasm of bronchus and lung; Z85.828 Personal history of other malignant neoplasm of skin; Z28.310 Unvaccinated for COVID-19; Z28.9 Immunization not carried out for unspecified reason; Z28.39 Other underimmunization status; Z79.82 Long term (current) use of aspirin; Z79.52 Long term (current) use of systemic steroids; Z79.899 Other long term (current) drug therapy
CPT/HCPCS: 36415; 36600; 71045; 80048; 80053; 80306; 81000; 82805; 82947; 83735; 83880; 84100; 84443; 84484; 85007; 85025; 85027; 85379; 85610; 85730; 87081; 87088; 93005; 93970; 94640; 94760

== ENCOUNTER 2022-11-24 18:48 | Emergency (ER) | payer MEDICARE, MEDICAID ==
[~2022-11-24] VITALS: Ht 157 cm; Wt 57.0 kg
[~2022-11-24 18:48] MED LIST changes: +ACET-2267 PO; +ACHD5005 PO; +BUDE0.5A NEB; +EMPA10TA PO; +FAMO20TA5 PO; +FORM20VI3 NEB; +FURO40TA4 PO; +LOSA50TA63 PO; +NITR0.4T39 SL; +PRD10T PO; +UMEC62.5 IH
--- NOTE | 2022-11-24 19:06 | ED General ---
General Chief Complaint: Respiratory Problems Stated Complaint: LIGHTHEADED,LOW BP,HEADACHE,SOA History of Present Illness Date Seen by Provider: Nov 24, 2022 Time Seen by Provider: 18:58 Initial Comments 72 yr F with PMH of COPD on 3L of O2 at home/ HTN, / ex-smoker ( stopped smoking in July 2022), is here with c/o SOB, low BP, light headedness which began last night. Pt had chest pain for a week, but does not have any chest pain right now. Denies fever and chills, diarrhea, abdominal pain, nausea and vomiting, palpitations, leg swelling. No known sick contacts. Allergies and Home Medications Allergies Coded Allergies: No Known Drug Allergies (Unverified , 05/23/22) Patient Home Medication List Home Medication List Reviewed: Yes Acetaminophen (Tylenol Extra Strength) 500 Mg Tablet, 1,000 MG PO Q6H PRN for PAIN-MILD (1-4), (Reported) Entered as Reported by: KRIS LAST on 07/19/22 1016 Alprazolam (Alprazolam) 0.5 Mg Tablet, 0.5 MG PO TID PRN for ANXIETY, (Reported) Entered as Reported by: FLASH JIMENES on 05/24/22 1541 Amlodipine Besylate (Amlodipine Besylate) 2.5 Mg Tablet, 2.5 MG PO DAILY, (Reported) Entered as Reported by: FLASH JIMENES on 05/24/22 1541 Aspirin (Aspirin EC) 81 Mg Tablet.dr, 81 MG PO HS, (Reported) Entered as Reported by: FLASH JIMENES on 05/24/22 1541 Atorvastatin Calcium (Atorvastatin Calcium) 20 Mg Tablet, 10 MG PO HS, (Reported) Entered as Reported by: FLASH JIMENES on 05/24/22 1541 Budesonide/Formoterol Fumarate (Symbicort 160-4.5 Mcg Inhaler) 160 Mcg-4.5 Mcg/Actuation Hfa.aer.ad, 1 PUFF PO BID Prescribed by: DUANE GIPSON on 10/15/22 0719 Empagliflozin (Jardiance) 10 Mg Tablet, 10 MG PO DAILY Prescribed by: CESARIO ALANIS on 10/07/22 1000 Famotidine (Famotidine) 20 Mg Tablet, 20 MG PO 1500, (Reported) Entered as Reported by: KRIS LAST on 10/01/22 1600 Furosemide (Furosemide) 40 Mg Tablet, 40 MG PO DAILY Prescribed by: CESARIO ALANIS on 10/07/22 1000 Hydrocodone/Acetaminophen (Hydrocodone-Acetamin 5-325 mg) 5 Mg-325 Mg Tablet, 1 TAB PO Q4H PRN for PAIN-SEVERE (8-10) Prescribed by: DUANE GIPSON on 10/15/22 0902 Ipratropium/Albuterol Sulfate (Iprat-Albut 0.5-3(2.5) mg/3 ml) 0.5 Mg-3 Mg (2.5 Mg Base)/3 Ml Ampul.neb, 3 ML NEB Q6H PRN for SHORTNESS OF BREATH, (Reported) Entered as Reported by: DUANE GIPSON on 05/25/22 0927 Losartan Potassium (Losartan Potassium) 50 Mg Tablet, 50 MG PO DAILY Prescribed by: CESARIO ALANIS on 10/07/22 1000 Metoprolol Succinate (Metoprolol Succinate) 25 Mg Tab.er.24h, 25 MG PO DAILY, (Reported) Entered as Reported by: FLASH JIMENES on 05/24/22 1541 Nitroglycerin (Nitroglycerin) 0.4 Mg Tab.subl, 0.4 MG SL UD PRN for CHEST PAIN, (Reported) Entered as Reported by: KRIS LAST on 07/19/22 1016 Prednisone (Prednisone) 10 Mg Tab, 10 MG PO DAILY, (Reported) Entered as Reported by: KRIS LAST on 07/19/22 1016 Prednisone (Prednisone) 10 Mg Tab, 0 PO DAILY Prescribed by: DUANE GIPSON on 10/15/22 0900 Spironolactone (Spironolactone) 25 Mg Tablet, 25 MG PO DAILY Prescribed by: CESARIO ALANIS on 10/07/22 1000 Umeclidinium [place] (Incruse Ellipta) 62.5 Mcg/Actuation Blst.w.dev, 62.5 MCG IH DAILY Prescribed by: DUANE GIPSON on 10/15/22 0719 Review of Systems Review of Systems Constitutional: malaise EENTM: no symptoms reported Respiratory: short of breath, wheezing Cardiovascular: no symptoms reported Gastrointestinal: no symptoms reported Genitourinary: no symptoms reported Musculoskeletal: no symptoms reported Skin: no symptoms reported Psychiatric/Neurological: No Symptoms Reported Hematologic/Lymphatic: No Symptoms Reported Past Gubbxuk-Tcsktm-Rnfgse Hx Immunizations Up To Date First/Initial COVID19 Vaccinat: Unvaccinated Second COVID19 Vaccination Ramando: Unvaccinated Third COVID19 Vaccination Date: Unvaccinated Seasonal Allergies Seasonal Allergies: No Past Medical History Surgery/Hospitalization HX: COPD w/ Continuous Oxygen Dependant, CAD, HX Tobacco abuse, CKD, Malignant Neoplasm Nasal Cavity, Depression/Anxiety, Hyperlipidemia, Cardiac Stent, Kidney "tie up", Abdominal aneursym surgery Surgeries: Yes Coronary Stent Respiratory: Yes COPD Cardiac: Yes Hypertension Neurological: No Genitourinary: No Gastrointestinal: No Musculoskeletal: No Endocrine: No HEENT: No Cancer: No Psychosocial: Yes Anxiety Integumentary: No Physical Exam Vital Signs Vital Signs - First Documented 11/24/22 19:05 Temp 36.4 Pulse 67 Resp 20 B/P (MAP) 97/47 (64) Pulse Ox 94 O2 Delivery Nasal Cannula Capillary Refill : Height, Weight, BMI Height: '" Weight: lbs. oz. 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 Skin: Normal Color Lymphatic: No Adenopathy Progress/Results/Core Measures Suspected Sepsis SIRS Temperature: Pulse: Respiratory Rate: Laboratory Tests 11/24/22 19:00: White Blood Count 12.5H Blood Pressure / Mean: Laboratory Tests 11/24/22 19:00: Creatinine 2.85H, INR Comment 1.0, Platelet Count 282, Total Bilirubin 0.4 Results/Orders Lab Results Laboratory Tests Test 11/24/22 19:00 11/24/22 21:06 Range/Units White Blood Count 12.5 H 4.3-11.0 10^3/uL Red Blood Count 4.00 3.80-5.11 10^6/uL Hemoglobin 10.0 L 11.5-16.0 g/dL Hematocrit 33 L 35-52 % Mean Corpuscular Volume 82 80-99 fL Mean Corpuscular Hemoglobin 25 25-34 pg Mean Corpuscular Hemoglobin Concent 31 L 32-36 g/dL Red Cell Distribution Width 18.1 H 10.0-14.5 % Platelet Count 282 130-400 10^3/uL Mean Platelet Volume 9.2 9.0-12.2 fL Immature Granulocyte % (Auto) 1 % Neutrophils (%) (Auto) 82 H 42-75 % Lymphocytes (%) (Auto) 7 L 12-44 % Monocytes (%) (Auto) 10 0-12 % Eosinophils (%) (Auto) 0 0-10 % Basophils (%) (Auto) 0 0-10 % Neutrophils # (Auto) 10.2 H 1.8-7.8 10^3/uL Lymphocytes # (Auto) 0.8 L 1.0-4.0 10^3/uL Monocytes # (Auto) 1.3 H 0.0-1.0 10^3/uL Eosinophils # (Auto) 0.0 0.0-0.3 10^3/uL Basophils # (Auto) 0.0 0.0-0.1 10^3/uL Immature Granulocyte # (Auto) 0.1 0.0-0.1 10^3/uL Prothrombin Time 13.3 12.2-14.7 SEC INR Comment 1.0 0.8-1.4 Activated Partial Thromboplast Time 25 24-35 SEC D-Dimer 10.65 H 10.06 H 0.00-0.49 UG/ML Sodium Level 135 135-145 MMOL/L Potassium Level 5.1 H 3.6-5.0 MMOL/L Chloride Level 100 98-107 MMOL/L Carbon Dioxide Level 20 L 21-32 MMOL/L Anion Gap 15 H 5-14 MMOL/L Blood Urea Nitrogen 54 H 7-18 MG/DL Creatinine 2.85 H 0.60-1.30 MG/DL Estimat Glomerular Filtration Rate 17 BUN/Creatinine Ratio 19 Glucose Level 116 H 70-105 MG/DL Calcium Level 9.5 8.5-10.1 MG/DL Corrected Calcium 9.4 8.5-10.1 MG/DL Magnesium Level 2.6 H 1.6-2.4 MG/DL Total Bilirubin 0.4 0.1-1.0 MG/DL Aspartate Amino Transf (AST/SGOT) 15 5-34 U/L Alanine Aminotransferase (ALT/SGPT) 10 0-55 U/L Alkaline Phosphatase 82 40-136 U/L Troponin I < 0.30 <0.30 NG/ML Pro-B-Type Natriuretic Peptide 1618.0 H <125.0 PG/ML Total Protein 6.6 6.4-8.2 GM/DL Albumin 4.1 3.2-4.5 GM/DL Influenza Type A (RT-PCR) Not Detected Not Detecte Influenza Type B (RT-PCR) Not Detected Not Detecte SARS-CoV-2 RNA (RT-PCR) Not Detected Not Detecte Group A Streptococcus Screen NEGATIVE NEGATIVE My Orders Orders - NYA BARDALES MD Chest 1 View Ap/Pa Only (11/24/22 19:06) Cbc With Automated Diff (11/24/22 19:06) Comprehensive Metabolic Panel (11/24/22 19:06) Fibrin Degradation Products (11/24/22 19:06) Magnesium (11/24/22 19:06) Protime With Inr (11/24/22 19:06) Partial Thromboplastin Time (11/24/22 19:06) Ua Culture If Indicated (11/24/22 19:06) Influenza A And B By Pcr (11/24/22 19:06) Probnp Fs (11/24/22 19:06) Troponin I Fs (11/24/22 19:06) Covid 19 Inhouse Test (11/24/22 19:06) Blood Culture (11/24/22 19:06) Rapid Strep A Screen (11/24/22 19:09) Throat Culture Strep A Confirm (11/24/22 19:00) Ed Iv/Invasive Line Start (11/24/22 19:35) Ns Iv 1000 Ml (Ns Iv 1000 Ml) (11/24/22 19:45) Ipratropium/Albuterol Inh Soln (Ipratrop (11/24/22 19:45) Methylprednisolone Sod Succ (Methylpredn (11/24/22 19:41) Svn Small Volume Nebulizer (11/24/22 19:41) Ipratropium/Albuterol Inh Soln (Ipratrop (11/24/22 20:30) Svn Small Volume Nebulizer (11/24/22 20:27) Fibrin Degradation Products (11/24/22 20:27) Enoxaparin Injection (11/24/22 21:56) Medications Given in ED Current Medications Medications Dose Ordered Sig/Neetu Route Start Time Stop Time Status Last Admin Dose Admin Albuterol/ Ipratropium 3 ml ONCE ONCE INH 11/24/22 19:45 11/24/22 19:46 DC 11/24/22 19:49 3 ML Albuterol/ Ipratropium 3 ml ONCE ONCE INH 11/24/22 20:30 11/24/22 20:31 DC 11/24/22 20:33 3 ML Vital Signs/I&O 11/24/22 19:05 Temp 36.4 Pulse 67 Resp 20 B/P (MAP) 97/47 (64) Pulse Ox 94 O2 Delivery Nasal Cannula Capillary Refill : Progress Note : Progress Note 1. ACUTE COPD EXACERBATION & HYPOTENSION, RESOLVED: - CXR; no acute findings - COVID Test/ Rapid flu test/ Rapid strep test: negative - CBC: WBC elevated at 12.5 - CMP: s. Creatinine is 2.85 - UA: did not give sample - BNP: 1,618 - Troponin: undetected - EKG : non-ischemic, NSR - NS IVF bolus STAT, BP improved from 70/40 to 118/ 70 - Duo neb x3 in ER/ solumedrol 125mg iv STAT - Prescription given for Azithromycin 500mg daily for 3 days and Prednisone 50mg daily for 3 days' -The patient was seen in the ED, and treated appropriately to presentation at a specific point in time. Patient is informed that there is a possibility that disease and illness can evolve and change in acuity rapidly or slowly after patient is discharged from the ER. Precautionary advice given to the patient for immediate return to ER if symptoms worsen or do not resolve, and to seek emergency care sooner rather than later. Pt also advised on the importance of PCP follow up and compliance with management and follow up plan with PCP and/or specialist, as this is part of the management plan. Pt verbally expressed understanding. 2. ELEVATED D-DIMER: - D-dimer is 10.06, unable to do CTA chest due to elevated creatinine. Will order out-patient VQ scan to be done tomorrow at [facility] - Medication list reviewed, pt is not on a bloodthinner. Will give one dose Lovenox right now in ER ECG Initial ECG Impression Date: Nov 24, 2022 Initial ECG Impression Time: 19:04 Initial ECG Rate: 61 Initial ECG Rhythm: Normal Sinus Initial ECG Intervals: Normal Initial ECG Impression: Nonspecific Changes Initial ECG Comparisson: No Previous ECG Available Diagnostic Imaging Diagonstic Imaging: Xray Plain Films/CT/US/NM/MRI: chest Comments [facility] [place], [place] NAME: MARLA CRAMER [facility] REC#: [id number] PT STATUS: REG ER : 1950 PHYSICIAN: NYA BARDALES MD ADMIT DATE: 11/24/22/ER FS Draft Date of Exam:11/24/22 CHEST 1 VIEW AP/PA ONLY EXAMINATION: Chest 1 view. HISTORY: SOB. COMPARISON: 10/05/2022. FINDINGS: The lungs are clear without edema or pneumonia. No pleural effusion or pneumothorax. Heart size is normal. Previously seen right mid zone nodule has resolved. IMPRESSION: Clear lungs. Dictated on workstation # [id number] Dict: 11/24/221919 Trans: 11/24/221922 [id number] Interpreted by: TERESE SMITH MD Electronically signed by: Departure Impression Primary Impression: COPD with acute exacerbation Additional Impression: Elevated d-dimer Disposition: HOME, SELF-CARE Condition: Improved Departure-Patient Inst. Referrals: KEELY SHARIF MD (PCP/Family) Primary Care Physician Patient Instructions: Exacerbation of COPD, Risk Factors for COPD, COPD Diet Add. Discharge Instructions: - Prescription given for Azithromycin 500mg daily for 3 days and Prednisone 50mg daily for 3 days' - D-dimer is 10.06, unable to do CTA chest at this time due to elevated creatinine. Will order out-patient VQ scan to be done tomorrow at [facility] - Medication list reviewed, pt is not on a bloodthinner. Will give one dose Lovenox right now in ER All discharge instructions reviewed with patient and/or family. Voiced understanding. Scripts Azithromycin (Azithromycin) 500 Mg Tablet 500 MG PO DAILY for 3 Days, #3 TAB Prov: NYA BARDALES MD 11/24/22 Prednisone (Prednisone) 50 Mg Tab 50 MG PO DAILY for 3 Days, #3 TAB Prov: NYA BARDALES MD 11/24/22 NYA BARDALES MD Nov 24, 2022 19:06
[2022-11-24 19:21] LABS: BASOPHILS % (AUTO) 0 % (0-10); EOSINOPHILS % (AUTO) 0 % (0-10); HEMATOCRIT 33 % (35-52); LYMPHOCYTES # (AUTO) 0.8 10^3/uL (1.0-4.0); LYMPHOCYTES % (AUTO) 7 % (12-44); MEAN CORPUSCULAR HEMOGLOBIN 25 pg (25-34); MEAN CORPUSCULAR HGB CONC 31 g/dL (32-36); MEAN CORPUSCULAR VOLUME 82 fL (80-99); MEAN PLATELET VOLUME 9.2 fL (9.0-12.2); MONOCYTES # (AUTO) 1.3 10^3/uL (0.0-1.0); MONOCYTES % (AUTO) 10 % (0-12); NEUTROPHILS # (AUTO) 10.2 10^3/uL (1.8-7.8); NEUTROPHILS % (AUTO) 82 % (42-75); PLATELET COUNT 282 10^3/uL (130-400); WHITE BLOOD COUNT 12.5 10^3/uL (4.3-11.0)
--- NOTE | 2022-11-24 19:23 | Diagnostic Imaging Report ---
EXAMINATION: Chest 1 view. HISTORY: SOB. COMPARISON: 10/05/2022. FINDINGS: The lungs are clear without edema or pneumonia. No pleural effusion or pneumothorax. Heart size is normal. Previously seen right mid zone nodule has resolved. IMPRESSION: Clear lungs. Dictated by: Dictated on workstation # [id number]
[2022-11-24] MEDS ORDERED: methylPREDNISolone INJ 125 MG VIAL IV STA (19:41)
[2022-11-24] MEDS ORDERED: RT-Ipratropium/Albuterol NEB 3 ML VIAL INH ONE ×2 (19:45→20:30)
[2022-11-24] MEDS ORDERED: NS IV 1000 ML 1,000 ML IV SCH (19:45)
[2022-11-24 19:54] LABS: ALANINE AMINOTRANSFERASE 10 U/L (0-55); ALBUMIN 4.1 GM/DL (3.2-4.5); ALKALINE PHOSPHATASE 82 U/L (40-136); BILIRUBIN,TOTAL 0.4 MG/DL (0.1-1.0); BUN/CREATININE RATIO 19; CALCIUM 9.5 MG/DL (8.5-10.1); CARBON DIOXIDE 20 MMOL/L (21-32); CHLORIDE 100 MMOL/L (98-107); CREATININE SERUM 2.85 MG/DL (0.60-1.30); GFR ESTIMATED 17; GLUCOSE 116 MG/DL (70-105); MAGNESIUM 2.6 MG/DL (1.6-2.4); POTASSIUM 5.1 MMOL/L (3.6-5.0); SODIUM 135 MMOL/L (135-145); TOTAL PROTEIN 6.6 GM/DL (6.4-8.2)
[2022-11-24 19:55] LABS: PROTHROMBIN TIME PATIENT 13.3 SEC (12.2-14.7)
[2022-11-24 20:36] LABS: FIBRIN DEGRADATION PRODUCTS 10.65 UG/ML (0.00-0.49)
[2022-11-24] MEDS ORDERED: ENOXAPARIN 60 MG/0.6 ML SYRINGE SC STA (21:56)
[2022-11-24] MEDS ORDERED: AZIT500T9 PO (22:04)
[2022-11-24] MEDS ORDERED: PRD50T PO (22:04)
[2022-11-24 22:10] VITALS: BP 119/56
== END 2022-11-24 22:10 | disposition home or self-care (01) ==
LOC: EDUNIT# 18:48 → ER FS 18:49
DX: J44.1 Chronic obstructive pulmonary disease with (acute) exacerbation (principal); R79.89 Other specified abnormal findings of blood chemistry; Z99.81 Dependence on supplemental oxygen; Z87.891 Personal history of nicotine dependence; Z28.310 Unvaccinated for COVID-19; Z20.822 Contact with and (suspected) exposure to COVID-19
CPT/HCPCS: 36415; 71045; 80053; 83735; 83880; 84484; 85025; 85379; 85610; 85730; 87040; 87430; 87636; 96361; 96372; 96374

== ENCOUNTER → 2022-11-25 | Outpatient (CLI) | payer MEDICARE, MEDICAID ==
[~2022-11-25] MED LIST changes: +CATHETER FLUSH 10 ML SYR IVP PRN
--- NOTE | 2022-11-25 17:06 | Diagnostic Imaging Report ---
INDICATION: Acute respiratory distress, elevated D-dimer Perfusion lung scan 5.4 mCi of technetium 99m MAA was administered. There are subsegmental perfusion defects in both lungs. The patient has underlying COPD which may account for this altered perfusion but an embolic source cannot be excluded. IMPRESSION: Abnormal the perfusion lung scan. Pulmonary embolism cannot be excluded. Further evaluation with CTA recommended. Dictated by: Dictated on workstation # [id number]
== END ==
LOC: CARD 12:03
PROVIDERS: ATTEND Specialist
DX: J44.1 Chronic obstructive pulmonary disease with (acute) exacerbation (principal); R79.89 Other specified abnormal findings of blood chemistry
CPT/HCPCS: 78580; A9540

== ENCOUNTER 2022-12-25 18:51 | Inpatient (IN) | payer MEDICARE, MEDICAID ==
[~2022-12-25] VITALS: Ht 157.5 cm; Wt 68.0 kg
[~2022-12-25 18:51] MED LIST changes: -CATHETER FLUSH 10 ML SYR IVP PRN; +RT-ALBUINH INH; +SUCR1TAB PO
--- NOTE | 2022-12-25 18:57 | ED Dyspnea ---
General Stated Complaint: SOB History of Present Illness Date Seen by Provider: Dec 25, 2022 Time Seen by Provider: 18:57 Initial Comments 72 yr F with PMH of COPD, is brought in by EMS with c/o SOB which has been going on all day. When EMS reached pt's home, she was yelling and screaming at them. EMS reports that pt's oxygen tubing is too long. Pt was discharged a few days ago from [facility] for Acute COPD Exaceerbation. Pt used to be on 3L of home O2, but since discharge she has been needing 4L of O2. Pt reports that she ahs used her inhalers and neb machine as instructed. Pt has associated chronic cough. Denies fever and chills, chest pain, palpitations. Allergies and Home Medications Allergies Coded Allergies: No Known Drug Allergies (Unverified , 05/23/22) Patient Home Medication List Home Medication List Reviewed: Yes Acetaminophen (Tylenol Extra Strength) 500 Mg Tablet, 1,000 MG PO Q6H PRN for PAIN-MILD (1-4), (Reported) Entered as Reported by: KRIS LAST on 07/19/22 1016 Albuterol Sulfate (Ventolin Hfa) 1 Puff Puff, 2 PUFF INH Q6H PRN for SHORTNESS OF BREATH Prescribed by: CLAUDINE ZULETA on 12/21/22 1058 Alprazolam (Alprazolam) 0.5 Mg Tablet, 0.5 MG PO TID PRN for ANXIETY, (Reported) Entered as Reported by: FLASH JIMENES on 05/24/22 1541 Amlodipine Besylate (Amlodipine Besylate) 2.5 Mg Tablet, 2.5 MG PO DAILY, (Reported) Entered as Reported by: FLASH JIMENES on 05/24/22 1541 Aspirin (Aspirin EC) 81 Mg Tablet.dr, 81 MG PO HS, (Reported) Entered as Reported by: FLASH JIMENES on 05/24/22 1541 Atorvastatin Calcium (Atorvastatin Calcium) 20 Mg Tablet, 20 MG PO HS Prescribed by: CLAUDINE ZULETA on 12/21/22 1058 Budesonide/Formoterol Fumarate (Symbicort 160-4.5 Mcg Inhaler) 160 Mcg-4.5 Mcg/Actuation Hfa.aer.ad, 1 PUFF PO BID Prescribed by: DUANE GIPSON on 10/15/22 0719 Empagliflozin (Jardiance) 10 Mg Tablet, 10 MG PO DAILY Prescribed by: CESARIO ALANIS on 10/07/22 1000 Famotidine (Famotidine) 20 Mg Tablet, 20 MG PO BID, (Reported) Entered as Reported by: DOMINIC HINES on 12/15/22 1043 Ipratropium/Albuterol Sulfate (Iprat-Albut 0.5-3(2.5) mg/3 ml) 0.5 Mg-3 Mg (2.5 Mg Base)/3 Ml Ampul.neb, 3 ML NEB Q6H PRN for SHORTNESS OF BREATH, (Reported) Entered as Reported by: DUANE GIPSON on 05/25/22 0927 Metoprolol Succinate (Metoprolol Succinate) 25 Mg Tab.er.24h, 25 MG PO DAILY, (Reported) Entered as Reported by: FLASH JIMENES on 05/24/22 1541 Nitroglycerin (Nitroglycerin) 0.4 Mg Tab.subl, 0.4 MG SL UD PRN for CHEST PAIN, (Reported) Entered as Reported by: KRIS LAST on 07/19/22 1016 Prednisone (Prednisone) 10 Mg Tab, 10 MG PO DAILY Prescribed by: CLAUDINE ZULETA on 12/21/22 1058 Sucralfate (Sucralfate) 1 Gram Tablet, 1 GM PO ACHS Prescribed by: CLAUDINE ZULETA on 12/21/22 1058 Umeclidinium [place] (Incruse Ellipta) 62.5 Mcg/Actuation Blst.w.dev, 62.5 MCG IH DAILY Prescribed by: CLAUDINE ZULETA on 12/21/22 1058 Discontinued Medications Losartan Potassium (Losartan Potassium) 50 Mg Tablet, 50 MG PO DAILY Prescribed by: CESARIO ALANIS on 10/07/22 1000 Review of Systems Review of Systems Constitutional: no symptoms reported Respiratory: short of breath Past Rakstoe-Vvtzkl-Ydgglh Hx Immunizations Up To Date First/Initial COVID19 Vaccinat: Unvaccinated Second COVID19 Vaccination Armando: Unvaccinated Third COVID19 Vaccination Date: Unvaccinated Seasonal Allergies Seasonal Allergies: No Past Medical History Surgery/Hospitalization HX: COPD Surgeries: Yes Coronary Stent Respiratory: Yes COPD Cardiac: Yes Hypertension, Peripheral Vascular Neurological: No Genitourinary: No Gastrointestinal: No Musculoskeletal: No Chronic Back Pain Endocrine: No Diabetes, Non-Insulin dep HEENT: No Hearing Impairment: Hard of Hearing Cancer: No Lung What Type of Treatment Did You: Radiation Psychosocial: Yes Anxiety Integumentary: No Family Medical History No Pertinent Family Hx Physical Exam Vital Signs Vital Signs - First Documented Capillary Refill : Height, Weight, BMI Height: '" Weight: lbs. oz. kg; 25.74 BMI Method: General Appearance: Anxious, Mild Distress HEENT: PERRL/EOMI Neck: Full Range of Motion Respiratory: Chest Non Tender, No Accessory Muscle Use, Rhonci, Wheezing (Expiratory) Cardiovascular: Tachycardia Gastrointestinal: Non Tender, Soft Neurologic/Psychiatric: Alert, Oriented x3, No Motor/Sensory Deficits Skin: Other (Smokers skin) Progress/Results/Core Measures Results/Orders Lab Results Laboratory Tests Test 12/25/22 19:45 Range/Units White Blood Count 20.6 H 4.3-11.0 10^3/uL Red Blood Count 3.85 3.80-5.11 10^6/uL Hemoglobin 9.4 L 11.5-16.0 g/dL Hematocrit 32 L 35-52 % Mean Corpuscular Volume 83 80-99 fL Mean Corpuscular Hemoglobin 24 L 25-34 pg Mean Corpuscular Hemoglobin Concent 30 L 32-36 g/dL Red Cell Distribution Width 17.8 H 10.0-14.5 % Platelet Count 77 L 130-400 10^3/uL Mean Platelet Volume 12.4 H 9.0-12.2 fL Immature Granulocyte % (Auto) 2 % Neutrophils (%) (Auto) 92 H 42-75 % Lymphocytes (%) (Auto) 2 L 12-44 % Monocytes (%) (Auto) 5 0-12 % Eosinophils (%) (Auto) 0 0-10 % Basophils (%) (Auto) 0 0-10 % Neutrophils # (Auto) 18.9 H 1.8-7.8 10^3/uL Lymphocytes # (Auto) 0.3 L 1.0-4.0 10^3/uL Monocytes # (Auto) 1.0 0.0-1.0 10^3/uL Eosinophils # (Auto) 0.0 0.0-0.3 10^3/uL Basophils # (Auto) 0.0 0.0-0.1 10^3/uL Immature Granulocyte # (Auto) 0.3 H 0.0-0.1 10^3/uL Neutrophils % (Manual) 94 % Lymphocytes % (Manual) 1 % Monocytes % (Manual) 5 % Sodium Level 139 135-145 MMOL/L Potassium Level 4.4 3.6-5.0 MMOL/L Chloride Level 103 98-107 MMOL/L Carbon Dioxide Level 23 21-32 MMOL/L Anion Gap 13 5-14 MMOL/L Blood Urea Nitrogen 26 H 7-18 MG/DL Creatinine 0.83 0.60-1.30 MG/DL Estimat Glomerular Filtration Rate 75 BUN/Creatinine Ratio 31 Glucose Level 142 H 70-105 MG/DL Calcium Level 9.1 8.5-10.1 MG/DL Corrected Calcium 9.0 8.5-10.1 MG/DL Magnesium Level 2.2 1.6-2.4 MG/DL Total Bilirubin 0.3 0.1-1.0 MG/DL Aspartate Amino Transf (AST/SGOT) 29 5-34 U/L Alanine Aminotransferase (ALT/SGPT) 26 0-55 U/L Alkaline Phosphatase 87 40-136 U/L Troponin I < 0.30 <0.30 NG/ML Pro-B-Type Natriuretic Peptide 57934.0 H <125.0 PG/ML Total Protein 7.2 6.4-8.2 GM/DL Albumin 4.1 3.2-4.5 GM/DL My Orders Orders - NYA BARDALES MD Chest 1 View Ap/Pa Only (12/25/22 18:57) Cbc And Automated Diff (12/25/22 18:58) Comprehensive Metabolic Panel (12/25/22 18:58) Drug Screen Stat (Urine) (12/25/22 18:58) Magnesium (12/25/22 18:58) Ua Culture If Indicated (12/25/22 18:58) Probnp Fs (12/25/22 18:58) Troponin I Fs (12/25/22 18:58) Covid 19 Inhouse Test (12/25/22 18:58) Influenza A And B By Pcr (12/25/22 18:58) Ipratropium/Albuterol Inh Soln (Ipratrop (12/25/22 19:00) Svn Small Volume Nebulizer (12/25/22 18:59) Furosemide Injection (Furosemide Injec (12/25/22 19:45) Ipratropium/Albuterol Inh Soln (Ipratrop (12/25/22 19:45) Svn Small Volume Nebulizer (12/25/22 19:43) Cefepime Injection (Cefepime Injection) (12/25/22 19:45) Manual Differential (12/25/22 19:45) Medications Given in ED Current Medications Medications Dose Ordered Sig/Neetu Route Start Time Stop Time Status Last Admin Dose Admin Albuterol/ Ipratropium 3 ml ONCE ONCE INH 12/25/22 19:00 12/25/22 19:01 DC 12/25/22 19:10 3 ML Albuterol/ Ipratropium 3 ml ONCE ONCE INH 12/25/22 19:45 12/25/22 19:52 DC 12/25/22 20:53 3 ML Cefepime HCl 1000 mg/Sodium Chloride 50 ml @ 100 mls/hr ONCE ONCE IV 12/25/22 19:45 12/25/22 20:14 DC 12/25/22 20:52 100 MLS/HR Furosemide 40 mg ONCE ONCE IVP 12/25/22 19:45 12/25/22 19:52 DC 12/25/22 20:52 40 MG Vital Signs/I&O 12/25/22 12/25/22 18:51 18:51 Temp 36.4 Pulse 90 Resp 31 B/P (MAP) 157/99 (118) Pulse Ox 97 O2 Delivery OxyMask Nasal Cannula O2 Flow Rate 10.00 4.00 Progress Progress Note : Progress Note 1. ACUTE COPD EXACERBATION/ HOSPITAL ACQUIRED PNA/ MILD PULMONARY EDEMA: - CXR: Moderate left effusion and mild edema with increasing opacities in the left upper zone concerning for worsening pneumonia. - Pt initially refusing iv line and labs and kept insisting she only wants it done once she gets to [facility]. Spent a lot of time explaining risks and benefits. Pt has been angry and screaming at staff. - CBC: WBS is elevated at 20.6 - Solumedrol 125mg iv given in ambulance - Duo Neb x 3 ( 1st one by EMS) - Lasix 40mgiv STAT - Cefepime 1gm iv STAT - Discussed with resident, and pt acceepted for ICU admission Diagnostic Imaging Diagonstic Imaging: Xray Plain Films/CT/US/NM/MRI: chest Comments [facility]. [place], [place] NAME: MARLA CRAMER [facility] REC#: [id number] PT STATUS: REG ER : 1950 PHYSICIAN: NYA BARDALES MD ADMIT DATE: 12/25/22/ER FS Draft Date of Exam:12/25/22 CHEST 1 VIEW AP/PA ONLY EXAMINATION: Chest 1 view HISTORY: Short of breath COMPARISON: 12/16/2022 FINDINGS: There is moderate left effusion with mild edema. There is an opacity in the left upper zone. Heart size is normal. IMPRESSION: 1. Moderate left effusion and mild edema with increasing opacities in the left upper zone concerning for worsening pneumonia. Dictated on workstation # [id number] Dict: 12/25/221919 Trans: 12/25/221920 CVB [id number] Interpreted by: TERESE SMITH MD Electronically signed by: Departure Communication (Admissions) Time/Spoke to Admitting Phy: 19:05 (and then again at 20:55 since pt was being uncooperative.) Discussed with resident, Dr Argueta, and attending is Dr Chacon Impression Primary Impression: COPD with acute exacerbation Additional Impression: Hospital acquired PNA Disposition: 30 STILL A PATIENT Condition: Stable Admissions Decision to Admit Reason: Admit from ER (General) Decision to Admit/Date: Dec 25, 2022 Time/Decision to Admit Time: 19:05 Transfer Method of Transfer: EMS Departure-Patient Inst. Referrals: KEELY SHARIF MD (PCP/Family) Primary Care Physician NYA BARDALES MD Dec 25, 2022 18:57
[2022-12-25] MEDS: RT-Ipratropium/Albuterol NEB 3 ML VIAL INH ONE (19:10)
--- NOTE | 2022-12-25 19:21 | Diagnostic Imaging Report ---
EXAMINATION: Chest 1 view HISTORY: Short of breath COMPARISON: 12/16/2022 FINDINGS: There is moderate left effusion with mild edema. There is an opacity in the left upper zone. Heart size is normal. IMPRESSION: 1. Moderate left effusion and mild edema with increasing opacities in the left upper zone concerning for worsening pneumonia. Dictated by: Dictated on workstation # [id number]
[2022-12-25] MEDS ORDERED: RT-Ipratropium/Albuterol NEB 3 ML VIAL INH ONE (19:45)
[2022-12-25 19:50] LABS: BASOPHILS % (AUTO) 0 % (0-10); EOSINOPHILS % (AUTO) 0 % (0-10); HEMATOCRIT 32 % (35-52); HEMOGLOBIN 9.4 g/dL (11.5-16.0); LYMPHOCYTES # (AUTO) 0.3 10^3/uL (1.0-4.0); LYMPHOCYTES % (AUTO) 2 % (12-44); MEAN CORPUSCULAR HEMOGLOBIN 24 pg (25-34); MEAN CORPUSCULAR HGB CONC 30 g/dL (32-36); MEAN CORPUSCULAR VOLUME 83 fL (80-99); MEAN PLATELET VOLUME 12.4 fL (9.0-12.2); MONOCYTES % (AUTO) 5 % (0-12); NEUTROPHILS # (AUTO) 18.9 10^3/uL (1.8-7.8); NEUTROPHILS % (AUTO) 92 % (42-75); PLATELET COUNT 77 10^3/uL (130-400); WHITE BLOOD COUNT 20.6 10^3/uL (4.3-11.0)
[2022-12-25] MEDS: FUROSEMIDE INJECTION 40 MG/4 ML VIAL IVP ONE ×2 (20:11→20:52)
[2022-12-25] MEDS: CEFEPIME INJECTION 1,000 MG in NS (IVPB) 50 ML 50 ML IV ONE ×2 (20:11→20:52)
[2022-12-25 20:13] LABS: ALANINE AMINOTRANSFERASE 26 U/L (0-55); ALBUMIN 4.1 GM/DL (3.2-4.5); ALKALINE PHOSPHATASE 87 U/L (40-136); BILIRUBIN,TOTAL 0.3 MG/DL (0.1-1.0); BUN/CREATININE RATIO 31; CALCIUM 9.1 MG/DL (8.5-10.1); CARBON DIOXIDE 23 MMOL/L (21-32); CHLORIDE 103 MMOL/L (98-107); CREATININE SERUM 0.83 MG/DL (0.60-1.30); GFR ESTIMATED 75; GLUCOSE 142 MG/DL (70-105); MAGNESIUM 2.2 MG/DL (1.6-2.4); POTASSIUM 4.4 MMOL/L (3.6-5.0); SODIUM 139 MMOL/L (135-145); TOTAL PROTEIN 7.2 GM/DL (6.4-8.2)
[2022-12-25 20:35] LABS: LYMPHOCYTES % (MANUAL) 1 %; MONOCYTES % (MANUAL) 5 %; NEUTROPHILS % (MANUAL) 94 %
[2022-12-25 21:34] LABS: BILIRUBIN,URINE NEGATIVE (NEGATIVE); CLARITY,URINE CLEAR; COLOR,URINE YELLOW; GLUCOSE, URINE (UA) 3+ (NEGATIVE); KETONES,URINE NEGATIVE (NEGATIVE); LEUKOCYTE ESTERASE ,URINE NEGATIVE (NEGATIVE); NITRITE,URINE NEGATIVE (NEGATIVE); PROTEIN,URINE TRACE (NEGATIVE)
[2022-12-25 21:43] LABS: BACTERIA,URINE TRACE /HPF
[2022-12-25 21:44] LABS: URINE OTHER 4+ SPERM PRESENT /HPF
[2022-12-25 21:47] LABS: AMPHETAMINE SCREEN, URINE NEGATIVE (NEGATIVE); BARBITURATE SCREEN URINE NEGATIVE (NEGATIVE); CANNABINOID SCREEN, URINE NEGATIVE (NEGATIVE); COCAINE SCREEN URINE NEGATIVE (NEGATIVE); METHADONE STAT NEGATIVE (NEGATIVE); OPIATE SCREEN URINE POSITIVE (NEGATIVE); OXYCODONE STAT NEGATIVE (NEGATIVE); PROPOXYPHENE STAT NEGATIVE (NEGATIVE); TRICYCLIC ANTIDEPRESSANTS SCRE NEGATIVE (NEGATIVE)
[2022-12-25] MEDS ORDERED: NS IV 1000 ML 1,000 ML IV STA (21:55)
[2022-12-25] MEDS ORDERED: NS IV 1000 ML 1,000 ML ONE (21:55)
--- NOTE | 2022-12-25 22:07 | History & Physical-Hospitalist ---
RICHAR IRIZARRY MD,RESIDENT 12/25/224: History of Present Illness HPI/Chief Complaint Pt is a 72 yo female with a medical history significant for COPD, T2DM, CAD, hiatal hernia, gastritis, barretts esophagus, who presented to the [place] ED for increased SOB. CXR demonstrated pneumonia vs COPD exacerbation, and she was admitted for further management. Pt reports being recently discharged from [facility] a couple of days ago after having a COPD exacerbation. She says that she has had SOB for the last couple of days and have felt weak so she came to the ED. She denies chest pain, N/V/D, vision changes. Source: patient Date Seen 12/25/22 Time Seen by a Provider: 06:00 Attending Physician Salomon Romero MD PCP Admitting Physician: Attending Physician: Referring Physician Date of Admission Home Medications & Allergies Home Medications Reviewed patient Home Medication Reconciliation performed by pharmacy medication reconciliations gameroom technician and/or nursing. Patients Allergies have been reviewed. Allergies Allergies Coded Allergies No Known Drug Allergies (Unverified05/23/22) Past Jeklokv-Kfuura-Gdkhmf Hx Immunizations Up To Date First/Initial COVID19 Vaccinat: Unvaccinated Second COVID19 Vaccination Armando: Unvaccinated Tetanus Booster (TDap): More Than 5 Years Hepatitis A: No Hepatitis B: No Seasonal Allergies Seasonal Allergies: No Current Status Communicates: Verbally Primary Language: Tamazight Preferred Spoken Language: Tamazight Is interpretation needed?: No Past Medical History Surgeries: Coronary Stent COPD Hypertension, Peripheral Vascular Chronic Back Pain Diabetes, Non-Insulin dep Hearing Impairment: Hard of Hearing Lung What Type of Treatment Did You: Radiation Anxiety PMHx: COPD, supplemental oxygen dependent, 3 lpm Lung cancer s/p radiation Nasal cancer unknown type, surgically treated CAD with stenting SurgHx: Cardiac stent Abdominal Aortic Anuerysm repair Kidney surgery of uncertain etiology- fell and reports had to have "tied up" Hysterectomy Family Medical History No Pertinent Family Hx Review of Systems Constitutional: weakness EENTM: no symptoms reported Respiratory: cough, dyspnea on exertion, short of breath Gastrointestinal: no symptoms reported Skin: no symptoms reported Psychiatric/Neurological: No Symptoms Reported Physical Exam Physical Exam Vital Signs Vital Signs - First Documented 12/25/22 23:29 FiO2 48 Capillary Refill : Less Than 3 Seconds Height, Weight, BMI Height: '" Weight: lbs. oz. kg; 26.00 BMI Method: General Appearance: No Apparent Distress Eyes: Bilateral Eye EOMI Neck: Non Tender Respiratory: Rales, Rhonci, Wheezing Cardiovascular: Regular Rate, Rhythm Gastrointestinal: Non Tender, Soft Neurologic/Psychiatric: Alert, Oriented x3, Normal Mood/Affect Skin: Warm/Dry Results Results/Procedures Labs Laboratory Tests 12/25/22 19:45 12/26/22 04:48 Patient resulted labs reviewed. Assessment/Plan Admission Diagnosis Pneumonia Admission Status: Inpatient Order (span 2 midnights) Reason for Inpatient Admission: Pneumonia Diagnosis/Problems Diagnosis/Problems (1) Community acquired pneumonia Status: Acute Assessment & Plan: CXR demonstrates likely pneumonia vs COPD exacerbation Leukocytosis, 20 PLAN: Cefepime Trend WBCs Trend lactate Supplemental O2 support Monitor for fever (2) COPD with acute exacerbation Status: Acute Assessment & Plan: PLAN: RT protocol, duonebs Supplemental O2 ABG (3) GERD (gastroesophageal reflux disease) Status: Chronic Assessment & Plan: RETAIL SUPPORT SPECIALIST Famotidine FAVIAN KUO DO 12/26/22 1647: History of Present Illness HPI/Chief Complaint Chief complaint: Acute on chronic respiratory failure HPI: This is a 72-year-old female who just was discharged from the hospital after a lengthy stay for exacerbation of COPD. She continues to smoke. She was found to have a pneumonia needing IV steroids and ICU monitoring for BiPAP. Source: patient Exam Limitations: no limitations Date Seen 12/26/22 Past Atixsgj-Jsviba-Ymhyco Hx Patient Social History Marrital Status: single Employed/Student: retired Smoking Status: Current Everyday Smoker Past Medical History Pneumonia, COPD High Cholesterol, Hypertension Review of Systems Constitutional: see HPI, weakness Respiratory: dyspnea on exertion, short of breath, wheezing Physical Exam Physical Exam General Appearance: No Apparent Distress, Chronically ill Respiratory: Rales, Rhonci, Wheezing Cardiovascular: Regular Rate, Rhythm Neurologic/Psychiatric: Alert, Oriented x3 Assessment/Plan Admission Diagnosis Assessment: Acute on chronic respiratory failure Assessment patient COPD Pneumonia Sepsis Current smoker GERD Plan: IV steroids IV antibiotics ICU BiPAP Admission Status: Inpatient Order (span 2 midnights) Reason for Inpatient Admission: Respiratory failure RICHAR IRIZARRY MD,RESIDENT Dec 25, 2022 22:07 FAVIAN KUO DO Dec 26, 2022 16:47
[2022-12-25] MEDS ORDERED: ACETAMINOPHEN 500 MG TABLET PO PRN (23:15)
[2022-12-25] MEDS ORDERED: BISACODYL 10 MG SUPPOSITORY PR PRN (23:15)
[2022-12-25] MEDS ORDERED: MELATONIN 3 MG TABLET PO PRN (23:15)
[2022-12-25] MEDS ORDERED: NS IV 500 ML 500 ML IV PRN (23:15)
[2022-12-25] MEDS ORDERED: ONDANSETRON 4 MG ORAL DISSOLVE TABLET PO PRN (23:15)
[2022-12-25] MEDS ORDERED: ONDANSETRON INJECTION 4 MG/2 ML (SDV) IV PRN (23:15)
[2022-12-25 23:29] VITALS: BP 157/99
[2022-12-25] MEDS ORDERED: RT-Ipratropium/Albuterol NEB 3 ML VIAL INH PRN (23:45)
--- NOTE | 2022-12-25 23:59 | Tele-ICU Consult ---
History of Present Illness History of Present Illness Date Seen by Provider: Dec 25, 2022 Time Seen by Provider: 23:53 History of Present Illness eICU Critical Care Consult 72 yo F admitted for PNA and COPD exacerbation. At home on 3 lpm NC, Hx of lung Ca, s/p RT, AAA repair, CXR shows left pleural effusion, changes in PRINCE though this may be post surgical Given dose of IV Cefepime. PMH DM2, CAD, Padilla's esophagitis, PVD, Allergies and Home Medications Allergies Coded Allergies: No Known Drug Allergies (Unverified , 05/23/22) Home Medications Acetaminophen 500 Mg Tablet, 1,000 MG PO Q6H PRN for PAIN-MILD (1-4), (Reported) Albuterol Sulfate 1 Puff Puff, 2 PUFF INH Q6H PRN for SHORTNESS OF BREATH Prescribed by: CLAUDINE ZULETA on 12/21/22 1058 Alprazolam 0.5 Mg Tablet, 0.5 MG PO TID PRN for ANXIETY, (Reported) Amlodipine Besylate 2.5 Mg Tablet, 2.5 MG PO DAILY, (Reported) Aspirin 81 Mg Tablet.dr, 81 MG PO HS, (Reported) Atorvastatin Calcium 20 Mg Tablet, 20 MG PO HS Prescribed by: CLAUDINE ZULETA on 12/21/22 1058 Budesonide/Formoterol Fumarate 160 Mcg-4.5 Mcg/Actuation Hfa.aer.ad, 1 PUFF PO BID LAST FILLED 04-01-2022 #04/26 DAY SUPPLY Prescribed by: DUANE GIPSON on 10/15/22 0719 Empagliflozin 10 Mg Tablet, 10 MG PO DAILY Prescribed by: CESARIO ALANIS on 10/07/22 1000 Famotidine 20 Mg Tablet, 20 MG PO BID, (Reported) Ipratropium/Albuterol Sulfate 0.5 Mg-3 Mg (2.5 Mg Base)/3 Ml Ampul.neb, 3 ML NEB Q6H PRN for SHORTNESS OF BREATH, (Reported) Metoprolol Succinate 25 Mg Tab.er.24h, 25 MG PO DAILY, (Reported) Nitroglycerin 0.4 Mg Tab.subl, 0.4 MG SL UD PRN for CHEST PAIN, (Reported) Prednisone 10 Mg Tab, 10 MG PO DAILY Take 3 tabs x 3 days then take 2 tabs x 3 days then 1 tab daily Prescribed by: CLAUDINE ZULETA on 12/21/22 1058 Sucralfate 1 Gram Tablet, 1 GM PO ACHS Prescribed by: CLAUDINE ZULETA on 12/21/22 1058 Umeclidinium [place] 62.5 Mcg/Actuation Blst.w.dev, 62.5 MCG IH DAILY Prescribed by: CLAUDINE ZULETA on 12/21/22 1058 Past Medical/Social/Family Hx Patient Social History Tobacco Use?: No Smoking Status: Never a Smoker Use of E-Cig and/or Vaping dev: Unable to obtain Substance use?: No Alcohol Use?: No Pt stated abuse/neglect: No Immunizations Up To Date Influenza Vaccine Up-to-Date: No; Not Current First/Initial COVID19 Vaccinat: Unvaccinated Second COVID19 Vaccination Armando: Unvaccinated Tetanus Booster (TDap): More Than 5 Years Hepatitis A: No Hepatitis B: No TB Skin Test: None Current Status status: No status: No Advance Directives: Unable to obtain Advance Directive Location: Unable to obtain copy Communicates: Verbally Primary Language: Norwegian Preferred Spoken Language: Norwegian Is interpretation needed?: No Sensory deficits: Hearing impairment Implanted or Applied Medical D: Stents Past Medical History PMHx: COPD, supplemental oxygen dependent, 3 lpm Lung cancer s/p radiation Nasal cancer unknown type, surgically treated CAD with stenting SurgHx: Cardiac stent Abdominal Aortic Anuerysm repair Kidney surgery of uncertain etiology- fell and reports had to have "tied up" Hysterectomy Review of Systems Constitutional: see HPI EENTM: see HPI Respiratory: see HPI Cardiovascular: see HPI Gastrointestinal: see HPI Genitourinary: see HPI Musculoskeletal: see HPI Skin: see HPI Psychiatric/Neurological: See HPI Focused Exam Lactate Level 12/25/22 21:35: Lactic Acid Level 2.79*H 12/25/22 23:31: Lactic Acid Level 1.50 Height, Weight, BMI Height: '" Weight: lbs. oz. kg; 25.96 BMI Method: Lactic Acid Level Laboratory Tests Test 12/25/22 21:35 12/25/22 23:31 Lactic Acid Level 2.79 MMOL/L (0.50-2.00) *H 1.50 MMOL/L (0.50-2.00) Exam Exam Patient acknowledged, consented, and participated in this virtual visit which was conducted using real time audio/video Vital Signs Date Time Temp Pulse Resp B/P (MAP) Pulse Ox O2 Delivery O2 Flow Rate FiO2 12/25/22 23:29 36.4 106 95 48 12/25/22 23:08 106 12/25/22 20:53 97 Nasal Cannula 8.00 12/25/22 18:51 Nasal Cannula 4.00 12/25/22 18:51 36.4 90 31 157/99 (118) 97 OxyMask 10.00 Height & Weight Height: '" Weight: lbs. oz. kg; 25.96 BMI Method: General Appearance: Anxious, Mild Distress HEENT: PERRL/EOMI Neck: Full Range of Motion Respiratory: Chest Non Tender, No Accessory Muscle Use, Decreased Breath Sounds, Rhonci, Wheezing (Expiratory) Cardiovascular: Tachycardia Capillary Refill: Less Than 3 Seconds Gastrointestinal: normal bowel sounds, non tender, soft, other (u) Extremity: No Pedal Edema, Calf Tenderness Neurologic/Psychiatric: Alert, Oriented x3, No Motor/Sensory Deficits Skin: Other (Smokers skin) Results Lab Laboratory Tests 12/25/22 19:45 Assessment/Plan Assessment/Plan PNA, AECOPD, Hx of Lung Ca and RT will continue abx and bronchodilators, oxygen Spoke with certified orthotist/pedorthist: Critically Ill Patient Time spent with patient (mins): 20 SHANIQUE DELAROSA MD Dec 25, 2022 23:59
[2022-12-26] MEDS ORDERED: ALPRAZolam 0.25 MG TABLET PO PRN
[2022-12-26 04:57] LABS: BASOPHILS % (AUTO) 0 % (0-10); EOSINOPHILS % (AUTO) 0 % (0-10); HEMATOCRIT 25 % (35-52); HEMOGLOBIN 7.7 g/dL (11.5-16.0); LYMPHOCYTES # (AUTO) 0.3 10^3/uL (1.0-4.0); LYMPHOCYTES % (AUTO) 2 % (12-44); MEAN CORPUSCULAR HEMOGLOBIN 25 pg (25-34); MEAN CORPUSCULAR HGB CONC 31 g/dL (32-36); MEAN CORPUSCULAR VOLUME 81 fL (80-99); MEAN PLATELET VOLUME 9.7 fL (9.0-12.2); MONOCYTES # (AUTO) 0.3 10^3/uL (0.0-1.0); MONOCYTES % (AUTO) 2 % (0-12); NEUTROPHILS # (AUTO) 11.8 10^3/uL (1.8-7.8); NEUTROPHILS % (AUTO) 93 % (42-75); PLATELET COUNT 292 10^3/uL (130-400); WHITE BLOOD COUNT 12.7 10^3/uL (4.3-11.0)
[2022-12-26] MEDS: TIOTROPIUM INH 4 GM (SPIRIVA Respimat) IH SCH ×2 (05:15→16:31)
[2022-12-26 05:17] LABS: ALBUMIN 3.3 GM/DL (3.2-4.5); BILIRUBIN,TOTAL 0.4 MG/DL (0.1-1.0); CALCIUM 8.4 MG/DL (8.5-10.1); CREATININE SERUM 0.84 MG/DL (0.60-1.30); MAGNESIUM 1.9 MG/DL (1.6-2.4); PHOSPHORUS 3.7 MG/DL (2.3-4.7); POTASSIUM 3.8 MMOL/L (3.6-5.0); TOTAL PROTEIN 5.8 GM/DL (6.4-8.2)
[2022-12-26] MEDS: POTASSIUM CHLORIDE 20 MEQ TABLET PO SCH (05:35)
[2022-12-26] MEDS: MAGNESIUM 1 GM/100 ML IVPB 100 ML IV SCH ×3 (05:35→06:55)
[2022-12-26] MEDS: POTASSIUM CL 10MEQ/50ML IVPB 50 ML IV SCH (05:35)
[2022-12-26] MEDS: inSUlin ASPART 1 UNIT/0.01 ML (PER UNIT) SC SCH ×4 (05:36→21:48)
[2022-12-26] MEDS: RT-Ipratropium/Albuterol NEB 3 ML VIAL INH SCH ×5 (05:57→22:04)
--- NOTE | 2022-12-26 07:05 | Progress Note - Hospitalist ---
Subjective HPI/CC On Admission Date Seen by Provider: Dec 26, 2022 Time Seen by Provider: 12:00 Pt is a 72 yo female with a medical history significant for COPD, T2DM, CAD, hiatal hernia, gastritis, barretts esophagus, who presented to the [place] ED for increased SOB. CXR demonstrated pneumonia vs COPD exacerbation, and she was admitted for further management. Pt reports being recently discharged from [facility] a couple of days ago after having a COPD exacerbation. She says that she has had SOB for the last couple of days and have felt weak so she came to the ED. She denies chest pain, N/V/D, vision changes. Subjective/Events-last exam Patient is a little bit better Remains in ICU due to poor reserve May require BiPAP again Reviewed meds and labs No falls Review of Systems General: Fatigue, Malaise Pulmonary: Dyspnea, Cough Focused Exam Lactate Level 12/25/22 21:35: Lactic Acid Level 2.79*H 12/25/22 23:31: Lactic Acid Level 1.50 Objective Exam Vital Signs Vital Signs Date Time Temp Pulse Resp B/P (MAP) Pulse Ox O2 Delivery O2 Flow Rate FiO2 12/26/22 17:00 90 42 122/90 (106) 100 Nasal Cannula 6.00 12/26/22 15:58 36.8 12/25/22 23:29 48 Capillary Refill : Less Than 3 Seconds General Appearance: No Apparent Distress, WD/WN, Chronically ill Respiratory: No Accessory Muscle Use, No Respiratory Distress, Crackles, Decreased Breath Sounds Cardiovascular: Regular Rate, Rhythm Neurologic/Psychiatric: Alert, Oriented x3 Results/Procedures Lab Laboratory Tests 12/25/22 19:45 12/26/22 04:48 Patient resulted labs reviewed. Assessment/Plan Assessment and Plan Assess & Plan/Chief Complaint Assessment: Hospital-acquired pneumonia Acute on chronic hypoxic respiratory failure Exacerbation of COPD Current smoker History of lung cancer Poor prognosis Plan: Supportive care IV antibiotics IV steroids ICU High risk for intubation Critical Care Critically Ill Patient KUOSERENA TAIAby WHITFIELD Dec 26, 2022 07:05
[2022-12-26] MEDS ORDERED: POTASSIUM CHLORIDE 20 MEQ TABLET PO ONE (08:00)
[2022-12-26] MEDS: CEFEPIME INJECTION 1,000 MG in NS (IVPB) 50 ML 50 ML IV SCH ×3 (08:30→18:58)
[2022-12-26] MEDS: ENOXAPARIN 40 MG/0.4 ML SYRINGE SC SCH (09:44)
[2022-12-26] MEDS ORDERED: ACETAMINOPHEN 500 MG TABLET PO PRN (11:00)
[2022-12-26] MEDS ORDERED: RT-ALBUTEROL SULF 2.5 MG/3 ML PRE-MIX VIAL INH PRN (11:00)
[2022-12-26] MEDS ORDERED: FUROSEMIDE INJECTION 40 MG/4 ML VIAL IVP ONE (12:00)
[2022-12-26] MEDS: SUCRALFATE 1 GM TABLET PO SCH ×3 (12:02→21:47)
[2022-12-26] MEDS: ALPRAZolam 0.5 MG TABLET PO PRN ×2 (12:03→21:47)
--- NOTE | 2022-12-26 12:20 | Tele-ICU Progress Note ---
Subjective Date Seen by a Provider: Dec 26, 2022 Time Seen by a Provider: 12:20 Subjective/Events-last exam (Tele-ICU Physician , Progress Note ) Service provided via interactive audio and video telecommunications E-CARE system to a patient admitted to ICU bed in [facility]. Patient is seen today due to persistent need of ICU care Available chart/ vitals / labs / Images reviewed Video assessment done using teleICU camera, rest of exam as per RN Discussed with RN Events overnight : Afebrile hemodynamically stable Respiratory - I/O = Drips: Pressors- no Hospital course: (12/25) 72/F- Hypoxia. Pna., oxymask. A/P Acute on chronic resp failure - possible CHF/ VO with right sided failure +/- AECOPD - CPM CHF - -ICM, CAD, chronic systolic and diastolic CHF- 10-17 showed LVEF 35-40% - cont diuresis Presumed PNA - cefepime started LEFT sided effusion - larger then recent cxr ( bur seen in past - ? etilogy CHF - most likly due to CHF - received lasix - to follow - no indications not for thora - to follow recent tcx for AECOPD - need to finish course of steroids _? vs only nebs and ICS - as per pollo [place] Anxiety - on xanax Anemia - hb 7.7 - no bleeding Advanced COPD with chronic hypoxic resp failure -on 3L home O2 -significant emphysema on CT , ( no pulm HTN with RVSP 30 mmhg -quit smoking H/o chronically Elev D dimer- repeated w/up NEG fo PE /dvt ( CT ch 10/01/22- NO PE , US LE - neg for DVT 10/04 22 Lines : periph , (Central Line Necessity Reviewed) Marin: OG: Nutrition: po Analgesia: Anxiety/ delirium VTE Prophylaxis: koki 40 Stress Ulcer Prophylaxis: na Plans in collaboration with bedside consultants and IM MDs. Discussed with RN to reach out if any questions or concerns Case and care daily discussed on multidisciplinary rounds ( RN, PharmD, Drop Clipper , Respiratory Therapy, ornamental iron worker helper ) A total of _20 minutes of critical care time was devoted to this patient today, required to treat and/or prevent further deterioration of critical care condition ( as above ) . I am remotely monitoring this patient from another state. I am unable to do the bedside exam, and history/physical and pertinent information is taken from other notes in the computer and bedside staff. Sepsis Event Evaluation Height, Weight, BMI Height: '" Weight: lbs. oz. kg; 25.96 BMI Method: Focused Exam Lactate Level 12/25/22 21:35: Lactic Acid Level 2.79*H 12/25/22 23:31: Lactic Acid Level 1.50 Exam Exam Patient acknowledged, consented, and participated in this virtual visit which was conducted using real time audio/video Vital Signs Date Time Temp Pulse Resp B/P (MAP) Pulse Ox O2 Delivery O2 Flow Rate FiO2 12/26/22 12:06 36.4 OxyMask 7.00 12/26/22 12:00 91 18 131/98 (108) 100 OxyMask 6.00 12/26/22 11:00 96 22 130/88 (119) 97 OxyMask 6.00 12/26/22 10:00 92 33 154/107 (114) 94 OxyMask 6.00 12/26/22 09:59 92 OxyMask 7.00 12/26/22 09:00 90 24 124/98 (113) 98 OxyMask 6.00 12/26/22 08:00 94 OxyMask 6.00 12/26/22 08:00 36.2 OxyMask 6.00 12/26/22 08:00 88 20 115/98 (104) 99 OxyMask 6.00 12/26/22 07:00 85 12/26/22 06:00 93 19 155/83 (107) 90 OxyMask 6.00 12/26/22 05:58 92 OxyMask 7.00 12/26/22 05:00 90 37 168/111 (130) 97 OxyMask 6.00 12/26/22 04:04 94 OxyMask 6.00 12/26/22 04:00 81 28 152/99 (116) 100 OxyMask 6.00 12/26/22 04:00 35.8 152/99 (117) OxyMask 6.00 12/26/22 03:00 85 28 142/72 (95) 100 OxyMask 6.00 12/26/22 02:00 85 41 145/82 (102) 98 OxyMask 6.00 12/26/22 01:00 85 12/26/22 01:00 89 57 144/69 (111) 100 OxyMask 6.00 12/26/22 00:12 94 OxyMask 6.00 12/26/22 00:00 93 45 141/86 (115) 94 OxyMask 6.00 12/25/22 23:45 93 50 143/122 (132) 97 OxyMask 6.00 12/25/22 23:30 36.4 86 46 180/105 (128) 95 OxyMask 6.00 12/25/22 23:29 36.4 106 95 48 12/25/22 23:15 107 80 93 OxyMask 6.00 12/25/22 23:08 104 40 166/101 (120) OxyMask 6.00 12/25/22 23:08 106 12/25/22 22:00 36.4 99 31 191/55 96 OxyMask 8.00 12/25/22 20:53 97 Nasal Cannula 8.00 12/25/22 18:51 Nasal Cannula 4.00 12/25/22 18:51 36.4 90 31 157/99 (118) 97 OxyMask 10.00 I & O 12/26/22 07:00 Intake Total 550 ml Output Total 1200 ml Balance -650 ml Height & Weight Height: '" Weight: lbs. oz. kg; 25.96 BMI Method: General Appearance: No Apparent Distress HEENT: PERRL/EOMI Neck: Non Tender Respiratory: Rales, Rhonci, Wheezing Cardiovascular: Regular Rate, Rhythm Capillary Refill: Less Than 3 Seconds Gastrointestinal: normal bowel sounds, non tender, soft, other (u) Extremity: No Pedal Edema, Calf Tenderness Neurologic/Psychiatric: Alert, Oriented x3, Normal Mood/Affect Skin: Warm/Dry Results Lab Laboratory Tests 12/25/22 19:45 12/26/22 04:48 Assessment/Plan Assessment/Plan 1 CASEY SOLIMAN MD Dec 26, 2022 12:20
[2022-12-26] MEDS: FLUTICASONE/VILANTEROL 200/25 MCG (7 DOSES) IH SCH ×2 (17:57→18:02)
[2022-12-26] MEDS ORDERED: NON-FORMULARY MEDICATION 1 EA EA (Budesonide/Formoterol Fumarate (Symbicort 160-4.5 Mcg In PO SCH (21:00)
[2022-12-26] MEDS ORDERED: FAMOTIDINE 20 MG TABLET PO SCH (21:00)
[2022-12-26] MEDS: ASPIRIN enteric coated 81MG TABLET PO SCH (21:47)
[2022-12-27] MEDS: CEFEPIME INJECTION 1,000 MG in NS (IVPB) 50 ML 50 ML IV SCH ×4 (02:19→23:30)
[2022-12-27] MEDS: RT-Ipratropium/Albuterol NEB 3 ML VIAL INH SCH ×6 (02:59→22:00)
[2022-12-27 04:29] LABS: BASOPHILS % (AUTO) 0 % (0-10); EOSINOPHILS % (AUTO) 0 % (0-10); HEMATOCRIT 25 % (35-52); HEMOGLOBIN 7.4 g/dL (11.5-16.0); LYMPHOCYTES # (AUTO) 0.9 10^3/uL (1.0-4.0); LYMPHOCYTES % (AUTO) 5 % (12-44); MEAN CORPUSCULAR HEMOGLOBIN 24 pg (25-34); MEAN CORPUSCULAR HGB CONC 30 g/dL (32-36); MEAN CORPUSCULAR VOLUME 82 fL (80-99); MEAN PLATELET VOLUME 9.9 fL (9.0-12.2); MONOCYTES # (AUTO) 1.5 10^3/uL (0.0-1.0); MONOCYTES % (AUTO) 9 % (0-12); NEUTROPHILS % (AUTO) 84 % (42-75); PLATELET COUNT 316 10^3/uL (130-400); WHITE BLOOD COUNT 16.7 10^3/uL (4.3-11.0)
[2022-12-27 05:04] LABS: ALBUMIN 3.3 GM/DL (3.2-4.5); BILIRUBIN,TOTAL 0.4 MG/DL (0.1-1.0); CALCIUM 8.3 MG/DL (8.5-10.1); CREATININE SERUM 1.21 MG/DL (0.60-1.30); MAGNESIUM 2.3 MG/DL (1.6-2.4); PHOSPHORUS 2.6 MG/DL (2.3-4.7); POTASSIUM 3.3 MMOL/L (3.6-5.0); TOTAL PROTEIN 5.8 GM/DL (6.4-8.2)
[2022-12-27] MEDS: POTASSIUM CHLORIDE 20 MEQ TABLET PO SCH (05:07)
[2022-12-27] MEDS: POTASSIUM CL 10MEQ/50ML IVPB 50 ML IV SCH (05:07)
[2022-12-27] MEDS: MAGNESIUM 1 GM/100 ML IVPB 100 ML IV SCH (05:07)
[2022-12-27] MEDS: inSUlin ASPART 1 UNIT/0.01 ML (PER UNIT) SC SCH ×4 (05:08→21:00)
[2022-12-27] MEDS: SUCRALFATE 1 GM TABLET PO SCH ×4 (06:22→20:56)
[2022-12-27] MEDS ORDERED: POTASSIUM CHLORIDE 20 MEQ TABLET PO ONE ×2 (06:30→08:30)
[2022-12-27] MEDS: FLUTICASONE/VILANTEROL 200/25 MCG (7 DOSES) IH SCH (07:01)
[2022-12-27] MEDS: TIOTROPIUM INH 4 GM (SPIRIVA Respimat) IH SCH (07:01)
[2022-12-27] MEDS: FAMOTIDINE 20 MG TABLET PO SCH (08:32)
[2022-12-27] MEDS: EMPAGLIFLOZIN 10 MG TABLET PO SCH (08:32)
[2022-12-27] MEDS: ENOXAPARIN 40 MG/0.4 ML SYRINGE SC SCH (08:33)
[2022-12-27] MEDS: ALPRAZolam 0.5 MG TABLET PO PRN ×2 (09:35→20:56)
--- NOTE | 2022-12-27 09:37 | Progress Note - Hospitalist ---
Subjective HPI/CC On Admission Date Seen by Provider: Dec 27, 2022 Time Seen by Provider: 10:00 Chief complaint: Acute on chronic respiratory failure HPI: This is a 72-year-old female who just was discharged from the hospital after a lengthy stay for exacerbation of COPD. She continues to smoke. She was found to have a pneumonia needing IV steroids and ICU monitoring for BiPAP. Subjective/Events-last exam Patient doing a lot better We will transfer to cardiac stepdown unit Still very tachypneic when she moves around bipap periodically Patient appears to be very frail Review of Systems Pulmonary: Dyspnea, Cough Focused Exam Lactate Level 12/25/22 21:35: Lactic Acid Level 2.79*H 12/25/22 23:31: Lactic Acid Level 1.50 Objective Exam Vital Signs Vital Signs Date Time Temp Pulse Resp B/P (MAP) Pulse Ox O2 Delivery O2 Flow Rate FiO2 12/27/22 20:30 36.2 12/27/22 19:22 99 Nasal Cannula 5.00 12/27/22 18:00 94 12/27/22 16:00 16 12/25/22 23:29 48 Capillary Refill : Less Than 3 Seconds General Appearance: No Apparent Distress, WD/WN, Chronically ill Respiratory: Lungs Clear, Decreased Breath Sounds Cardiovascular: Regular Rate, Rhythm Neurologic/Psychiatric: Alert, Oriented x3 Results/Procedures Lab Laboratory Tests 12/27/22 04:11 Patient resulted labs reviewed. Assessment/Plan Assessment and Plan Assess & Plan/Chief Complaint Assessment: Hospital-acquired pneumonia Acute on chronic hypoxic respiratory failure Exacerbation of COPD Current smoker History of lung cancer Poor prognosis Plan: Supportive care IV antibiotics IV steroids Cardiac stepdown High risk for intubation Critical Care Critically Ill Patient FAVIAN KUO DO Dec 27, 2022 09:37
--- NOTE | 2022-12-27 11:28 | Physical Therapy Progress Note ---
Therapy Progress Note Hold per RN due to increase O2 demand and decreased SAO2 with minimal activity and reports she is independent with mobility and requires time to complete physical tasks. PT will attempt tomorrow CAITLIN Augustin PT Dec 27, 2022 11:28
[2022-12-27] MEDS ORDERED: TIOT18CA2 INH (13:11)
[2022-12-27] MEDS ORDERED: PRD10T PO (13:11)
[2022-12-27] MEDS: ASPIRIN enteric coated 81MG TABLET PO SCH (20:56)
[2022-12-28] MEDS: RT-Ipratropium/Albuterol NEB 3 ML VIAL INH SCH ×5 (03:17→19:24)
[2022-12-28 04:27] LABS: BASOPHILS % (AUTO) 0 % (0-10); EOSINOPHILS # (AUTO) 0.1 10^3/uL (0.0-0.3); EOSINOPHILS % (AUTO) 1 % (0-10); HEMATOCRIT 26 % (35-52); HEMOGLOBIN 7.5 g/dL (11.5-16.0); LYMPHOCYTES # (AUTO) 0.6 10^3/uL (1.0-4.0); LYMPHOCYTES % (AUTO) 4 % (12-44); MEAN CORPUSCULAR HEMOGLOBIN 24 pg (25-34); MEAN CORPUSCULAR HGB CONC 29 g/dL (32-36); MEAN CORPUSCULAR VOLUME 82 fL (80-99); MEAN PLATELET VOLUME 9.7 fL (9.0-12.2); MONOCYTES # (AUTO) 1.9 10^3/uL (0.0-1.0); MONOCYTES % (AUTO) 13 % (0-12); NEUTROPHILS # (AUTO) 12.3 10^3/uL (1.8-7.8); NEUTROPHILS % (AUTO) 81 % (42-75); PLATELET COUNT 303 10^3/uL (130-400); WHITE BLOOD COUNT 15.1 10^3/uL (4.3-11.0)
[2022-12-28 04:48] LABS: ALBUMIN 3.1 GM/DL (3.2-4.5); BILIRUBIN,TOTAL 0.6 MG/DL (0.1-1.0); CALCIUM 8.5 MG/DL (8.5-10.1); CREATININE SERUM 0.95 MG/DL (0.60-1.30); MAGNESIUM 2.2 MG/DL (1.6-2.4); POTASSIUM 4.3 MMOL/L (3.6-5.0); TOTAL PROTEIN 5.5 GM/DL (6.4-8.2)
[2022-12-28] MEDS: POTASSIUM CHLORIDE 20 MEQ TABLET PO SCH (05:37)
[2022-12-28] MEDS: POTASSIUM CL 10MEQ/50ML IVPB 50 ML IV SCH (05:37)
[2022-12-28] MEDS: MAGNESIUM 1 GM/100 ML IVPB 100 ML IV SCH (05:37)
[2022-12-28] MEDS: inSUlin ASPART 1 UNIT/0.01 ML (PER UNIT) SC SCH ×4 (05:38→20:35)
[2022-12-28] MEDS: CEFEPIME INJECTION 1,000 MG in NS (IVPB) 50 ML 50 ML IV SCH ×3 (06:50→22:09)
[2022-12-28] MEDS: SUCRALFATE 1 GM TABLET PO SCH ×4 (06:50→20:35)
--- NOTE | 2022-12-28 08:03 | Physical Therapy Progress Note ---
Therapy Progress Note PT attempt to assess patient. Patient states,"Get out of my room. I don't want any part of therapy." PT to remove patient from scheduled services at this time. CAITLIN GILBERT PT Dec 28, 2022 08:03
[2022-12-28] MEDS: FLUTICASONE/VILANTEROL 200/25 MCG (7 DOSES) IH SCH (08:12)
[2022-12-28] MEDS: TIOTROPIUM INH 4 GM (SPIRIVA Respimat) IH SCH (08:13)
[2022-12-28] MEDS: ALPRAZolam 0.5 MG TABLET PO PRN ×2 (08:37→20:35)
[2022-12-28] MEDS: FAMOTIDINE 20 MG TABLET PO SCH (08:37)
[2022-12-28] MEDS: ACETAMINOPHEN 325 MG TABLET PO PRN (08:38)
[2022-12-28] MEDS: ENOXAPARIN 40 MG/0.4 ML SYRINGE SC SCH (08:38)
[2022-12-28] MEDS: EMPAGLIFLOZIN 10 MG TABLET PO SCH (08:38)
[2022-12-28] MEDS: dexAMETHasone INJ 4 MG/ML SDV IV SCH ×2 (11:04→20:35)
[2022-12-28] MEDS: HYDROcodone/ACETAMINOPHEN 5 MG/325 MG TABLET PO PRN (11:10)
[2022-12-28 13:53] VITALS: BP 159/70
[2022-12-28 15:31] VITALS: BP 159/70
[2022-12-28 16:58] VITALS: BP 135/64
--- NOTE | 2022-12-28 19:42 | Physician Query-Final Dx ---
KENA CALLEJAS 12/28/221941: Final Diagnosis Give Final Diagnosis Please give Final Diagnosis The medical record reflects the following clinical scenario: History/Risk factors: History of lung cancer with radiation treatment, pneumonia Clinical Findings: Admission vital signs/labs: HR 90, RR 31, BP 157/99, SpO2 97% sat on 10 L, T 36.4 Did decrease to 35.8, WBC 20.6, lactic acid 2.79 Treatment: ER: Ipratropium/albuterol, furosemide IV, cefepime IV, normal saline 2 L, Question: Is sepsis a clinically valid diagnosis? Sepsis was documented in the admission diagnoses list on the H&P with no further documentation of sepsis in the medical record. If yes, please document in the Progress Notes and Discharge Summary. Yes, sepsis is clinically valid, now resolved No, sepsis ruled out Other, with explanation of clinical findings Undetermined, no explanation for clinical findings In responding to this query, please exercise your independent professional judgment. The purpose of this communication is to more accurately reflect the complexity of your patients condition. The fact that a question is asked does not imply that any particular answer is desired or expected. Thank you for your timely response to this clarification. Kena Callejas MSN, RN Clinical Plastics Scientist FAVIAN KUO DO 12/28/222006: Final Diagnosis Give Final Diagnosis Yes, sepsis is clinically valid, now resolved KENA CALLEJAS Dec 28, 2022 19:42 FAVIAN KUO DO Dec 28, 2022 20:07
[2022-12-28 19:59] VITALS: BP 143/77
[2022-12-28] MEDS: ASPIRIN enteric coated 81MG TABLET PO SCH (20:35)
[2022-12-28 23:26] VITALS: BP 147/76
[2022-12-29] VITALS (7 sets, daily range): BP systolic 130–181; BP diastolic 70–100
[2022-12-29] MEDS: ACETAMINOPHEN 325 MG TABLET PO PRN (03:44)
[2022-12-29] MEDS: SUCRALFATE 1 GM TABLET PO SCH ×4 (04:35→19:35)
[2022-12-29 04:36] LABS: BASOPHILS % (AUTO) 0 % (0-10); EOSINOPHILS % (AUTO) 0 % (0-10); HEMATOCRIT 25 % (35-52); HEMOGLOBIN 7.8 g/dL (11.5-16.0); LYMPHOCYTES # (AUTO) 0.2 10^3/uL (1.0-4.0); LYMPHOCYTES % (AUTO) 2 % (12-44); MEAN CORPUSCULAR HEMOGLOBIN 25 pg (25-34); MEAN CORPUSCULAR HGB CONC 31 g/dL (32-36); MEAN CORPUSCULAR VOLUME 81 fL (80-99); MEAN PLATELET VOLUME 10.6 fL (9.0-12.2); MONOCYTES # (AUTO) 0.2 10^3/uL (0.0-1.0); MONOCYTES % (AUTO) 2 % (0-12); NEUTROPHILS # (AUTO) 9.1 10^3/uL (1.8-7.8); NEUTROPHILS % (AUTO) 95 % (42-75); PLATELET COUNT 318 10^3/uL (130-400); WHITE BLOOD COUNT 9.6 10^3/uL (4.3-11.0)
[2022-12-29 05:39] LABS: ALBUMIN 3.1 GM/DL (3.2-4.5); POTASSIUM 4.9 MMOL/L (3.6-5.0)
[2022-12-29 05:41] LABS: CALCIUM 8.7 MG/DL (8.5-10.1)
[2022-12-29 05:42] LABS: TOTAL PROTEIN 5.8 GM/DL (6.4-8.2)
[2022-12-29] MEDS: POTASSIUM CL 10MEQ/50ML IVPB 50 ML IV SCH (05:42)
[2022-12-29] MEDS: POTASSIUM CHLORIDE 20 MEQ TABLET PO SCH (05:42)
[2022-12-29] MEDS: inSUlin ASPART 1 UNIT/0.01 ML (PER UNIT) SC SCH ×4 (05:43→21:04)
[2022-12-29 05:44] LABS: BILIRUBIN,TOTAL 0.6 MG/DL (0.1-1.0)
[2022-12-29 05:45] LABS: CREATININE SERUM 0.98 MG/DL (0.60-1.30)
[2022-12-29 05:48] LABS: MAGNESIUM 2.3 MG/DL (1.6-2.4)
[2022-12-29] MEDS: MAGNESIUM 1 GM/100 ML IVPB 100 ML IV SCH (05:49)
[2022-12-29] MEDS: CEFEPIME INJECTION 1,000 MG in NS (IVPB) 50 ML 50 ML IV SCH ×3 (05:53→22:40)
[2022-12-29] MEDS: RT-Ipratropium/Albuterol NEB 3 ML VIAL INH SCH ×5 (07:05→22:30)
[2022-12-29] MEDS: FLUTICASONE/VILANTEROL 200/25 MCG (7 DOSES) IH SCH (07:05)
[2022-12-29] MEDS: TIOTROPIUM INH 4 GM (SPIRIVA Respimat) IH SCH (07:06)
[2022-12-29] MEDS: FAMOTIDINE 20 MG TABLET PO SCH (07:59)
[2022-12-29] MEDS: dexAMETHasone INJ 4 MG/ML SDV IV SCH ×2 (07:59→19:34)
[2022-12-29] MEDS: EMPAGLIFLOZIN 10 MG TABLET PO SCH (07:59)
[2022-12-29] MEDS: ENOXAPARIN 40 MG/0.4 ML SYRINGE SC SCH ×2 (08:00→08:05)
[2022-12-29] MEDS: HYDROcodone/ACETAMINOPHEN 5 MG/325 MG TABLET PO PRN ×2 (10:15→23:17)
--- NOTE | 2022-12-29 10:26 | Consultation-Cardiology ---
HPI-Cardiology Cardiology Consultation: Date of Consultation 12/29/22 Time Seen by a Provider: 10:30 Date of Admission 12-25-22 Attending Physician Salomon Romero MD Admitting Physician Admitting Physician: Sylvia Chacon DO Attending Physician: Sylvia Chacon DO Consulting Physician Ramses Alejandra MD Provider requesting consult: Dr. Chacon HPI: Chief Complaint: Pneumonia Ms. Cramer is a 72 yr old female admitted to [facility] with increasing SOB. She r eports chest discomfort which is unchanged from before. She reports productive cough. Reports mild feet/ankle swelling. Review of Systems-Cardiology Review of Systems Constitutional: No chills, No fever Eyes: No vision change Ears/Nose/Throat: No epistaxis, No recent hearing loss Respiratory: As described under HPI Cardiovascular: As described under HPI Gastrointestinal: No diarrhea, No nausea, No vomiting Genitourinary: No dysuria, No hematuria Musculoskeletal: no symptoms reported Skin: No rash on exposed areas, No ulcerations on exposed areas Psychiatric/Neurological: anxiety; No seizure, No focal weakness, No syncope Hematologic: No bleeding abnormalities [id number] Hx Patient Social History Marrital Status: single Employed/Student: retired Smoking Status: Current Everyday Smoker 2nd Hand Smoke Exposure: Yes Alcohol Use?: No Pt feels they are or have been: No Past Medical History PMH As described under Assessment. Family Medical History Family Medical History: She does not report a fam h/o early CAD or SCD Allergies and Home Medications Allergies Coded Allergies: No Known Drug Allergies (Unverified , 05/23/22) Patient Home Medication List Acetaminophen (Tylenol Extra Strength) 500 Mg Tablet, 1,000 MG PO Q6H PRN for PAIN-MILD (1-4), (Reported) Entered as Reported by: KRIS LAST on 07/19/22 1016 Last Action: Reviewed Albuterol Sulfate (Ventolin Hfa) 1 Puff Puff, 2 PUFF INH Q6H PRN for SHORTNESS OF BREATH Prescribed by: CLAUDINE ZULETA on 12/21/22 1058 Last Action: Reviewed Alprazolam (Alprazolam) 0.5 Mg Tablet, 0.5 MG PO TID PRN for ANXIETY, (Reported) Entered as Reported by: FLASH JIMENES on 05/24/22 1541 Last Action: Reviewed Amlodipine Besylate (Amlodipine Besylate) 2.5 Mg Tablet, 2.5 MG PO DAILY, (Reported) Entered as Reported by: FLASH JIMENES on 05/24/22 154 Last Action: Reviewed Aspirin (Aspirin EC) 81 Mg Tablet.dr, 81 MG PO HS, (Reported) Entered as Reported by: FLASH JIMENES on 05/24/22 1541 Last Action: Reviewed Atorvastatin Calcium (Atorvastatin Calcium) 20 Mg Tablet, 20 MG PO HS Prescribed by: CLAUDINE ZULETA on 12/21/22 1058 Last Action: Reviewed Budesonide/Formoterol Fumarate (Symbicort 160-4.5 Mcg Inhaler) 160 Mcg-4.5 Mcg/Actuation Hfa.aer.ad, 1 PUFF PO BID Prescribed by: DUANE GIPSON on 10/15/22 0719 Last Action: Reviewed Empagliflozin (Jardiance) 10 Mg Tablet, 10 MG PO DAILY Prescribed by: CESARIO ALANIS on 10/07/22 1000 Last Action: Reviewed Famotidine (Famotidine) 20 Mg Tablet, 20 MG PO BID, (Reported) Entered as Reported by: DOMINIC HINES on 12/15/22 1043 Last Action: Reviewed Ipratropium/Albuterol Sulfate (Iprat-Albut 0.5-3(2.5) mg/3 ml) 0.5 Mg-3 Mg (2.5 Mg Base)/3 Ml Ampul.neb, 3 ML NEB Q6H PRN for SHORTNESS OF BREATH, (Reported) Entered as Reported by: DUANE GIPSON on 05/25/22 0927 Last Action: Reviewed Metoprolol Succinate (Metoprolol Succinate) 25 Mg Tab.er.24h, 25 MG PO DAILY, (Reported) Entered as Reported by: FLASH JIMENES on 05/24/22 154 Last Action: Reviewed Nitroglycerin (Nitroglycerin) 0.4 Mg Tab.subl, 0.4 MG SL UD PRN for CHEST PAIN, (Reported) Entered as Reported by: KRIS LAST on 07/19/22 1016 Last Action: Reviewed Prednisone (Prednisone) 10 Mg Tab, 10 MG PO DAILY, (Reported) Entered as Reported by: KRIS LAST on 12/27/22 1311 Last Action: Reviewed Sucralfate (Sucralfate) 1 Gram Tablet, 1 GM PO ACHS Prescribed by: CLAUDINE ZULETA on 12/21/221057 Last Action: Reviewed Tiotropium [place] (Spiriva) 18 Mcg Aerp, 1 PUFF INH DAILY, (Reported) Entered as Reported by: KRIS LAST on 12/27/22 1311 Last Action: Reviewed Discontinued Medications Prednisone (Prednisone) 10 Mg Tab, 10 MG PO DAILY Discontinued Reason: Duplicate Order Prescribed by: CLAUDINE ZULETA on 12/21/221057 Last Action: Discontinued Umeclidinium [place] (Incruse Ellipta) 62.5 Mcg/Actuation Blst.w.dev, 62.5 MCG IH DAILY Discontinued Reason: Duplicate Order Prescribed by: CLAUDINE ZULETA on 12/21/221057 Last Action: Discontinued Physical Exam-Cardiology Physical Exam Vital Signs/I&O 12/31/22 12/31/22 12/31/22 12/31/22 00:00 04:34 07:12 07:30 Temp 35.9 36.6 Pulse 70 110 55 Resp 18 16 B/P (MAP) 159/89 (112) 171/73 (105) Pulse Ox 100 98 97 99 O2 Delivery High Flow N/C High Flow N/C High Flow N/C High Flow N/C O2 Flow Rate 7.00 10.00 6.00 7.00 12/31/22 00:00 Intake Total 815 ml Output Total 750 ml Balance 65 ml Capillary Refill : Less Than 3 Seconds Constitutional: AAO x 3, well-developed, well-nourished HEENT: PERRL, hearing is well preserved Neck: No carotid bruit; carotid pulses are 2 + bilaterally Respiratory: No accessory muscle use, No respiratory distress; chest expansion is symmetric, chest is bilaterally symmetric, rhonchi (scattered with coarse breath sounds throughout) Cardiovascular: regular rate-rhythm; No JVD; S1 and S2 Gastrointestinal: No tender; soft; No guarding; audible bowel sounds Extremities: no lower extremity edema bilateral Neurologic/Psychiatric: other (moves all extremities) Skin: No rash on exposed areas, No ulcerations on exposed areas Data Review Labs Laboratory Tests 12/30/22 10:48: Glucometer 102 12/30/22 16:06: Glucometer 149H 12/30/22 19:56: Glucometer 152H 12/31/22 05:31: Glucometer 169H 12/31/22 05:51: White Blood Count 9.1, Red Blood Count 3.00L, Hemoglobin 7.3L, Hematocrit 24L, Mean Corpuscular Volume 81, Mean Corpuscular Hemoglobin 24L, Mean Corpuscular Hemoglobin Concent 30L, Red Cell Distribution Width 17.5H, Platelet Count 310, Mean Platelet Volume 9.5, Immature Granulocyte % (Auto) 1, Neutrophils (%) (Auto) 86H, Lymphocytes (%) (Auto) 2L, Monocytes (%) (Auto) 10, Eosinophils (%) (Auto) 0, Basophils (%) (Auto) 0, Neutrophils # (Auto) 7.9H, Lymphocytes # (Auto) 0.2L, Monocytes # (Auto) 0.9, Eosinophils # (Auto) 0.0, Basophils # (Auto) 0.0, Immature Granulocyte # (Auto) 0.1, Neutrophils % (Manual) 91, Lymphocytes % (Manual) 4, Monocytes % (Manual) 5, Polychromasia SLIGHT, Hypochromasia SLIGHT, Poikilocytosis SLIGHT, Anisocytosis MODERATE, Elliptocytes SLIGHT, Schistocytes SLIGHT, Sodium Level 137, Potassium Level 3.9, Chloride Level 100, Carbon Dioxide Level 25, Anion Gap 12, Blood Urea Nitrogen 35H, Creatinine 1.09, Estimat Glomerular Filtration Rate 54, BUN/Creatinine Ratio 32, Glucose Level 161H, Calcium Level 8.9, Corrected Calcium 9.4, Magnesium Level 2.3, Total Bilirubin 0.5, Aspartate Amino Transf (AST/SGOT) 16, Alanine Aminotransferase (ALT/SGPT) 20, Alkaline Phosphatase 63, Total Protein 6.1L, Albumin 3.4 Microbiology 12/25/22 MRSA Screen - Final, Complete MRSA not isolated 12/25/22 Blood Culture - Preliminary, Resulted Radiology NAME: MARLA CRAMER [facility] REC#: [id number] PT STATUS: REG ER : 1950 PHYSICIAN: NYA BARDALES MD ADMIT DATE: 12/25/22/ER FS Signed Date of Exam:12/25/22 CHEST 1 VIEW AP/PA ONLY EXAMINATION: Chest 1 view HISTORY: Short of breath COMPARISON: 12/16/2022 FINDINGS: There is moderate left effusion with mild edema. There is an opacity in the left upper zone. Heart size is normal. IMPRESSION: 1. Moderate left effusion and mild edema with increasing opacities in the left upper zone concerning for worsening pneumonia. Dictated by: Dictated on workstation # [id number] Dict: 12/25/221919 Trans: 12/25/221954 CVB [id number] Interpreted by: TERESE SMITH MD Electronically signed by: TERESE SMITH MD 12/25/221954 ECG Impression ECG Comment SR with PVC's A/P-Cardiology Assessment/Admission Diagnosis Ac exacerbation of COPD due to pneumonia Chronic HFrEF (due to ischemic cm) Intolerance to spironolactone and CLARISA-I/ARB due to hyperkalemia CAD and ischemic cardiomyopathy and chronic, stable angina - reports h/o stent placement in 2000 - has refused stress test (exercise or pharmacologic due to previous h/o intolerance to such studies) - Echocardiogram of 04-13-22 showed LVEF 35-40%. Hypokinesis of the apical and inferolateral myocardium. Grade 1 diastolic dysfunction. PASP 30-35 mmHg GERD/PUD - EGD on 12/20/22: severe gastritis, hiatal hernia, Padilla's esophagus PAD and h/o AAA repair by Dr Hebert at [facility] - followed by vasc surg svce at [facility], [place] CKD 3 Acute renal insuff (MIGUEL likely due to diuretics) and mild hyperkalemia, improved HTN HLD - had been on statin, but quit recently w/o any specific reason H/o lung cancer - treated with radiation therapy by Dr Pandya at [facility], [place], [place] Severe COPD - on continuous, supplemental oxygen H/o tobaccoism - Quit smoking in July 2022 Carotid dz - Carotid u/s of 04-02-22: Mod to heavy calcific plaque bilaterally without distinct evidence of hemodynamic significance. May need further evaluation with radiologic studies (but hasn't agreed) Discussion and Recomendations Progressive shortness of breath which is multi-factorial - pneumonia with acute on chronic exacerbation of COPD and acute on chronic systolic HF Management of pneumonia per medical services Continue cardiac meds Give diuretics as indicated Monitor lab closely Replace electrolytes as indicated Further recs will be based on her hospital course We would like to thank medical records for this consult CESARIO ALANIS Dec 29, 2022 10:26
[2022-12-29] MEDS ORDERED: FUROSEMIDE INJECTION 40 MG/4 ML VIAL IVP NR (11:00)
--- NOTE | 2022-12-29 11:39 | Progress Note - Hospitalist ---
DELIO WARE 12/29/22 1139: Subjective HPI/CC On Admission Date Seen by Provider: Dec 29, 2022 Time Seen by Provider: 09:53 Chief complaint: Acute on chronic respiratory failure HPI: This is a 72-year-old female who just was discharged from the hospital after a lengthy stay for exacerbation of COPD. She continues to smoke. She was found to have a pneumonia needing IV steroids and ICU monitoring for BiPAP. Subjective/Events-last exam 12/29/2022: CC: SOB HPI: Dulce, 72F, notes that she is a little upset. She is concerned that she is going to be intubated. We talked about how her lungs are improving and that she has moved from the ICU to the MED/SURG unit which is a good sign of improvement. We also discussed her respiratory status. She notes that she is not struggling currently with SOB. She understands that her lungs have some damage and that her respiratory status will likely remain poor. She said that she has a slight cough but no other lung concerns. Her other concern is that she has an ear ache that started this morning and is a 5/10 pain. She has had no other issues. She is overall upset about her health but is glad that she is in the hospital. She noted that she didn't want to take pain medication and seem like a "druggie" but she was informed that she should take pain medication if she is in pain. She has no other concerns. Review of Systems General: No Chills, No Night Sweats; Fatigue; No Malaise, No Appetite, No Other HEENT: No Head Aches, No Visual Changes, No Eye Pain; Ear Pain; No Dysphasia, No Sinus Congestion, No Post Nasal Drip, No Sore Throat, No Other Pulmonary: No Dyspnea; Cough; No Pleuritic Chest Pain, No Other Cardiovascular: No: Chest Pain, Palpitations, Orthopnea, Paroxysmal Noc. Dyspnea, Edema, Lt Headedness, Other Gastrointestinal: No: Nausea, Vomiting, Abdominal Pain, Diarrhea, Constipation, Melena, Hematochezia, Other Genitourinary: No Dysuria, No Frequency, No Incontinence, No Hematuria, No Retention, No Other Musculoskeletal: No: other, neck pain, shoulder pain, arm pain, back pain, hand pain, leg pain, foot pain Neurological: No: Weakness, Numbness, Incoordination, Change in speech, Confusion, Seizures, Other Objective Exam Vital Signs Vital Signs Date Time Temp Pulse Resp B/P (MAP) Pulse Ox O2 Delivery O2 Flow Rate FiO2 12/29/22 10:32 98 High Flow N/C 5.00 12/29/22 08:02 36.2 85 16 130/99 (109) 12/25/22 23:29 48 Capillary Refill : Less Than 3 Seconds General Appearance: No Apparent Distress, WD/WN, Anxious HEENT: PERRL/EOMI, Normal ENT Inspection, Scleral Icterus (L), Scleral Icterus (R) Neck: Full Range of Motion, Normal Inspection, Non Tender, Supple Respiratory: No Accessory Muscle Use, No Respiratory Distress, Crackles, Expiration, Inspiration, Rhonci Cardiovascular: Regular Rate, Rhythm, No Edema, No Murmur, Normal Peripheral Pulses Gastrointestinal: Normal Bowel Sounds, Non Tender, Soft Rectal: Deferred Back: Normal Inspection Extremity: Normal Inspection, Non Tender, No Calf Tenderness, No Pedal Edema Neurologic/Psychiatric: Alert, Oriented x3, No Motor/Sensory Deficits, Depressed Affect Skin: Normal Color, Warm/Dry Lymphatic: No Adenopathy Results/Procedures Lab Laboratory Tests 12/29/22 04:20 12/29/22 05:20 Patient resulted labs reviewed. BP Elevated, noted that Hydralazine parameters placed if BP elevated Assessment/Plan Assessment and Plan Assess & Plan/Chief Complaint 12/29/2022: Assessment/Plan: -Hospital Acquired PNA * Cefepime, O2 support, CBC, monitoring -Acute on Chronic Hypoxic Respiratory Failure * Decadron, Breo, Spiriva, DuoNeb -HTN * Amlodipine, Metoprolol * Hydralazine per parameters -HX of Cigarette Smoking * Education -CKD * Fluids, CMP Diagnosis/Problems Diagnosis/Problems (1) Acute and chronic respiratory failure with hypoxia Status: Acute (2) Hospital acquired PNA Status: Acute (3) Anxiety Status: Chronic (4) Hypertension Status: Chronic Qualifiers: Qualified Codes: I10 - Essential (primary) hypertension (5) CKD (chronic kidney disease) Status: Chronic SYLVIA KUO DO 12/29/222023: Subjective Subjective/Events-last exam Patient seems to be doing pretty well Consulting cardiology reviewed meds and labs Objective Exam General Appearance: No Apparent Distress, WD/WN, Chronically ill Respiratory: Crackles, Rhonci, Wheezing Cardiovascular: Regular Rate, Rhythm Neurologic/Psychiatric: Alert, Oriented x3 Assessment/Plan Assessment and Plan Assess & Plan/Chief Complaint Continue aggressive pulmonary care Smoking cessation discussed Consult cardiology Supervisory-Addendum Brief Verification & Attestation Participated in pt care: history, MDM, physical Personally performed: exam, history, MDM, supervision of care Care discussed with: Medical Student Procedures: n/a Results interpretation: Verified all documentation Verification and Attestation of Medical Student E/M Service A medical student performed and documented this service in my presence. I reviewed and verified all information documented by the medical student and made modifications to such information, when appropriate. I personally performed the physical exam and medical decision making. Sylvia Kuo, Dec 29, 2022,20:23 DELIO WARE Dec 29, 2022 11:39 SYLVIA KUO DO Dec 29, 2022 20:24
--- NOTE | 2022-12-29 13:21 | Consultation-Cardiology ---
HPI-Cardiology Cardiology Consultation: Date of Consultation 12/29/22 Time Seen by a Provider: 12:50 Date of Admission Attending Physician Salomon Romero MD Admitting Physician Admitting Physician: Sylvia Chacon DO Attending Physician: Sylvia Chacon DO Consulting Physician LÁZARO MARQUIS MD, MA, FACP, FACC, FSCAI, CCDS Physician requesting consult: Dr Chacon HPI: Chief Complaint: Reason for Card consult: Shortness of breath Ms. Crocker is a 72 yr old female admitted to [facility] with increasing SOB. She reports chest discomfort which is unchanged from before. She reports productive cough. Reports mild feet/ankle swelling. Review of Systems-Cardiology Review of Systems Constitutional: No chills, No fever Eyes: No vision change Ears/Nose/Throat: No epistaxis, No recent hearing loss Respiratory: As described under HPI Cardiovascular: As described under HPI Gastrointestinal: No diarrhea, No nausea, No vomiting Genitourinary: No dysuria, No hematuria Musculoskeletal: no symptoms reported Skin: No rash on exposed areas, No ulcerations on exposed areas Psychiatric/Neurological: anxiety; No seizure, No focal weakness, No syncope Hematologic: No bleeding abnormalities LMO-Iiclyx-Pwoblg Hx Patient Social History Marrital Status: single Employed/Student: retired Smoking Status: Current Everyday Smoker 2nd Hand Smoke Exposure: Yes Alcohol Use?: No Pt feels they are or have been: No Past Medical History PMH As described under Assessment. Family Medical History Family Medical History: She does not report a fam h/o early CAD or SCD Allergies and Home Medications Allergies Coded Allergies: No Known Drug Allergies (Unverified , 05/23/22) Patient Home Medication List Home Medication List Reviewed: Yes Acetaminophen (Tylenol Extra Strength) 500 Mg Tablet, 1,000 MG PO Q6H PRN for PAIN-MILD (1-4), (Reported) Entered as Reported by: KRIS LAST on 07/19/22 1016 Last Action: Reviewed Albuterol Sulfate (Ventolin Hfa) 1 Puff Puff, 2 PUFF INH Q6H PRN for SHORTNESS OF BREATH Prescribed by: CLAUDINE ZULETA on 12/21/22 1058 Last Action: Reviewed Alprazolam (Alprazolam) 0.5 Mg Tablet, 0.5 MG PO TID PRN for ANXIETY, (Reported) Entered as Reported by: FLASH JIMENES on 05/24/22 154 Last Action: Reviewed Amlodipine Besylate (Amlodipine Besylate) 2.5 Mg Tablet, 2.5 MG PO DAILY, (Reported) Entered as Reported by: FLASH JIMENES on 05/24/22 154 Last Action: Reviewed Aspirin (Aspirin EC) 81 Mg Tablet.dr, 81 MG PO HS, (Reported) Entered as Reported by: FLASH JIMENES on 05/24/22 154 Last Action: Reviewed Atorvastatin Calcium (Atorvastatin Calcium) 20 Mg Tablet, 20 MG PO HS Prescribed by: CLAUDINE ZULETA on 12/21/22 1058 Last Action: Reviewed Budesonide/Formoterol Fumarate (Symbicort 160-4.5 Mcg Inhaler) 160 Mcg-4.5 Mcg/Actuation Hfa.aer.ad, 1 PUFF PO BID Prescribed by: DUANE GIPSON on 10/15/22 0719 Last Action: Reviewed Empagliflozin (Jardiance) 10 Mg Tablet, 10 MG PO DAILY Prescribed by: CESARIO ALANIS on 10/07/22 1000 Last Action: Reviewed Famotidine (Famotidine) 20 Mg Tablet, 20 MG PO BID, (Reported) Entered as Reported by: DOMINIC HINES on 12/15/22 1043 Last Action: Reviewed Ipratropium/Albuterol Sulfate (Iprat-Albut 0.5-3(2.5) mg/3 ml) 0.5 Mg-3 Mg (2.5 Mg Base)/3 Ml Ampul.neb, 3 ML NEB Q6H PRN for SHORTNESS OF BREATH, (Reported) Entered as Reported by: DUANE GIPSON on 05/25/22 0927 Last Action: Reviewed Metoprolol Succinate (Metoprolol Succinate) 25 Mg Tab.er.24h, 25 MG PO DAILY, (Reported) Entered as Reported by: FLASH JIMENES on 05/24/22 154 Last Action: Reviewed Nitroglycerin (Nitroglycerin) 0.4 Mg Tab.subl, 0.4 MG SL UD PRN for CHEST PAIN, (Reported) Entered as Reported by: KRIS LAST on 07/19/22 1016 Last Action: Reviewed Prednisone (Prednisone) 10 Mg Tab, 10 MG PO DAILY, (Reported) Entered as Reported by: KRIS LAST on 12/27/22 1311 Last Action: Reviewed Sucralfate (Sucralfate) 1 Gram Tablet, 1 GM PO ACHS Prescribed by: CLAUDINE ZULETA on 12/21/221057 Last Action: Reviewed Tiotropium Spring (Spiriva) 18 Mcg Aerp, 1 PUFF INH DAILY, (Reported) Entered as Reported by: KRIS LAST on 12/27/22 131 Last Action: Reviewed Discontinued Medications Prednisone (Prednisone) 10 Mg Tab, 10 MG PO DAILY Discontinued Reason: Duplicate Order Prescribed by: CLAUDINE ZULETA on 12/21/221057 Last Action: Discontinued Umeclidinium Spring (Incruse Ellipta) 62.5 Mcg/Actuation Blst.w.dev, 62.5 MCG IH DAILY Discontinued Reason: Duplicate Order Prescribed by: CLAUDINE ZULETA on 12/21/221057 Last Action: Discontinued Physical Exam-Cardiology Physical Exam Vital Signs/I&O 12/29/22 12/29/22 12/29/22 12/29/22 03:30 04:24 07:06 08:00 Temp 36.0 Pulse 80 78 Resp 22 B/P (MAP) 178/89 (118) 142/80 (100) Pulse Ox 92 97 96 O2 Delivery High Flow N/C Nasal Cannula O2 Flow Rate 7.00 5.00 10.00 7.00 12/29/22 12/29/22 12/29/22 08:02 10:32 12:14 Temp 36.2 36.9 Pulse 85 82 Resp 16 16 B/P (MAP) 130/99 (109) 181/81 (114) Pulse Ox 91 98 O2 Delivery Nasal Cannula High Flow N/C High Flow N/C O2 Flow Rate 6.00 5.00 10.12/29/22 00:00 Intake Total 610 ml Balance 610 ml Capillary Refill : Less Than 3 Seconds Constitutional: AAO x 3, well-developed, well-nourished HEENT: PERRL, hearing is well preserved Neck: No carotid bruit; carotid pulses are 2 + bilaterally Respiratory: No accessory muscle use, No respiratory distress; chest expansion is symmetric, chest is bilaterally symmetric, rhonchi (scattered with coarse breath sounds throughout) Cardiovascular: regular rate-rhythm; No JVD; S1 and S2 Gastrointestinal: No tender; soft; No guarding; audible bowel sounds Extremities: no lower extremity edema bilateral Neurologic/Psychiatric: other (moves all extremities) Skin: No rash on exposed areas, No ulcerations on exposed areas Data Review Labs Laboratory Tests 12/28/22 17:04: Glucometer 185H 12/28/22 19:57: Glucometer 162H 12/29/22 04:20: White Blood Count 9.6, Red Blood Count 3.13L, Hemoglobin 7.8L, Hematocrit 25L, Mean Corpuscular Volume 81, Mean Corpuscular Hemoglobin 25, Mean Corpuscular Hem oglobin Concent 31L, Red Cell Distribution Width 17.4H, Platelet Count 318, Mean Platelet Volume 10.6, Immature Granulocyte % (Auto) 1, Neutrophils (%) (Auto) 95H, Lymphocytes (%) (Auto) 2L, Monocytes (%) (Auto) 2, Eosinophils (%) (Auto) 0, Basophils (%) (Auto) 0, Neutrophils # (Auto) 9.1H, Lymphocytes # (Auto) 0.2L, Monocytes # (Auto) 0.2, Eosinophils # (Auto) 0.0, Basophils # (Auto) 0.0, Christine ture Granulocyte # (Auto) 0.1 12/29/22 05:20: Sodium Level 138, Potassium Level 4.9, Chloride Level 104, Carbon Dioxide Level 23, Anion Gap 11, Blood Urea Nitrogen 28H, Creatinine 0.98, Estimat Glomerular Filtration Rate 62, BUN/Creatinine Ratio 29, Glucose Level 118H, Calcium Level 8.7, Corrected Calcium 9.4, Magnesium Level 2.3, Total Bilirubin 0.6, Aspartate Amino Transf (AST/SGOT) 19, Alanine Aminotransferase (ALT/SGPT) 22, Alkaline Phosphatase 55, Total Protein 5.8L, Albumin 3.1L 12/29/22 10:44: Glucometer 196H Microbiology 12/25/22 MRSA Screen - Final, Complete MRSA not isolated 12/25/22 Blood Culture - Preliminary, Resulted A/P-Cardiology Assessment/Admission Diagnosis Ac exacerbation of COPD due to pneumonia Chronic HFrEF (due to ischemic cm) Intolerance to spironolactone and CLARISA-I/ARB due to hyperkalemia CAD and ischemic cardiomyopathy and chronic, stable angina - reports h/o stent placement in 2000 - has refused stress test (exercise or pharmacologic due to previous h/o intolerance to such studies) - Echocardiogram of 04-13-22 showed LVEF 35-40%. Hypokinesis of the apical and inferolateral myocardium. Grade 1 diastolic dysfunction. 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 May need further evaluation with radiologic studies (but hasn't agreed) Discussion and Recomendations Progressive shortness of breath which is multi-factorial - pneumonia with acute on chronic exacerbation of COPD and acute on chronic systolic HF Management of pneumonia per medical services Continue cardiac meds Give diuretics as indicated Monitor lab closely Replace electrolytes as indicated Further recs will be based on her hospital course LÁZARO MARQUIS MD FACP FAC CCDS Dec 29, 2022 13:21
[2022-12-29] MEDS: hydrALAZINE INJECTION 20 MG/ML VIAL IV PRN ×2 (16:05→23:23)
[2022-12-29] MEDS: ASPIRIN enteric coated 81MG TABLET PO SCH (19:34)
[2022-12-29] MEDS: ALPRAZolam 0.5 MG TABLET PO PRN (20:21)
[2022-12-30] MEDS: RT-Ipratropium/Albuterol NEB 3 ML VIAL INH SCH ×6 (03:24→22:15)
[2022-12-30 04:45] VITALS: BP 134/81
[2022-12-30] MEDS: SUCRALFATE 1 GM TABLET PO SCH ×4 (04:48→20:06)
[2022-12-30 05:01] LABS: BASOPHILS % (AUTO) 0 % (0-10); EOSINOPHILS % (AUTO) 0 % (0-10); HEMATOCRIT 24 % (35-52); HEMOGLOBIN 7.3 g/dL (11.5-16.0); LYMPHOCYTES # (AUTO) 0.3 10^3/uL (1.0-4.0); LYMPHOCYTES % (AUTO) 3 % (12-44); MEAN CORPUSCULAR HEMOGLOBIN 24 pg (25-34); MEAN CORPUSCULAR HGB CONC 30 g/dL (32-36); MEAN CORPUSCULAR VOLUME 81 fL (80-99); MEAN PLATELET VOLUME 9.6 fL (9.0-12.2); MONOCYTES # (AUTO) 0.6 10^3/uL (0.0-1.0); MONOCYTES % (AUTO) 6 % (0-12); NEUTROPHILS # (AUTO) 8.6 10^3/uL (1.8-7.8); NEUTROPHILS % (AUTO) 90 % (42-75); PLATELET COUNT 300 10^3/uL (130-400); WHITE BLOOD COUNT 9.6 10^3/uL (4.3-11.0)
[2022-12-30 05:08] LABS: ALBUMIN 3.2 GM/DL (3.2-4.5); POTASSIUM 4.3 MMOL/L (3.6-5.0)
[2022-12-30 05:09] LABS: CALCIUM 8.8 MG/DL (8.5-10.1)
[2022-12-30 05:11] LABS: TOTAL PROTEIN 5.9 GM/DL (6.4-8.2)
[2022-12-30 05:12] LABS: BILIRUBIN,TOTAL 0.5 MG/DL (0.1-1.0)
[2022-12-30 05:17] LABS: MAGNESIUM 2.2 MG/DL (1.6-2.4)
[2022-12-30] MEDS: inSUlin ASPART 1 UNIT/0.01 ML (PER UNIT) SC SCH ×4 (05:26→19:58)
[2022-12-30] MEDS: POTASSIUM CHLORIDE 20 MEQ TABLET PO SCH (05:27)
[2022-12-30] MEDS: POTASSIUM CL 10MEQ/50ML IVPB 50 ML IV SCH (05:27)
[2022-12-30] MEDS: MAGNESIUM 1 GM/100 ML IVPB 100 ML IV SCH (05:27)
[2022-12-30] MEDS: CEFEPIME INJECTION 1,000 MG in NS (IVPB) 50 ML 50 ML IV SCH ×3 (05:50→23:56)
[2022-12-30 07:26] VITALS: BP 126/64
[2022-12-30] MEDS: FUROSEMIDE 40 MG TABLET PO SCH (08:46)
[2022-12-30] MEDS: ENOXAPARIN 40 MG/0.4 ML SYRINGE SC SCH ×2 (08:47→08:53)
[2022-12-30] MEDS: dexAMETHasone INJ 4 MG/ML SDV IV SCH ×2 (08:47→20:06)
[2022-12-30] MEDS: EMPAGLIFLOZIN 10 MG TABLET PO SCH (08:47)
[2022-12-30] MEDS: FAMOTIDINE 20 MG TABLET PO SCH (08:48)
--- NOTE | 2022-12-30 09:41 | Progress Note - Cardiology ---
Cardiology SOAP Progress Note Subjective: Feels SOB is better today Objective: I&O/Vital Signs 12/31/22 12/31/22 12/31/22 12/31/22 00:00 04:34 07:12 07:30 Temp 35.9 36.6 Pulse 70 110 55 Resp 18 16 B/P (MAP) 159/89 (112) 171/73 (105) Pulse Ox 100 98 97 99 O2 Delivery High Flow N/C High Flow N/C High Flow N/C High Flow N/C O2 Flow Rate 7.00 10.00 6.00 7.00 12/31/22 00:00 Intake Total 815 ml Output Total 750 ml Balance 65 ml Constitutional: AAO x 3, well-developed, well-nourished Respiratory: No accessory muscle use, No respiratory distress; chest expansion is symmetric, chest is bilaterally symmetric, rhonchi (scattered with coarse breath sounds throughout) Cardiovascular: regular rate-rhythm; No JVD; S1 and S2 Gastrointestional: No tender; soft; No guarding; audible bowel sounds Extremities: no lower extremity edema bilateral Neurologic/Psychiatric: other (moves all extremities) Skin: No rash on exposed areas, No ulcerations on exposed areas Results/Procedures: Labs Laboratory Tests 12/30/22 10:48: Glucometer 102 12/30/22 16:06: Glucometer 149H 12/30/22 19:56: Glucometer 152H 12/31/22 05:31: Glucometer 169H 12/31/22 05:51: White Blood Count 9.1, Red Blood Count 3.00L, Hemoglobin 7.3L, Hematocrit 24L, Mean Corpuscular Volume 81, Mean Corpuscular Hemoglobin 24L, Mean Corpuscular Hemoglobin Concent 30L, Red Cell Distribution Width 17.5H, Platelet Count 310, Mean Platelet Volume 9.5, Immature Granulocyte % (Auto) 1, Neutrophils (%) (Auto) 86H, Lymphocytes (%) (Auto) 2L, Monocytes (%) (Auto) 10, Eosinophils (%) (Auto) 0, Basophils (%) (Auto) 0, Neutrophils # (Auto) 7.9H, Lymphocytes # (Auto) 0.2L, Monocytes # (Auto) 0.9, Eosinophils # (Auto) 0.0, Basophils # (Auto) 0.0, Immature Granulocyte # (Auto) 0.1, Neutrophils % (Manual) 91, Lymphocytes % (Manual) 4, Monocytes % (Manual) 5, Polychromasia SLIGHT, Hypochromasia SLIGHT, Poikilocytosis SLIGHT, Anisocytosis MODERATE, Elliptocytes SLIGHT, Schistocytes SLIGHT, Sodium Level 137, Potassium Level 3.9, Chloride Level 100, Carbon Dioxide Level 25, Anion Gap 12, Blood Urea Nitrogen 35H, Creatinine 1.09, Estimat Glomerular Filtration Rate 54, BUN/Creatinine Ratio 32, Glucose Level 161H, Calcium Level 8.9, Corrected Calcium 9.4, Magnesium Level 2.3, Total Bilirubin 0.5, Aspartate Amino Transf (AST/SGOT) 16, Alanine Aminotransferase (ALT/SGPT) 20, Alkaline Phosphatase 63, Total Protein 6.1L, Albumin 3.4 Microbiology 12/25/22 MRSA Screen - Final, Complete MRSA not isolated 12/25/22 Blood Culture - Preliminary, Resulted A/P: Assessment: Ac exacerbation of COPD due to pneumonia Chronic HFrEF (due to ischemic cm) Intolerance to spironolactone and CLARISA-I/ARB due to hyperkalemia CAD and ischemic cardiomyopathy and chronic, stable angina - reports h/o stent placement in 2000 - has refused stress test (exercise or pharmacologic due to previous h/o intolerance to such studies) - Echocardiogram of 04-13-22 showed LVEF 35-40%. Hypokinesis of the apical and inferolateral myocardium. Grade 1 diastolic dysfunction. 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 May need further evaluation with radiologic studies (but hasn't agreed) Plan: Progressive shortness of breath which is multi-factorial - pneumonia with acute on chronic exacerbation of COPD and acute on chronic systolic HF Management of pneumonia per medical services Continue cardiac meds Give diuretics as indicated Monitor lab closely Replace electrolytes as indicated Further recs will be based on her hospital course CESARIO ALANIS Dec 30, 2022 09:41
--- NOTE | 2022-12-30 09:48 | Progress Note - Hospitalist ---
DELIO WARE 12/30/22 0948: Subjective HPI/CC On Admission Date Seen by Provider: Dec 30, 2022 Time Seen by Provider: 09:42 Chief complaint: Acute on chronic respiratory failure HPI: This is a 72-year-old female who just was discharged from the hospital after a lengthy stay for exacerbation of COPD. She continues to smoke. She was found to have a pneumonia needing IV steroids and ICU monitoring for BiPAP. Subjective/Events-last exam 12/30/2022: CC: SOB HPI: Dulce, 72F, notes that last night she was able to sleep better. She believes that her pain was much better controlled. She also said that she has had to have the head of bed elevated more than usual. She says that she is still having some SOB and does not feel like she is back at her baseline. Dulce also notes that she needs to bump up her oxygen to 10L for a few minutes before ambulating due to intense SOB with extensive ambulation. She also notes that she has some associated chest pain this morning. Her chest pain is on the left side, does not radiate and gets worse with inspiration or movement of left arm. She says that she has also been coughing a bit more. Her coughs are productive with brown sputum. She notes that she is feeling better overall and has no other concerns. Review of Systems General: No Chills, No Night Sweats; Fatigue; No Malaise, No Appetite, No Other HEENT: No Head Aches, No Visual Changes, No Eye Pain, No Ear Pain, No Dysphasia, No Sinus Congestion, No Post Nasal Drip, No Sore Throat, No Other Pulmonary: Dyspnea, Cough, Pleuritic Chest Pain Cardiovascular: Chest Pain; No: Palpitations, Orthopnea, Paroxysmal Noc. Dyspnea, Edema, Lt Headedness, Other Gastrointestinal: No: Nausea, Vomiting, Abdominal Pain, Diarrhea, Constipation, Melena, Hematochezia, Other Genitourinary: No Dysuria, No Frequency, No Incontinence, No Hematuria, No Retention, No Other Musculoskeletal: No: other, neck pain, shoulder pain, arm pain, back pain, hand pain, leg pain, foot pain Neurological: No: Weakness, Numbness, Incoordination, Change in speech, Confusion, Seizures, Other Objective Exam Vital Signs Vital Signs Date Time Temp Pulse Resp B/P (MAP) Pulse Ox O2 Delivery O2 Flow Rate FiO2 12/30/22 07:26 35.9 99 17 126/64 (84) 98 Nasal Cannula 6.00 12/25/22 23:29 48 Capillary Refill : Less Than 3 Seconds General Appearance: No Apparent Distress, WD/WN, Anxious HEENT: PERRL/EOMI; No Pale Conjunctivae (L), No Pale Conjunctivae (R), No Scleral Icterus (L), No Scleral Icterus (R) Neck: Full Range of Motion, Non Tender, Supple Respiratory: No Accessory Muscle Use, No Respiratory Distress, Crackles, Inspiration, Wheezing, Other (chest pain on palpation) Cardiovascular: Regular Rate, Rhythm, No Murmur, Normal Peripheral Pulses, Other (1+ edema BL dorsum of feet ) Gastrointestinal: Normal Bowel Sounds, Non Tender, Soft Rectal: Deferred Back: Normal Inspection, No Vertebral Tenderness Extremity: Normal Capillary Refill, Normal Inspection, Non Tender, No Calf Tenderness, Pedal Edema (mild) Neurologic/Psychiatric: Alert, Oriented x3, No Motor/Sensory Deficits, Normal Mood/Affect Skin: Normal Color, Warm/Dry; No Jaundice Lymphatic: No Adenopathy Results/Procedures Lab Laboratory Tests 12/30/22 04:55 Patient resulted labs reviewed. Assessment/Plan Assessment and Plan Assess & Plan/Chief Complaint 12/30/2022: Assessment/Plan: -Hospital Acquired PNA * Cefepime, O2 support, CXR -Acute on Chronic Hypoxic Respiratory Failure * RT, continue meds, decadron -Systolic CHF * Lasix per [facility] order -CKD * monitor labs -HTN * Amlodipine, Metoprolol * Hydralazine per parameters -Hx of Smoking * discussed not smoking to prevent further lung injury 12/29/2022: Assessment/Plan: -Hospital Acquired PNA * Cefepime, O2 support, CBC, monitoring -Acute on Chronic Hypoxic Respiratory Failure * Decadron, Breo, Spiriva, DuoNeb -HTN * Amlodipine, Metoprolol * Hydralazine per parameters -HX of Cigarette Smoking * Education -CKD * Fluids, CMP Diagnosis/Problems Diagnosis/Problems (1) Acute and chronic respiratory failure with hypoxia Status: Acute (2) Hospital acquired PNA Status: Acute (3) Anxiety Status: Chronic (4) Hypertension Status: Chronic Qualifiers: Qualified Codes: I10 - Essential (primary) hypertension (5) CKD (chronic kidney disease) Status: Chronic SYLVIA KUO DO 12/30/222037: Subjective Subjective/Events-last exam Patient reports feeling better No pain reported since added pain meds O2 maintained Review of Systems General: Fatigue, Malaise Objective Exam General Appearance: No Apparent Distress, WD/WN, Chronically ill Respiratory: Crackles, Wheezing Cardiovascular: Regular Rate, Rhythm Assessment/Plan Assessment and Plan Assess & Plan/Chief Complaint Monitor closely Monitor O2 Supervisory-Addendum Brief Verification & Attestation Participated in pt care: history, MDM, physical Personally performed: exam, history, MDM, supervision of care Care discussed with: Medical Student Procedures: n/a Results interpretation: Verified all documentation Verification and Attestation of Medical Student E/M Service A medical student performed and documented this service in my presence. I reviewed and verified all information documented by the medical student and made modifications to such information, when appropriate. I personally performed the physical exam and medical decision making. Sylvia Kuo Dec 30, 2022,20:36 DELIO WARE Dec 30, 2022 09:48 SYLVIA KUO DO Dec 30, 2022 20:38
[2022-12-30] MEDS: FLUTICASONE/VILANTEROL 200/25 MCG (7 DOSES) IH SCH (10:30)
[2022-12-30] MEDS: TIOTROPIUM INH 4 GM (SPIRIVA Respimat) IH SCH (10:30)
--- NOTE | 2022-12-30 10:49 | Progress Note - Cardiology ---
Cardiology SOAP Progress Note Subjective: Gen weakness and malaise Shortness of breath with exertion. Modest improvement since admission No palp or syncope No n/v/d Objective: I&O/Vital Signs 12/29/22 12/30/22 12/30/22 12/30/22 23:15 04:45 07:26 08:00 Temp 36.7 36.8 35.9 Pulse 95 95 99 Resp 22 24 17 B/P (MAP) 169/81 (110) 134/81 (98) 126/64 (84) Pulse Ox 100 99 98 O2 Delivery High Flow N/C High Flow N/C Nasal Cannula High Flow N/C O2 Flow Rate 7.00 7.00 6.00 7.00 12/30/22 10:29 Pulse Ox 96 O2 Delivery High Flow N/C O2 Flow Rate 7.00 12/30/22 00:00 Intake Total 1390 ml Output Total 800 ml Balance 590 ml Constitutional: AAO x 3, well-developed, well-nourished Respiratory: No accessory muscle use, No respiratory distress; chest expansion is symmetric, chest is bilaterally symmetric, rhonchi (scattered with coarse br eath sounds throughout) Cardiovascular: regular rate-rhythm; No JVD; S1 and S2 Gastrointestional: No tender; soft; No guarding; audible bowel sounds Extremities: no lower extremity edema bilateral Neurologic/Psychiatric: other (moves all extremities) Skin: No rash on exposed areas, No ulcerations on exposed areas Results/Procedures: Labs Laboratory Tests 12/29/22 16:14: Glucometer 118H 12/29/22 20:46: Glucometer 149H 12/30/22 04:55: White Blood Count 9.6, Red Blood Count 2.99L, Hemoglobin 7.3L, Hematocrit 24L, Mean Corpuscular Volume 81, Mean Corpuscular Hemoglobin 24L, Mean Corpuscular Hemoglobin Concent 30L, Red Cell Distribution Width 17.3H, Platelet Count 300, Mean Platelet Volume 9.6, Immature Granulocyte % (Auto) 2, Neutrophils (%) (Auto) 90H, Lymphocytes (%) (Auto) 3L, Monocytes (%) (Auto) 6, Eosinophils (%) (Auto) 0, Basophils (%) (Auto) 0, Neutrophils # (Auto) 8.6H, Lymphocytes # (Auto) 0.3L, Monocytes # (Auto) 0.6, Eosinophils # (Auto) 0.0, Basophils # (Auto) 0.0, Immature Granulocyte # (Auto) 0.2H, Sodium Level 139, Potassium Level 4.3, Chloride Level 102, Carbon Dioxide Level 25, Anion Gap 12, Blood Urea Nitrogen 32H, Creatinine 1.00, Estimat Glomerular Filtration Rate 60, BUN /Creatinine Ratio 32, Glucose Level 115H, Calcium Level 8.8, Corrected Calcium 9.4, Magnesium Level 2.2, Total Bilirubin 0.5, Aspartate Amino Transf (AST/SGOT) 17, Alanine Aminotransferase (ALT/SGPT) 21, Alkaline Phosphatase 64, Total Protein 5.9L, Albumin 3.2 Microbiology 12/25/22 MRSA Screen - Final, Complete MRSA not isolated 12/25/22 Blood Culture - Preliminary, Resulted Laboratory Tests 12/29/22 04:20 12/29/22 05:20 12/30/22 04:55 A/P: Assessment: Ac exacerbation of COPD due to pneumonia Chronic HFrEF (due to ischemic cm) Intolerance to spironolactone and CLARISA-I/ARB due to hyperkalemia CAD and ischemic cardiomyopathy and chronic, stable angina - reports h/o stent placement in 2000 - has refused stress test (exercise or pharmacologic due to previous h/o intolerance to such studies) - Echocardiogram of 04-13-22 showed LVEF 35-40%. Hypokinesis of the apical and inferolateral myocardium. Grade 1 diastolic dysfunction. 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 May need further evaluation with radiologic studies (but hasn't agreed) Plan: Management of pneumonia per Medical services Consider blood transfusion (Dr Chacon managing) Continue cardiac meds Give diuretics as indicated Monitor lab closely LÁZARO MARQUIS MD [facility] CCDS Dec 30, 2022 10:49
[2022-12-30 11:22] VITALS: BP 133/65
[2022-12-30] MEDS: ALPRAZolam 0.5 MG TABLET PO PRN ×2 (11:32→20:07)
[2022-12-30 16:07] VITALS: BP 159/70
[2022-12-30 19:52] VITALS: BP 136/98
[2022-12-30] MEDS: ASPIRIN enteric coated 81MG TABLET PO SCH (20:06)
[2022-12-31] VITALS (8 sets, daily range): BP systolic 140–172; BP diastolic 65–90
[2022-12-31] MEDS: RT-Ipratropium/Albuterol NEB 3 ML VIAL INH SCH ×3 (02:54→18:26)
[2022-12-31] MEDS: SUCRALFATE 1 GM TABLET PO SCH ×4 (05:39→23:42)
[2022-12-31] MEDS: inSUlin ASPART 1 UNIT/0.01 ML (PER UNIT) SC SCH ×4 (05:39→23:42)
[2022-12-31 05:57] LABS: BASOPHILS % (AUTO) 0 % (0-10); EOSINOPHILS % (AUTO) 0 % (0-10); HEMATOCRIT 24 % (35-52); HEMOGLOBIN 7.3 g/dL (11.5-16.0); LYMPHOCYTES # (AUTO) 0.2 10^3/uL (1.0-4.0); LYMPHOCYTES % (AUTO) 2 % (12-44); MEAN CORPUSCULAR HEMOGLOBIN 24 pg (25-34); MEAN CORPUSCULAR HGB CONC 30 g/dL (32-36); MEAN CORPUSCULAR VOLUME 81 fL (80-99); MEAN PLATELET VOLUME 9.5 fL (9.0-12.2); MONOCYTES # (AUTO) 0.9 10^3/uL (0.0-1.0); MONOCYTES % (AUTO) 10 % (0-12); NEUTROPHILS # (AUTO) 7.9 10^3/uL (1.8-7.8); NEUTROPHILS % (AUTO) 86 % (42-75); PLATELET COUNT 310 10^3/uL (130-400); WHITE BLOOD COUNT 9.1 10^3/uL (4.3-11.0)
[2022-12-31 06:15] LABS: ALBUMIN 3.4 GM/DL (3.2-4.5); POTASSIUM 3.9 MMOL/L (3.6-5.0)
[2022-12-31 06:16] LABS: CALCIUM 8.9 MG/DL (8.5-10.1)
[2022-12-31 06:17] LABS: TOTAL PROTEIN 6.1 GM/DL (6.4-8.2)
[2022-12-31 06:19] LABS: BILIRUBIN,TOTAL 0.5 MG/DL (0.1-1.0)
[2022-12-31 06:21] LABS: CREATININE SERUM 1.09 MG/DL (0.60-1.30)
[2022-12-31 06:23] LABS: ANISOCYTOSIS MODERATE; ELLIPT/OVALOCYTES SLIGHT; HYPOCHROMASIA SLIGHT; LYMPHOCYTES % (MANUAL) 4 %; MONOCYTES % (MANUAL) 5 %; NEUTROPHILS % (MANUAL) 91 %; POIKILOCYTOSIS SLIGHT; POLYCHROMASIA SLIGHT
[2022-12-31 06:24] LABS: MAGNESIUM 2.3 MG/DL (1.6-2.4); SCHISTOCYTES SLIGHT
[2022-12-31] MEDS: POTASSIUM CL 10MEQ/50ML IVPB 50 ML IV SCH (06:56)
[2022-12-31] MEDS: MAGNESIUM 1 GM/100 ML IVPB 100 ML IV SCH (06:57)
[2022-12-31] MEDS: POTASSIUM CHLORIDE 20 MEQ TABLET PO SCH (06:59)
[2022-12-31] MEDS ORDERED: POTASSIUM CHLORIDE 20 MEQ TABLET PO NR (07:00)
[2022-12-31] MEDS: FLUTICASONE/VILANTEROL 200/25 MCG (7 DOSES) IH SCH (07:29)
[2022-12-31] MEDS: dexAMETHasone INJ 4 MG/ML SDV IV SCH ×2 (08:30→23:42)
[2022-12-31] MEDS: FAMOTIDINE 20 MG TABLET PO SCH (08:30)
[2022-12-31] MEDS: ALPRAZolam 0.5 MG TABLET PO PRN ×2 (08:30→23:42)
[2022-12-31] MEDS: EMPAGLIFLOZIN 10 MG TABLET PO SCH (08:30)
[2022-12-31] MEDS: hydrALAZINE INJECTION 20 MG/ML VIAL IV PRN (08:30)
[2022-12-31] MEDS: FUROSEMIDE 40 MG TABLET PO SCH (08:31)
[2022-12-31] MEDS: ENOXAPARIN 40 MG/0.4 ML SYRINGE SC SCH (08:35)
--- NOTE | 2022-12-31 08:41 | Anesthesia-General Post-Op ---
MAC Significant Intra-Op Events Notes mac anesthesia addendum for 12/20/22 at 1330 Patient Condition Mental Status/LOC: Same as Preop Cardiovascular: Satisfactory Nausea/Vomiting: Absent Respiratory: Satisfactory Pain: Controlled Complications: Absent Post Op Complications Complications None Follow Up Care/Instructions Patient Instructions None needed. Anesthesiology Discharge Order Discharge Order Patient is doing well, no complaints, stable vital signs, no apparent adverse an esthesia problems. No complications reported per nursing. VIJAY SOTO INSURANCE COMMISSIONER Dec 31, 2022 08:41
--- NOTE | 2022-12-31 09:24 | Progress Note - Cardiology ---
Cardiology SOAP Progress Note Subjective: Feels SOB is unchanged from before No c/o CP or palpitations Objective: I&O/Vital Signs 12/31/22 12/31/22 12/31/22 12/31/22 04:34 07:12 07:30 08:40 Temp 35.9 36.6 Pulse 110 63 Resp 18 16 B/P (MAP) 159/89 (112) 163/75 (104) Pulse Ox 98 97 99 O2 Delivery High Flow N/C High Flow N/C High Flow N/C High Flow N/C O2 Flow Rate 10.00 6.00 7.00 7.00 12/31/22 11:58 Temp 36.5 Pulse 52 Resp 16 B/P (MAP) 155/69 (97) Pulse Ox 100 O2 Delivery High Flow N/C O2 Flow Rate 6.00 12/31/22 00:00 Intake Total 815 ml Output Total 750 ml Balance 65 ml Constitutional: AAO x 3, well-developed, well-nourished Respiratory: No accessory muscle use, No respiratory distress; chest expansion is symmetric, chest is bilaterally symmetric, rhonchi (scattered with coarse breath sounds throughout) Cardiovascular: regular rate-rhythm; No JVD; S1 and S2 Gastrointestional: No tender; soft; No guarding; audible bowel sounds Extremities: no lower extremity edema bilateral Neurologic/Psychiatric: other (moves all extremities) Skin: No rash on exposed areas, No ulcerations on exposed areas Results/Procedures: Labs Laboratory Tests 12/30/22 16:06: Glucometer 149H 12/30/22 19:56: Glucometer 152H 12/31/22 05:31: Glucometer 169H 12/31/22 05:51: White Blood Count 9.1, Red Blood Count 3.00L, Hemoglobin 7.3L, Hematocrit 24L, Mean Corpuscular Volume 81, Mean Corpuscular Hemoglobin 24L, Mean Corpuscular Hemoglobin Concent 30L, Red Cell Distribution Width 17.5H, Platelet Count 310, Mean Platelet Volume 9.5, Immature Granulocyte % (Auto) 1, Neutrophils (%) (A uto) 86H, Lymphocytes (%) (Auto) 2L, Monocytes (%) (Auto) 10, Eosinophils (%) (Auto) 0, Basophils (%) (Auto) 0, Neutrophils # (Auto) 7.9H, Lymphocytes # (Auto) 0.2L, Monocytes # (Auto) 0.9, Eosinophils # (Auto) 0.0, Basophils # (Auto) 0.0, Immature Granulocyte # (Auto) 0.1, Neutrophils % (Manual) 91, Lymphocytes % (Manual) 4, Monocytes % (Manual) 5, Polychromasia SLIGHT, Hypochromasia SLIGHT, Poikilocytosis SLIGHT, Anisocytosis MODERATE, Elliptocytes SLIGHT, Schistocytes SLIGHT, Sodium Level 137, Potassium Level 3.9, Chloride Level 100, Carbon Dioxide Level 25, Anion Gap 12, Blood Urea Nitrogen 35H, Creatinine 1.09, Estimat Glomerular Filtration Rate 54, BUN/Creatinine Ratio 32, Glucose Level 161H, Calcium Level 8.9, Corrected Calcium 9.4, Magnesium Level 2.3, Total Bilirubin 0.5, Aspartate Amino Transf (AST/SGOT) 16, Alanine Aminotransferase (ALT/SGPT) 20, Alkaline Phosphatase 63, Total Protein 6.1L, Albumin 3.4 12/31/22 11:03: Glucometer 143H Microbiology 12/25/22 MRSA Screen - Final, Complete MRSA not isolated 12/25/22 Blood Culture - Final, Complete A/P: Assessment: Ac exacerbation of COPD due to pneumonia Chronic HFrEF (due to ischemic cm) Intolerance to spironolactone and CLARISA-I/ARB due to hyperkalemia CAD and ischemic cardiomyopathy and chronic, stable angina - reports h/o stent placement in 2000 - has refused stress test (exercise or pharmacologic due to previous h/o intolerance to such studies) - Echocardiogram of 04-13-22 showed LVEF 35-40%. Hypokinesis of the apical and inferolateral myocardium. Grade 1 diastolic dysfunction. 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 May need further evaluation with radiologic studies (but hasn't agreed) Plan: Management of pneumonia per Medical services Consider blood transfusion (Dr Chacon managing) Continue cardiac regimen Give diuretics as indicated Monitor lab closely CESARIO ALANIS Dec 31, 2022 09:24
[2022-12-31] MEDS: NITROGLYCERIN 0.4 MG SL TABLETS BTL 25'S SL PRN (10:08)
[2022-12-31] MEDS: HYDROcodone/ACETAMINOPHEN 5 MG/325 MG TABLET PO PRN (10:11)
--- NOTE | 2022-12-31 12:16 | Progress Note - Cardiology ---
Cardiology SOAP Progress Note Subjective: Gen weakness and malaise No cp or palp or syncope No n/v/d No focal weakness Shortness of breath with exertion Objective: I&O/Vital Signs 12/31/22 12/31/22 12/31/22 12/31/22 04:34 07:12 07:30 08:40 Temp 35.9 36.6 Pulse 110 63 Resp 18 16 B/P (MAP) 159/89 (112) 163/75 (104) Pulse Ox 98 97 99 O2 Delivery High Flow N/C High Flow N/C High Flow N/C High Flow N/C O2 Flow Rate 10.00 6.00 7.00 7.00 12/31/22 11:58 Temp 36.5 Pulse 52 Resp 16 B/P (MAP) 155/69 (97) Pulse Ox 100 O2 Delivery High Flow N/C O2 Flow Rate 6.00 12/31/22 00:00 Intake Total 815 ml Output Total 750 ml Balance 65 ml Constitutional: AAO x 3, well-developed, well-nourished Respiratory: No accessory muscle use, No respiratory distress; chest expansion is symmetric, chest is bilaterally symmetric, rhonchi (scattered with coarse breath sounds throughout) Cardiovascular: regular rate-rhythm; No JVD; S1 and S2 Gastrointestional: No tender; soft; No guarding; audible bowel sounds Extremities: no lower extremity edema bilateral Neurologic/Psychiatric: other (moves all extremities) Skin: No rash on exposed areas, No ulcerations on exposed areas Results/Procedures: Labs Laboratory Tests 12/30/22 16:06: Glucometer 149H 12/30/22 19:56: Glucometer 152H 12/31/22 05:31: Glucometer 169H 12/31/22 05:51: White Blood Count 9.1, Red Blood Count 3.00L, Hemoglobin 7.3L, Hematocrit 24L, Mean Corpuscular Volume 81, Mean Corpuscular Hemoglobin 24L, Mean Corpuscular Hemoglobin Concent 30L, Red Cell Distribution Width 17.5H, Platelet Count 310, Mean Platelet Volume 9.5, Immature Granulocyte % (Auto) 1, Neutrophils (%) (Aut o) 86H, Lymphocytes (%) (Auto) 2L, Monocytes (%) (Auto) 10, Eosinophils (%) (Auto) 0, Basophils (%) (Auto) 0, Neutrophils # (Auto) 7.9H, Lymphocytes # (Auto) 0.2L, Monocytes # (Auto) 0.9, Eosinophils # (Auto) 0.0, Basophils # ( Auto) 0.0, Immature Granulocyte # (Auto) 0.1, Neutrophils % (Manual) 91, Lymphocytes % (Manual) 4, Monocytes % (Manual) 5, Polychromasia SLIGHT, Hypochromasia SLIGHT, Poikilocytosis SLIGHT, Anisocytosis MODERATE, Elliptocytes SLIGHT, Schistocytes SLIGHT, Sodium Level 137, Potassium Level 3.9, Chloride Level 100, Carbon Dioxide Level 25, Anion Gap 12, Blood Urea Nitrogen 35H, C reatinine 1.09, Estimat Glomerular Filtration Rate 54, BUN/Creatinine Ratio 32, Glucose Level 161H, Calcium Level 8.9, Corrected Calcium 9.4, Magnesium Level 2.3, Total Bilirubin 0.5, Aspartate Amino Transf (AST/SGOT) 16, Alanine Aminotransferase (ALT/SGPT) 20, Alkaline Phosphatase 63, Total Protein 6.1L, Albumin 3.4 12/31/22 11:03: Glucometer 143H Microbiology 12/25/22 MRSA Screen - Final, Complete MRSA not isolated 12/25/22 Blood Culture - Preliminary, Resulted Laboratory Tests 12/30/22 04:55 12/31/22 05:51 A/P: Assessment: Ac exacerbation of COPD due to pneumonia Chronic HFrEF (due to ischemic cm) Intolerance to spironolactone and CLARISA-I/ARB due to hyperkalemia CAD and ischemic cardiomyopathy and chronic, stable angina - reports h/o stent placement in 2000 - has refused stress test (exercise or pharmacologic due to previous h/o intolerance to such studies) - Echocardiogram of 04-13-22 showed LVEF 35-40%. Hypokinesis of the apical and inferolateral myocardium. Grade 1 diastolic dysfunction. 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 May need further evaluation with radiologic studies (but hasn't agreed) Plan: Management of pneumonia per Medical services Consider blood transfusion (Dr Chacon managing) Continue cardiac regimen Give diuretics as indicated Monitor lab closely LÁZARO MARQUIS MD FACP [facility] Dec 31, 2022 12:16
--- NOTE | 2022-12-31 12:25 | Progress Note - Hospitalist ---
DELIO WARE 12/31/22 1225: Subjective HPI/CC On Admission Date Seen by Provider: Dec 31, 2022 Time Seen by Provider: 11:36 Chief complaint: Acute on chronic respiratory failure HPI: This is a 72-year-old female who just was discharged from the hospital after a lengthy stay for exacerbation of COPD. She continues to smoke. She was found to have a pneumonia needing IV steroids and ICU monitoring for BiPAP. Subjective/Events-last exam 12/31/2022: CC: Acute on Chronic Hypoxic Respiratory Failure HPI: Dulce, 72F, notes that she slept better. She has also been coughing more. Due to this coughing, she has more of her L-Chest pain. The pain is 5/10 and gets worse with palpation or movement of arm. The pain is no longer occurring during inspiration, only during coughing. Dulce notes that she is coughing more today. She also notes that she is improving. She says she feels a bit tired. PRN Hydralazine was given 0830 due to elevated BP Completed cefepime Review of Systems General: No Chills; Fatigue; No Malaise HEENT: No Head Aches, No Ear Pain, No Sinus Congestion Pulmonary: Dyspnea, Cough, Pleuritic Chest Pain Cardiovascular: No: Chest Pain, Palpitations, Orthopnea, Edema Gastrointestinal: No: Nausea, Vomiting, Abdominal Pain, Diarrhea, Constipation, Melena, Hematochezia, Other Genitourinary: No Dysuria, No Frequency, No Incontinence, No Hematuria, No Retention, No Other Musculoskeletal: No: other, neck pain, shoulder pain, arm pain, back pain, hand pain, leg pain, foot pain Neurological: No: Weakness, Numbness, Incoordination, Change in speech, Confusion, Seizures, Other Objective Exam Vital Signs Vital Signs Date Time Temp Pulse Resp B/P (MAP) Pulse Ox O2 Delivery O2 Flow Rate FiO2 12/31/22 11:58 36.5 52 16 155/69 (97) 100 High Flow N/C 6.00 12/25/22 23:29 48 Capillary Refill : Less Than 3 Seconds General Appearance: No Apparent Distress, WD/WN, Anxious HEENT: PERRL/EOMI, Moist Mucous Membranes, Pale Conjunctivae (L), Pale Conjunctivae (R); No Scleral Icterus (L), No Scleral Icterus (R) Neck: Full Range of Motion, Supple Respiratory: No Accessory Muscle Use, No Respiratory Distress, Crackles, Inspiration, Rhonci, Wheezing Cardiovascular: Regular Rate, Rhythm, No Edema, No Murmur, Normal Peripheral Pulses Gastrointestinal: Normal Bowel Sounds, Non Tender, Soft Rectal: Deferred Back: Normal Inspection, No CVA Tenderness Extremity: Normal Capillary Refill, Normal Inspection, Non Tender, No Calf Tenderness, No Pedal Edema Neurologic/Psychiatric: Alert, Oriented x3, No Motor/Sensory Deficits, Depressed Affect Skin: Normal Color, Warm/Dry Lymphatic: No Adenopathy Results/Procedures Lab Laboratory Tests 12/31/22 05:51 Patient resulted labs reviewed. Imaging: Reviewed Imaging Films, Reviewed Imaging Report Assessment/Plan Assessment and Plan Assess & Plan/Chief Complaint 12/31/2022: A/P: Assessment/Plan: -Hospital Acquired PNA * O2 support, CXR -Anemia * type and cross match, 1 unit blood -Acute on Chronic Hypoxic Respiratory Failure * RT, continue meds, decadron -Systolic CHF * Lasix per [facility] order -CKD * monitor labs -HTN * Amlodipine, Metoprolol * Hydralazine per parameters (given 0830 12/31) -Hx of Smoking * discussed not smoking to prevent further lung injury 12/30/2022: Assessment/Plan: -Hospital Acquired PNA * Cefepime, O2 support, CXR -Acute on Chronic Hypoxic Respiratory Failure * RT, continue meds, decadron -Systolic CHF * Lasix per [facility] order -CKD * monitor labs -HTN * Amlodipine, Metoprolol * Hydralazine per parameters -Hx of Smoking * discussed not smoking to prevent further lung injury 12/29/2022: Assessment/Plan: -Hospital Acquired PNA * Cefepime, O2 support, CBC, monitoring -Acute on Chronic Hypoxic Respiratory Failure * Decadron, Breo, Spiriva, DuoNeb -HTN * Amlodipine, Metoprolol * Hydralazine per parameters -HX of Cigarette Smoking * Education -CKD * Fluids, CMP Diagnosis/Problems Diagnosis/Problems (1) Acute and chronic respiratory failure with hypoxia Status: Acute (2) Anemia (3) Hospital acquired PNA Status: Acute (4) Anxiety Status: Chronic (5) Hypertension Status: Chronic Qualifiers: Qualified Codes: I10 - Essential (primary) hypertension (6) CKD (chronic kidney disease) Status: Chronic SYLVIA KUO DO 12/31/222116: Subjective Subjective/Events-last exam Patient doing well We will give 1 unit of blood Objective Exam General Appearance: No Apparent Distress, WD/WN, Chronically ill Respiratory: No Accessory Muscle Use, No Respiratory Distress, Decreased Breath Sounds Cardiovascular: Regular Rate, Rhythm Assessment/Plan Assessment and Plan Assess & Plan/Chief Complaint Give 1 unit of blood Supervisory-Addendum Brief Verification & Attestation Participated in pt care: history, MDM, physical Personally performed: exam, history, MDM, supervision of care Care discussed with: Medical Student Procedures: n/a Results interpretation: Verified all documentation Verification and Attestation of Medical Student E/M Service A medical student performed and documented this service in my presence. I reviewed and verified all information documented by the medical student and made modifications to such information, when appropriate. I personally performed the physical exam and medical decision making. Sylvia Kuo Dec 31, 2022,21:13 DELIO WARE Dec 31, 2022 12:25 SYLVIA KUO DO Dec 31, 2022 21:17
[2022-12-31] MEDS: TIOTROPIUM INH 4 GM (SPIRIVA Respimat) IH SCH (15:00)
[2022-12-31] MEDS ORDERED: NS IV 500 ML 500 ML IV SCH ×2 (16:45)
[2022-12-31] MEDS: ASPIRIN enteric coated 81MG TABLET PO SCH (23:42)
[2023-01-01] VITALS (7 sets, daily range): BP systolic 133–165; BP diastolic 66–79
[2023-01-01] MEDS: RT-Ipratropium/Albuterol NEB 3 ML VIAL INH SCH ×6 (00:52→21:54)
[2023-01-01] MEDS: inSUlin ASPART 1 UNIT/0.01 ML (PER UNIT) SC SCH ×4 (05:32→20:32)
[2023-01-01] MEDS: SUCRALFATE 1 GM TABLET PO SCH ×4 (05:37→20:31)
[2023-01-01 05:40] LABS: BASOPHILS % (AUTO) 0 % (0-10); EOSINOPHILS % (AUTO) 0 % (0-10); HEMATOCRIT 28 % (35-52); HEMOGLOBIN 8.6 g/dL (11.5-16.0); LYMPHOCYTES # (AUTO) 0.3 10^3/uL (1.0-4.0); LYMPHOCYTES % (AUTO) 3 % (12-44); MEAN CORPUSCULAR HEMOGLOBIN 25 pg (25-34); MEAN CORPUSCULAR HGB CONC 30 g/dL (32-36); MEAN CORPUSCULAR VOLUME 81 fL (80-99); MEAN PLATELET VOLUME 10.1 fL (9.0-12.2); MONOCYTES # (AUTO) 0.9 10^3/uL (0.0-1.0); MONOCYTES % (AUTO) 8 % (0-12); NEUTROPHILS # (AUTO) 8.9 10^3/uL (1.8-7.8); NEUTROPHILS % (AUTO) 85 % (42-75); PLATELET COUNT 277 10^3/uL (130-400); WHITE BLOOD COUNT 10.5 10^3/uL (4.3-11.0)
[2023-01-01 05:49] LABS: ALBUMIN 3.4 GM/DL (3.2-4.5); POTASSIUM 3.9 MMOL/L (3.6-5.0)
[2023-01-01 05:53] LABS: BILIRUBIN,TOTAL 1.6 MG/DL (0.1-1.0)
[2023-01-01 05:58] LABS: MAGNESIUM 2.4 MG/DL (1.6-2.4)
[2023-01-01] MEDS: MAGNESIUM 1 GM/100 ML IVPB 100 ML IV SCH (06:54)
[2023-01-01] MEDS: POTASSIUM CL 10MEQ/50ML IVPB 50 ML IV SCH (06:55)
[2023-01-01] MEDS: POTASSIUM CHLORIDE 20 MEQ TABLET PO SCH (06:55)
[2023-01-01] MEDS: FLUTICASONE/VILANTEROL 200/25 MCG (7 DOSES) IH SCH (06:56)
[2023-01-01] MEDS ORDERED: POTASSIUM CHLORIDE 20 MEQ TABLET PO ONE (07:00)
[2023-01-01] MEDS: FAMOTIDINE 20 MG TABLET PO SCH (08:31)
[2023-01-01] MEDS: EMPAGLIFLOZIN 10 MG TABLET PO SCH (08:31)
[2023-01-01] MEDS: dexAMETHasone INJ 4 MG/ML SDV IV SCH ×2 (08:31→20:32)
[2023-01-01] MEDS: ALPRAZolam 0.5 MG TABLET PO PRN (08:31)
[2023-01-01] MEDS: FUROSEMIDE 40 MG TABLET PO SCH (08:31)
[2023-01-01] MEDS: ENOXAPARIN 40 MG/0.4 ML SYRINGE SC SCH (08:32)
--- NOTE | 2023-01-01 08:39 | Progress Note - Hospitalist ---
Subjective HPI/CC On Admission Date Seen by Provider: Jan 01, 2023 Time Seen by Provider: 09:00 Chief complaint: Acute on chronic respiratory failure HPI: This is a 72-year-old female who just was discharged from the hospital after a lengthy stay for exacerbation of COPD. She continues to smoke. She was found to have a pneumonia needing IV steroids and ICU monitoring for BiPAP. Subjective/Events-last exam No major issues Hemoglobin 8.6 after 1 unit of blood yesterday Still does not feel well Patient really is a hospice candidate but it does not appear she is coming to terms with that Review of Systems General: Fatigue Pulmonary: Dyspnea Objective Exam Vital Signs Vital Signs Date Time Temp Pulse Resp B/P (MAP) Pulse Ox O2 Delivery O2 Flow Rate FiO2 01/01/23 14:34 97 High Flow N/C 7.00 01/01/23 11:25 36.4 85 18 133/67 (89) Capillary Refill : Less Than 3 Seconds General Appearance: No Apparent Distress, WD/WN, Chronically ill Respiratory: No Accessory Muscle Use, No Respiratory Distress, Decreased Breath Sounds Cardiovascular: Regular Rate, Rhythm Neurologic/Psychiatric: Alert, Oriented x3 Results/Procedures Lab Laboratory Tests 01/01/23 05:18 Patient resulted labs reviewed. Imaging: Reviewed Imaging Films, Reviewed Imaging Report Assessment/Plan Assessment and Plan Assess & Plan/Chief Complaint Assessment: Acute on chronic respiratory failure Pneumonia hospital-acquired Severe anemia status post 1 unit of transfusion Chronic kidney disease Smoker History of lung cancer Plan: Supportive care Therapy Oxygen Critical Care Critically Ill Patient FAVIAN KUO DO Jan 01, 2023 08:39
[2023-01-01] MEDS: TIOTROPIUM INH 4 GM (SPIRIVA Respimat) IH SCH (10:47)
--- NOTE | 2023-01-01 12:47 | CONSULTATION REPORT ---
DATE OF SERVICE: 01/01/2023 HISTORY OF PRESENT ILLNESS: The patient is a 72-year-old female who has a longstanding history of multiple medical issues. She does have a history of COPD requiring readmissions for acute exacerbations. She was recently readmitted for complaints of shortness of breath and again was found to have an acute exacerbation of COPD as well as pneumonia. 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 She also has severe peripheral vascular disease and reports that it does require multiple sticks for placement of an IV as well as a midline even under ultrasound. She is requiring IV medications as well as frequent blood draws for laboratory work. It was discussed with her that due to her peripheral vascular disease and poor venous access about proceeding with the placement of a Groshong port. PAST MEDICAL HISTORY: Lung cancer, COPD, coronary artery disease, myocardial infarction, peripheral vascular disease, hypertension, chronic back pain, anxiety, non-insulin dependent diabetes, gastroesophageal reflux disease, hiatal hernia, hypercholesterolemia. SURGICAL HISTORY: Removal of nasal cancer, cardiac catheterization with stent placement, abdominal aortic aneurysm repair, complete hysterectomy, some form of kidney surgery. ALLERGIES: No known drug allergies. MEDICATIONS: Tylenol 1000 mg q.6 hours p.r.n., albuterol sulfate 2 puffs q.6 hours p.r.n., Xanax 0.5 mg t.i.d. p.r.n., amlodipine 2.5 mg daily, aspirin 81 mg at bedtime, atorvastatin 20 mg at bedtime, Symbicort 160/4.5 one puff b.i.d., Jardiance 10 mg daily, famotidine 20 mg b.i.d., ipratropium, albuterol nebulizer 3 mL every 6 hours p.r.n., metoprolol succinate 25 mg daily, nitroglycerin 0.4 mg sublingual p.r.n., prednisone 10 mg daily, Carafate 1 g before meals and at bedtime, Spiriva 1 puff daily. SOCIAL HISTORY: Previous for tobacco smoke at 2-3 packs per day for 50 years. Negative for alcohol. FAMILY HISTORY: Noncontributory. VITAL SIGNS: Blood pressure 144/67, pulse 93, respirations 18, pulse ox 96% on 7 liters nasal cannula, temperature is 36.2 degrees Celsius. REVIEW OF SYSTEMS: This is a well-nourished female in no acute distress. She does report shortness of breath as well as a cough and dyspnea on exertion. No chest pain or palpitations. No diarrhea or constipation. No nausea, vomiting or abdominal pain. No red blood per rectum. No dark tarry stools. No fever or chills. No recent inadvertent weight loss. All other review of systems negative. PHYSICAL EXAM: CHEST: Scattered rales and rhonchi as well as wheezing bilaterally. HEART: Regular. No murmurs. EXTREMITIES: 1+ lower extremity edema. Negative Homans sign. HEENT: No scleral icterus. No cervical lymphadenopathy. ABDOMEN: Soft, nontender, nondistended. SKIN: Warm, dry, and pink. NEUROLOGIC: Awake, alert and oriented x3. ASSESSMENT AND PLAN: A 72-year-old female with a history of multiple medical comorbidities who has had readmissions for acute exacerbations of COPD, currently has pneumonia and does have peripheral vascular disease as well as poor venous access. She is requiring repeat laboratory work as well as IV medications; however, it has been difficulty finding as well as keeping vascular access. At this time, our recommendation is to proceed with placement of a Groshong implantable port. The risks and benefits of the procedure as well as the procedure and home care instructions were explained to the patient. She verbalized understanding of instructions and agrees to proceed as planned. At this time, we will hold her anticoagulation and proceed with scheduling her for placement of a Groshong implantable port on this admission. Job ID: [id number] DocumentID: [id number] Dictated Date: 01/01/2023 11:17:19 [employer] Date: 01/01/2023 12:45:00 Dictated By: KAYLIE BURT APRN
--- NOTE | 2023-01-01 13:09 | Progress Note - Cardiology ---
Cardiology SOAP Progress Note Subjective: No cp or palp or syncope No n/v/d Gen weakness and malaise No focal weakness Shortness of breath with activity Blood draws and iv medication manager has been increasingly difficult due to diminishing sites for iv access. States primary attending has recommended permanent central port placement Objective: I&O/Vital Signs 01/01/23 01/01/23 01/01/23 01/01/23 05:00 06:51 07:45 10:47 Temp 36.8 36.2 Pulse 79 93 Resp 18 18 B/P (MAP) 159/79 (105) 144/67 (92) Pulse Ox 98 98 96 98 O2 Delivery High Flow N/C High Flow N/C High Flow N/C High Flow N/C O2 Flow Rate 7.00 7.00 7.00 7.00 7.00 01/01/23 11:25 Temp 36.4 Pulse 85 Resp 18 B/P (MAP) 133/67 (89) Pulse Ox 96 O2 Delivery High Flow N/C O2 Flow Rate 7.00 01/01/23 00:00 Intake Total 1120 ml Output Total 800 ml Balance 320 ml Constitutional: AAO x 3, well-developed, well-nourished Respiratory: No accessory muscle use, No respiratory distress; chest expansion is symmetric, chest is bilaterally symmetric, rhonchi (scattered with coarse breath sounds throughout) Cardiovascular: regular rate-rhythm; No JVD; S1 and S2 Gastrointestional: No tender; soft; No guarding; audible bowel sounds Extremities: no lower extremity edema bilateral Neurologic/Psychiatric: other (moves all extremities) Skin: No rash on exposed areas, No ulcerations on exposed areas Results/Procedures: Labs Laboratory Tests 12/31/22 16:14: Glucometer 150H 12/31/22 23:38: Glucometer 133H 01/01/23 05:18: Glucometer 109, White Blood Count 10.5, Red Blood Count 3.50L, Hemoglobin 8.6L, Hematocrit 28L, Mean Corpuscular Volume 81, Mean Corpuscular Hemoglobin 25, Mean Corpuscular Hemoglobin Concent 30L, Red Cell Distribution Width 17.2H, Platelet Count 277, Mean Platelet Volume 10.1, Immature Granulocyte % (Auto) 4, Neutrophils (%) (Auto) 85H, Lymphocytes (%) (Auto) 3L, Monocytes (%) (Auto) 8, Eosinophils (%) (Auto) 0, Basophils (%) (Auto) 0, Neutrophils # (Auto) 8.9H, Lymphocytes # (Auto) 0.3L, Monocytes # (Auto) 0.9, Eosinophils # (Auto) 0.0, Basophils # (Auto) 0.0, Immature Granulocyte # (Auto) 0.5H, Sodium Level 139, Potassium Level 3.9, Chloride Level 101, Carbon Dioxide Level 24, Anion Gap 14, Blood Urea Nitrogen 39H, Creatinine 1.00, Estimat Glomerular Filtration Rate 60, BUN/Creatinine Ratio 39, Glucose Level 108H, Calcium Level 9.0, Corrected Calcium 9.5, Magnesium Level 2.4, Total Bilirubin 1.6H, Aspartate Amino Transf (AST/SGOT) 21, Alanine Aminotransferase (ALT/SGPT) 25, Alkaline Phosphatase 64, Total Protein 6.0L, Albumin 3.4 01/01/23 10:04: Glucometer 100 Microbiology 12/25/22 MRSA Screen - Final, Complete MRSA not isolated 12/25/22 Blood Culture - Final, Complete A/P: Assessment: Ac exacerbation of COPD due to pneumonia Chronic HFrEF (due to ischemic cm) Intolerance to spironolactone and CLARISA-I/ARB due to hyperkalemia CAD and ischemic cardiomyopathy and chronic, stable angina - reports h/o stent placement in 2000 - has refused stress test (exercise or pharmacologic due to previous h/o intolerance to such studies) - Echocardiogram of 04-13-22 showed LVEF 35-40%. Hypokinesis of the apical and inferolateral myocardium. Grade 1 diastolic dysfunction. 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 May need further evaluation with radiologic studies (but hasn't agreed) Plan: Ok to proceed with permanent central port from a cardiac standpoint Management of pneumonia per Medical services Consider blood transfusion (Dr Chacon managing) Continue cardiac regimen Give diuretics as indicated Monitor lab closely LÁZARO MARQUIS MD FACP [facility] Jan 01, 2023 13:09
[2023-01-01] MEDS: hydrALAZINE INJECTION 20 MG/ML VIAL IV PRN (16:34)
[2023-01-01] MEDS: HYDROcodone/ACETAMINOPHEN 5 MG/325 MG TABLET PO PRN (16:34)
[2023-01-01] MEDS: ASPIRIN enteric coated 81MG TABLET PO SCH (20:31)
[2023-01-02] MEDS: ALPRAZolam 0.5 MG TABLET PO PRN ×3 (00:21→22:56)
[2023-01-02] MEDS: RT-Ipratropium/Albuterol NEB 3 ML VIAL INH SCH ×6 (02:21→22:00)
[2023-01-02] MEDS: SUCRALFATE 1 GM TABLET PO SCH ×4 (05:06→19:51)
[2023-01-02] MEDS: inSUlin ASPART 1 UNIT/0.01 ML (PER UNIT) SC SCH ×4 (05:07→20:15)
[2023-01-02 05:29] LABS: BASOPHILS % (AUTO) 0 % (0-10); EOSINOPHILS % (AUTO) 0 % (0-10); HEMATOCRIT 28 % (35-52); HEMOGLOBIN 8.8 g/dL (11.5-16.0); LYMPHOCYTES # (AUTO) 0.2 10^3/uL (1.0-4.0); LYMPHOCYTES % (AUTO) 3 % (12-44); MEAN CORPUSCULAR HEMOGLOBIN 25 pg (25-34); MEAN CORPUSCULAR HGB CONC 31 g/dL (32-36); MEAN CORPUSCULAR VOLUME 82 fL (80-99); MONOCYTES # (AUTO) 0.7 10^3/uL (0.0-1.0); MONOCYTES % (AUTO) 8 % (0-12); NEUTROPHILS # (AUTO) 7.5 10^3/uL (1.8-7.8); NEUTROPHILS % (AUTO) 87 % (42-75); PLATELET COUNT 272 10^3/uL (130-400); WHITE BLOOD COUNT 8.6 10^3/uL (4.3-11.0)
[2023-01-02 05:39] LABS: ALBUMIN 3.5 GM/DL (3.2-4.5)
[2023-01-02 05:40] LABS: POTASSIUM 3.7 MMOL/L (3.6-5.0)
[2023-01-02 05:41] LABS: CALCIUM 9.1 MG/DL (8.5-10.1)
[2023-01-02 05:42] LABS: TOTAL PROTEIN 6.1 GM/DL (6.4-8.2)
[2023-01-02 05:44] LABS: BILIRUBIN,TOTAL 0.7 MG/DL (0.1-1.0)
[2023-01-02 05:46] LABS: CREATININE SERUM 1.1 MG/DL (0.60-1.30)
[2023-01-02 05:48] LABS: MAGNESIUM 2.5 MG/DL (1.6-2.4)
[2023-01-02] MEDS: POTASSIUM CHLORIDE 20 MEQ TABLET PO SCH (05:55)
[2023-01-02] MEDS: POTASSIUM CL 10MEQ/50ML IVPB 50 ML IV SCH (05:55)
[2023-01-02] MEDS: MAGNESIUM 1 GM/100 ML IVPB 100 ML IV SCH (05:55)
[2023-01-02] MEDS: FLUTICASONE/VILANTEROL 200/25 MCG (7 DOSES) IH SCH (06:44)
[2023-01-02] MEDS: TIOTROPIUM INH 4 GM (SPIRIVA Respimat) IH SCH ×2 (06:45→10:36)
[2023-01-02 08:23] VITALS: BP 138/70
[2023-01-02] MEDS: ENOXAPARIN 40 MG/0.4 ML SYRINGE SC SCH (08:44)
[2023-01-02] MEDS: FUROSEMIDE 40 MG TABLET PO SCH (08:44)
[2023-01-02] MEDS: EMPAGLIFLOZIN 10 MG TABLET PO SCH (08:44)
[2023-01-02] MEDS: dexAMETHasone INJ 4 MG/ML SDV IV SCH (08:44)
[2023-01-02] MEDS: FAMOTIDINE 20 MG TABLET PO SCH (08:44)
[2023-01-02] MEDS ORDERED: POTASSIUM CHLORIDE 20 MEQ TABLET PO ONE (09:00)
--- NOTE | 2023-01-02 09:52 | Progress Note ---
Subjective Date Seen by a Provider: Jan 02, 2023 Time Seen by a Provider: 09:20 Subjective/Events-last exam Patient seen with Dr. Santiago. Patient reports doing ok. tolerating diet. Still reports SOB. Objective Exam Vital Signs Date Time Temp Pulse Resp B/P (MAP) Pulse Ox O2 Delivery O2 Flow Rate FiO2 01/02/23 08:23 36.6 96 22 138/70 (92) 98 High Flow N/C 7.00 01/02/23 06:46 97 High Flow N/C 5.00 01/01/23 23:02 36.3 61 22 134/66 (88) 98 High Flow N/C 7.00 01/01/23 20:35 High Flow N/C 7.00 01/01/23 20:26 36.7 93 22 150/75 (100) 98 High Flow N/C 7.00 01/01/23 18:41 95 High Flow N/C 5.00 01/01/23 16:35 36.9 70 22 165/72 (103) High Flow N/C 7.00 01/01/23 15:37 36.3 77 32 157/70 (99) 93 High Flow N/C 5.00 01/01/23 14:34 97 High Flow N/C 7.00 01/01/23 11:25 36.4 85 18 133/67 (89) 96 High Flow N/C 7.00 01/01/23 10:47 98 High Flow N/C 7.00 I & O 01/02/23 07:00 Intake Total 1230 ml Output Total 750 ml Balance 480 ml Capillary Refill : Less Than 3 Seconds General Appearance: No Apparent Distress, WD/WN Neck: Full Range of Motion, Normal Inspection Respiratory: No Accessory Muscle Use, No Respiratory Distress Gastrointestinal: normal bowel sounds, non tender, soft Extremity: Normal Range of Motion, Swelling (Trace) Neurologic/Psychiatric: Alert, Oriented x3 Skin: Normal Color, Warm/Dry Results Lab Laboratory Tests 01/01/23 10:04: Glucometer 100 01/01/23 15:43: Glucometer 135H 01/01/23 16:05: 01/01/23 20:30: Glucometer 123H 01/02/23 05:00: Glucometer 116H 01/02/23 05:10: White Blood Count 8.6, Red Blood Count 3.48L, Hemoglobin 8.8L, Hematocrit 28L, Mean Corpuscular Volume 82, Mean Corpuscular Hemoglobin 25, Mean Corpuscular Hemoglobin Concent 31L, Red Cell Distribution Width 17.5H, Platelet Count 272, Mean Platelet Volume 10.0, Immature Granulocyte % (Auto) 2, Neutrophils (%) (Auto) 87H, Lymphocytes (%) (Auto) 3L, Monocytes (%) (Auto) 8, Eosinophils (%) (Auto) 0, Basophils (%) (Auto) 0, Neutrophils # (Auto) 7.5, Lymphocytes # (Auto) 0.2L, Monocytes # (Auto) 0.7, Eosinophils # (Auto) 0.0, Basophils # (Auto) 0.0, Immature Granulocyte # (Auto) 0.2H, Sodium Level 139, Potassium Level 3.7, Chloride Level 99, Carbon Dioxide Level 28, Anion Gap 12, Blood Urea Nitrogen 48H, Creatinine 1.10, Estimat Glomerular Filtration Rate 54, BUN/Creatinine Ratio 44, Glucose Level 117H, Calcium Level 9.1, Corrected Calcium 9.5, Magnesium Level 2.5H, Total Bilirubin 0.7, Aspartate Amino Transf (AST/SGOT) 15, Alanine Aminotransferase (ALT/SGPT) 23, Alkaline Phosphatase 66, Total Protein 6 .1L, Albumin 3.5 Microbiology 12/25/22 MRSA Screen - Final, Complete MRSA not isolated 12/25/22 Blood Culture - Final, Complete Assessment/Plan Assessment/Plan Assess & Plan/Chief Complaint A 72 year old female with COPD, pneumonia, poor peripheral venous access VSS Continue with medical management Will proceed with scheduling the patient for placement of groshong port tomorrow KAYLIE BURT APRN Jan 02, 2023 09:52
--- NOTE | 2023-01-02 10:57 | Progress Note ---
DANNY VALENZUELA MD, RESIDENT 01/02/23 1057: Subjective HPI/CC On Admission Date Seen by Provider: Jan 02, 2023 Time Seen by Provider: 10:35 Chief complaint: Acute on chronic respiratory failure HPI: This is a 72-year-old female who just was discharged from the hospital after a lengthy stay for exacerbation of COPD. She continues to smoke. She was found to have a pneumonia needing IV steroids and ICU monitoring for BiPAP. Subjective/Events-last exam Patient doing well today has no concerns. Is hopeful for the port placement that will be completed tomorrow as she feels this will help prevent her from getting poked multiple times. Otherwise has no concerns today. Objective Exam Vital Signs Vital Signs Date Time Temp Pulse Resp B/P (MAP) Pulse Ox O2 Delivery O2 Flow Rate FiO2 01/02/23 08:23 36.6 96 22 138/70 (92) 98 High Flow N/C 7.00 Capillary Refill : Less Than 3 Seconds General Appearance: No Apparent Distress HEENT: PERRL/EOMI Neck: Full Range of Motion Respiratory: Chest Non Tender, No Accessory Muscle Use, No Respiratory Distress, Wheezing (Mild expiratory wheezing) Cardiovascular: Regular Rate, Rhythm, No Edema, No Murmur Gastrointestinal: Normal Bowel Sounds, Non Tender Neurologic/Psychiatric: Alert, Oriented x3 Skin: Normal Color, Warm/Dry Results/Procedures Lab Laboratory Tests 01/02/23 05:10 Patient resulted labs reviewed. Imaging: Reviewed Imaging Films, Reviewed Imaging Report Assessment/Plan Assessment and Plan Assess & Plan/Chief Complaint Pneumonia Diagnosis/Problems Diagnosis/Problems (1) Community acquired pneumonia Status: Resolved Assessment & Plan: Patient noted to have pneumonia on presentation. Has completed a 5-day course of cefepime. Is continuing to require high flow nasal cannula at 5 L. In addition, testing is difficult due to difficulty getting lines. Continue weaning oxygen as tolerated Patient will be having port placement tomorrow due to poor access, will hold a nticoagulation tomorrow. Decrease dexamethasone dose to 2 mg daily today. Resolution Date/Time: 01/02/23 @ 11:58 (2) Acute and chronic respiratory failure Status: Acute Assessment & Plan: Improving. Decrease dexamethasone dose today as noted above. Continue to wean oxygen as tolerated. Continue inhalers managed per RT (3) Anemia Status: Acute Assessment & Plan: Status post 1 unit of blood. Stable anemia today. Hemoglobin went up from 8.6 to 8.8. We will continue to monitor closely. (4) CKD (chronic kidney disease) Status: Chronic Assessment & Plan: Creatinine stable at 1.1. Continue to monitor. (5) History of lung cancer Status: Chronic Assessment & Plan: Continue to monitor. Encourage smoking cessation. (6) Hypertension Status: Chronic Assessment & Plan: Continue amlodipine and metoprolol. Hydralazine on board as needed for uncontrolled hypertension. Blood pressure otherwise stable today. Qualifiers: Qualified Codes: I10 - Essential (primary) hypertension (7) Chronic HFrEF (heart failure with reduced ejection fraction) Status: Chronic Assessment & Plan: Radiology following. We will continue to follow with their recommendations. FAVIAN KUO DO 01/02/23 1422: Assessment/Plan Assessment and Plan Assess & Plan/Chief Complaint Hgb stable Carafate and PPI maintained Still with HH burning Plan: Dispo? Needs hospice I personally performed the barone portions of the visit, discussed case with resident and concur with resident documentation of history, physical exam, assessment and treatment plan unless otherwise noted. DANNY VALENZUELA MD, RESIDENT Jan 02, 2023 10:57 FAVIAN KUO DO Jan 02, 2023 14:22
[2023-01-02] MEDS: HYDROcodone/ACETAMINOPHEN 5 MG/325 MG TABLET PO PRN (11:37)
[2023-01-02 12:05] VITALS: BP 162/78
[2023-01-02] MEDS ORDERED: ANTACID SUSPENSION 30 ML UDC PO PRN (14:30)
--- NOTE | 2023-01-02 15:24 | Progress Note - Cardiology ---
Cardiology SOAP Progress Note Subjective: Shortness of breath unchanged No cp or palp or syncope No n/v/d No focal weakness Gen weakness and malaise present Objective: I&O/Vital Signs 01/02/23 01/02/23 01/02/23 01/02/23 06:46 08:00 08:23 12:05 Temp 36.6 36.4 Pulse 96 53 Resp 22 22 B/P (MAP) 138/70 (92) 162/78 (106) Pulse Ox 97 98 100 O2 Delivery High Flow N/C High Flow N/C High Flow N/C High Flow N/C O2 Flow Rate 5.00 7.00 7.00 7.00 01/02/23 15:12 O2 Delivery High Flow N/C O2 Flow Rate 5.00 01/02/23 00:00 Intake Total 910 ml Output Total 600 ml Balance 310 ml Constitutional: AAO x 3, well-developed, well-nourished Respiratory: No accessory muscle use, No respiratory distress; chest expansion is symmetric, chest is bilaterally symmetric, rhonchi (scattered with coarse breath sounds throughout) Cardiovascular: regular rate-rhythm; No JVD; S1 and S2 Gastrointestional: No tender; soft; No guarding; audible bowel sounds Extremities: no lower extremity edema bilateral Neurologic/Psychiatric: other (moves all extremities) Skin: No rash on exposed areas, No ulcerations on exposed areas Results/Procedures: Labs Laboratory Tests 01/01/23 15:43: Glucometer 135H 01/01/23 16:05: 01/01/23 20:30: Glucometer 123H 01/02/23 05:00: Glucometer 116H 01/02/23 05:10: White Blood Count 8.6, Red Blood Count 3.48L, Hemoglobin 8.8L, Hematocrit 28L, Mean Corpuscular Volume 82, Mean Corpuscular Hemoglobin 25, Mean Corpuscular Hemoglobin Concent 31L, Red Cell Distribution Width 17.5H, Platelet Count 272, Mean Platelet Volume 10.0, Immature Granulocyte % (Auto) 2, Neutrophils (%) (Auto) 87H, Lymphocytes (%) (Auto) 3L, Monocytes (%) (Auto) 8, Eosinophils (%) (Auto) 0, Basophils (%) (Auto) 0, Neutrophils # (Auto) 7.5, Lymphocytes # (Auto) 0.2L, Monocytes # (Auto) 0.7, Eosinophils # (Auto) 0.0, Basophils # (Auto) 0.0, Immature Granulocyte # (Auto) 0.2H, Sodium Level 139, Potassium Level 3.7, Chlo ride Level 99, Carbon Dioxide Level 28, Anion Gap 12, Blood Urea Nitrogen 48H, Creatinine 1.10, Estimat Glomerular Filtration Rate 54, BUN/Creatinine Ratio 44, Glucose Level 117H, Calcium Level 9.1, Corrected Calcium 9.5, Magnesium Level 2.5H, Total Bilirubin 0.7, Aspartate Amino Transf (AST/SGOT) 15, Alanine Aminotransferase (ALT/SGPT) 23, Alkaline Phosphatase 66, Total Protein 6.1L, Albumin 3.5 01/02/23 11:27: Glucometer 109 Microbiology 01/01/23 MRSA Screen - Final, Complete MRSA not isolated 12/25/22 Blood Culture - Final, Complete Laboratory Tests 01/01/23 05:18 01/02/23 05:10 A/P: Assessment: Ac exacerbation of COPD due to pneumonia Chronic HFrEF (due to ischemic cm) Intolerance to spironolactone and CLARISA-I/ARB due to hyperkalemia CAD and ischemic cardiomyopathy and chronic, stable angina - reports h/o stent placement in 2000 - has refused stress test (exercise or pharmacologic due to previous h/o intolerance to such studies) - Echocardiogram of 04-13-22 showed LVEF 35-40%. Hypokinesis of the apical and inferolateral myocardium. Grade 1 diastolic dysfunction. 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 May need further evaluation with radiologic studies (but hasn't agreed) Plan: Ok to proceed with permanent central port from a cardiac standpoint Management of pneumonia per Medical services Continue cardiac regimen Give diuretics as indicated Monitor lab closely LÁZARO MARQUIS MD [facility] Jan 02, 2023 15:24
--- NOTE | 2023-01-02 16:16 | Progress Note-Pre Operative ---
Pre-Operative Progress Note Date of Available H&P: Jan 02, 2023 Date H&P Reviewed: Jan 02, 2023 Time H&P Reviewed: 16:30 History & Physical: No changes noted Pre-Operative Diagnosis: COPD, recurrent pneumonia, poor periperal circulation ANNETTE MACHUCA MD Jan 02, 2023 16:16
[2023-01-02 16:57] VITALS: BP 152/99
[2023-01-02 19:25] VITALS: BP 146/81
[2023-01-02] MEDS: ASPIRIN enteric coated 81MG TABLET PO SCH (19:53)
[2023-01-02 23:01] VITALS: BP 156/78
[2023-01-03] VITALS (11 sets, daily range): BP systolic 136–173; BP diastolic 80–116
[2023-01-03] MEDS: RT-Ipratropium/Albuterol NEB 3 ML VIAL INH SCH ×6 (02:20→23:03)
[2023-01-03] MEDS: SUCRALFATE 1 GM TABLET PO SCH ×4 (04:51→21:14)
[2023-01-03 06:02] LABS: ALBUMIN 3.5 GM/DL (3.2-4.5); BASOPHILS % (AUTO) 0 % (0-10); EOSINOPHILS % (AUTO) 0 % (0-10); HEMATOCRIT 31 % (35-52); LYMPHOCYTES # (AUTO) 0.6 10^3/uL (1.0-4.0); LYMPHOCYTES % (AUTO) 6 % (12-44); MEAN CORPUSCULAR HEMOGLOBIN 24 pg (25-34); MEAN CORPUSCULAR HGB CONC 29 g/dL (32-36); MEAN CORPUSCULAR VOLUME 83 fL (80-99); MEAN PLATELET VOLUME 10.2 fL (9.0-12.2); MONOCYTES # (AUTO) 1.2 10^3/uL (0.0-1.0); MONOCYTES % (AUTO) 12 % (0-12); NEUTROPHILS # (AUTO) 8.1 10^3/uL (1.8-7.8); NEUTROPHILS % (AUTO) 80 % (42-75); PLATELET COUNT 269 10^3/uL (130-400); POTASSIUM 3.6 MMOL/L (3.6-5.0)
[2023-01-03 06:03] LABS: CALCIUM 8.9 MG/DL (8.5-10.1)
[2023-01-03 06:04] LABS: TOTAL PROTEIN 5.9 GM/DL (6.4-8.2)
[2023-01-03 06:06] LABS: BILIRUBIN,TOTAL 0.8 MG/DL (0.1-1.0)
[2023-01-03] MEDS: POTASSIUM CL 10MEQ/50ML IVPB 50 ML IV SCH (06:07)
[2023-01-03 06:08] LABS: CREATININE SERUM 0.98 MG/DL (0.60-1.30)
[2023-01-03] MEDS: POTASSIUM CHLORIDE 20 MEQ TABLET PO SCH (06:08)
[2023-01-03] MEDS: inSUlin ASPART 1 UNIT/0.01 ML (PER UNIT) SC SCH ×4 (06:08→21:19)
[2023-01-03 06:11] LABS: MAGNESIUM 2.5 MG/DL (1.6-2.4)
[2023-01-03] MEDS: ALPRAZolam 0.5 MG TABLET PO PRN ×2 (06:11→21:14)
[2023-01-03] MEDS: MAGNESIUM 1 GM/100 ML IVPB 100 ML IV SCH (06:12)
[2023-01-03] MEDS ORDERED: POTASSIUM CHLORIDE 20 MEQ TABLET PO ONE (06:15)
[2023-01-03] MEDS: FLUTICASONE/VILANTEROL 200/25 MCG (7 DOSES) IH SCH (07:45)
[2023-01-03] MEDS: TIOTROPIUM INH 4 GM (SPIRIVA Respimat) IH SCH (07:45)
[2023-01-03] MEDS: HYDROcodone/ACETAMINOPHEN 5 MG/325 MG TABLET PO PRN ×2 (08:40→21:14)
[2023-01-03] MEDS: dexAMETHasone INJ 4 MG/ML SDV IV SCH (08:40)
[2023-01-03] MEDS: FAMOTIDINE 20 MG TABLET PO SCH (08:40)
[2023-01-03] MEDS: FUROSEMIDE 40 MG TABLET PO SCH (08:40)
[2023-01-03] MEDS: EMPAGLIFLOZIN 10 MG TABLET PO SCH (08:40)
[2023-01-03] MEDS: NITROGLYCERIN 0.4 MG SL TABLETS BTL 25'S SL PRN (11:21)
--- NOTE | 2023-01-03 15:17 | Progress Note ---
Subjective Subjective/Events-last exam Patient states she is feeling persistent shortness of breath, especially with activity. She thinks she will need to be on 7 lpm of supplemental oxygen forever and up to 10 with exercise. She feels she can manage her symptoms at home. Objective Exam Last Set of Vital Signs Vital Signs Date Time Temp Pulse Resp B/P (MAP) Pulse Ox O2 Delivery O2 Flow Rate FiO2 01/03/23 14:15 36.7 78 99 01/03/23 12:05 High Flow N/C 7.00 01/03/23 12:00 28 150/98 (115) Capillary Refill : Less Than 3 Seconds I&O Intake and Output 01/03/23 00:00 Intake Total 2040 ml Output Total 150 ml Balance 1890 ml Intake Oral 2040 ml Output Urine Total 150 ml # Voids 6 # Bowel Movements 4 General: Alert, No Acute Distress Lungs: Clear to Auscultation, Other (slightly decreased air movement throughout) Heart: Regular Rate, No Murmurs Abdomen: Normal Bowel Sounds, Soft Neuro: Normal Speech Psych/Mental Status: Mood NL Results/Procedures Lab Laboratory Tests 01/02/23 15:41: Glucometer 162H 01/02/23 20:09: Glucometer 142H 01/03/23 05:42: White Blood Count 10.0, Red Blood Count 3.69L, Hemoglobin 9.0L, Hematocrit 31L, Mean Corpuscular Volume 83, Mean Corpuscular Hemoglobin 24L, Mean Corpuscular Hemoglobin Concent 29L, Red Cell Distribution Width 17.6H, Platelet Count 269, Mean Platelet Volume 10.2, Immature Granulocyte % (Auto) 1, Neutrophils (%) (Auto) 80H, Lymphocytes (%) (Auto) 6L, Monocytes (%) (Auto) 12, Eosinophils (%) (Auto) 0, Basophils (%) (Auto) 0, Neutrophils # (Auto) 8.1H, Lymphocytes # (Auto) 0.6L, Monocytes # (Auto) 1.2H, Eosinophils # (Auto) 0.0, Basophils # (Auto) 0.0, Immature Granulocyte # (Auto) 0.1, Sodium Level 139, Potassium Level 3.6, Chloride Level 98, Carbon Dioxide Level 31, Anion Gap 10, Blood Urea Nitrogen 45H, Creatinine 0.98, Estimat Glomerular Filtration Rate 62, BUN/Cr eatinine Ratio 46, Glucose Level 105, Calcium Level 8.9, Corrected Calcium 9.3, Magnesium Level 2.5H, Total Bilirubin 0.8, Aspartate Amino Transf (AST/SGOT) 16, Alanine Aminotransferase (ALT/SGPT) 18, Alkaline Phosphatase 68, Total Protein 5.9L, Albumin 3.5 01/03/23 11:07: Glucometer 93 Microbiology 01/01/23 MRSA Screen - Final, Complete MRSA not isolated 12/25/22 Blood Culture - Final, Complete Radiology NAME: MARLA CRAMER [facility] REC#: [id number] PT STATUS: REG ER : 1950 PHYSICIAN: NYA BARDALES MD ADMIT DATE: 12/25/22/ER FS Signed Date of Exam:12/25/22 CHEST 1 VIEW AP/PA ONLY EXAMINATION: Chest 1 view HISTORY: Short of breath COMPARISON: 12/16/2022 FINDINGS: There is moderate left effusion with mild edema. There is an opacity in the left upper zone. Heart size is normal. IMPRESSION: 1. Moderate left effusion and mild edema with increasing opacities in the left upper zone concerning for worsening pneumonia. Dictated by: Dictated on workstation # [id number] Dict: 12/25/221919 Trans: 12/25/221954 CVB [id number] Interpreted by: TERESE SMITH MD Electronically signed by: TERESE SMITH MD 12/25/221954 Assessment/Plan Assessment/Plan (1) Pneumonia Status: Acute Assessment & Plan: Treated with cefepime from 12/25 to 12/30. (2) Acute and chronic respiratory failure Status: Acute Assessment & Plan: Previously on 4 lpm supplemental oxygen at home, now requiring 7 lpm this morning. Suspect secondary to acute COPD exacerbation with pneumonia. (3) History of lung cancer Status: Chronic (4) COPD with exacerbation Status: Acute Assessment & Plan: Dexamethasone decreased to 2 mg daily yesterday. Continue Duonebs, tiotropium and fluticasone/vilanterol. (5) CKD (chronic kidney disease) Status: Chronic Assessment & Plan: Stable. (6) Hypertension Status: Chronic Qualifiers: Qualified Codes: I10 - Essential (primary) hypertension (7) Hyperlipidemia Status: Chronic (8) Coronary artery disease Status: Chronic (9) Ischemic cardiomyopathy Status: Chronic (10) Chronic HFrEF (heart failure with reduced ejection fraction) Status: Chronic Assessment & Plan: Possible acute on chronic component on admit, BNP was elevated on 12/26. Appreciate Cardiology recommendations. Received 40 mg IV lasix on 12/25, 12/26 and 12/29, started daily PO 12/30. Continue lasix 40 mg PO daily and empagliflozin and metoprolol. (11) COPD (chronic obstructive pulmonary disease) Status: Chronic (12) DVT prophylaxis Status: Acute Assessment & Plan: Patient declining enoxaparin DUANE GIPSON MD Jan 03, 2023 15:17
[2023-01-03] MEDS ORDERED: 0.9% SODIUM CHLORIDE PF INJ 20 ML VIAL ONE (16:06)
[2023-01-03] MEDS ORDERED: LIDOCAINE/EPI 1%-1:200,000 (XYLOCAINE) 30 ML VIAL ONE (16:07)
[2023-01-03] MEDS ORDERED: HEParin (CENTRAL IV FLUSH) 500 UNIT/5 ML SYR ONE (16:07)
[2023-01-03] MEDS ORDERED: ceFAZolin INJECTION 1,000 MG ONE (16:53)
[2023-01-03] MEDS ORDERED: fentaNYL INJECTION 100 MCG/2 ML VIAL ONE (16:54)
[2023-01-03] MEDS ORDERED: MIDAZOLAM INJ 2 MG/2 ML VIAL ONE (17:00)
[2023-01-03] MEDS ORDERED: ceFAZolin INJECTION 1,000 MG in NS (IVPB) 50 ML 50 ML IV NR (17:30)
[2023-01-03] MEDS ORDERED: LACTATED RINGERS 1,000 ML 1,000 ML IV PRN (17:30)
--- NOTE | 2023-01-03 17:54 | Progress Note-Post Operative ---
Post-Operative Progess Note Surgeon (s)/Psychologists (s) Surgeon ANNETTE MACHUCA MD Psychologists: none Pre-Operative Diagnosis COPD, recurrent pneumonia, poor periperal circulation Post-Operative Diagnosis same Procedure & Operative Findings Date of Procedure 01/03/23 Procedure Performed/Findings left subclavian groshong implantable catheter under flouroscopy. Anesthesia Type mac Estimated Blood Loss Estimated blood loss (mL): minimal Specimens/Packing Specimens Removed none ANNETTE MACHUCA MD Jan 03, 2023 17:54
--- NOTE | 2023-01-03 18:24 | Progress Note ---
Subjective Date Seen by a Provider: Jan 03, 2023 Time Seen by a Provider: 16:00 Subjective/Events-last exam doing ok. reports breathing status slowly improving. still requiring IV therapy. Objective Exam Vital Signs Date Time Temp Pulse Resp B/P (MAP) Pulse Ox O2 Delivery O2 Flow Rate FiO2 01/03/23 17:00 36.6 77 23 169/116 (133) High Flow N/C 7.00 01/03/23 15:31 100 High Flow N/C 7.00 01/03/23 14:15 36.7 78 99 01/03/23 12:05 99 High Flow N/C 7.00 01/03/23 12:00 36.7 78 28 150/98 (115) 100 High Flow N/C 7.00 01/03/23 08:44 85 18 155/89 (111) 01/03/23 08:02 High Flow N/C 7.00 01/03/23 08:01 High Flow N/C 7.00 01/03/23 08:00 99 High Flow N/C 7.00 01/03/23 07:45 99 High Flow N/C 7.00 01/02/23 23:01 36.2 75 22 156/78 (104) 98 High Flow N/C 7.00 01/02/23 19:55 High Flow N/C 7.00 01/02/23 19:25 36.1 60 18 146/81 (102) 100 High Flow N/C 7.00 01/02/23 18:37 98 High Flow N/C 5.00 I & O 01/03/23 07:00 Intake Total 1820 ml Balance 1820 ml Capillary Refill : Less Than 3 Seconds General Appearance: No Apparent Distress HEENT: PERRL/EOMI Neck: Full Range of Motion Respiratory: Chest Non Tender, Rhonci, Wheezing Cardiovascular: Regular Rate, Rhythm Gastrointestinal: normal bowel sounds, non tender, soft Extremity: Normal Capillary Refill Neurologic/Psychiatric: Alert, Oriented x3 Skin: Normal Color Lymphatic: No Adenopathy Results Lab Laboratory Tests 01/02/23 20:09: Glucometer 142H 01/03/23 05:42: White Blood Count 10.0, Red Blood Count 3.69L, Hemoglobin 9.0L, Hematocrit 31L, Mean Corpuscular Volume 83, Mean Corpuscular Hemoglobin 24L, Mean Corpuscular Hemoglobin Concent 29L, Red Cell Distribution Width 17.6H, Platelet Count 269, Mean Platelet Volume 10.2, Immature Granulocyte % (Auto) 1, Neutrophils (%) (Auto) 80H, Lymphocytes (%) (Auto) 6L, Monocytes (%) (Auto) 12, Eosinophils (%) (Auto) 0, Basophils (%) (Auto) 0, Neutrophils # (Auto) 8.1H, Lymphocytes # (Auto) 0.6L, Monocytes # (Auto) 1.2H, Eosinophils # (Auto) 0.0, Basophils # (Auto) 0.0, Immature Granulocyte # (Auto) 0.1, Sodium Level 139, Potassium Level 3.6, Chloride Level 98, Carbon Dioxide Level 31, Anion Gap 10, Blood Urea Nitrogen 45H, Creatinine 0.98, Estimat Glomerular Filtration Rate 62, BUN/C reatinine Ratio 46, Glucose Level 105, Calcium Level 8.9, Corrected Calcium 9.3, Magnesium Level 2.5H, Total Bilirubin 0.8, Aspartate Amino Transf (AST/SGOT) 16, Alanine Aminotransferase (ALT/SGPT) 18, Alkaline Phosphatase 68, Total Protein 5.9L, Albumin 3.5 01/03/23 11:07: Glucometer 93 01/03/23 15:25: Glucometer 103 Microbiology 01/01/23 MRSA Screen - Final, Complete MRSA not isolated 12/25/22 Blood Culture - Final, Complete Assessment/Plan Assessment/Plan Assess & Plan/Chief Complaint recurrent exacerbation COPD and pneumonia with poor peripheral venous circulation. plan for [facility] today. ANNETTE MACHUCA MD Jan 03, 2023 18:24
--- NOTE | 2023-01-03 18:49 | Diagnostic Imaging Report ---
EXAM: CHEST 1 VIEW, AP/PA ONLY. INDICATION: Central line placement. COMPARISON: 12/25/2022. FINDINGS: Left subclavian tunneled port CVC tip in mid SVC. Stable heart size and prominent interstitial opacities. Stable focal consolidation in the left upper lobe. Small left pleural effusion is stable. No pneumothorax. No acute osseous findings. IMPRESSION: 1. New left subclavian tunneled port CVC tip in mid SVC. No pneumothorax. 2. Remainder stable including dense mass-like consolidation in the left upper lobe, small left pleural effusion, and diffuse interstitial opacities. Dictated by: Dictated on workstation # [id number]
--- NOTE | 2023-01-03 19:02 | Diagnostic Imaging Report ---
CLINICAL INDICATION: Port-A-Cath placement by Dr. Santiago. EXAM: Single intra-operative x-ray of the chest. COMPARISONS: Chest x-ray dated 12/25/2022. FINDINGS AND IMPRESSION: Central line is seen overlying the left chest region with tip overlying the expected region of the distal superior vena cava. Please see clinician's report for more detail. Fluoroscopy was provided for clinician and a total of 2 minutes and 34 seconds were used. Dictated by: Dictated on workstation # [id number]
[2023-01-03] MEDS: ASPIRIN enteric coated 81MG TABLET PO SCH (21:14)
--- NOTE | 2023-01-04 02:53 | OPERATIVE REPORT ---
DATE OF SERVICE: 01/03/2023 ATTENDING PRIMARY CARE PHYSICIAN: Dr. Romero. PREOPERATIVE DIAGNOSES: Recurrent exacerbation of chronic obstructive pulmonary disease and pneumonia, peripheral vascular disease, poor venous access. POSTOPERATIVE DIAGNOSES: Recurrent exacerbation of chronic obstructive pulmonary disease and pneumonia, peripheral vascular disease, poor venous access. PROCEDURE: Placement of left subclavian Groshong implantable catheter under fluoroscopy. SURGEON: Annette Machuca MD ANESTHESIA: Monitored anesthesia care with local. ESTIMATED BLOOD LOSS: Minimal. FINDINGS: Catheter tip at the superior vena caval -- right atrial junction. DISPOSITION: The patient tolerated the procedure well. INDICATIONS: The patient is a 72-year-old female with a longstanding history of multiple medical issues. She has a history of COPD requiring multiple admissions due to acute exacerbations as well as pneumonia. She was recently readmitted with complaints of shortness of breath and again was in acute exacerbation of COPD as well as pneumonia. 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 The patient has a very poor peripheral venous circulation and does require frequent IV medications as well as blood draws and due to this will require a good strong implantable catheter. DESCRIPTION OF PROCEDURE: The patient was brought to the operating room, laid supine on the table. After adequate IV pain and sedative medications and monitored anesthesia care, the chest and neck were prepped and draped in standard surgical fashion. A 1% lidocaine with epinephrine was used to anesthetize the overlying skin in the left subclavian region. The left subclavian vein was then cannulated with drawing of venous blood. The guidewire was then inserted under fluoroscopy. The cannulating needle removed and a skin incision made using a #15 blade. The dilator and sheath were then introduced over the guidewire. The dilator and guidewire were then removed and the Groshong catheter was placed until the catheter tip was at the superior vena caval -- right atrial junction. The sheath was then removed. The inner wire within the catheter was then removed. The catheter cut down to size and port placed onto the catheter. The chest reservoir was then created by extending the skin incision laterally using a #15 blade. A plane was then created between the subcutaneous fat and the anterior pectoralis fascia using blunt dissection as well as electrocautery with visualization of good hemostasis. The port was then placed into the reservoir and sutured to the anterior pectoralis fascia using interrupted 3-0 Vicryl sutures. The subcutaneous tissue was then reapproximated with the same suture in an interrupted manner. The skin was closed using 4-0 Monocryl running subcuticular suture. Wound was then cleaned and covered with Dermabond. The port was accessed with a noncoring [place] needle and venous blood drawn and saline pushed in without any resistance. The patient tolerated the procedure well. We will get a post-procedure chest x-ray once confirmation of placement of the catheter the port may be accessed and used any time. Job ID: [id number] DocumentID: [id number] Dictated Date: 01/03/2023 18:02:29 Insurance Specialist Date: 01/04/2023 02:50:00 Dictated By: ANNETTE MACHUCA MD MTDD
[2023-01-04 03:32] VITALS: BP 117/67
[2023-01-04 05:22] LABS: BASOPHILS % (AUTO) 0 % (0-10); EOSINOPHILS % (AUTO) 0 % (0-10); HEMATOCRIT 27 % (35-52); HEMOGLOBIN 8.1 g/dL (11.5-16.0); LYMPHOCYTES # (AUTO) 0.5 10^3/uL (1.0-4.0); LYMPHOCYTES % (AUTO) 4 % (12-44); MEAN CORPUSCULAR HEMOGLOBIN 25 pg (25-34); MEAN CORPUSCULAR HGB CONC 30 g/dL (32-36); MEAN CORPUSCULAR VOLUME 84 fL (80-99); MEAN PLATELET VOLUME 10.2 fL (9.0-12.2); MONOCYTES # (AUTO) 1.3 10^3/uL (0.0-1.0); MONOCYTES % (AUTO) 11 % (0-12); NEUTROPHILS % (AUTO) 84 % (42-75); PLATELET COUNT 220 10^3/uL (130-400)
[2023-01-04] MEDS: inSUlin ASPART 1 UNIT/0.01 ML (PER UNIT) SC SCH ×4 (05:27→20:18)
[2023-01-04 05:29] LABS: ALBUMIN 3.2 GM/DL (3.2-4.5); POTASSIUM 4.3 MMOL/L (3.6-5.0)
[2023-01-04 05:30] LABS: CALCIUM 8.6 MG/DL (8.5-10.1)
[2023-01-04 05:32] LABS: TOTAL PROTEIN 5.5 GM/DL (6.4-8.2)
[2023-01-04 05:33] LABS: BILIRUBIN,TOTAL 0.7 MG/DL (0.1-1.0)
[2023-01-04 05:35] LABS: CREATININE SERUM 1.17 MG/DL (0.60-1.30)
[2023-01-04 05:38] LABS: MAGNESIUM 2.4 MG/DL (1.6-2.4)
[2023-01-04] MEDS: POTASSIUM CHLORIDE 20 MEQ TABLET PO SCH (05:51)
[2023-01-04] MEDS: MAGNESIUM 1 GM/100 ML IVPB 100 ML IV SCH (05:51)
[2023-01-04] MEDS: POTASSIUM CL 10MEQ/50ML IVPB 50 ML IV SCH (05:51)
[2023-01-04] MEDS: SUCRALFATE 1 GM TABLET PO SCH ×4 (05:57→20:26)
[2023-01-04 07:22] VITALS: BP 154/88
[2023-01-04] MEDS: RT-Ipratropium/Albuterol NEB 3 ML VIAL INH SCH ×6 (07:23→21:25)
[2023-01-04] MEDS: TIOTROPIUM INH 4 GM (SPIRIVA Respimat) IH SCH (07:25)
[2023-01-04] MEDS: FLUTICASONE/VILANTEROL 200/25 MCG (7 DOSES) IH SCH (07:25)
[2023-01-04] MEDS: dexAMETHasone INJ 4 MG/ML SDV IV SCH (08:51)
[2023-01-04] MEDS: ALPRAZolam 0.5 MG TABLET PO PRN ×3 (08:59→22:20)
[2023-01-04] MEDS: FUROSEMIDE 40 MG TABLET PO SCH (09:00)
[2023-01-04] MEDS: FAMOTIDINE 20 MG TABLET PO SCH (09:00)
[2023-01-04] MEDS: EMPAGLIFLOZIN 10 MG TABLET PO SCH (09:00)
[2023-01-04] MEDS: HYDROcodone/ACETAMINOPHEN 5 MG/325 MG TABLET PO PRN ×3 (09:00→20:27)
--- NOTE | 2023-01-04 11:24 | Progress Note - Cardiology ---
Cardiology SOAP Progress Note Subjective: Lying in bed Reports discomfort at site of port implant No c/o CP SOB is unchanged from before Objective: I&O/Vital Signs 01/04/23 01/05/23 01/05/23 01/05/23 23:17 04:24 06:38 08:38 Temp 37.0 36.0 35.9 Pulse 67 82 75 Resp 18 18 21 B/P (MAP) 153/70 (97) 155/82 (106) 158/87 (110) Pulse Ox 98 92 100 95 O2 Delivery High Flow N/C High Flow N/C High Flow N/C High Flow N/C O2 Flow Rate 7.00 7.00 7.00 7.00 7.00 7.00 01/05/23 00:00 Intake Total 1810 ml Output Total 1700 ml Balance 110 ml Constitutional: AAO x 3, well-developed, well-nourished Respiratory: No accessory muscle use, No respiratory distress; chest expansion is symmetric, chest is bilaterally symmetric, rhonchi (scattered with coarse breath sounds throughout) Cardiovascular: regular rate-rhythm; No JVD; S1 and S2 Gastrointestional: No tender; soft; No guarding; audible bowel sounds Extremities: no lower extremity edema bilateral Neurologic/Psychiatric: other (moves all extremities) Skin: ecchymosis (LACW ); No rash on exposed areas, No ulcerations on exposed areas Results/Procedures: Labs Laboratory Tests 01/04/23 11:38: Glucometer 124H 01/04/23 14:17: Lab Scanned Report Transfusion Reaction Form 01/04/23 16:13: Glucometer 136H 01/04/23 20:09: Glucometer 127H 01/05/23 05:32: White Blood Count 10.8, Red Blood Count 3.38L, Hemoglobin 8.5L, Hematocrit 29L, Mean Corpuscular Volume 84, Mean Corpuscular Hemoglobin 25, Mean Corpuscular Hemoglobin Concent 30L, Red Cell Distribution Width 17.9H, Platelet Count 216, Mean Platelet Volume 10.5, Immature Granulocyte % (Auto) 1, Neutrophils (%) (Auto) 84H, Lymphocytes (%) (Auto) 5L, Monocytes (%) (Auto) 10, Eosinophils (%) (Auto) 0, Basophils (%) (Auto) 0, Neutrophils # (Auto) 9.1H, Lymphocytes # (Auto) 0.5L, Monocytes # (Auto) 1.1H, Eosinophils # (Auto) 0.0, Basophils # (Auto) 0.0, Immature Granulocyte # (Auto) 0.1, Sodium Level 139, Potassium Level 3.9, Chloride Level 95L, Carbon Dioxide Level 34H, Anion Gap 10, Blood Urea Nitrogen 37H, Creatinine 0.91, Estimat Glomerular Filtration Rate 67, BUN/Creatinine Ratio 41, Glucose Level 89, Calcium Level 8.8, Corrected Calcium 9.3, Magnesium Level 2.3, Total Bilirubin 0.7, Aspartate Amino Transf (AST/SGOT) 18, Alanine Aminotransferase (ALT/SGPT) 15, Alkaline Phosphatase 73, Total Protein 5.8L, Albumin 3.4 01/05/23 05:38: Glucometer 94 Microbiology 01/01/23 MRSA Screen - Final, Complete MRSA not isolated 12/25/22 Blood Culture - Final, Complete A/P: Assessment: Ac exacerbation of COPD due to pneumonia Chronic HFrEF (due to ischemic cm) Intolerance to spironolactone and CLARISA-I/ARB due to hyperkalemia CAD and ischemic cardiomyopathy and chronic, stable angina - reports h/o stent placement in 2000 - has refused stress test (exercise or pharmacologic due to previous h/o intolerance to such studies) - Echocardiogram of 04-13-22 showed LVEF 35-40%. Hypokinesis of the apical and inferolateral myocardium. Grade 1 diastolic dysfunction. PASP 30-35 mmHg GERD/PUD - EGD on 12/20/22: severe gastritis, hiatal hernia, Padilla's esophagus PAD and h/o AAA repair by Dr Hebert at [facility] - followed by vasc surg svce at [place], [place] CKD 3 Anemia, severe - management by Dr Chacon HTN HLD - had been on statin, but quit recently w/o any specific reason H/o lung cancer - treated with radiation therapy by Dr Pandya at 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 May need further evaluation with radiologic studies (but hasn't agreed) Anemia - management per medical services Plan: S/P port placement on 01-03-23 Management of anemia per medical services Management of pneumonia per Medical services Continue cardiac regimen Give diuretics as indicated Monitor lab closely CESARIO ALANIS Jan 04, 2023 11:24
[2023-01-04 11:38] VITALS: BP 152/82
[2023-01-04] MEDS ORDERED: IOHEXOL 350 MG/ML 100 ML (OMNIPAQUE 350) VIAL IV ONE (11:45)
[2023-01-04] MEDS ORDERED: NS 100 ML (IVPB) BAG IV ONE (11:45)
[2023-01-04] MEDS ORDERED: HOLD METFORMIN - RECEIVED CONTRAST 20 ML VIAL IV SCH (11:45)
--- NOTE | 2023-01-04 12:17 | Anesthesia-General Post-Op ---
MAC Patient Condition Mental Status/LOC: Same as Preop Cardiovascular: Satisfactory Nausea/Vomiting: Absent Respiratory: Satisfactory Pain: Controlled Complications: Absent Post Op Complications Complications None Follow Up Care/Instructions Patient Instructions None needed. Anesthesiology Discharge Order Discharge Order Patient is doing well, no complaints, stable vital signs, no apparent adverse anesthesia problems. No complications reported per nursing. MARK ANTHONY RODRIGUEZ CRNA Jan 04, 2023 12:17
--- NOTE | 2023-01-04 14:43 | Progress Note ---
Subjective Subjective/Events-last exam Patient states she is feeling about the same as yesterday. Is sore from port placement. Objective Exam Last Set of Vital Signs Vital Signs Date Time Temp Pulse Resp B/P (MAP) Pulse Ox O2 Delivery O2 Flow Rate FiO2 01/04/23 11:38 36.5 77 22 152/82 (105) 100 High Flow N/C 7.00 Capillary Refill : Less Than 3 Seconds I&O Intake and Output 01/04/23 00:00 Intake Total 1300 ml Output Total 1300 ml Balance 0 ml Intake Oral 300 ml IV Total 1000 ml Output Urine Total 1300 ml # Voids 7 # Bowel Movements 4 General: Alert, No Acute Distress Lungs: Normal Air Movement, Other (needing breaks every once in a while in speech to catch breath) Heart: Regular Rate Neuro: Normal Speech Psych/Mental Status: Mood NL Results/Procedures Lab Laboratory Tests 01/03/23 15:25: Glucometer 103 01/03/23 21:15: Glucometer 155H 01/04/23 05:13: Glucometer 86 01/04/23 05:14: White Blood Count 12.0H, Red Blood Count 3.23L, Hemoglobin 8.1L, Hematocrit 27L, Mean Corpuscular Volume 84, Mean Corpuscular Hemoglobin 25, Mean Corpuscular Hemoglobin Concent 30L, Red Cell Distribution Width 18.0H, Platelet Count 220, Mean Platelet Volume 10.2, Immature Granulocyte % (Auto) 1, Neutrophils (%) (Auto) 84H, Lymphocytes (%) (Auto) 4L, Monocytes (%) (Auto) 11, Eosinophils (%) (Auto) 0, Basophils (%) (Auto) 0, Neutrophils # (Auto) 10.0H, Lymphocytes # (Auto) 0.5L, Monocytes # (Auto) 1.3H, Eosinophils # (Auto) 0.0, Basophils # (Auto) 0.0, Immature Granulocyte # (Auto) 0.1, Sodium Level 139, Potassium Level 4.3, Chloride Level 98, Carbon Dioxide Level 32, Anion Gap 9, Blood Urea Nitr ogen 44H, Creatinine 1.17, Estimat Glomerular Filtration Rate 50, BUN/Creatinine Ratio 38, Glucose Level 86, Calcium Level 8.6, Corrected Calcium 9.2, Magnesium Level 2.4, Total Bilirubin 0.7, Aspartate Amino Transf (AST/SGOT) 15, Alanine Aminotransferase (ALT/SGPT) 15, Alkaline Phosphatase 67, Total Protein 5.5L, Albumin 3.2 01/04/23 08:21: D-Dimer 7.18H 01/04/23 11:38: Glucometer 124H 01/04/23 14:17: Lab Scanned Report Transfusion Reaction Form Microbiology 01/01/23 MRSA Screen - Final, Complete MRSA not isolated 12/25/22 Blood Culture - Final, Complete Radiology NAME: MARLA CRAMER [facility] REC#: [id number] PT STATUS: REG ER : 1950 PHYSICIAN: NYA BARDALES MD ADMIT DATE: 12/25/22/ER FS Signed Date of Exam:12/25/22 CHEST 1 VIEW AP/PA ONLY EXAMINATION: Chest 1 view HISTORY: Short of breath COMPARISON: 12/16/2022 FINDINGS: There is moderate left effusion with mild edema. There is an opacity in the left upper zone. Heart size is normal. IMPRESSION: 1. Moderate left effusion and mild edema with increasing opacities in the left upper zone concerning for worsening pneumonia. Dictated by: Dictated on workstation # [id number] Dict: 12/25/221919 Trans: 12/25/221954 [facility] [id number] Interpreted by: TERESE SMITH MD Electronically signed by: TERESE SMITH MD 12/25/221954 Assessment/Plan Assessment/Plan (1) Pneumonia Status: Acute Assessment & Plan: Treated with cefepime from 12/25 to 12/30. CXR done to follow up on port shows persistent unchanged, will check CT. (2) Acute and chronic respiratory failure Status: Acute Assessment & Plan: Previously on 4 lpm supplemental oxygen at home, now requiring 7 lpm. Suspect secondary to acute COPD exacerbation with pneumonia. (3) History of lung cancer Status: Chronic Assessment & Plan: Check CT chest, note that she had abnormal V/Q scan 11/25, she does not recall being told this result. Her d-dimer remains elevated, of note was high even in September when she had negative CTA chest. Given her worsened hypoxia and abnormal V/Q, will obtain CTA. (4) COPD with exacerbation Status: Acute Assessment & Plan: Dexamethasone decreased to 2 mg daily 01/02/23. Continue Duonebs, tiotropium and fluticasone/vilanterol. (5) CKD (chronic kidney disease) Status: Chronic Assessment & Plan: Stable. (6) Hypertension Status: Chronic Qualifiers: Qualified Codes: I10 - Essential (primary) hypertension (7) Hyperlipidemia Status: Chronic (8) Coronary artery disease Status: Chronic (9) Ischemic cardiomyopathy Status: Chronic (10) Chronic HFrEF (heart failure with reduced ejection fraction) Status: Chronic Assessment & Plan: Possible acute on chronic component on admit, BNP was elevated on 12/26. Appreciate Cardiology recommendations. Received 40 mg IV lasix on 12/25, 12/26 and 12/29, started daily PO 12/30. Continue lasix 40 mg PO daily and empagliflozin and metoprolol. (11) COPD (chronic obstructive pulmonary disease) Status: Chronic (12) DVT prophylaxis Status: Acute Assessment & Plan: Patient declining enoxaparin DUANE GIPSON MD Jan 04, 2023 14:43
--- NOTE | 2023-01-04 15:22 | Diagnostic Imaging Report ---
INDICATION: Elevated d-dimer and persistent cough, new Port-A-Cath placement. TECHNIQUE: CTA chest was obtained with IV contrast bolus in axial slices and 3D MIP reconstructions. Dose reduction protocol was used. COMPARISON: 06/01/2022. FINDINGS: There is a new Port-A-Cath over the left chest wall with its catheter tip in the upper SVC. The pulmonary parenchymal vessels appear well opacified with no CT evidence of pulmonary emboli. The thoracic aorta shows no evidence of aneurysm or dissection. There are no enlarged mediastinal or hilar nodes. There are no enlarged axillary nodes. There are small to moderate bilateral pleural effusions. There is no significant pericardial fluid. The visualized portions through the upper abdomen show multiple hyperdense cysts in the left kidney as well as a prominent hypodense cyst inferiorly. These findings appeared similar on the previous study. There is an aortic endograft in the infrarenal aorta. Lung windows demonstrate diffuse emphysematous changes and chronic interstitial changes. There is a parenchymal density in the left upper lobe, indeterminate between infiltrate and mass. This density measures about 4.4 cm. There is some dependent atelectatic change in the lung bases. IMPRESSION: No CT evidence of pulmonary emboli or acute aortic pathology. New Port-A-Cath over the left chest wall. There are diffuse emphysematous changes and chronic interstitial changes. There is a prominent density in the left upper lobe which is indeterminate between infiltrate and mass although infiltrate is favored. Would recommend short-term followup to assure resolution. There are small to moderate bilateral pleural effusions. Multiple left renal cysts are partially visualized, as above. Dictated by: Dictated on workstation # [id number]
[2023-01-04 16:23] VITALS: BP 155/78
--- NOTE | 2023-01-04 18:02 | Progress Note - Cardiology ---
Cardiology SOAP Progress Note Subjective: No cp or palp or syncope Activity causes shortness of breath No n/v/d No focal weakness Objective: I&O/Vital Signs 01/04/23 01/04/23 01/04/23 01/04/23 07:22 07:26 08:00 11:16 Temp 36.5 Pulse 85 Resp 22 B/P (MAP) 154/88 (110) Pulse Ox 100 100 91 100 O2 Delivery High Flow N/C High Flow N/C High Flow N/C O2 Flow Rate 7.00 7.00 2.00 7.00 01/04/23 01/04/23 01/04/23 11:38 15:19 16:23 Temp 36.5 36.4 Pulse 77 80 Resp 22 16 B/P (MAP) 152/82 (105) 155/78 (103) Pulse Ox 100 100 100 O2 Delivery High Flow N/C High Flow N/C High Flow N/C O2 Flow Rate 7.00 7.00 7.00 01/04/23 00:00 Intake Total 1200 ml Output Total 1300 ml Balance -100 ml Constitutional: AAO x 3, well-developed, well-nourished Respiratory: No accessory muscle use, No respiratory distress; chest expansion is symmetric, chest is bilaterally symmetric, rhonchi (scattered with coarse breath sounds throughout) Cardiovascular: regular rate-rhythm; No JVD; S1 and S2 Gastrointestional: No tender; soft; No guarding; audible bowel sounds Extremities: no lower extremity edema bilateral Neurologic/Psychiatric: other (moves all extremities) Skin: ecchymosis (LACW ); No rash on exposed areas, No ulcerations on exposed areas Results/Procedures: Labs Laboratory Tests 01/03/23 21:15: Glucometer 155H 01/04/23 05:13: Glucometer 86 01/04/23 05:14: White Blood Count 12.0H, Red Blood Count 3.23L, Hemoglobin 8.1L, Hematocrit 27L, Mean Corpuscular Volume 84, Mean Corpuscular Hemoglobin 25, Mean Corpuscular Hemoglobin Concent 30L, Red Cell Distribution Width 18.0H, Platelet Count 220, Mean Platelet Volume 10.2, Immature Granulocyte % (Auto) 1, Neutrophils (%) (Auto) 84H, Lymphocytes (%) (Auto) 4L, Monocytes (%) (Auto) 11, Eosinophils (%) (Auto) 0, Basophils (%) (Auto) 0, Neutrophils # (Auto) 10.0H, Lymphocytes # (Auto) 0.5L, Monocytes # (Auto) 1.3H, Eosinophils # (Auto) 0.0, Basophils # (Auto) 0.0, Immature Granulocyte # (Auto) 0.1, Sodium Level 139, Potassium Level 4.3, Chloride Level 98, Carbon Dioxide Level 32, Anion Gap 9, Blood Urea Nitrogen 44H, Creatinine 1.17, Estimat Glomerular Filtration Rate 50, BUN/Creatinine Ratio 38, Glucose Level 86, Calcium Level 8.6, Corrected Calcium 9.2, Magnesium Level 2.4, Total Bilirubin 0.7, Aspartate Amino Transf (AST/SGOT) 15, Alanine Aminotransferase (ALT/SGPT) 15, Alkaline Phosphatase 67, Total Protein 5.5L, Albumin 3.2 01/04/23 08:21: D-Dimer 7.18H 01/04/23 11:38: Glucometer 124H 01/04/23 14:17: Lab Scanned Report Transfusion Reaction Form 01/04/23 16:13: Glucometer 136H Microbiology 01/01/23 MRSA Screen - Final, Complete MRSA not isolated 12/25/22 Blood Culture - Final, Complete Laboratory Tests 01/03/23 05:42 01/04/23 05:14 A/P: Assessment: Ac exacerbation of COPD due to pneumonia Chronic HFrEF (due to ischemic cm) Intolerance to spironolactone and CLARISA-I/ARB due to hyperkalemia CAD and ischemic cardiomyopathy and chronic, stable angina - reports h/o stent placement in 2000 - has refused stress test (exercise or pharmacologic due to previous h/o intolerance to such studies) - Echocardiogram of 04-13-22 showed LVEF 35-40%. Hypokinesis of the apical and in ferolateral myocardium. Grade 1 diastolic dysfunction. 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 May need further evaluation with radiologic studies (but hasn't agreed) Anemia - management per medical services Plan: S/P port placement on 01-03-23 Management of anemia per medical services Management of pneumonia per Medical services Continue cardiac regimen Give diuretics as indicated Monitor lab closely LÁZARO MARQUIS MD FACP [facility] CCDS Jan 04, 2023 18:02
[2023-01-04 20:09] VITALS: BP 142/77
[2023-01-04] MEDS: ASPIRIN enteric coated 81MG TABLET PO SCH (20:26)
[2023-01-04 23:17] VITALS: BP 153/70
[2023-01-05] MEDS: RT-Ipratropium/Albuterol NEB 3 ML VIAL INH SCH ×5 (02:30→23:40)
[2023-01-05 04:24] VITALS: BP 155/82
[2023-01-05] MEDS: SUCRALFATE 1 GM TABLET PO SCH ×4 (04:49→20:27)
[2023-01-05 05:43] LABS: BASOPHILS % (AUTO) 0 % (0-10); EOSINOPHILS % (AUTO) 0 % (0-10); HEMATOCRIT 29 % (35-52); HEMOGLOBIN 8.5 g/dL (11.5-16.0); LYMPHOCYTES # (AUTO) 0.5 10^3/uL (1.0-4.0); LYMPHOCYTES % (AUTO) 5 % (12-44); MEAN CORPUSCULAR HEMOGLOBIN 25 pg (25-34); MEAN CORPUSCULAR HGB CONC 30 g/dL (32-36); MEAN CORPUSCULAR VOLUME 84 fL (80-99); MEAN PLATELET VOLUME 10.5 fL (9.0-12.2); MONOCYTES # (AUTO) 1.1 10^3/uL (0.0-1.0); MONOCYTES % (AUTO) 10 % (0-12); NEUTROPHILS # (AUTO) 9.1 10^3/uL (1.8-7.8); NEUTROPHILS % (AUTO) 84 % (42-75); PLATELET COUNT 216 10^3/uL (130-400); WHITE BLOOD COUNT 10.8 10^3/uL (4.3-11.0)
[2023-01-05] MEDS: inSUlin ASPART 1 UNIT/0.01 ML (PER UNIT) SC SCH ×4 (05:44→20:27)
[2023-01-05 05:56] LABS: ALBUMIN 3.4 GM/DL (3.2-4.5)
[2023-01-05 05:57] LABS: POTASSIUM 3.9 MMOL/L (3.6-5.0)
[2023-01-05 05:58] LABS: CALCIUM 8.8 MG/DL (8.5-10.1)
[2023-01-05 05:59] LABS: TOTAL PROTEIN 5.8 GM/DL (6.4-8.2)
[2023-01-05 06:01] LABS: BILIRUBIN,TOTAL 0.7 MG/DL (0.1-1.0)
[2023-01-05 06:02] LABS: CREATININE SERUM 0.91 MG/DL (0.60-1.30)
[2023-01-05 06:05] LABS: MAGNESIUM 2.3 MG/DL (1.6-2.4)
[2023-01-05] MEDS ORDERED: POTASSIUM CHLORIDE 20 MEQ TABLET PO ONE (06:30)
[2023-01-05] MEDS: FLUTICASONE/VILANTEROL 200/25 MCG (7 DOSES) IH SCH (06:38)
[2023-01-05] MEDS: POTASSIUM CHLORIDE 20 MEQ TABLET PO SCH (06:38)
[2023-01-05] MEDS: POTASSIUM CL 10MEQ/50ML IVPB 50 ML IV SCH (06:38)
[2023-01-05] MEDS: MAGNESIUM 1 GM/100 ML IVPB 100 ML IV SCH (06:38)
[2023-01-05] MEDS: TIOTROPIUM INH 4 GM (SPIRIVA Respimat) IH SCH (06:38)
[2023-01-05] MEDS: HYDROcodone/ACETAMINOPHEN 5 MG/325 MG TABLET PO PRN ×2 (08:27→23:35)
[2023-01-05] MEDS: EMPAGLIFLOZIN 10 MG TABLET PO SCH (08:27)
[2023-01-05] MEDS: dexAMETHasone INJ 4 MG/ML SDV IV SCH (08:27)
[2023-01-05] MEDS: FAMOTIDINE 20 MG TABLET PO SCH (08:28)
[2023-01-05] MEDS: FUROSEMIDE 40 MG TABLET PO SCH (08:28)
[2023-01-05] MEDS: ALPRAZolam 0.5 MG TABLET PO PRN ×2 (08:33→22:29)
[2023-01-05 08:38] VITALS: BP_SYST 158; BP_SYST 165; BP_DIAS 87; BP_DIAS 88
--- NOTE | 2023-01-05 09:35 | Progress Note - Cardiology ---
Cardiology SOAP Progress Note Objective: I&O/Vital Signs 01/05/23 01/05/23 01/06/23 01/06/23 23:40 23:44 03:15 06:47 Temp 36.5 36.1 Pulse 84 55 Resp 18 16 B/P (MAP) 163/91 (115) 131/69 (89) Pulse Ox 98 98 98 96 O2 Delivery High Flow N/C High Flow N/C High Flow N/C High Flow N/C O2 Flow Rate 7.00 7.00 7.00 6.00 7.00 7.00 01/06/23 08:08 Temp 36.7 Pulse 89 Resp 16 B/P (MAP) 169/86 (113) Pulse Ox 94 O2 Delivery High Flow N/C O2 Flow Rate 7.00 01/06/23 00:00 Intake Total 1840 ml Balance 1840 ml Constitutional: AAO x 3, well-developed, well-nourished Respiratory: No accessory muscle use, No respiratory distress; chest expansion is symmetric, chest is bilaterally symmetric, rhonchi (scattered with coarse breath sounds throughout) Cardiovascular: regular rate-rhythm; No JVD; S1 and S2 Gastrointestional: No tender; soft; No guarding; audible bowel sounds Extremities: no lower extremity edema bilateral Neurologic/Psychiatric: other (moves all extremities) Skin: ecchymosis (LACW ); No rash on exposed areas, No ulcerations on exposed areas Results/Procedures: Labs Laboratory Tests 01/05/23 11:16: Glucometer 298H 01/05/23 16:31: Glucometer 110 01/05/23 20:12: Glucometer 175H 01/06/23 04:53: Glucometer 103 01/06/23 06:18: Sodium Level 135, Potassium Level 3.5L, Chloride Level 93L, Carbon Dioxide Level 31, Anion Gap 11, Blood Urea Nitrogen 30H, Creatinine 0.83, Estimat Glomerular Filtration Rate 75, BUN/Creatinine Ratio 36, Glucose Level 93, Calcium Level 8.5, Magnesium Level 2.2 Microbiology 01/01/23 MRSA Screen - Final, Complete MRSA not isolated 12/25/22 Blood Culture - Final, Complete Procedures NAME: MARLA CRAMER [facility] REC#: [id number] PT STATUS: ADM IN : 1950 PHYSICIAN: DUANE GIPSON MD ADMIT DATE: 12/25/22 Signed Date of Exam:01/04/23 CT ANGIO CHEST W (R/O PE) INDICATION: Elevated d-dimer and persistent cough, new Port-A-Cath placement. TECHNIQUE: CTA chest was obtained with IV contrast bolus in axial slices and 3D MIP reconstructions. Dose reduction protocol was used. COMPARISON: 06/01/2022. FINDINGS: There is a new Port-A-Cath over the left chest wall with its catheter tip in the upper SVC. The pulmonary parenchymal vessels appear well opacified with no CT evidence of pulmonary emboli. The thoracic aorta shows no evidence of aneurysm or dissection. There are no enlarged mediastinal or hilar nodes. There are no enlarged axillary nodes. There are small to moderate bilateral pleural effusions. There is no significant pericardial fluid. The visualized portions through the upper abdomen show multiple hyperdense cysts in the left kidney as well as a prominent hypodense cyst inferiorly. These findings appeared similar on the previous study. There is an aortic endograft in the infrarenal aorta. Lung windows demonstrate diffuse emphysematous changes and chronic interstitial changes. There is a parenchymal density in the left upper lobe, indeterminate between infiltrate and mass. This density measures about 4.4 cm. There is some dependent atelectatic change in the lung bases. IMPRESSION: No CT evidence of pulmonary emboli or acute aortic pathology. New Port-A-Cath over the left chest wall. There are diffuse emphysematous changes and chronic interstitial changes. There is a prominent density in the left upper lobe which is indeterminate between infiltrate and mass although infiltrate is favored. Would recommend short-term followup to assure resolution. There are small to moderate bilateral pleural effusions. Multiple left renal cysts are partially visualized, as above. Dictated by: Dictated on workstation # [id number] Dict: 01/04/23 1513 Trans: 01/04/23 1544 [id number] Interpreted by: DELLA HOLT MD Electronically signed by: DELLA HOLT MD 01/04/23 1544 A/P: Assessment: Ac exacerbation of COPD due to pneumonia Chronic HFrEF (due to ischemic cm) Intolerance to spironolactone and CLARISA-I/ARB due to hyperkalemia CAD and ischemic cardiomyopathy and chronic, stable angina - reports h/o stent placement in 2000 - has refused stress test (exercise or pharmacologic due to previous h/o intolerance to such studies) - Echocardiogram of 04-13-22 showed LVEF 35-40%. Hypokinesis of the apical and inferolateral myocardium. Grade 1 diastolic dysfunction. 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 May need further evaluation with radiologic studies (but hasn't agreed) Anemia - management per medical services Plan: S/P port placement on 01-03-23 Management of anemia per medical services Management of pneumonia per Medical services BP not well controlled - increase Norvasc Give diuretics as indicated Monitor lab closely CESARIO ALANIS Jan 05, 2023 09:35
--- NOTE | 2023-01-05 10:57 | Progress Note ---
Subjective Subjective/Events-last exam Pt is anxious about her port, wants to start using it and make sure it is okay so she can get her IV out and stop getting labs drawn peripherally. She wants pain medicine to go home with. She doesn't want to go home until her port is cleared. She also is worried about not having enough oxygen to get to her lung specialist in [place], Dr. Jin. [phone]. Objective Exam Last Set of Vital Signs Vital Signs Date Time Temp Pulse Resp B/P (MAP) Pulse Ox O2 Delivery O2 Flow Rate FiO2 01/05/23 10:03 99 High Flow N/C 7.00 01/05/23 08:38 35.9 75 21 158/87 (110) Capillary Refill : Less Than 3 Seconds I&O Intake and Output 01/05/23 00:00 Intake Total 2110 ml Output Total 2200 ml Balance -90 ml Intake Oral 2110 ml Output Urine Total 2200 ml # Voids 1 # Bowel Movements 3 General: Alert, No Acute Distress Lungs: Clear to Auscultation, Normal Air Movement Heart: Regular Rate, No Murmurs Neuro: Normal Speech Psych/Mental Status: Other (irritable) Results/Procedures Lab Laboratory Tests 01/04/23 11:38: Glucometer 124H 01/04/23 14:17: Lab Scanned Report Transfusion Reaction Form 01/04/23 16:13: Glucometer 136H 01/04/23 20:09: Glucometer 127H 01/05/23 05:32: White Blood Count 10.8, Red Blood Count 3.38L, Hemoglobin 8.5L, Hematocrit 29L, Mean Corpuscular Volume 84, Mean Corpuscular Hemoglobin 25, Mean Corpuscular He moglobin Concent 30L, Red Cell Distribution Width 17.9H, Platelet Count 216, Mean Platelet Volume 10.5, Immature Granulocyte % (Auto) 1, Neutrophils (%) (Auto) 84H, Lymphocytes (%) (Auto) 5L, Monocytes (%) (Auto) 10, Eosinophils (%) (Auto) 0, Basophils (%) (Auto) 0, Neutrophils # (Auto) 9.1H, Lymphocytes # (Auto) 0.5L, Monocytes # (Auto) 1.1H, Eosinophils # (Auto) 0.0, Basophils # (Auto) 0.0, Immature Granulocyte # (Auto) 0.1, Sodium Level 139, Potassium Level 3.9, Chloride Level 95L, Carbon Dioxide Level 34H, Anion Gap 10, Blood Urea Nitrogen 37H, Creatinine 0.91, Estimat Glomerular Filtration Rate 67, BUN/Creatinine Ratio 41, Glucose Level 89, Calcium Level 8.8, Corrected Calcium 9.3, Magnesium Level 2.3, Total Bilirubin 0.7, Aspartate Amino Transf (AST/SGOT) 18, Alanine Aminotransferase (ALT/SGPT) 15, Alkaline Phosphatase 73, Total Protein 5.8L, Albumin 3.4 01/05/23 05:38: Glucometer 94 Microbiology 01/01/23 MRSA Screen - Final, Complete MRSA not isolated 12/25/22 Blood Culture - Final, Complete Radiology NAME: MARLA CRAMER [facility] REC#: [id number] PT STATUS: REG ER : 1950 PHYSICIAN: NYA BARDALES MD ADMIT DATE: 12/25/22/ER FS Signed Date of Exam:12/25/22 CHEST 1 VIEW AP/PA ONLY EXAMINATION: Chest 1 view HISTORY: Short of breath COMPARISON: 12/16/2022 FINDINGS: There is moderate left effusion with mild edema. There is an opacity in the left upper zone. Heart size is normal. IMPRESSION: 1. Moderate left effusion and mild edema with increasing opacities in the left upper zone concerning for worsening pneumonia. Dictated by: Dictated on workstation # [id number] Dict: 12/25/221919 Trans: 12/25/221954 CVB [id number] Interpreted by: TERESE SMITH MD Electronically signed by: TERESE SMITH MD 12/25/221954 CTA chest 01/04/23: IMPRESSION: No CT evidence of pulmonary emboli or acute aortic pathology. New Port-A-Cath over the left chest wall. There are diffuse emphysematous changes and chronic interstitial changes. There is a prominent density in the left upper lobe which is indeterminate between infiltrate and mass although infiltrate is favored. Would recommend short-term followup to assure resolution. There are small to moderate bilateral pleural effusions. Multiple left renal cysts are partially visualized, as above. Assessment/Plan Assessment/Plan (1) Pneumonia Status: Acute Assessment & Plan: Reviewed several previous episodes of care and imaging: Outpatient had abnormal V/Q 11/25, had CTA of chest 12/02/2022 at clinic that showed no PE and no masses. -12/14 CXR with left sided infiltrate, admitted from 12/14-12/19 and treated with azithromycin and cefepime, did not continue antibiotics on d/c. -12/25 CXR on this admit with increasing left opacities, treated with cefepime from 12/25 to 12/30. -01/04 CTA with no PE and mass like infiltrate in left upper lung, indeterminate mass versus pneumonia, but pneumonia suspected. Throughout this has had no positive blood cultures and no sputum cultures. She remains afebrile and without leukocytosis, however given the above findings and antibiotic courses, suspect possible she still needs further pneumonia treatment, will start levofloxacin and monitor. (2) Acute and chronic respiratory failure Status: Acute Assessment & Plan: Previously on 4 lpm supplemental oxygen at home, now requiring 7 lpm. Suspect secondary to acute COPD exacerbation with pneumonia. (3) History of lung cancer Status: Chronic Assessment & Plan: Check CT chest, note that she had abnormal V/Q scan 11/25, she does not recall being told this result. Her d-dimer remains elevated, of note was high even in September when she had negative CTA chest. See pneumonia for recent CTA results. (4) COPD with exacerbation Status: Acute Assessment & Plan: Dexamethasone decreased to 2 mg daily 01/02/23. Continue Duonebs, tiotropium and fluticasone/vilanterol. 01/05 d/c steroids (5) CKD (chronic kidney disease) Status: Chronic Assessment & Plan: Stable. (6) Hypertension Status: Chronic Qualifiers: Qualified Codes: I10 - Essential (primary) hypertension (7) Hyperlipidemia Status: Chronic (8) Coronary artery disease Status: Chronic (9) Ischemic cardiomyopathy Status: Chronic (10) Chronic HFrEF (heart failure with reduced ejection fraction) Status: Chronic Assessment & Plan: Possible acute on chronic component on admit, BNP was elevated on 12/26. Appreciate Cardiology recommendations. Received 40 mg IV lasix on 12/25, 12/26 and 12/29, started daily PO 12/30. Continue lasix 40 mg PO daily and empagliflozin and metoprolol. (11) COPD (chronic obstructive pulmonary disease) Status: Chronic (12) DVT prophylaxis Status: Acute Assessment & Plan: Patient declining enoxaparin DUANE GIPSON MD Jan 05, 2023 10:57
[2023-01-05 11:53] VITALS: BP 152/82
--- NOTE | 2023-01-05 13:37 | Progress Note - Cardiology ---
Cardiology SOAP Progress Note Subjective: Gen weakness and malaise Shortness of breath with activity No cp or palp or syncope No n/v/d Objective: I&O/Vital Signs 01/05/23 01/05/23 01/05/23 01/05/23 04:24 06:38 08:00 08:38 Temp 36.0 35.9 Pulse 82 75 Resp 18 21 B/P (MAP) 155/82 (106) 158/87 (110) Pulse Ox 92 100 95 95 O2 Delivery High Flow N/C High Flow N/C High Flow N/C High Flow N/C O2 Flow Rate 7.00 7.00 7.00 7.00 7.00 01/05/23 01/05/23 10:03 11:53 Temp 36.3 Pulse 98 Resp 20 B/P (MAP) 152/82 (105) Pulse Ox 99 97 O2 Delivery High Flow N/C High Flow N/C O2 Flow Rate 7.00 7.00 01/05/23 00:00 Intake Total 1810 ml Output Total 1700 ml Balance 110 ml Constitutional: AAO x 3, well-developed, well-nourished Respiratory: No accessory muscle use, No respiratory distress; chest expansion is symmetric, chest is bilaterally symmetric, rhonchi (scattered with coarse breath sounds throughout) Cardiovascular: regular rate-rhythm; No JVD; S1 and S2 Gastrointestional: No tender; soft; No guarding; audible bowel sounds Extremities: no lower extremity edema bilateral Neurologic/Psychiatric: other (moves all extremities) Skin: ecchymosis (LACW ); No rash on exposed areas, No ulcerations on exposed areas Results/Procedures: Labs Laboratory Tests 01/04/23 14:17: Lab Scanned Report Transfusion Reaction Form 01/04/23 16:13: Glucometer 136H 01/04/23 20:09: Glucometer 127H 01/05/23 05:32: White Blood Count 10.8, Red Blood Count 3.38L, Hemoglobin 8.5L, Hematocrit 29L, Mean Corpuscular Volume 84, Mean Corpuscular Hemoglobin 25, Mean Corpuscular Hemoglobin Concent 30L, Red Cell Distribution Width 17.9H, Platelet Count 216, Mean Platelet Volume 10.5, Immature Granulocyte % (Auto) 1, Neutrophils (%) (Auto) 84H, Lymphocytes (%) (Auto) 5L, Monocytes (%) (Auto) 10, Eosinophils (%) (Auto) 0, Basophils (%) (Auto) 0, Neutrophils # (Auto) 9.1H, Lymphocytes # (Auto) 0.5L, Monocytes # (Auto) 1.1H, Eosinophils # (Auto) 0.0, Basophils # (Auto) 0.0, Immature Granulocyte # (Auto) 0.1, Sodium Level 139, Potassium Level 3.9, Chloride Level 95L, Carbon Dioxide Level 34H, Anion Gap 10, Blood Urea Nitrogen 37H, Creatinine 0.91, Estimat Glomerular Filtration Rate 67, B UN/Creatinine Ratio 41, Glucose Level 89, Calcium Level 8.8, Corrected Calcium 9.3, Magnesium Level 2.3, Total Bilirubin 0.7, Aspartate Amino Transf (AST/SGOT) 18, Alanine Aminotransferase (ALT/SGPT) 15, Alkaline Phosphatase 73, Total Protein 5.8L, Albumin 3.4 01/05/23 05:38: Glucometer 94 01/05/23 11:16: Glucometer 298H Microbiology 01/01/23 MRSA Screen - Final, Complete MRSA not isolated 12/25/22 Blood Culture - Final, Complete Laboratory Tests 01/04/23 05:14 01/05/23 05:32 A/P: Assessment: Ac exacerbation of COPD due to pneumonia Chronic HFrEF (due to ischemic cm) Intolerance to spironolactone and CLARISA-I/ARB due to hyperkalemia CAD and ischemic cardiomyopathy and chronic, stable angina - reports h/o stent placement in 2000 - has refused stress test (exercise or pharmacologic due to previous h/o intol erance to such studies) - Echocardiogram of 04-13-22 showed LVEF 35-40%. Hypokinesis of the apical and inferolateral myocardium. Grade 1 diastolic dysfunction. PASP 30-35 mmHg GERD/PUD - EGD on 12/20/22: severe gastritis, hiatal hernia, Padilla's esophagus PAD and h/o AAA repair by Dr Hebert at [facility] - followed by vasc surg svce at 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 May need further evaluation with radiologic studies (but hasn't agreed) Anemia - management per medical services Plan: S/P port placement on 01-03-23 Management of anemia per medical services Management of pneumonia per Medical services BP not well controlled - increase Norvasc Give diuretics as indicated Monitor lab closely D/c tele LÁZARO MARQUIS MD FACP FAC CCDS Jan 05, 2023 13:37
[2023-01-05] MEDS ORDERED: LevoFLOXacin 750 MG TABLET PO SCH (14:45)
[2023-01-05 16:00] VITALS: BP 139/74
[2023-01-05 20:09] VITALS: BP 145/74
[2023-01-05] MEDS: ASPIRIN enteric coated 81MG TABLET PO SCH (20:27)
[2023-01-05 23:44] VITALS: BP 163/91
[2023-01-06] MEDS: RT-Ipratropium/Albuterol NEB 3 ML VIAL INH SCH ×4 (01:38→14:29)
[2023-01-06 03:15] VITALS: BP 131/69
[2023-01-06] MEDS: inSUlin ASPART 1 UNIT/0.01 ML (PER UNIT) SC SCH ×3 (05:52→16:55)
[2023-01-06] MEDS: SUCRALFATE 1 GM TABLET PO SCH ×3 (05:52→16:08)
[2023-01-06 06:38] LABS: POTASSIUM 3.5 MMOL/L (3.6-5.0)
[2023-01-06 06:39] LABS: CALCIUM 8.5 MG/DL (8.5-10.1)
[2023-01-06] MEDS: POTASSIUM CL 10MEQ/50ML IVPB 50 ML IV SCH (06:39)
[2023-01-06] MEDS: POTASSIUM CHLORIDE 20 MEQ TABLET PO SCH (06:39)
[2023-01-06 06:43] LABS: CREATININE SERUM 0.83 MG/DL (0.60-1.30)
[2023-01-06 06:46] LABS: MAGNESIUM 2.2 MG/DL (1.6-2.4)
[2023-01-06] MEDS: MAGNESIUM 1 GM/100 ML IVPB 100 ML IV SCH (06:46)
[2023-01-06] MEDS: FLUTICASONE/VILANTEROL 200/25 MCG (7 DOSES) IH SCH (06:47)
[2023-01-06] MEDS: TIOTROPIUM INH 4 GM (SPIRIVA Respimat) IH SCH (06:47)
[2023-01-06 08:08] VITALS: BP 169/86
[2023-01-06] MEDS ORDERED: amLODIPine 5 MG TABLET PO SCH (09:00)
[2023-01-06] MEDS ORDERED: POTASSIUM CHLORIDE 20 MEQ TABLET PO ONE (09:00)
[2023-01-06] MEDS: FUROSEMIDE 40 MG TABLET PO SCH (09:11)
[2023-01-06] MEDS: EMPAGLIFLOZIN 10 MG TABLET PO SCH (09:11)
[2023-01-06] MEDS: HYDROcodone/ACETAMINOPHEN 5 MG/325 MG TABLET PO PRN (09:11)
[2023-01-06] MEDS: FAMOTIDINE 20 MG TABLET PO SCH (09:11)
[2023-01-06] MEDS: POTASSIUM CHLORIDE 20 MEQ TABLET PO ONE ×2 (09:12→09:27)
--- NOTE | 2023-01-06 09:45 | Progress Note - Cardiology ---
Cardiology SOAP Progress Note Subjective: Sitting up in bed States she is going home SOB unchanged Reports gen discomfort Objective: I&O/Vital Signs 01/05/23 01/05/23 01/06/23 01/06/23 23:40 23:44 03:15 06:47 Temp 36.5 36.1 Pulse 84 55 Resp 18 16 B/P (MAP) 163/91 (115) 131/69 (89) Pulse Ox 98 98 98 96 O2 Delivery High Flow N/C High Flow N/C High Flow N/C High Flow N/C O2 Flow Rate 7.00 7.00 7.00 6.00 7.00 7.00 01/06/23 08:08 Temp 36.7 Pulse 89 Resp 16 B/P (MAP) 169/86 (113) Pulse Ox 94 O2 Delivery High Flow N/C O2 Flow Rate 7.00 01/06/23 00:00 Intake Total 1840 ml Balance 1840 ml Constitutional: AAO x 3, well-developed, well-nourished Respiratory: No accessory muscle use, No respiratory distress; chest expansion is symmetric, chest is bilaterally symmetric, rhonchi (scattered with coarse breath sounds throughout) Cardiovascular: regular rate-rhythm; No JVD; S1 and S2 Gastrointestional: No tender; soft; No guarding; audible bowel sounds Extremities: no lower extremity edema bilateral Neurologic/Psychiatric: other (moves all extremities) Skin: ecchymosis (LACW ); No rash on exposed areas, No ulcerations on exposed areas Results/Procedures: Labs Laboratory Tests 01/05/23 11:16: Glucometer 298H 01/05/23 16:31: Glucometer 110 01/05/23 20:12: Glucometer 175H 01/06/23 04:53: Glucometer 103 01/06/23 06:18: Sodium Level 135, Potassium Level 3.5L, Chloride Level 93L, Carbon Dioxide Level 31, Anion Gap 11, Blood Urea Nitrogen 30H, Creatinine 0.83, Estimat Glomerular Filtration Rate 75, BUN/Creatinine Ratio 36, Glucose Level 93, Calcium Level 8.5, Magnesium Level 2.2 Microbiology 01/01/23 MRSA Screen - Final, Complete MRSA not isolated 12/25/22 Blood Culture - Final, Complete A/P: Assessment: Ac exacerbation of COPD due to pneumonia Chronic HFrEF (due to ischemic cm) Intolerance to spironolactone and CLARISA-I/ARB due to hyperkalemia CAD and ischemic cardiomyopathy and chronic, stable angina - reports h/o stent placement in 2000 - has refused stress test (exercise or pharmacologic due to previous h/o intole timothy to such studies) - Echocardiogram of 04-13-22 showed LVEF 35-40%. Hypokinesis of the apical and inferolateral myocardium. Grade 1 diastolic dysfunction. 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 May need further evaluation with radiologic studies (but hasn't agreed) Anemia - management per medical services Plan: S/P port placement on 01-03-23 Management of anemia per medical services Management of pneumonia per Medical services BP not well controlled - BB Give diuretics as indicated Monitor lab closely D/c CESARIO Molina Jan 06, 2023 09:45
[2023-01-06] MEDS ORDERED: AMLO-250 PO (09:46)
[2023-01-06] MEDS ORDERED: METO50TA7 PO (09:46)
[2023-01-06] MEDS: ALPRAZolam 0.5 MG TABLET PO PRN (10:30)
[2023-01-06 11:24] VITALS: BP 146/76
[2023-01-06] MEDS ORDERED: FURO40TA4 PO (13:06)
[2023-01-06] MEDS ORDERED: ACHD5005 PO (13:06)
[2023-01-06] MEDS ORDERED: LEVO750T PO (13:06)
--- NOTE | 2023-01-06 13:11 | Discharge Summary ---
Discharge Summary Hospital Course Problems/Diagnosis: (1) Pneumonia Status: Acute Assessment & Plan: Reviewed several previous episodes of care and imaging: Outpatient had abnormal V/Q 11/25, had CTA of chest 12/02/2022 at clinic that showed no PE and no masses. -12/14 CXR with left sided infiltrate, admitted from 12/14-12/19 and treated with azithromycin and cefepime, did not continue antibiotics on d/c. -12/25 CXR on this admit with increasing left opacities, treated with cefepime from 12/25 to 12/30. -01/04 CTA with no PE and mass like infiltrate in left upper lung, indeterminate mass versus pneumonia, but pneumonia suspected. Throughout this has had no positive blood cultures and no sputum cultures. She remains afebrile and without leukocytosis, however given the above findings and antibiotic courses, suspect possible she still needs further pneumonia treatment, started levofloxacin 01/05 and discharged to complete 14 day course. (2) Acute and chronic respiratory failure Status: Acute Assessment & Plan: Previously on 4 lpm supplemental oxygen at home, now requiring 7 lpm. Suspect secondary to acute COPD exacerbation with pneumonia. Home O2 set up increased to 7-10 liters. (3) History of lung cancer Status: Chronic Assessment & Plan: Check CT chest, note that she had abnormal V/Q scan 11/25, she does not recall being told this result. Her d-dimer remains elevated, of note was high even in September when she had negative CTA chest. See pneumonia for recent CTA results. Unable to clarify lung cancer diagnosis in clinic chart. (4) COPD with exacerbation Status: Resolved Resolution Date/Time: 01/06/23 @ 17:22 Assessment & Plan: Dexamethasone decreased to 2 mg daily 01/02/23. Continue Duonebs, tiotropium and fluticasone/vilanterol. 01/05 d/c steroids (5) CKD (chronic kidney disease) Status: Chronic Assessment & Plan: Stable. (6) Hypertension Status: Chronic Assessment & Plan: Metoprolol and amlodipine increased during hospitalization and new scripts sent on d/c. Qualifiers: Qualified Codes: I10 - Essential (primary) hypertension (7) Hyperlipidemia Status: Chronic (8) Coronary artery disease Status: Chronic (9) Ischemic cardiomyopathy Status: Chronic (10) Chronic HFrEF (heart failure with reduced ejection fraction) Status: Chronic Assessment & Plan: Possible acute on chronic component on admit, BNP was elevated on 12/26. Appreciate Cardiology recommendations. Received 40 mg IV lasix on 12/25, 12/26 and 12/29, started daily PO 12/30. Continue lasix 40 mg PO daily and empagliflozin and metoprolol. (11) COPD (chronic obstructive pulmonary disease) Status: Chronic Qualifiers: Qualified Codes: J44.9 - Chronic obstructive pulmonary disease, unspecified (12) Port-A-Cath in place Assessment & Plan: Placed this admit due to poor access and recurrent admissions, able to flush and initially draw, unable to draw on day of d/c, but swollen. Recommend rest and non-access for a week and follow up. Hospital Course Date of Admission: Dec 25, 2022 at 22:50 Admission Diagnosis : Family Physician/Provider: Salomon Romero MD Date of Discharge: 01/06/23 Discharge Diagnosis: See problem list Hospital Course: See problem list Labs and Pending Lab Test: Laboratory Tests 01/05/23 16:31: Glucometer 110 01/05/23 20:12: Glucometer 175H 01/06/23 04:53: Glucometer 103 01/06/23 06:18: Sodium Level 135, Potassium Level 3.5L, Chloride Level 93L, Carbon Dioxide Level 31, Anion Gap 11, Blood Urea Nitrogen 30H, Creatinine 0.83, Estimat Glomerular Filtration Rate 75, BUN/Creatinine Ratio 36, Glucose Level 93, Calcium Level 8.5, Magnesium Level 2.2 01/06/23 11:14: Glucometer 84 Microbiology 01/01/23 MRSA Screen - Final, Complete MRSA not isolated 12/25/22 Blood Culture - Final, Complete Home Meds Active Furosemide 40 Mg Tablet 40 Mg PO DAILY Levofloxacin 750 Mg Tablet 750 Mg PO Q48H@1100 Amlodipine Besylate 5 Mg Tablet 5 Mg PO DAILY Metoprolol Succinate 50 Mg Tab.er.24h 50 Mg PO DAILY Sucralfate 1 Gram Tablet 1 Gm PO ACHS Atorvastatin Calcium 20 Mg Tablet 20 Mg PO HS Ventolin Hfa (Albuterol Sulfate) 1 Puff Puff 2 Puff INH Q6H PRN Symbicort 160-4.5 Mcg Inhaler (Budesonide/Formoterol Fumarate) 160 Mcg-4.5 Mcg/Actuation Hfa.aer.ad 1 Puff PO BID LAST FILLED 04-01-2022 #1/30 DAY SUPPLY Jardiance (Empagliflozin) 10 Mg Tablet 10 Mg PO DAILY Reported Spiriva (Tiotropium [place]) 18 Mcg Aerp 1 Puff INH DAILY Prednisone 10 Mg Tab 10 Mg PO DAILY Famotidine 20 Mg Tablet 20 Mg PO BID Nitroglycerin 0.4 Mg Tab.subl 0.4 Mg SL UD PRN Tylenol Extra Strength (Acetaminophen) 500 Mg Tablet 1,000 Mg PO Q6H PRN Iprat-Albut 0.5-3(2.5) mg/3 ml (Ipratropium/Albuterol Sulfate) 0.5 Mg-3 Mg (2.5 Mg Base)/3 Ml Ampul.neb 3 Ml NEB Q6H PRN Aspirin EC (Aspirin) 81 Mg Tablet.dr 81 Mg PO HS Metoprolol Succinate 25 Mg Tab.er.24h 25 Mg PO DAILY Amlodipine Besylate 2.5 Mg Tablet 2.5 Mg PO DAILY Alprazolam 0.5 Mg Tablet 0.5 Mg PO TID PRN Assessment/Pt DC Instructions Follow up with primary within a week of discharge. Discharge Diet: Cardiac Diet Activity as Tolerated: Yes Discharge Physical Examination Allergies: Coded Allergies: No Known Drug Allergies (Unverified , 05/23/22) General Appearance: No Apparent Distress, Thin Respiratory: Lungs Clear, Normal Breath Sounds Cardiovascular: Regular Rate, Rhythm, No Murmur Extremity: No Pedal Edema Skin: Other (ecchymosis over most of left upper chest wall) Neurologic/Psychiatric: Alert, Normal Mood/Affect DUANE GIPSON MD Jan 06, 2023 13:11
--- NOTE | 2023-01-06 13:14 | D/C HH Face to Face Order ---
D/C Face to Face Orders Instructions for Patient [facility], Patient Instructions/FollowUp: Follow up with primary doctor within a week of discharge. Physician to follow Patient: [facility] Discharge Diet for Home: Cardiac Diet Patient Data-Allergies,Ht & Wt Patient Allergies: Coded Allergies: No Known Drug Allergies (Unverified , 05/23/22) Home Health Need/Face to Face Date of Face to Face: Jan 06, 2023 Clinical Findings: Generalized weakness and fatigue, Shortness of breath I have seen Pt [id number]: Yes Discharged To: Home Diagnosis/Conditions: COPD exacerbation Pneumonia Patient is Homebound due to: Shortness of breath/distress Homebound Status Due to the above stated illness, injury or surgical procedure (medical condition or diagnosis) and associated clinical findings, the patient is homebound because of his/her inability to leave home except with aid of a supportive device and/or person AND leaving the home requires a considerable and taxing effort or is medically contraindicated. Pt req the following assistanc: Aid of another person Home Health Nursing Orders Home Health Services Order: Nursing Services, Shipping Manager-Evaluate & Treat, Physical Therapy-Evaluate & Treat Home Health Infusion Therapy Line Start Date: Jan 04, 2023 Certify Stmt I certify that this patient is under my care and that I, a nurse practitioner or a physician; a butcher's assistant working with me, had a face to face encounter that - meets the physician face to face encounter requirements with this patient as dated. DUANE GIPSON MD Jan 06, 2023 13:14
--- NOTE | 2023-01-06 15:22 | Progress Note ---
Subjective Date Seen by a Provider: Jan 06, 2023 Time Seen by a Provider: 12:00 Subjective/Events-last exam doing well. wound clean/dry. surrounding edema and eccymosis. no redness, warmth or erythema. catheter functional. Objective Exam Vital Signs Date Time Temp Pulse Resp B/P (MAP) Pulse Ox O2 Delivery O2 Flow Rate FiO2 01/06/23 14:29 99 High Flow N/C 6.00 01/06/23 11:24 36.7 92 16 146/76 (99) 99 High Flow N/C 7.00 01/06/23 11:03 96 High Flow N/C 7.00 01/06/23 08:08 36.7 89 16 169/86 (113) 94 High Flow N/C 7.00 01/06/23 06:47 96 High Flow N/C 6.00 01/06/23 03:15 36.1 55 16 131/69 (89) 98 High Flow N/C 7.00 7.00 01/05/23 23:44 36.5 84 18 163/91 (115) 98 High Flow N/C 7.00 7.00 01/05/23 23:40 98 High Flow N/C 7.00 01/05/23 20:30 High Flow N/C 7.00 01/05/23 20:09 36.2 89 18 145/74 (97) 99 High Flow N/C 6.00 6.00 01/05/23 19:52 94 High Flow N/C 6.00 01/05/23 16:00 37.0 84 21 139/74 (95) 98 High Flow N/C 7.00 I & O 01/06/23 07:00 Intake Total 2440 ml Output Total 550 ml Balance 1890 ml Capillary Refill : Less Than 3 Seconds General Appearance: No Apparent Distress HEENT: PERRL/EOMI Neck: Full Range of Motion Respiratory: Rhonci, Wheezing Cardiovascular: Regular Rate, Rhythm Gastrointestinal: normal bowel sounds, non tender, soft Extremity: Normal Capillary Refill Neurologic/Psychiatric: Alert, Oriented x3 Skin: Normal Color Lymphatic: No Adenopathy Results Lab Laboratory Tests 01/05/23 16:31: Glucometer 110 01/05/23 20:12: Glucometer 175H 01/06/23 04:53: Glucometer 103 01/06/23 06:18: Sodium Level 135, Potassium Level 3.5L, Chloride Level 93L, Carbon Dioxide Level 31, Anion Gap 11, Blood Urea Nitrogen 30H, Creatinine 0.83, Estimat Glomerular Filtration Rate 75, BUN/Creatinine Ratio 36, Glucose Level 93, Calcium Level 8.5, Magnesium Level 2.2 01/06/23 11:14: Glucometer 84 Microbiology 01/01/23 MRSA Screen - Final, Complete MRSA not isolated 12/25/22 Blood Culture - Final, Complete Assessment/Plan Assessment/Plan Assess & Plan/Chief Complaint recurrent exacerbation COPD and pneumonia with poor peripheral venous circulation. wound evaluated. port functional however postitional due to clot burden. no signs of infection. ANNETTE MACHUCA MD Jan 06, 2023 15:22
[2023-01-06 16:31] VITALS: BP 127/61
--- NOTE | 2023-01-06 17:43 | Progress Note - Cardiology ---
Cardiology SOAP Progress Note Subjective: Shortness of breath No cp or palp or syncope No n/v/d No focal weakness Gen malaise Objective: I&O/Vital Signs 01/06/23 01/06/23 01/06/23 01/06/23 06:47 08:00 08:08 11:03 Temp 36.7 Pulse 89 Resp 16 B/P (MAP) 169/86 (113) Pulse Ox 96 94 96 O2 Delivery High Flow N/C High Flow N/C High Flow N/C High Flow N/C O2 Flow Rate 6.00 7.00 7.00 7.00 01/06/23 01/06/23 01/06/23 11:24 14:29 16:31 Temp 36.7 36.5 Pulse 92 88 Resp 16 20 B/P (MAP) 146/76 (99) 127/61 (83) Pulse Ox 99 99 91 O2 Delivery High Flow N/C High Flow N/C Nasal Cannula O2 Flow Rate 7.00 6.00 7.00 01/06/23 00:00 Intake Total 1840 ml Balance 1840 ml Constitutional: AAO x 3, well-developed, well-nourished Respiratory: No accessory muscle use, No respiratory distress; chest expansion is symmetric, chest is bilaterally symmetric, rhonchi (scattered with coarse breath sounds throughout) Cardiovascular: regular rate-rhythm; No JVD; S1 and S2 Gastrointestional: No tender; soft; No guarding; audible bowel sounds Extremities: no lower extremity edema bilateral Neurologic/Psychiatric: other (moves all extremities) Skin: ecchymosis (LACW ); No rash on exposed areas, No ulcerations on exposed areas Results/Procedures: Labs Laboratory Tests 01/05/23 20:12: Glucometer 175H 01/06/23 04:53: Glucometer 103 01/06/23 06:18: Sodium Level 135, Potassium Level 3.5L, Chloride Level 93L, Carbon Dioxide Level 31, Anion Gap 11, Blood Urea Nitrogen 30H, Creatinine 0.83, Estimat Glomerular Filtration Rate 75, BUN/Creatinine Ratio 36, Glucose Level 93, Calcium Level 8.5, Magnesium Level 2.2 01/06/23 11:14: Glucometer 84 01/06/23 16:22: Glucometer 126H Microbiology 01/01/23 MRSA Screen - Final, Complete MRSA not isolated 12/25/22 Blood Culture - Final, Complete Laboratory Tests 01/05/23 05:32 01/06/23 06:18 A/P: Assessment: Ac exacerbation of COPD due to pneumonia Chronic HFrEF (due to ischemic cm) Intolerance to spironolactone and CLARISA-I/ARB due to hyperkalemia CAD and ischemic cardiomyopathy and chronic, stable angina - reports h/o stent placement in 2000 - has refused stress test (exercise or pharmacologic due to previous h/o intolerance to such studies) - Echocardiogram of 04-13-22 showed LVEF 35-40%. Hypokinesis of the apical and inferolateral myocardium. Grade 1 diastolic dysfunction. PASP 30-35 mmHg GERD/PUD - EGD on 12/20/22: severe gastritis, hiatal hernia, Padilla's esophagus PAD and h/o AAA repair by Dr Hebert at [facility] - followed by vasc surg svce at [place], [place] CKD 3 Anemia, severe - management by Dr Chacon HTN HLD - had been on statin, but quit recently w/o any specific reason H/o lung cancer - treated with radiation therapy by Dr Pandya at [place], [place] Severe COPD - on continuous, supplemental oxygen H/o tobaccoism - Quit smoking in July 2022 Carotid dz - Carotid u/s of 04-02-22: Mod to heavy calcific plaque bilaterally without distinct evidence of hemodynamic significance. May need further evaluation with radiologic studies (but hasn't agreed) Anemia - management per medical services Plan: S/P port placement on 01-03-23 Management of anemia per medical services Management of pneumonia per Medical services BP not well controlled - BB Give diuretics as indicated Monitor lab closely D/c tele LÁZARO MARQUIS MD FACP [facility] CCDS Jan 06, 2023 17:43
[2023-01-07] MEDS ORDERED: LevoFLOXacin 750 MG TABLET PO SCH (11:00)
== END 2023-01-06 16:45 | disposition home health service (06) | DRG 853 ==
LOC: EDUNIT# 18:51 → ER FS 18:52 → ICU 22:50 → 4TH 12-28 13:22
PROVIDERS: ADMIT Internal Medicine; ATTEND Family Medicine
PROC: 5A0955A Assistance with Respiratory Ventilation, Greater than 96 Consecutive Hours, High Flow/Velocity Cannula (ICD-10-PCS; 2022-12-30)
PROC: 02HV33Z Insertion of Infusion Device into Superior Vena Cava, Percutaneous Approach (ICD-10-PCS; 2023-01-03)
PROC: 0JH60WZ Insertion of Totally Implantable Vascular Access Device into Chest Subcutaneous Tissue and Fascia, Open Approach (ICD-10-PCS; principal; 2023-01-03 16:53)
DX: A41.9 Sepsis, unspecified organism (principal); I50.23 Acute on chronic systolic (congestive) heart failure; J18.9 Pneumonia, unspecified organism; J96.21 Acute and chronic respiratory failure with hypoxia; J90 Pleural effusion, not elsewhere classified; I13.0 Hypertensive heart and chronic kidney disease with heart failure and stage 1 through stage 4 chronic kidney disease, or unspecified chronic kidney disease; N17.9 Acute kidney failure, unspecified; J43.9 Emphysema, unspecified; I25.119 Atherosclerotic heart disease of native coronary artery with unspecified angina pectoris; E11.22 Type 2 diabetes mellitus with diabetic chronic kidney disease; N18.30 Chronic kidney disease, stage 3 unspecified; I25.5 Ischemic cardiomyopathy; I65.23 Occlusion and stenosis of bilateral carotid arteries; F41.9 Anxiety disorder, unspecified; K21.9 Gastro-esophageal reflux disease without esophagitis; I73.9 Peripheral vascular disease, unspecified; Z79.84 Long term (current) use of oral hypoglycemic drugs; Z99.81 Dependence on supplemental oxygen; Z11.52 Encounter for screening for COVID-19; Z95.5 Presence of coronary angioplasty implant and graft; Z79.82 Long term (current) use of aspirin; Z79.52 Long term (current) use of systemic steroids; Z85.118 Personal history of other malignant neoplasm of bronchus and lung; Z85.22 Personal history of malignant neoplasm of nasal cavities, middle ear, and accessory sinuses; Z87.891 Personal history of nicotine dependence
CPT/HCPCS: 36410; 36415; 71045; 71275; 76000; 76937; 80048; 80053; 80306; 81000; 82947; 83605; 83735; 83880; 84100; 84484; 85007; 85025; 85027; 85379; 86850; 86900; 86901; 86920; 87040; 87081; 87635; 87636; 93005; 94640; 94760; 94761; 96365; 96375